=== PATIENT | female | born 1940 | race Caucasian/White ===

== ENCOUNTER 2017-11-16 10:35 | Inpatient (IN) | payer MEDICARE, BC ==
[2017-11-16] VITALS (10 sets, daily range): BP systolic 83–132; BP diastolic 37–59; PULSE 73–103; RESP 16–26; TEMP 98.9–100.4; O2SAT 89–96
[~2017-11-16] VITALS: Ht 157.5 cm; Wt 75.0 kg
[2017-11-16] MEDS ORDERED: PIPERACIL-TAZO 4.5 GM PREMIX 100 ML IV STA (10:53)
[2017-11-16] MEDS ORDERED: VANCOMYCIN INJ 1,000 MG in SODIUM CHLOR 0.9% 250 ML INJ 250 ML IV STA (10:53)
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
[2017-11-16 11:31] LABS: AUTOMATED NEUTROPHIL # 23.2 TH/MM3 (1.8-7.7); BASOPHIL # 0.1 TH/MM3 (0-0.2); BASOPHIL % 0.4 % (0.0-2.0); EOSINOPHIL % 0.1 % (0.0-4.0); HEMOGLOBIN 8.8 GM/DL (11.6-15.3); LYMPH % 2.7 % (9.0-44.0); LYMPHOCYTE # 0.7 TH/MM3 (1.0-4.8); MEAN CELL VOLUME 83.6 FL (80.0-100.0); MEAN CORPUSCULAR HEMOGLOBIN 27.4 PG (27.0-34.0); MEAN CORPUSCULAR HGB CONC 32.7 % (32.0-36.0); MEAN PLATELET VOLUME 10.5 FL (7.0-11.0); MONO % 8.3 % (0.0-8.0); MONOCYTE # 2.2 TH/MM3 (0-0.9); NEUT % 88.5 % (16.0-70.0); PLATELET COUNT 246 TH/MM3 (150-450); RED BLOOD COUNT 3.23 MIL/MM3 (4.00-5.30); RED CELL DISTRIBUTION WIDTH 19.1 % (11.6-17.2); WHITE BLOOD COUNT 26.2 TH/MM3 (4.0-11.0)
[2017-11-16 11:40] LABS: CHLORIDE 91 MEQ/L (98-107); SODIUM (NA) 129 MEQ/L (136-145)
[2017-11-16 11:44] LABS: ALBUMIN 2.9 GM/DL (3.4-5.0); BICARBONATE 27.2 MEQ/L (21.0-32.0); BLOOD UREA NITROGEN 69 MG/DL (7-18); GLUCOSE,RANDOM 79 MG/DL (74-106); MAGNESIUM 1.7 MG/DL (1.5-2.5)
[2017-11-16 11:47] LABS: ALT (GPT) 51 U/L (10-53); AST (GOT) 67 U/L (15-37); GLOMERULAR FILTRATION RATE 20 ML/MIN (>89)
--- NOTE | 2017-11-16 11:48 | RADRPT ---
EXAM DATE/TIME: 11/16/2017 11:19 [facility] COMPARISON: No previous studies available for comparison. INDICATIONS : Fever. MEDICAL HISTORY : Diabetes mellitus type II. Hypertension Afib SURGICAL HISTORY : None. ENCOUNTER: Initial ACUITY: 3 days PAIN SCORE: 0/10 LOCATION: Bilateral chest FINDINGS: No consolidation or effusion. Remote left rib fractures. Previous spinal fixation. Cardiomegaly. Tort uous aorta. No pneumothorax. CONCLUSION: 1. No acute findings. Albert Kendall MD on November 16, 2017 at 11:45 Board Certified Radiologist. This report was verified electronically.
[2017-11-16 11:49] LABS: TOTAL BILIRUBIN ADULT 0.6 MG/DL (0.2-1.0)
[2017-11-16 11:50] LABS: ALKALINE PHOSPHATASE 88 U/L (45-117)
--- NOTE | 2017-11-16 11:50 | RADRPT ---
EXAM DATE/TIME: 11/16/2017 11:19 [facility] COMPARISON: No previous studies available for comparison. INDICATIONS : Right tibia pain and swelling with drainage. MEDICAL HISTORY : Diabetes mellitus type II. Hypertension A fib SURGICAL HISTORY : None. ENCOUNTER: Initial ACUITY: 3 days PAIN SCORE: 7/10 LOCATION: Right tibia FINDINGS: No acute fracture or subluxation. Previous plate and screw fixation of the calcaneus. The focal advan marcos osteoarthritis of the medial joint. Bones are osteopenic. Vascular calcifications. CONCLUSION: 1. No acute bony abnormalities identified within the tibia. Moderate to severe osteoarthritis with me dial joint space. Fixation calcaneus with residual deformity. Albert Kendall MD on November 16, 2017 at 11:46 Board Certified Radiologist. This report was verified electronically.
[2017-11-16 11:53] LABS: LACTIC ACID SEPSIS PROTOCOL 3.6 mmol/L (0.4-2.0)
[2017-11-16] MEDS ORDERED: SODIUM CHLOR 0.9% 1000 ML INJ 1,000 ML IV ONE ×2 (12:00→12:45)
[2017-11-16 12:12] LABS: BANDS 12 % (0-6); LYMPHOCYTES 3 % (9-44); METAMYELOCYTES 1 % (0-1); MONOCYTES 4 % (0-8); NEUTROPHIL # MANUAL DIFF 24.4 TH/MM3 (1.8-7.7); POLYS (SEG NEUTROPHILS) 80 % (16-70)
[2017-11-16] MEDS ORDERED: CLINDAMYCIN INJ 900 MG in SODIUM CHLORIDE 0.9% INJ 100 ML IV STA (12:23)
[2017-11-16] MEDS ORDERED: ACETAMINOPHEN 325 MG TAB PO ONE (12:45)
[2017-11-16 12:49] LABS: INTERNATIONAL NORMALIZED RATIO 1.8 RATIO; PROTHROMBIN TIME - PATIENT 18.7 SEC (9.8-11.6)
[2017-11-16] MEDS ORDERED: SODIUM CHLOR 0.45% 1000 ML INJ 1,000 ML IV SCH (13:00)
[2017-11-16] MEDS ORDERED: PRAD75CA PO (13:08)
[2017-11-16] MEDS ORDERED: LANTUS2P (13:08)
[2017-11-16] MEDS ORDERED: AMIO0.1T PO (13:10)
[2017-11-16] MEDS ORDERED: DIGO0.12 PO (13:14)
[2017-11-16] MEDS ORDERED: CHOL10008 PO (13:14)
[2017-11-16] MEDS ORDERED: DOCU50CA5 (13:14)
[2017-11-16] MEDS ORDERED: ATOR10TA15 PO (13:14)
[2017-11-16] MEDS ORDERED: [UNRECOGNIZED DRUG - SUPPLY] (13:14)
[2017-11-16] MEDS ORDERED: LEVO25TA4 PO (13:14)
[2017-11-16] MEDS ORDERED: METF1000 PO (13:14)
[2017-11-16] MEDS ORDERED: FURO20TA PO (13:14)
[2017-11-16] MEDS ORDERED: CARV3.12 PO (13:14)
[2017-11-16] MEDS ORDERED: MORPHINE SULFATE 2 MG/ML INJ IV PUSH PRN (14:00)
--- NOTE | 2017-11-16 14:01 | HHI.HP ---
[facility] Unknown Admission Diagnosis severe sepsis, cellulitis Diagnoses: Chief Complaint: Right leg pain Travel History International Travel<30 Days: No Contact w/Intl Traveler <30 Da: No Traveled to Known Affected Are: No History of Present Illness 77-year-old white female being in for sepsis secondary to cellulitis and possible necrotizing fasciitis. Patient was in her usual state of health until about a week ago when she says she began noticing some increased swelling of her right lower extremity more than usual. This was associated with formation of some blistering and weeping. She started having pain with weightbearing yesterday and then this morning that's when she noticed a new onset redness extending from her ankle up to her knee prompting her to come to the emergency department. She does report feeling some nausea but no vomiting. She also thought she felt a fever yesterday. Does report a little cough but no shortness of breath or chest pain. She did recently go on vacation but does not think she injured herself or suffered any puncture site. Review of Systems Except as stated in HPI: all other systems reviewed are Neg Past Family Social History Past Medical History Hypertension, A. fib, diabetes Past Surgical History left tib fib repair; back surgery Allergies: Coded Allergies: No Known Allergies (Unverified , 11/16/17) Family History HTN Physical Exam Vital Signs Vital Signs Date Time Temp Pulse Resp B/P (MAP) Pulse Ox O2 Delivery O2 Flow Rate FiO2 11/16/17 11:44 95 Room Air 11/16/17 10:42 100.0 103 16 111/55 (73) 96 Physical Exam VS: afebrile GENERAL: Elderly white female, well-nourished, lying in bed, in distress secondary to pain SKIN: Warm and dry. EYES: . No scleral icterus. No injection or drainage. ENT: No nasal bleeding or discharge. Mucous membranes pink and moist. CARDIOVASCULAR: Regular rate and rhythm. no murmurs RESPIRATORY: No accessory muscle use. Clear to auscultation. Breath sounds equal bilaterally. GASTROINTESTINAL: Abdomen soft, non-tender, nondistended. Extremities: No clubbing, cyanosis. Bilateral [employer] with edema, right greater than left, only right lower extremity is significant with erythema and intermittent scarce blistering as well as some mild weeping. Has a ulcerated appearing lesion on the dorsum of the right foot as well. Has fine erythema with a fine margin that extends just distal to the knee but also has sporadic very mild scattered erythema on the thigh as well. Has more tenderness to palpation on her calf aspect of her lower extremity then on her anterior or lateral aspects. MUSCULOSKELETAL: grossly intact ROM with 5/5 strength in upper and lower extremities proximally; adequate muscle bulk and tone for age and habitus NEUROLOGICAL: Awake and alert. No obvious cranial nerve deficits. No facial droop nor slurred speech noted. PSYCHIATRIC: Appropriate mood and affect; insight and judgment normal. Laboratory Laboratory Tests Test 11/16/17 11:10 White Blood Count 26.2 Red Blood Count 3.23 Hemoglobin 8.8 Hematocrit 27.0 Mean Corpuscular Volume 83.6 Mean Corpuscular Hemoglobin 27.4 Mean Corpuscular Hemoglobin Concent 32.7 Red Cell Distribution Width 19.1 Platelet Count 246 Mean Platelet Volume 10.5 Neutrophils (%) (Auto) 88.5 Lymphocytes (%) (Auto) 2.7 Monocytes (%) (Auto) 8.3 Eosinophils (%) (Auto) 0.1 Basophils (%) (Auto) 0.4 Neutrophils # (Auto) 23.2 Lymphocytes # (Auto) 0.7 Monocytes # (Auto) 2.2 Eosinophils # (Auto) 0.0 Basophils # (Auto) 0.1 CBC Comment AUTO DIFF Differential Total Cells Counted 100 Neutrophils % (Manual) 80 Band Neutrophils % 12 Lymphocytes % 3 Monocytes % 4 Neutrophils # (Manual) 24.4 Metamyelocytes 1 Differential Comment FINAL DIFF MANUAL Platelet Estimate NORMAL Platelet Morphology Comment NORMAL Prothrombin Time 18.7 Prothromb Time International Ratio 1.8 Activated Partial Thromboplast Time 58.0 Blood Urea Nitrogen 69 Creatinine 2.40 Random Glucose 79 Total Protein 8.0 Albumin 2.9 Calcium Level 9.0 Magnesium Level 1.7 Alkaline Phosphatase 88 Aspartate Amino Transf (AST/SGOT) 67 Alanine Aminotransferase (ALT/SGPT) 51 Total Bilirubin 0.6 Sodium Level 129 Potassium Level 3.5 Chloride Level 91 Carbon Dioxide Level 27.2 Anion Gap 11 Estimat Glomerular Filtration Rate 20 Lactic Acid Level 3.6 B-Type Natriuretic Peptide 89 Date/Time Source Procedure Growth Status 11/16/17 11:15 Blood Peripheral Aerobic Blood Culture Pending Received 11/16/17 11:15 Blood Peripheral Anaerobic Blood Culture Pending Received 11/16/17 11:10 Wound Leg Gram Stain Pending Received 11/16/17 11:10 Wound Leg Wound Culture Pending Received Result Diagram: 11/16/17 1110 11/16/17 1110 Caprini VTE Risk Assessment Caprini VTE Risk Assessment: Mod/High Risk (score >= 2) Caprini Risk Assessment Model Point Value = 1 Point Value = 2 Point Value = 3 Point Value = 5 Age 41-60 Minor surgery BMI > 25 kg/m2 Swollen legs Varicose veins or History of unexplained or recurrent spontaneous Oral contraceptives or hormone replacement Sepsis (< 1 month) Serious lung disease, including pneumonia (< 1 month) Abnormal pulmonary function Acute myocardial infarction Congestive heart failure (< 1 month) History of inflammatory bowel disease Medical patient at bed rest Age 61-74 Arthroscopic surgery Major open surgery (> 45 min) Laparoscopic surgery (> 45 min) Malignancy Confined to bed (> 72 hours) Immobilizing plaster cast Central venous access Age >= 75 History of VTE Family history of VTE Factor V Leiden Prothrombin [id number] Lupus anticoagulant Anticardiolipin antibodies Elevated serum homocysteine Heparin-induced thrombocytopenia Other congenital or acquired thrombophilia Stroke (< 1 month) Elective arthroplasty Hip, pelvis, or leg fracture Acute spinal cord injury (< 1 month) Prophylaxis Regimen Total Risk Factor Score Risk Level Prophylaxis Regimen 0-1 Low Early ambulation 2 Moderate Order ONE of the following: *Sequential Compression Device (SCD) *Heparin 5000 units SQ BID 3-4 Higher Order ONE of the following medications: *Heparin 5000 units SQ TID *Enoxaparin/Lovenox 40 mg SQ daily (WT < 150 kg, CrCl > 30 mL/min) *Enoxaparin/Lovenox 30 mg SQ daily (WT < 150 kg, CrCl > 10-29 mL/min) *Enoxaparin/Lovenox 30 mg SQ BID (WT < 150 kg, CrCl > 30 mL/min) AND/OR *Sequential Compression Device (SCD) 5 or more Highest Order ONE of the following medications: *Heparin 5000 units SQ TID (Preferred with Epidurals) *Enoxaparin/Lovenox 40 mg SQ daily (WT < 150 kg, CrCl > 30 mL/min) *Enoxaparin/Lovenox 30 mg SQ daily (WT < 150 kg, CrCl > 10-29 mL/min) *Enoxaparin/Lovenox 30 mg SQ BID (WT < 150 kg, CrCl > 30 mL/min) AND *Sequential Compression Device (SCD) Assessment and Plan Assessment and Plan 77-year-old white female being admitted for sepsis secondary to cellulitis and possible necrotizing fasciitis Sepsis - significant leukocytosis; Blood cultures have been drawn, chest x-ray is negative. Obtaining stat CT of the thigh, right lower extremity and foot to evaluate for possible necrotizing fasciitis. General surgery has been notified and has been consulted, transferred to the [facility] hospital per their recommendations. Patient has been made nothing by mouth. IV antibiotics have been started. Lactic acid is elevated. - IVFs. 1.8 INR this is likely from the Pradaxa but is irreversible with vitamin K so there is no further medication reversal that we can order for this in case surgery is warranted. Holding home pradaxa Afib/CHF/HTN - Holding home Pradaxa and digoxin, will only resume home Coreg, amiodarone. - Continue home Lipitor LEWIS - Strict holding home metformin and digoxin, continue home low-dose Lasix 20 mg twice a day as we are aggressively hydrating the patient and do not want to cause fluid overload Hypothyroidism - home Synthroid Anemia - unclear baseline DM - LDSS SCD on left foot; anticipate possible surgical procedure. Addendum: Was notified by Dr. Arteaga that the patient did symptomatically and transiently become hypoglycemic into the 40s and hypotension into the 80s just coming back from her CT scan ; she was given dextrose with improvement in both her sugars and her blood pressure. She also notified me again later on that the patient was becoming low normal-tensive as she was being transferred to the [facility] hospital and agree that she will consult the tetryl wringer operator to take over care. Physician Certification 2 Midnight Certification Type: Admission for Inpatient Services Order for Inpatient Services The services are ordered in accordance with Medicare regulations or non- Medicare payer requirements, as applicable. In the case of services not specified as inpatient-only, they are appropriately provided as inpatient services in accordance with the 2-midnight benchmark. Estimated LOS (days): 3 3 days is the estimated time the patient will need to remain in the hospital, assuming treatment plan goals are met and no additional complications. Post-Hospital Plan: Home Ryan Sosa MD Nov 16, 2017 14:01
[2017-11-16] MEDS ORDERED: GLUCAGON 1 MG/ML VIAL OTHER PRN (14:15)
[2017-11-16] MEDS ORDERED: DEXTROSE 50% IN WATER 50 ML VIAL(D50) IV PUSH PRN (14:15)
[2017-11-16 14:18] LABS: BILIRUBIN, URINE NEG (NEG); BLOOD, URINE TRACE (NEG); GLUCOSE,URINE NEG (NEG); KETONE, URINE NEG (NEG); NITRITE,URINE POS (NEG); URINE LEUKOCYTE ESTERASE SMALL (NEG)
[2017-11-16 14:25] LABS: BACTERIA, URINE MANY /hpf; RBC, URINE 0-3 /hpf (0-3); SQUAMOUS EPITHELIAL CELL URINE > 8 /hpf (0-5); URINE COLOR YELLOW (YELLW/STRAW)
[2017-11-16] MEDS ORDERED: Vancomycin Consult Pharmacy 1 EA OTHER SCH (14:30)
[2017-11-16] MEDS ORDERED: DEXTROSE 50% IN WATER 50 ML SYRINGE IV PUSH ONE (14:45)
[2017-11-16] MEDS ORDERED: SODIUM CHLORID 0.9% 500 ML INJ 500 ML IV ONE ×2 (15:00→16:00)
[2017-11-16] MEDS: PIPERACIL-TAZO 3.375 GM PREMIX 50 ML IV SCH ×2 (15:00→20:56)
--- NOTE | 2017-11-16 15:15 | RADRPT ---
EXAM DATE/TIME: 11/16/2017 14:12 [facility] COMPARISON: No previous studies available for comparison. INDICATIONS : Necrotizing fascitis. RADIATION DOSE: 17.32 CTDIvol (mGy) ; Combined studies MEDICAL HISTORY : Cardiovascular disease. Hypertension. Diabetes. SURGICAL HISTORY : Coronary artery stent. Appendectomy. Right foot surgery. Left femur surgery. ENCOUNTER: Initial ACUITY: 3 days PAIN SCALE: 8/10 LOCATION: Right femur TECHNIQUE: Volumetric scanning of the femur was performed. Using automated exposure control and adjustment of t he mA and/or kV according to patient size, radiation dose was kept as low as reasonably achievable to obtain optimal diagnostic quality images. DICOM format image data is available electronically for review and comparison. FINDINGS: There are extensive inflammatory or edematous changes in the soft tissues of the lower lateral right thigh and also extending posteriorly and to a lesser extent medially. These changes are predominantly outside the fascial layer. There are no discrete or drainable fluid collections to suggest abscess. No loculated air collections are present. There is extensive atherosclerotic vascular disease. CONCLUSION: 1. Extensive edema and inflammatory changes with skin thickening in the thigh especially laterally an d posteriorly but also extending medially. No definite loculated abscess. Musculature grossly intact. No abnormal loculated air. No bony destructive changes. Moderate to severe osteoarthritis at [facility] [place] [facility]. Albert Kendall MD on November 16, 2017 at 15:05 Board Certified Radiologist. This report was verified electronically.
[2017-11-16] MEDS ORDERED: DEXTROSE 50% IN WATER 50 ML VIAL(D50) IV PUSH ONE (16:00)
--- NOTE | 2017-11-16 16:04 | RADRPT ---
EXAM DATE/TIME: 11/16/2017 14:12 [facility] COMPARISON: No previous studies available for comparison. INDICATIONS : Necrotizing fascitis. RADIATION DOSE: 17.32 CTDIvol (mGy) ; Combined studies MEDICAL HISTORY : Cardiovascular disease. Hypertension. Diabetes. SURGICAL HISTORY : Appendectomy. Coronary artery stent. Right foot surgery. Left femur surgery. ENCOUNTER: Initial ACUITY: 3 days PAIN SCALE: 8/10 LOCATION: Right lower leg TECHNIQUE: Volumetric scanning of the tibia and fibula was performed. Using automated exposure control and adju stment of the mA and/or kV according to patient size, radiation dose was kept as low as reasonably ac hievable to obtain optimal diagnostic quality images. DICOM format image data is available [facility] for review and comparison. FINDINGS: There is extensive subcutaneous edema in the lower thigh and leg predominately outside the fascial la woodrow. No loculated fluid to suggest abscess. No abnormal air collections. Extensive atherosclerotic va scular disease. No acute bony abnormality. Previous fixation at the calcaneus and talus. CONCLUSION: 1. Extensive subcutaneous edema or inflammatory change predominantly outside the fascial layer. No ab normal air collections to suggest a necrotizing process. No drainable abscess. Albert Kendall MD on November 16, 2017 at 15:58 Board Certified Radiologist. This report was verified electronically.
--- NOTE | 2017-11-16 16:06 | RADRPT ---
EXAM DATE/TIME: 11/16/2017 14:12 [facility] COMPARISON: No previous studies available for comparison. INDICATIONS : Necrotizing fascitis. RADIATION DOSE: 17.32 CTDIvol (mGy) ; Combined studies MEDICAL HISTORY : Cardiovascular disease. Hypertension. Diabetes. SURGICAL HISTORY : Coronary artery stent. Appendectomy. Right foot surgery. Left femur surgery. ENCOUNTER: Initial ACUITY: 3 days PAIN SCALE: 8/10 LOCATION: Right foot TECHNIQUE: Volumetric scanning of the foot was performed. Using automated exposure control and adjustment of th e mA and/or kV according to patient size, radiation dose was kept as low as reasonably achievable to obtain optimal diagnostic quality images. DICOM format image data is available electronically for re view and comparison. FINDINGS: His previous fixation of the calcaneus and talus extending into the cuboid. Residual deformity with p es planus. Osteopenia. Extensive subcutaneous edema is present. No loculated fluid to suggest abscess . No bony destructive changes. No abnormal air collections. CONCLUSION: 1. Subcutaneous soft tissue swelling and edema. No abnormal air collections. No bony destructive zarco ges. Previous surgery as above. Albert Kendall MD on November 16, 2017 at 16:02 Board Certified Radiologist. This report was verified electronically.
--- NOTE | 2017-11-16 16:11 | RADRPT ---
EXAM DATE/TIME: 11/16/2017 15:26 [facility] COMPARISON: CHEST SINGLE AP, November 16, 2017, 11:19. INDICATIONS : Sudden onset of shortness of breath. Oxygen saturations decrease. MEDICAL HISTORY : Diabetes mellitus type II. Hypertension. Afib. SURGICAL HISTORY : None. ENCOUNTER: Subsequent ACUITY: 1 day PAIN SCORE: 0/10 LOCATION: Bilateral chest FINDINGS: Diffuse interstitial prominence progressed since prior exam. Cardiomediastinal contours are stable. T horacic spine fixation hardware is stable. Old bilateral rib fractures. Bony thorax is intact. CONCLUSION: 1. Worsening diffuse interstitial prominence consistent with positive fluid balance versus interstiti al pneumonia in the appropriate clinical setting. Cristiano Gaviria MD on November 16, 2017 at 16:07 Board Certified Radiologist. This report was verified electronically.
--- NOTE | 2017-11-16 16:16 | PD.CONS ---
cc: Albert Bains MD [facility] Service CONSULTATION NOTE FOR SURGICAL ATTENDING, DR. ALBERT BAINS General Surgery Consult Requested By Dr. Gee Reason for Consult RIGHT leg cellulitis vs abscess and possible necrotizing fasciitis Primary Care Physician Unknown History of Present Illness This is a 77-year-old female on vacation from [facility] who presents to the Emergency Room with right leg pain. She has a past medical history of diabetes mellitus and takes insulin, anemia. atrial fibrillation on Pradaxa and hypertension. She reports that she noticed some redness to her right leg about 2 weeks ago. Over the past 2 weeks, she has noted some increase in swelling to this extremity. She reports she did not have pain in her leg until today. She is unable to bear weight on this extremity. She denies any trauma to the area including bug bites or cuts. She denies any falls. She has never had anything like this before. She reports that her sugars have been well controlled over the last few months. This morning she awoke, and had some coffee and her insulin. She took her medications like normal this morning which does include Pradaxa. When she noticed that she could not bear weight on the leg and prompted her to come to the Emergency Department. Her white blood cell count is elevated at 26.2. Her hemoglobin is low at 8.8 and she reports she is chronically anemic but unsure of her baseline. Her PT on admission is 18.7; INR 1.8; PTT 58.0. She is hyponatremic at 129. Her BUN/creatinine are elevated at 69 and 2.40 respectively. She is unsure of her baseline kidney function. She does have an elevated lactic acid 3.6. A CT of her right femur and tibia/fibula was ordered. When she came back to her room in the Emergency Department from [place], she was found to have altered mental status, hypotension and hypoxia; her glucose was 40 on bedside fingerstick. She was given 1 amp of glucose and a 1 L normal saline bolus with improvement in her neurological status, oxygen saturations and blood pressure as well as her glucose. A General Surgery consultation has been requested. Review of Systems Constitutional: DENIES: Fatigue, Weight loss, Change in appetite Endocrine: DENIES: Polydipsia, Polyuria, Polyphagia Eyes: DENIES: Diplopia Ears, nose, mouth, throat: DENIES: Hearing loss Respiratory: DENIES: Cough Cardiovascular: DENIES: Chest pain, Palpitations Gastrointestinal: DENIES: Abdominal pain, Nausea, Vomiting Genitourinary: DENIES: Urinary frequency Musculoskeletal: DENIES: Joint pain Integumentary: COMPLAINS OF: Abnormal pigmentation (RIGHT LEG ---began two weeks ago) Hematologic/lymphatic: DENIES: Bruising Immunologic/allergic: DENIES: Eczema Neurologic: DENIES: Headache, Seizures Psychiatric: DENIES: Mood changes, Depression, Hallucinations Past Family Social History Past Medical History Hypertension Diabetes mellitus--- insulin-dependent next line atrial fibrillation on Pradaxa Anemia Past Surgical History Appendectomy as a young adult Reported Medications Pradaxa Amiodarone Digoxin Atorvastain Carvedilol Furosemide Colace Metformin Lantus Levothyroxine Vitamin D Allergies: Coded Allergies: No Known Allergies (Unverified , 11/16/17) Active Ordered Medications Current Medications Medications (Trade) Dose Ordered Sig/Jay Route Start Time Stop Time Status Last Admin Sodium Chloride 1,000 ml @ 75 mls/hr [id number] IV 11/16/17 13:00 (Morphine Inj) 2 mg Q3H PRN IV PUSH 11/16/17 14:00 (D50w (Vial) Inj) 50 ml UNSCH PRN IV PUSH 11/16/17 14:15 (Glucagon Inj) 1 mg UNSCH PRN OTHER 11/16/17 14:15 (NovoLIN R SUPPLEMENTAL SCALE) 1 ACHS SLIDING SCALE SQ 11/16/17 17:00 Pharmacy Profile Note 0 ml @ 0 mls/hr UNSCH OTHER 11/16/17 14:30 Piperacillin Sod/ Tazobactam Sod 50 ml @ 100 mls/hr Q6H IV 11/16/17 15:00 Sodium Chloride 500 ml @ 500 mls/hr BOLUS ONCE IV 11/16/17 15:00 11/16/17 15:59 11/16/17 15:34 Family History Noncontributory Social History Denies tobacco use Denies EtOH use Denies illicit drug use From [place] Her in [place] on vacation. Physical Exam Vital Signs Vital Signs Date Time Temp Pulse Resp B/P (MAP) Pulse Ox O2 Delivery O2 Flow Rate FiO2 11/16/17 15:30 97 16 108/56 (73) 96 Nasal Cannula 2.00 11/16/17 15:19 97 16 90/37 (54) 95 Nasal Cannula 2.00 11/16/17 14:54 93 Nasal Cannula 2.00 11/16/17 14:54 98.9 94 20 83/39 (54) 95 Nasal Cannula 2.00 11/16/17 14:50 89 Room Air 11/16/17 14:06 73 20 118/54 (75) 95 Room Air 11/16/17 11:44 95 Room Air 11/16/17 10:42 100.0 103 16 111/55 (73) 96 Physical Exam GENERAL: 77 year old female resting in bed. SKIN: Focused exam on RIGHT leg: extreme redness to RIGHT leg distal to knee. Mild weeping to area. + edema/shiny. Calf is tight. Some pus drainage to a small opening on dorsalis on RIGHT foot--minimal. Pain with palpation distal to knee. Two small closed blisters on posterior aspect of hurtado. Markings made my RN noted. HEAD: Atraumatic. Normocephalic. EYES: Pupils equal and round. No scleral icterus. No injection or drainage. ENT: No nasal bleeding or discharge. Mucous membranes pink and moist. NECK: Trachea midline. CARDIOVASCULAR: Regular rate and rhythm. RESPIRATORY: No accessory muscle use. Clear to auscultation. Breath sounds equal bilaterally. GASTROINTESTINAL: Abdomen soft, non-tender, nondistended. Obese. MUSCULOSKELETAL: Please see above for RIGHT leg assessment. NEUROLOGICAL: Awake and alert. No obvious cranial nerve deficits. Motor grossly within normal limits. Five out of 5 muscle strength in the arms and legs. Normal speech. PSYCHIATRIC: Appropriate mood and affect; insight and judgment normal. Laboratory Laboratory Tests Test 11/16/17 11:10 11/16/17 13:45 White Blood Count 26.2 Red Blood Count 3.23 Hemoglobin 8.8 Hematocrit 27.0 Mean Corpuscular Volume 83.6 Mean Corpuscular Hemoglobin 27.4 Mean Corpuscular Hemoglobin Concent 32.7 Red Cell Distribution Width 19.1 Platelet Count 246 Mean Platelet Volume 10.5 Neutrophils (%) (Auto) 88.5 Lymphocytes (%) (Auto) 2.7 Monocytes (%) (Auto) 8.3 Eosinophils (%) (Auto) 0.1 Basophils (%) (Auto) 0.4 Neutrophils # (Auto) 23.2 Lymphocytes # (Auto) 0.7 Monocytes # (Auto) 2.2 Eosinophils # (Auto) 0.0 Basophils # (Auto) 0.1 CBC Comment AUTO DIFF Differential Total Cells Counted 100 Neutrophils % (Manual) 80 Band Neutrophils % 12 Lymphocytes % 3 Monocytes % 4 Neutrophils # (Manual) 24.4 Metamyelocytes 1 Differential Comment FINAL DIFF MANUAL Platelet Estimate NORMAL Platelet Morphology Comment NORMAL Prothrombin Time 18.7 Prothromb Time International Ratio 1.8 Activated Partial Thromboplast Time 58.0 Blood Urea Nitrogen 69 Creatinine 2.40 Random Glucose 79 Total Protein 8.0 Albumin 2.9 Calcium Level 9.0 Magnesium Level 1.7 Alkaline Phosphatase 88 Aspartate Amino Transf (AST/SGOT) 67 Alanine Aminotransferase (ALT/SGPT) 51 Total Bilirubin 0.6 Sodium Level 129 Potassium Level 3.5 Chloride Level 91 Carbon Dioxide Level 27.2 Anion Gap 11 Estimat Glomerular Filtration Rate 20 Lactic Acid Level 3.6 3.7 B-Type Natriuretic Peptide 89 Urine Collection Type CLEAN CATCH Urine Color YELLOW Urine Turbidity SLIGHT Urine pH 5.0 Urine Specific [place] 1.014 Urine Protein TRACE Urine Glucose (UA) NEG Urine Ketones NEG Urine Occult Blood TRACE Urine Nitrite POS Urine Bilirubin NEG Urine Leukocyte Esterase SMALL Urine RBC 0-3 Urine WBC 9-14 Urine Squamous Epithelial Cells > 8 Urine Bacteria MANY Microscopic Urinalysis Comment CULTURE INDICATED Urine Collection Time 13:45 Date/Time Source Procedure Growth Status 11/16/17 11:15 Blood Peripheral Aerobic Blood Culture Pending Received 11/16/17 11:15 Blood Peripheral Anaerobic Blood Culture Pending Received 11/16/17 13:45 Urine Clean Catch Urine Culture Pending Received 11/16/17 11:10 Wound Leg Gram Stain Pending Received 11/16/17 11:10 Wound Leg Wound Culture Pending Received Result Diagram: 11/16/17 1110 11/16/17 1110 Imaging Last 48 hours Impressions Lower Extremity CT 11/16/17 1344 Signed Impressions: Service Date/Time: Thursday, November 16, 2017 14:12 - CONCLUSION: 1. Extensive edema and inflammatory changes with skin thickening in the thigh especially laterally and posteriorly but also extending medially. No definite loculated abscess. Musculature grossly intact. No abnormal loculated air. No bony destructive changes. Moderate to severe osteoarthritis at the knee. Albert Kendall MD Chest X-Ray 11/16/17 1053 Signed Impressions: Service Date/Time: Thursday, November 16, 2017 11:19 - CONCLUSION: 1. No acute findings. Albert Kendall MD Tibia/Fibula X-Ray 11/16/17 0000 Signed Impressions: Service Date/Time: Thursday, November 16, 2017 11:19 - CONCLUSION: 1. No acute bony abnormalities identified within the tibia. Moderate to severe osteoarthritis with medial joint space. Fixation calcaneus with residual deformity. Albert Kendall MD Assessment and Plan Assessment and Plan 77 year old female with multiple medical problems including atrial fibrillation on Pradaxa (last took today) with RIGHT leg cellulites vs abscess -Plan for transfer to [facility] for possible OR intervention -NPO -Continue IVF -Continue Vancomycin/Zosyn -Follow cultures including blood cultures and urine cultures -Continue to follow labs -Will follow up results of CT scans -Thank you for this consult; We will continue to follow Discussed Condition With Dr. Nara Chacko Attending Statement CONSULTATION NOTE FOR SURGICAL ATTENDING, DR. ALBERT BAINS Patient seen at the bedside in the intensive care unit Reviewed the CT scan of the lower extremity at bedside Nursing at bedside Erythema that had been previously marked earlier today appears to be resolved. She still has some edema on the lower extremity no evidence of air she does have some small blisters. She has mild discomfort in the right lower extremity Overall appears that a few doses of antibiotics have had dramatic effect on the cellulitis that is present. I agree with above assessment and plan. The exam, history, and the medical decision-making described in the above note were completed with the assistance of the mid-level provider. I reviewed and agree with the findings presented. I attest that I had a [id number] encounter with the patient on the same day, and personally performed and documented my assessment and findings in the medical record. The following services were provided during this hospital visit: Chart data review, vital sign assessments/reviewing monitor data Review of consultations notes if present. Medication orders/review and/or management Ordering and/or reviewing lab tests Ordering and/or interpreting/reviewing x-rays and/or diagnostic studies Care of the patient and discussion of the patient with the care team Documentation time To help prompt me to consider important information that might be impacting today's encounter and assessment, information from prior notes written by myself or my colleagues may have been "brought forward/copy and pasted" into today's note. Pia Richards Nov 16, 2017 16:16 Albert Bains MD Nov 16, 2017 19:29
[2017-11-16] MEDS ORDERED: DEXT 5%-NACL 0.45% 1000 ML INJ 1,000 ML IV SCH (16:30)
[2017-11-16] MEDS: INSULIN NovoLIN REGULAR SUPPLEMENTAL SCALE SQ SCH ×2 (17:00→20:56)
--- NOTE | 2017-11-16 19:54 | PD.CONS ---
[facility] Service Critical Care Medicine Consult Requested By Primary Care Physician Unknown History of Present Illness 77-year-old white female with a history of atrial fibrillation, diabetes, and hypertension has been admitted for sepsis secondary to cellulitis and possible necrotizing fasciitis. About a week ago she began noticing some increased swelling of her right lower extremity more than usual. This was associated with formation of some blistering and weeping. She started having pain with weightbearing yesterday and then this morning that's she noticed a new onset redness extending from her ankle up to her knee prompting her to come to the emergency department. She does report feeling some nausea but no vomiting. She also admits some subjective fevers yesterday. Review of Systems Constitutional: COMPLAINS OF: Fatigue, Fever, Chills, DENIES: Diaphoretic episodes, Weight gain, Weight loss, Dizziness, Change in appetite, Night Sweats Endocrine: DENIES: Abnorml menstrual pattern, Heat/cold intolerance, Polydipsia , Polyuria, Polyphagia Eyes: DENIES: Blurred vision, Diplopia, Eye inflammation, Eye pain, Vision loss , Photosensitivity, Double Vision Ears, nose, mouth, throat: DENIES: Tinnitus, Hearing loss, Vertigo, Nasal discharge, Oral lesions, Throat pain, Hoarseness, Ear Pain, Running Nose, Epistaxis, Sinus Pain, Toothache, Odynophagia Respiratory: DENIES: Apneas, Cough, Snoring, Wheezing, Hemoptysis, Sputum production, Shortness of breath Cardiovascular: DENIES: Chest pain, Palpitations, Syncope, Dyspnea on Exertion , PND, Lower Extremity Edema, Orthopnea, Claudication Gastrointestinal: DENIES: Abdominal pain, Black stools, Bloody stools, Constipation, Diarrhea, Nausea, Vomiting, Difficulty Swallowing, Anorexia Musculoskeletal: COMPLAINS OF: Joint pain, Muscle aches, Stiffness, Joint Swelling, DENIES: Back pain, Neck pain Integumentary: DENIES: Abnormal pigmentation, Pruritus, Rash, Nail changes, Breast masses, Breast skin changes, Nipple discharge Hematologic/lymphatic: DENIES: Bruising, Lymphadenopathy Immunologic/allergic: DENIES: Eczema, Urticaria Neurologic: COMPLAINS OF: Abnormal gait, DENIES: Headache, Localized weakness, Paresthesias, Seizures, Speech Problems, Tremor, Poor Balance Psychiatric: DENIES: Anxiety, Confusion, Mood changes, Depression, Hallucinations, Agitation, Suicidal Ideation, Homicidal Ideation, Delusions Past Family Social History Allergies: Coded Allergies: No Known Allergies (Unverified , 11/16/17) Past Medical History Hypertension Diabetes mellitus Atrial fibrillation Hypothyroidism Past Surgical History Left tib-fib fracture repair Back surgery Reported Medications Reported Meds & Active Scripts Active Reported [Freestyle Strips] Metformin (Metformin HCl) 1,000 Mg Tab Unknown Dose PO BIDPC Vitamin D3 (Cholecalciferol) 1,000 Unit Cap Unknown Dose PO DAILY Levothyroxine (Levothyroxine Sodium) 25 Mcg Tab Unknown Dose PO DAILY Digoxin 0.125 Mg Tab Unknown Dose PO DAILY Stool Softener (Docusate Sodium) 50 Mg Capsule Unknown Dose Atorvastatin (Atorvastatin Calcium) 10 Mg Tab Unknown Dose PO HS Carvedilol 3.125 Mg Tab Unknown Dose PO BID Furosemide 20 Mg Tab Unknown Dose PO BID Amiodarone (Amiodarone HCl) 100 Mg Tab Unknown Dose PO BID Pradaxa (Dabigatran) 75 Mg Cap Unknown Dose PO BID Lantus Inj (Insulin Glargine) 100 Unit/Ml Inj 32 Units DAILY Active Ordered Medications Current Medications Medications (Trade) Dose Ordered Sig/Jay Route PRN Reason Start Time Stop Time Status Last Admin Dose Admin Morphine Sulfate (Morphine Inj) 2 mg Q3H PRN IV PUSH pain 11/16/17 14:00 Dextrose (D50w (Vial) Inj) 50 ml UNSCH PRN IV PUSH HYPOGLYCEMIA-SEE COMMENTS 11/16/17 14:15 Glucagon (Glucagon Inj) 1 mg UNSCH PRN OTHER HYPOGLYCEMIA-SEE COMMENTS 11/16/17 14:15 Insulin Human Regular (NovoLIN R SUPPLEMENTAL SCALE) 1 ACHS SLIDING SCALE SQ 11/16/17 17:00 Pharmacy Profile Note 0 ml @ 0 mls/hr UNSCH OTHER 11/16/17 14:30 Piperacillin Sod/ Tazobactam Sod 50 ml @ 100 mls/hr Q6H IV 11/16/17 15:00 11/16/17 20:56 Dextrose/Sodium Chloride 1,000 ml @ 100 mls/hr Q10H IV 11/16/17 16:30 11/16/17 19:23 Amiodarone HCl (Cordarone) 100 mg BID PO 11/16/17 21:00 11/16/17 20:55 Atorvastatin Calcium (Lipitor) 10 mg HS PO 11/16/17 21:00 11/16/17 20:55 Carvedilol (Coreg) 3.125 mg BID PO 11/16/17 21:00 11/16/17 20:55 Cholecalciferol (Vitamin D3) 1,000 units DAILY PO 11/17/17 09:00 Furosemide (Lasix) 20 mg DAILY@0900,1800 PO 11/16/17 18:00 11/16/17 20:55 Levothyroxine Sodium (Synthroid) 25 mcg DAILY@0600 PO 11/17/17 06:00 Family History Significant for hypertension Social History No alcohol, tobacco, or illicit drug abuse Physical Exam Vital Signs Vital Signs Date Time Temp Pulse Resp B/P (MAP) Pulse Ox O2 Delivery O2 Flow Rate FiO2 11/16/17 16:16 11/16/17 16:15 86 16 102/44 (63) 95 Nasal Cannula 2.00 11/16/17 15:30 97 16 108/56 (73) 96 Nasal Cannula 2.00 11/16/17 15:19 97 16 90/37 (54) 95 Nasal Cannula 2.00 11/16/17 14:54 93 Nasal Cannula 2.00 11/16/17 14:54 98.9 94 20 83/39 (54) 95 Nasal Cannula 2.00 11/16/17 14:50 89 Room Air 11/16/17 14:06 73 20 118/54 (75) 95 Room Air 11/16/17 11:44 95 Room Air 11/16/17 10:42 100.0 103 16 111/55 (73) 96 Physical Exam GENERAL: Well-nourished, well-developed patient. SKIN: Warm and dry. HEAD: Normocephalic. EYES: No scleral icterus. No injection or drainage. NECK: Supple, trachea midline. No JVD or lymphadenopathy. CARDIOVASCULAR: Regular rate and rhythm without murmurs, gallops, or rubs. RESPIRATORY: Breath sounds equal bilaterally. No accessory muscle use. GASTROINTESTINAL: Abdomen soft, non-tender, nondistended. MUSCULOSKELETAL: No cyanosis,RIGHT leg: redness to right leg distal to knee. Mild weeping to area. + edema/shiny. Calf is tight. Some pus drainage to a small opening on dorsalis on right foot. Pain with palpation distal to knee. Two small closed blisters on posterior aspect of hurtado. BACK: Nontender without obvious deformity. NEURO EXAM: GCS: 15 Mental Status: The patient is alert and oriented to person, place, and time with normal speech. Laboratory Laboratory Tests Test 11/16/17 11:10 11/16/17 13:45 White Blood Count 26.2 Red Blood Count 3.23 Hemoglobin 8.8 Hematocrit 27.0 Mean Corpuscular Volume 83.6 Mean Corpuscular Hemoglobin 27.4 Mean Corpuscular Hemoglobin Concent 32.7 Red Cell Distribution Width 19.1 Platelet Count 246 Mean Platelet Volume 10.5 Neutrophils (%) (Auto) 88.5 Lymphocytes (%) (Auto) 2.7 Monocytes (%) (Auto) 8.3 Eosinophils (%) (Auto) 0.1 Basophils (%) (Auto) 0.4 Neutrophils # (Auto) 23.2 Lymphocytes # (Auto) 0.7 Monocytes # (Auto) 2.2 Eosinophils # (Auto) 0.0 Basophils # (Auto) 0.1 CBC Comment AUTO DIFF Differential Total Cells Counted 100 Neutrophils % (Manual) 80 Band Neutrophils % 12 Lymphocytes % 3 Monocytes % 4 Neutrophils # (Manual) 24.4 Metamyelocytes 1 Differential Comment FINAL DIFF MANUAL Platelet Estimate NORMAL Platelet Morphology Comment NORMAL Prothrombin Time 18.7 Prothromb Time International Ratio 1.8 Activated Partial Thromboplast Time 58.0 Blood Urea Nitrogen 69 Creatinine 2.40 Random Glucose 79 Total Protein 8.0 Albumin 2.9 Calcium Level 9.0 Magnesium Level 1.7 Alkaline Phosphatase 88 Aspartate Amino Transf (AST/SGOT) 67 Alanine Aminotransferase (ALT/SGPT) 51 Total Bilirubin 0.6 Sodium Level 129 Potassium Level 3.5 Chloride Level 91 Carbon Dioxide Level 27.2 Anion Gap 11 Estimat Glomerular Filtration Rate 20 Lactic Acid Level 3.6 3.7 Iron Level 15 B-Type Natriuretic Peptide 89 Urine Collection Type CLEAN CATCH Urine Color YELLOW Urine Turbidity SLIGHT Urine pH 5.0 Urine Specific [place] 1.014 Urine Protein TRACE Urine Glucose (UA) NEG Urine Ketones NEG Urine Occult Blood TRACE Urine Nitrite POS Urine Bilirubin NEG Urine Leukocyte Esterase SMALL Urine RBC 0-3 Urine WBC 9-14 Urine Squamous Epithelial Cells > 8 Urine Bacteria MANY Microscopic Urinalysis Comment CULTURE INDICATED Urine Collection Time 13:45 Date/Time Source Procedure Growth Status 11/16/17 11:15 Blood Peripheral Aerobic Blood Culture Pending Received 11/16/17 11:15 Blood Peripheral Anaerobic Blood Culture Pending Received 11/16/17 13:45 Urine Clean Catch Urine Culture Pending Received 11/16/17 11:10 Wound Leg Gram Stain Pending Received 11/16/17 11:10 Wound Leg Wound Culture Pending Received Result Diagram: 11/16/17 1110 11/16/17 1110 Imaging Last 24 hours Impressions Lower Extremity CT 11/16/17 1344 Signed Impressions: Service Date/Time: Thursday, November 16, 2017 14:12 - CONCLUSION: 1. Extensive edema and inflammatory changes with skin thickening in the thigh especially laterally and posteriorly but also extending medially. No definite loculated abscess. Musculature grossly intact. No abnormal loculated air. No bony destructive changes. Moderate to severe osteoarthritis at the knee. Albert Kendall MD Chest X-Ray 11/16/17 1053 Signed Impressions: Service Date/Time: Thursday, November 16, 2017 11:19 - CONCLUSION: 1. No acute findings. Albert Kendall MD Septic Shock Reassessment Septic shock perfusion: reassessment completed Assessment and Plan Assessment and Plan Cellulitis of right lower extremity - Vancomycin, Zosyn, clindamycin - Follow blood culture - Neurosurgery consulted for possible necrotizing fasciitis - CT scan doesn't show an abscess or free air - Pain control Diabetes mellitus - Hold metformin while in the ICU - Insulin sliding scale - Resume Lantus tomorrow Hypertension - Coreg - Hold Lasix due to acute kidney injury Acute renal failure - Hold diuretics - IV fluids resuscitation - Monitor creatinine and urine output Hypothyroidism - Levothyroxine Atrial fibrillation - Amiodarone - Coreg - Digoxin - Resume paradox-no surgical intervention planned DVT GI prophylaxis - Teds SCDs on unaffected leg - Subcutaneous heparin - 1999 ADA diet Critical Care: The total critical care time was 35 minutes. Time to perform other separately billable procedures was not included in the critical care time. Ildefonso Lockhart MD Nov 16, 2017 19:54
[2017-11-16] MEDS: CARVEDILOL 3.125 MG TAB PO SCH (20:55)
[2017-11-16] MEDS: FUROSEMIDE 20 MG TAB PO SCH (20:55)
[2017-11-16] MEDS: AMIODARONE 200 MG TAB PO SCH (20:55)
[2017-11-16] MEDS: ATORVASTATIN 10 MG TAB PO SCH (20:55)
[2017-11-17] VITALS (17 sets, daily range): BP systolic 107–153; BP diastolic 49–120; PULSE 78–100; RESP 25–41; TEMP 98.4–101.3; O2SAT 93–97
[2017-11-17] MEDS: PIPERACIL-TAZO 3.375 GM PREMIX 50 ML IV SCH ×4 (02:16→20:48)
[2017-11-17] MEDS: SODIUM CHLOR 0.9% 1000 ML INJ 1,000 ML IV SCH ×3 (02:16→20:47)
[2017-11-17] MEDS: LEVOTHYROXINE SODIUM 25 MCG TAB PO SCH (06:53)
[2017-11-17] MEDS: HEPARIN SODIUM - SQ 10,000 UNITS/ML VIAL SQ SCH ×3 (06:53→20:48)
[2017-11-17] MEDS: INSULIN NovoLIN REGULAR SUPPLEMENTAL SCALE SQ SCH ×4 (08:00→20:48)
[2017-11-17] MEDS: CARVEDILOL 3.125 MG TAB PO SCH ×2 (08:24→20:48)
[2017-11-17] MEDS: AMIODARONE 200 MG TAB PO SCH ×2 (08:24→20:48)
[2017-11-17] MEDS: CHOLECALCIFEROL (VIT D3) 1000 UNIT TAB PO SCH (08:24)
[2017-11-17] MEDS: FUROSEMIDE 20 MG TAB PO SCH ×2 (08:26→17:25)
--- NOTE | 2017-11-17 08:28 | HHI.PR ---
cc: Christina Eddy MD Subjective Subjective Notes DAILY PROGRESS NOTE FOR SURGICAL ATTENDING, DR. CHRISTINA EDDY Patient had a good night sleeping She thinks her leg is better Objective Vitals/I&O Vital Signs Date Time Temp Pulse Resp B/P (MAP) Pulse Ox O2 Delivery O2 Flow Rate FiO2 11/17/17 04:00 100.8 99 27 143/63 (89) 96 11/16/17 16:15 Nasal Cannula 2.00 Labs Laboratory Tests Test 11/16/17 11:10 11/16/17 13:45 White Blood Count 26.2 Red Blood Count 3.23 Hemoglobin 8.8 Hematocrit 27.0 Mean Corpuscular Volume 83.6 Mean Corpuscular Hemoglobin 27.4 Mean Corpuscular Hemoglobin Concent 32.7 Red Cell Distribution Width 19.1 Platelet Count 246 Mean Platelet Volume 10.5 Neutrophils (%) (Auto) 88.5 Lymphocytes (%) (Auto) 2.7 Monocytes (%) (Auto) 8.3 Eosinophils (%) (Auto) 0.1 Basophils (%) (Auto) 0.4 Neutrophils # (Auto) 23.2 Lymphocytes # (Auto) 0.7 Monocytes # (Auto) 2.2 Eosinophils # (Auto) 0.0 Basophils # (Auto) 0.1 CBC Comment AUTO DIFF Differential Total Cells Counted 100 Neutrophils % (Manual) 80 Band Neutrophils % 12 Lymphocytes % 3 Monocytes % 4 Neutrophils # (Manual) 24.4 Metamyelocytes 1 Differential Comment FINAL DIFF MANUAL Platelet Estimate NORMAL Platelet Morphology Comment NORMAL Prothrombin Time 18.7 Prothromb Time International Ratio 1.8 Activated Partial Thromboplast Time 58.0 Blood Urea Nitrogen 69 Creatinine 2.40 Random Glucose 79 Total Protein 8.0 Albumin 2.9 Calcium Level 9.0 Magnesium Level 1.7 Alkaline Phosphatase 88 Aspartate Amino Transf (AST/SGOT) 67 Alanine Aminotransferase (ALT/SGPT) 51 Total Bilirubin 0.6 Sodium Level 129 Potassium Level 3.5 Chloride Level 91 Carbon Dioxide Level 27.2 Anion Gap 11 Estimat Glomerular Filtration Rate 20 Lactic Acid Level 3.6 3.7 Iron Level 15 B-Type Natriuretic Peptide 89 Urine Collection Type CLEAN CATCH Urine Color YELLOW Urine Turbidity SLIGHT Urine pH 5.0 Urine Specific [place] 1.014 Urine Protein TRACE Urine Glucose (UA) NEG Urine Ketones NEG Urine Occult Blood TRACE Urine Nitrite POS Urine Bilirubin NEG Urine Leukocyte Esterase SMALL Urine RBC 0-3 Urine WBC 9-14 Urine Squamous Epithelial Cells > 8 Urine Bacteria MANY Microscopic Urinalysis Comment CULTURE INDICATED Urine Collection Time 13:45 Date/Time Source Procedure Growth Status 11/16/17 11:15 Blood Peripheral Aerobic Blood Culture Pending Received 11/16/17 11:15 Blood Peripheral Anaerobic Blood Culture Pending Received 11/16/17 13:45 Urine Clean Catch Urine Culture Pending Received 11/16/17 11:10 Wound Leg Gram Stain Pending Received 11/16/17 11:10 Wound Leg Wound Culture Pending Received Radiology Last 48 hours Impressions Lower Extremity CT 11/16/17 0924 Signed Impressions: Service Date/Time: Thursday, November 16, 2017 14:12 - CONCLUSION: 1. Extensive edema and inflammatory changes with skin thickening in the thigh especially laterally and posteriorly but also extending medially. No definite loculated abscess. Musculature grossly intact. No abnormal loculated air. No bony destructive changes. Moderate to severe osteoarthritis at the knee. Christina Kendall MD Chest X-Ray 11/16/17 1053 Signed Impressions: Service Date/Time: Thursday, November 16, 2017 11:19 - CONCLUSION: 1. No acute findings. Christina Kendall MD Tibia/Fibula X-Ray 11/16/17 0000 Signed Impressions: Service Date/Time: Thursday, November 16, 2017 11:19 - CONCLUSION: 1. No acute bony abnormalities identified within the tibia. Moderate to severe osteoarthritis with medial joint space. Fixation calcaneus with residual deformity. Christina Kendall MD Extremities: Perfused Narrative Exam Right lower extremity erythema almost completely resolved in the upper thigh Still has blisters lower extremity less swollen than yesterday A/P Problem List: (1) Cellulitis of right lower extremity ICD Codes: L03.115 - Cellulitis of right lower limb Status: Acute (2) Severe sepsis ICD Codes: A41.9 - Sepsis, unspecified organism; R65.20 - Severe sepsis without septic shock Status: Acute (3) Cellulitis ICD Codes: L03.90 - Cellulitis, unspecified Status: Acute (4) Anemia ICD Codes: D64.9 - Anemia, unspecified Status: Acute (5) Hypoglycemia ICD Codes: E16.2 - Hypoglycemia, unspecified Status: Acute (6) Renal insufficiency ICD Codes: N28.9 - Disorder of kidney and ureter, unspecified; R65.20 - Severe sepsis without septic shock Status: Acute (7) UTI (urinary tract infection) ICD Codes: N39.0 - Urinary tract infection, site not specified Status: Acute Assessment and Plan 69-year-old female who has diabetes and other medical issues presented with cellulitis of the right lower extremity it is improved over the last 24 hours with antibiotics. No surgery at this time recommended continued aggressive antibiotic treatment Attending Statement NOTE FOR SURGICAL ATTENDING, DR. CHRISTINA EDDY I attest that I had a [id number] encounter with the patient on the same day, and personally performed and documented my assessment and findings in the medical record. The following services were provided during this hospital visit: Chart data review, vital sign assessments/reviewing monitor data Review of consultations notes if present. Medication orders/review and/or management Ordering and/or reviewing lab tests Ordering and/or interpreting/reviewing x-rays and/or diagnostic studies Care of the patient and discussion of the patient with the care team Documentation time To help prompt me to consider important information that might be impacting today's encounter and assessment, information from prior notes written by myself or my colleagues may have been "brought forward/copy and pasted" into today's note. Problem Qualifiers (1) Cellulitis: Qualified Codes: L03.115 - Cellulitis of right lower limb (2) Anemia: Qualified Codes: D64.9 - Anemia, unspecified (3) UTI (urinary tract infection): Qualified Codes: N39.0 - Urinary tract infection, site not specified Christina Eddy MD Nov 17, 2017 08:28
[2017-11-17 09:57] LABS: AUTOMATED NEUTROPHIL # 23.6 TH/MM3 (1.8-7.7); BASOPHIL # 0.1 TH/MM3 (0-0.2); BASOPHIL % 0.2 % (0.0-2.0); EOSINOPHIL % 0.1 % (0.0-4.0); HEMATOCRIT 24.2 % (35.0-46.0); HEMOGLOBIN 7.6 GM/DL (11.6-15.3); LYMPH % 1.6 % (9.0-44.0); LYMPHOCYTE # 0.4 TH/MM3 (1.0-4.8); MEAN CELL VOLUME 83.9 FL (80.0-100.0); MEAN CORPUSCULAR HEMOGLOBIN 26.4 PG (27.0-34.0); MEAN CORPUSCULAR HGB CONC 31.4 % (32.0-36.0); MEAN PLATELET VOLUME 10.1 FL (7.0-11.0); NEUT % 87.1 % (16.0-70.0); PLATELET COUNT 211 TH/MM3 (150-450); RED BLOOD COUNT 2.89 MIL/MM3 (4.00-5.30); RED CELL DISTRIBUTION WIDTH 19.2 % (11.6-17.2)
[2017-11-17 10:27] LABS: ALBUMIN 2.2 GM/DL (3.4-5.0); ALKALINE PHOSPHATASE 78 U/L (45-117); ALT (GPT) 48 U/L (10-53); AST (GOT) 77 U/L (15-37); BICARBONATE 24.2 MEQ/L (21.0-32.0); BLOOD UREA NITROGEN 45 MG/DL (7-18); CALCIUM 7.7 MG/DL (8.5-10.1); CHLORIDE 101 MEQ/L (98-107); CREATININE 1.78 MG/DL (0.50-1.00); GLOMERULAR FILTRATION RATE 28 ML/MIN (>89); GLUCOSE,RANDOM 131 MG/DL (74-106); SODIUM (NA) 136 MEQ/L (136-145); TOTAL BILIRUBIN ADULT 0.5 MG/DL (0.2-1.0); TOTAL PROTEIN 6.6 GM/DL (6.4-8.2)
[2017-11-17 10:34] LABS: BANDS 22 % (0-6); LYMPHOCYTES 5 % (9-44); MONOCYTES 15 % (0-8); NEUTROPHIL # MANUAL DIFF 21.6 TH/MM3 (1.8-7.7); POLYS (SEG NEUTROPHILS) 58 % (16-70)
[2017-11-17 10:35] LABS: TOXIC GRANULATION 1+ (NORMAL)
[2017-11-17] MEDS: POTASSIUM CHLORIDE 20 MEQ PWD PACKET PO ONE (11:15)
[2017-11-17] MEDS ORDERED: VANCOMYCIN 1 GM/200 ML PREMIX IV ONE (12:00)
[2017-11-17] MEDS ORDERED: MAGNESIUM SULFATE INJ 2 GM in SODIUM CHLORIDE 0.9% INJ 96 ML IV PRN (12:45)
[2017-11-17] MEDS ORDERED: MAGNESIUM OXIDE 400 MG TAB PO PRN (12:45)
[2017-11-17] MEDS ORDERED: POTASSIUM PHOSPHATE INJ 30 MMOL in SODIUM CHLOR 0.9% 250 ML INJ 250 ML IV PRN (12:45)
[2017-11-17] MEDS ORDERED: SODIUM PHOSPHATE INJ 30 MMOL in SODIUM CHLOR 0.9% 250 ML INJ 240 ML IV PRN (12:45)
[2017-11-17] MEDS ORDERED: POTASSIUM CHLOR 20 MEQ PREMIX 100 ML IV PRN ×2 (12:45)
[2017-11-17] MEDS ORDERED: POTASSIUM CHLORIDE 25 MEQ EFFERVESCENT TAB PO PRN (12:45)
[2017-11-17] MEDS ORDERED: POTASSIUM CHLOR 40 MEQ PREMIX 100 ML IV PRN ×2 (12:45)
[2017-11-17] MEDS ORDERED: POTASSIUM PHOSPHATE MONOBASIC 500 MG TAB PO/TUBE PRN (12:45)
[2017-11-17] MEDS ORDERED: MAGNESIUM SULFATE INJ 4 GM in SODIUM CHLORIDE 0.9% INJ 92 ML IV PRN (12:45)
[2017-11-17] MEDS ORDERED: POTASSIUM PHOSPHATE MONOBASIC 500 MG TAB PO PRN (12:45)
--- NOTE | 2017-11-17 12:47 | HHI.CCPN ---
Subjective Remarks/Hospital Course 77-year-old white female with a history of atrial fibrillation, diabetes, and hypertension has been admitted for sepsis secondary to cellulitis and possible necrotizing fasciitis. About a week ago she began noticing some increased swelling of her right lower extremity more than usual. This was associated with formation of some blistering and weeping. She started having pain with weightbearing yesterday and then this morning that's she noticed a new onset redness extending from her ankle up to her knee prompting her to come to the emergency department. She does report feeling some nausea but no vomiting. She also admits some subjective fevers yesterday. 11/18/17: No acute events overnight clinically improving, WBC count remains at 27,000. Creatinine has improved to 1.7. Urine output adequate. Cellulitis improving Objective Vital Signs Date Time Temp Pulse Resp B/P (MAP) Pulse Ox O2 Delivery O2 Flow Rate FiO2 11/17/17 10:30 97 28 115/57 (76) 97 11/17/17 08:00 99.9 11/16/17 16:15 Nasal Cannula 2.00 Intake and Output 11/17/17 11/17/17 11/18/17 08:00 16:00 00:00 Intake Total 1463 ml 950 ml Output Total 500 ml Balance 963 ml 950 ml Result Diagram: 11/17/17 0907 11/17/17 0907 Imaging Last 24 hours Impressions Lower Extremity CT 11/16/17 1344 Signed Impressions: Service Date/Time: Thursday, November 16, 2017 14:12 - CONCLUSION: 1. Extensive edema and inflammatory changes with skin thickening in the thigh especially laterally and posteriorly but also extending medially. No definite loculated abscess. Musculature grossly intact. No abnormal loculated air. No bony destructive changes. Moderate to severe osteoarthritis at the knee. Albert Kendall MD Chest X-Ray 11/16/17 1053 Signed Impressions: Service Date/Time: Thursday, November 16, 2017 11:19 - CONCLUSION: 1. No acute findings. Albert Kendall MD Objective Remarks GENERAL: Well-nourished, well-developed patient. HEAD: Normocephalic. EYES: No scleral icterus. No injection or drainage. NECK: Supple, trachea midline. No JVD or lymphadenopathy. CARDIOVASCULAR: Regular rate and rhythm without murmurs, gallops, or rubs. RESPIRATORY: Breath sounds equal bilaterally. No accessory muscle use. GASTROINTESTINAL: Abdomen soft, non-tender, nondistended. MUSCULOSKELETAL: R leg: redness to right leg distal to knee edematous/shiny. Calf is tight. Opening on dorsum on right foot. Two small closed blisters on posterior aspect of hurtado. BACK: Nontender without obvious deformity. NEURO EXAM: The patient is alert and oriented to person, place, and time with normal speech. A/P Assessment and Plan Cellulitis of right lower extremity/Severe sepsis - Vancomycin, Zosyn, clindamycin - Follow blood culture. Intermittent blood cultures with Streptococcus - General surgery consulted for possible necrotizing fasciitis - CT scan doesn't show an abscess or free air - Pain control - Extremity ultrasound to rule out underlying DVT Diabetes mellitus - Hold metformin while in the ICU - Insulin sliding scale - Resume Lantus tomorrow Hypertension - Coreg - Hold Lasix due to acute kidney injury Acute renal failure - Hold diuretics - IV fluids resuscitation - Monitor creatinine and urine output Hypothyroidism - Levothyroxine Atrial fibrillation - Amiodarone - Coreg - Digoxin - Resume Pradaxa in 24 hours, if renal function improves-no surgical intervention planned DVT GI prophylaxis - Teds SCDs on unaffected leg - 1999 ADA diet Critical Care: Level 3 Transfer to Med surg [facility] to assume care in am 11/18/17 Kris Barnes MD Nov 17, 2017 12:47
[2017-11-17] MEDS ORDERED: POTASSIUM CHLORIDE 20 MEQ CONTROLLED RELEASE TAB PO ONE ×2 (14:30→18:30)
[2017-11-17] MEDS: CLINDAMYCIN 600 MG/NS PREMIX 50 ML IV SCH ×2 (15:15→20:48)
[2017-11-17 19:54] LABS: MAGNESIUM 1.7 MG/DL (1.5-2.5); PHOSPHORUS 3.1 MG/DL (2.5-4.9)
[2017-11-17] MEDS: ATORVASTATIN 10 MG TAB PO SCH (20:48)
--- NOTE | 2017-11-17 23:01 | RADRPT ---
EXAM DATE/TIME: 11/17/2017 21:57 [place] COMPARISON: No previous studies available for comparison. INDICATIONS : Right leg swelling. MEDICAL HISTORY : Cardiovascular disease. Hypertension. Diabetes. Necrotizing fasciatis. SURGICAL HISTORY : Coronary artery stent. Appendectomy. Right foot surgery. Left femur surgery. ENCOUNTER: Initial ACUITY: 1 day PAIN SCORE: 6/10 LOCATION: Right leg. TECHNIQUE: Venous ultrasound of the leg was performed from the inguinal ligament to the proximal calf. Real-jenny e, color Doppler and spectral tracing, compression and augmentation techniques were used. FINDINGS: There is normal compressibility of the deep venous system from the inguinal region to the proximal ca lf. No echogenic clot is seen in the lumen of the common femoral, femoral, popliteal, and posterior tibial veins. There is a normal response of the venous system to proximal and distal augmentation an d respiration. CONCLUSION: Normal examination. Albert Kendall MD on November 17, 2017 at 22:58 Board Certified Radiologist. This report was verified electronically.
[2017-11-18] VITALS (20 sets, daily range): BP systolic 101–149; BP diastolic 56–65; PULSE 74–96; RESP 15–40; TEMP 97.4–99.9; O2SAT 85–100
[2017-11-18] MEDS: SODIUM CHLOR 0.9% 1000 ML INJ 1,000 ML IV SCH ×3 (00:30→16:28)
[2017-11-18] MEDS: CLINDAMYCIN 600 MG/NS PREMIX 50 ML IV SCH ×4 (02:04→20:56)
[2017-11-18] MEDS: PIPERACIL-TAZO 3.375 GM PREMIX 50 ML IV SCH ×4 (02:44→20:56)
[2017-11-18] MEDS: LEVOTHYROXINE SODIUM 25 MCG TAB PO SCH (05:15)
[2017-11-18] MEDS: HEPARIN SODIUM - SQ 10,000 UNITS/ML VIAL SQ SCH ×3 (05:15→20:55)
[2017-11-18 07:25] LABS: AUTOMATED NEUTROPHIL # 25.9 TH/MM3 (1.8-7.7); BASOPHIL # 0.1 TH/MM3 (0-0.2); BASOPHIL % 0.2 % (0.0-2.0); EOSINOPHIL % 0.1 % (0.0-4.0); HEMATOCRIT 24.9 % (35.0-46.0); LYMPHOCYTE # 0.6 TH/MM3 (1.0-4.8); MEAN CELL VOLUME 84.1 FL (80.0-100.0); MEAN CORPUSCULAR HEMOGLOBIN 26.9 PG (27.0-34.0); MEAN PLATELET VOLUME 9.9 FL (7.0-11.0); MONO % 12.2 % (0.0-8.0); MONOCYTE # 3.7 TH/MM3 (0-0.9); NEUT % 85.5 % (16.0-70.0); PLATELET COUNT 246 TH/MM3 (150-450); RED BLOOD COUNT 2.96 MIL/MM3 (4.00-5.30); RED CELL DISTRIBUTION WIDTH 19.9 % (11.6-17.2); WHITE BLOOD COUNT 30.2 TH/MM3 (4.0-11.0)
[2017-11-18 07:55] LABS: ALBUMIN 2.2 GM/DL (3.4-5.0); AST (GOT) 103 U/L (15-37); BICARBONATE 25.8 MEQ/L (21.0-32.0); BLOOD UREA NITROGEN 40 MG/DL (7-18); CALCIUM 8.1 MG/DL (8.5-10.1); CHLORIDE 105 MEQ/L (98-107); CREATININE 1.73 MG/DL (0.50-1.00); GLOMERULAR FILTRATION RATE 28 ML/MIN (>89); GLUCOSE,RANDOM 160 MG/DL (74-106); MAGNESIUM 1.8 MG/DL (1.5-2.5); SODIUM (NA) 138 MEQ/L (136-145)
[2017-11-18 07:56] LABS: ALT (GPT) 64 U/L (10-53)
[2017-11-18 07:58] LABS: ALKALINE PHOSPHATASE 88 U/L (45-117); RANDOM VANCOMYCIN 12.1 COMMENT; TOTAL BILIRUBIN ADULT 0.5 MG/DL (0.2-1.0); TOTAL PROTEIN 6.8 GM/DL (6.4-8.2)
[2017-11-18] MEDS: INSULIN NovoLIN REGULAR SUPPLEMENTAL SCALE SQ SCH ×4 (08:00→20:56)
[2017-11-18] MEDS: AMIODARONE 200 MG TAB PO SCH ×3 (08:22→20:56)
[2017-11-18] MEDS: CARVEDILOL 3.125 MG TAB PO SCH ×3 (08:22→20:55)
[2017-11-18] MEDS: CHOLECALCIFEROL (VIT D3) 1000 UNIT TAB PO SCH (08:22)
[2017-11-18 09:51] LABS: BANDS 5 % (0-6); LYMPHOCYTES 1 % (9-44); MONOCYTES 5 % (0-8); MYELOCYTES 1 % (0-0); NEUTROPHIL # MANUAL DIFF 28.4 TH/MM3 (1.8-7.7); POLYS (SEG NEUTROPHILS) 88 % (16-70)
[2017-11-18 09:55] LABS: TOXIC GRANULATION 1+ (NORMAL)
--- NOTE | 2017-11-18 10:04 | PD.PN.STU ---
Subjective Remarks Patient is a 77 y/.o female with history of HTN, DM, and atrial fib who is on hospital day 2 and was admitted for severe sepsis and cellulitis of the right lower extremity. Patient had altered mental status, hypotension, and hypoxia in ED and was transferred to ICU. Today patient was transferred to [facility] service. Today patient has no complaints. Denied any pain or trouble breathing. Patient is a poor historian. Objective Vitals Vital Signs Date Time Temp Pulse Resp B/P (MAP) Pulse Ox O2 Delivery O2 Flow Rate FiO2 11/18/17 08:00 98.3 85 18 124/63 (83) 94 11/18/17 04:00 98.9 87 22 127/58 (81) 92 11/18/17 03:44 88 11/18/17 02:03 92 11/18/17 00:40 99.9 93 22 134/62 (86) 96 11/18/17 00:00 99.5 91 32 149/65 (93) 95 11/18/17 00:00 91 11/17/17 22:03 96 Nasal Cannula 2.50 11/17/17 22:00 86 11/17/17 20:00 95 11/17/17 20:00 99.6 95 41 123/58 (79) 94 11/17/17 17:00 85 36 131/63 (85) 93 11/17/17 16:00 100.3 78 37 118/59 (78) 94 11/17/17 15:00 90 38 136/61 (86) 94 11/17/17 14:01 95 30 146/59 (88) 96 11/17/17 13:01 100 38 142/60 (87) 94 11/17/17 12:01 98.4 85 25 153/65 (94) 95 11/17/17 11:00 97 32 107/49 (68) 96 11/17/17 10:30 97 28 115/57 (76) 97 11/17/17 10:01 98 33 144/120 (128) I/O 11/17/17 11/17/17 11/17/17 11/18/17 11/18/17 11/18/17 07:00 15:00 23:00 07:00 15:00 23:00 Intake Total 1463 ml 950 ml 2000 ml 1340 ml Output Total 500 ml 900 ml 300 ml Balance 963 ml 950 ml 1100 ml 1040 ml Intake Oral 480 ml 600 ml 240 ml IV Total 983 ml 950 ml 1400 ml 1100 ml Output Urine Total 500 ml 900 ml 300 ml # Voids 2 2 # Bowel Movements 0 Result Diagram: 11/18/17 0643 11/18/17 0643 Other Results Allergies Coded Allergies Type Severity Reaction Last Updated Verified No Known Allergies 11/16/17 No Recent Impressions Lower Extremity Ultrasound 11/17/17 0000 Signed Impressions: Service Date/Time: Friday, November 17, 2017 21:57 - CONCLUSION: Normal examination. Albert Kendall MD Lower Extremity CT 11/16/17 1344 Signed Impressions: Service Date/Time: Thursday, November 16, 2017 14:12 - CONCLUSION: 1. Extensive edema and inflammatory changes with skin thickening in the thigh especially laterally and posteriorly but also extending medially. No definite loculated abscess. Musculature grossly intact. No abnormal loculated air. No bony destructive changes. Moderate to severe osteoarthritis at the knee. Albert Kendall MD Chest X-Ray 11/16/17 1053 Signed Impressions: Service Date/Time: Thursday, November 16, 2017 11:19 - CONCLUSION: 1. No acute findings. Albert Kendall MD Tibia/Fibula X-Ray 11/16/17 0000 Signed Impressions: Service Date/Time: Thursday, November 16, 2017 11:19 - CONCLUSION: 1. No acute bony abnormalities identified within the tibia. Moderate to severe osteoarthritis with medial joint space. Fixation calcaneus with residual deformity. Albert Kendall MD Lower Extremity CT 11/16/17 0000 Signed Impressions: Service Date/Time: Thursday, November 16, 2017 14:12 - CONCLUSION: 1. Subcutaneous soft tissue swelling and edema. No abnormal air collections. No bony destructive changes. Previous surgery as above. Albert Kendall MD Lower Extremity CT 11/16/17 0000 Signed Impressions: Service Date/Time: Thursday, November 16, 2017 14:12 - CONCLUSION: 1. Extensive subcutaneous edema or inflammatory change predominantly outside the fascial layer. No abnormal air collections to suggest a necrotizing process. No drainable abscess. Albert Kendall MD Chest X-Ray 11/16/17 0000 Signed Impressions: Service Date/Time: Thursday, November 16, 2017 15:26 - CONCLUSION: 1. Worsening diffuse interstitial prominence consistent with positive fluid balance versus interstitial pneumonia in the appropriate clinical setting. Cristiano Gaviria MD 11/16/17 11/16/17 11/17/17 11/17/17 11/18/17 11/18/17 06:00 18:00 06:00 18:00 06:00 18:00 Intake Total 2956 ml 1513 ml 2650 ml 1640 ml Output Total 500 ml 900 ml 300 ml Balance 2956 ml 1013 ml 1750 ml 1340 ml Intake Oral 480 ml 600 ml 240 ml IV Total 2956 ml 1033 ml 2050 ml 1400 ml Output Urine Total 500 ml 900 ml 300 ml # Voids 2 2 # Bowel Movements 0 Laboratory Tests Test 11/16/17 11:10 11/16/17 13:45 11/17/17 09:07 11/17/17 11:44 White Blood Count 26.2 TH/MM3 27.0 TH/MM3 Red Blood Count 3.23 MIL/MM3 2.89 MIL/MM3 Hemoglobin 8.8 GM/DL 7.6 GM/DL Hematocrit 27.0 % 24.2 % Mean Corpuscular Volume 83.6 FL 83.9 FL Mean Corpuscular Hemoglobin 27.4 PG 26.4 PG Mean Corpuscular Hemoglobin Concent 32.7 % 31.4 % Red Cell Distribution Width 19.1 % 19.2 % Platelet Count 246 TH/MM3 211 TH/MM3 Mean Platelet Volume 10.5 FL 10.1 FL Neutrophils (%) (Auto) 88.5 % 87.1 % Lymphocytes (%) (Auto) 2.7 % 1.6 % Monocytes (%) (Auto) 8.3 % 11.0 % Eosinophils (%) (Auto) 0.1 % 0.1 % Basophils (%) (Auto) 0.4 % 0.2 % Neutrophils # (Auto) 23.2 TH/MM3 23.6 TH/MM3 Lymphocytes # (Auto) 0.7 TH/MM3 0.4 TH/MM3 Monocytes # (Auto) 2.2 TH/MM3 3.0 TH/MM3 Eosinophils # (Auto) 0.0 TH/MM3 0.0 TH/MM3 Basophils # (Auto) 0.1 TH/MM3 0.1 TH/MM3 CBC Comment AUTO DIFF AUTO DIFF Differential Total Cells Counted 100 100 Neutrophils % (Manual) 80 % 58 % Band Neutrophils % 12 % 22 % Lymphocytes % 3 % 5 % Monocytes % 4 % 15 % Neutrophils # (Manual) 24.4 TH/MM3 21.6 TH/MM3 Metamyelocytes 1 % Differential Comment FINAL DIFF MANUAL FINAL DIFF MANUAL Platelet Estimate NORMAL NORMAL Platelet Morphology Comment NORMAL NORMAL Prothrombin Time 18.7 SEC Prothromb Time International Ratio 1.8 RATIO Activated Partial Thromboplast Time 58.0 SEC Blood Urea Nitrogen 69 MG/DL 45 MG/DL Creatinine 2.40 MG/DL 1.78 MG/DL Random Glucose 79 MG/DL 131 MG/DL Total Protein 8.0 GM/DL 6.6 GM/DL Albumin 2.9 GM/DL 2.2 GM/DL Calcium Level 9.0 MG/DL 7.7 MG/DL Magnesium Level 1.7 MG/DL Alkaline Phosphatase 88 U/L 78 U/L Aspartate Amino Transf (AST/SGOT) 67 U/L 77 U/L Alanine Aminotransferase (ALT/SGPT) 51 U/L 48 U/L Total Bilirubin 0.6 MG/DL 0.5 MG/DL Sodium Level 129 MEQ/L 136 MEQ/L Potassium Level 3.5 MEQ/L 2.9 MEQ/L Chloride Level 91 MEQ/L 101 MEQ/L Carbon Dioxide Level 27.2 MEQ/L 24.2 MEQ/L Anion Gap 11 MEQ/L 11 MEQ/L Estimat Glomerular Filtration Rate 20 ML/MIN 28 ML/MIN Lactic Acid Level 3.6 mmol/L 3.7 mmol/L 1.3 mmol/L Iron Level 15 MCG/DL B-Type Natriuretic Peptide 89 PG/ML Urine Collection Type CLEAN CATCH Urine Color YELLOW Urine Turbidity SLIGHT Urine pH 5.0 Urine Specific [place] 1.014 Urine Protein TRACE mg/dL Urine Glucose (UA) NEG mg/dL Urine Ketones NEG mg/dL Urine Occult Blood TRACE Urine Nitrite POS Urine Bilirubin NEG Urine Leukocyte Esterase SMALL Urine RBC 0-3 /hpf Urine WBC 9-14 /hpf Urine Squamous Epithelial Cells > 8 /hpf Urine Bacteria MANY /hpf Microscopic Urinalysis Comment CULTURE INDICATED Urine Collection Time 13:45 Toxic Granulation 1+ Red Cell Morphology Comment Test 11/17/17 19:08 11/18/17 06:43 Potassium Level 3.5 MEQ/L 3.6 MEQ/L Phosphorus Level 3.1 MG/DL Magnesium Level 1.7 MG/DL 1.8 MG/DL White Blood Count 30.2 TH/MM3 Red Blood Count 2.96 MIL/MM3 Hemoglobin 8.0 GM/DL Hematocrit 24.9 % Mean Corpuscular Volume 84.1 FL Mean Corpuscular Hemoglobin 26.9 PG Mean Corpuscular Hemoglobin Concent 32.0 % Red Cell Distribution Width 19.9 % Platelet Count 246 TH/MM3 Mean Platelet Volume 9.9 FL Neutrophils (%) (Auto) 85.5 % Lymphocytes (%) (Auto) 2.0 % Monocytes (%) (Auto) 12.2 % Eosinophils (%) (Auto) 0.1 % Basophils (%) (Auto) 0.2 % Neutrophils # (Auto) 25.9 TH/MM3 Lymphocytes # (Auto) 0.6 TH/MM3 Monocytes # (Auto) 3.7 TH/MM3 Eosinophils # (Auto) 0.0 TH/MM3 Basophils # (Auto) 0.1 TH/MM3 CBC Comment AUTO DIFF Blood Urea Nitrogen 40 MG/DL Creatinine 1.73 MG/DL Random Glucose 160 MG/DL Total Protein 6.8 GM/DL Albumin 2.2 GM/DL Calcium Level 8.1 MG/DL Alkaline Phosphatase 88 U/L Aspartate Amino Transf (AST/SGOT) 103 U/L Alanine Aminotransferase (ALT/SGPT) 64 U/L Total Bilirubin 0.5 MG/DL Sodium Level 138 MEQ/L Chloride Level 105 MEQ/L Carbon Dioxide Level 25.8 MEQ/L Anion Gap 7 MEQ/L Estimat Glomerular Filtration Rate 28 ML/MIN Random Vancomycin Level 12.1 COMMENT Orders Procedure Category Date Status Time Complete Blood Count LAB 11/16/17 Complete With Diff 10:53 Comprehensive LAB 11/16/17 Complete Metabolic Panel 10:53 Prothrombin Time / LAB 11/16/17 Complete Inr (Pt) 10:53 Act Partial Throm LAB 11/16/17 Complete Time (Ptt) 10:53 Lactic Acid Sepsis LAB 11/16/17 Complete Protocol 10:53 Magnesium (Mg) LAB 11/16/17 Complete 10:53 Urinalysis - C+S If LAB 11/16/17 Complete Indicated 10:53 Blood Culture JOAN 11/16/17 In Process 10:53 Wound Culture And JOAN 11/16/17 In Process Gram Stain 10:53 Chest, Single Ap RADDIAG 11/16/17 Resulted 10:53 Blood Glucose TX 11/16/17 Transmitted 10:53 Ecg Monitoring TX 11/16/17 Transmitted 10:53 Iv Access TX 11/16/17 Transmitted Insert/Monitor 10:53 Oximetry TX 11/16/17 Transmitted 10:53 Piperacil-Tazo 4.5 Gm MED 11/16/17 Complete Premix (Zosyn 4.5 10:53 Vancomycin Inj MED 11/16/17 Complete (Vancomycin Inj) 10:53 B-Type Natriuretic LAB 11/16/17 Complete Peptide 10:53 Tibia/Fibula (Ap/Lat) RADDIAG 11/16/17 Resulted Sodium Chlor 0.9% MED 11/16/17 Complete 1000 Ml Inj (Ns 1000 M 12:00 Clindamycin Inj MED 11/16/17 Complete (Cleocin Inj) 12:23 Consult General CONS 11/16/17 Transmitted Surgery Admit Order (Ed Use ADMITTING 11/16/17 Transmitted Only) 12:37 Acetaminophen MED 11/16/17 Complete (Tylenol) 12:45 Sodium Chlor 0.9% MED 11/16/17 Complete 1000 Ml Inj (Ns 1000 M 12:45 (Hub Use Only)Inp Phy CONS 11/16/17 Transmitted Cons/Ref Admit To Inpatient ADMITTING 11/16/17 Transmitted Vital Signs (Adult) MIK 11/16/17 In Process 12:45 Activity Oob With MIK 11/16/17 In Process Assistance 12:45 Fruit Checker / MIK 11/16/17 In Process Telemetry 12:45 Sodium Chlor 0.45% MED 11/16/17 Complete 1000 Ml Inj (12 Ns 1 13:00 Inpatient ADMITTING 11/16/17 Transmitted Certification Type And Screen BBK 11/16/17 Complete 13:43 Ct Tib/Fib W/O Iv RADCT 11/16/[address] Femur W/O Iv RADCT 11/16/17 Resulted Contrast 13:44 Ct Foot W/O Contrast RADCT 11/16/17 Resulted Morphine Inj MED 11/16/17 In Process (Morphine Inj) 14:00 Bedside Glucose MIK 11/16/17 In Process 14:01 Blood Glucose Goal MIK 11/16/17 In Process (Criteria) 14:01 Hypoglycemia 70 Mg/Dl MIK 11/16/17 In Process Or < 14:01 Notify Taylor HOUSER 11/16/17 In Process 14:01 Dextrose 50% In Jayce MED 11/16/17 In Process (Vial) Inj (D50w (Vi 14:15 Glucagon Inj MED 11/16/17 In Process (Glucagon Inj) 14:15 Insulin Human Reg MED 11/16/17 In Process Supp Scale (Novolin R 17:00 Vancomycin Consult MED 11/16/17 In Process Pharmacy (Vancomycin 14:30 Piperacil-Tazo 3.375 MED 11/16/17 In Process Gm Premix (Zosyn 3. 15:00 Urine Culture JOAN 11/16/17 In Process 13:45 Dextrose 50% In Jayce MED 11/16/17 Complete (Syr) Inj (D50w (Syr 14:45 Blood Glucose TX 11/16/17 Transmitted 14:46 Sodium Chlorid 0.9% MED 11/16/17 Complete 500 Ml Inj (Ns 500 M 15:00 Chest, Single Ap RADDIAG 11/16/17 Resulted Consult Marcin Nfs CONS 11/16/17 Transmitted Sodium Chlorid 0.9% MED 11/16/17 Complete 500 Ml Inj (Ns 500 M 16:00 Dextrose 50% In Jayce MED 11/16/17 Complete (Vial) Inj (D50w (Vi 16:00 Dext 5%-Nacl 0.45% MED 11/16/17 Complete 1000 Ml Inj (D5w-1/2 16:30 Serum Total Iron (Fe) LAB 11/16/17 Complete 16:17 Scd / Yony / Foot Pump MIK 11/16/17 In Process 16:18 Amiodarone (Cordarone) MED 11/16/17 In Process 21:00 Atorvastatin (Lipitor) MED 11/16/17 In Process 21:00 Carvedilol (Coreg) MED 11/16/17 In Process 21:00 Cholecalciferol MED 11/17/17 In Process (Vitamin D3) 09:00 Furosemide (Lasix) MED 11/16/17 In Process 18:00 Levothyroxine MED 11/17/17 In Process (Synthroid) 06:00 Consult Refresh Technician CONS 11/16/17 Transmitted Physician Name Changes ADMITTING 11/16/17 Transmitted Equip, Isolation Cart SPD 11/16/17 Logged 17:34 (Hub Use Only)Inp Phy CONS 11/16/17 Transmitted Cons/Ref Diet 1999 Ada Cons DIET 11/16/17 Transmitted Carb Dinner Sodium Chlor 0.9% MED 11/17/17 In Process 1000 Ml Inj (Ns 1000 M 00:30 Heparin Inj (Heparin MED 11/17/17 In Process Inj) 06:00 Complete Blood Count LAB 11/17/17 Complete With Diff 08:01 Comprehensive LAB 11/17/17 Complete Metabolic Panel 08:01 Vancomycin Inj MED 11/17/17 Complete (Vancomycin Inj) 12:00 Random Vancomycin LAB 11/18/17 Complete 06:00 Creatinine LAB 11/20/17 Verified 06:00 Creatinine LAB 11/22/17 Verified 06:00 Creatinine LAB 11/24/17 Verified 06:00 Creatinine LAB 11/26/17 Verified 06:00 Lactic Acid LAB 11/17/17 Complete 10:54 Potassium Chloride MED 11/17/17 Complete Powder (Kcl Powder) 11:15 ^ Medication Admin MIK 11/17/17 In Process Instruction 12:[address]: Other MIK 11/17/17 In Process 12:43 Phosphorus (Po4) LAB 11/17/17 Complete 12:43 Potassium, Serum (K) LAB 11/17/17 Complete 12:43 Magnesium (Mg) LAB 11/17/17 Complete 12:43 Potassium Chlor 40 MED 11/17/17 In Process Meq Premix (Kcl 40 Me 12:45 Potassium Chlor 20 MED 11/17/17 In Process Meq Premix (Kcl 20 Me 12:45 Potassium Chloride MED 11/17/17 In Process Eff (K-Lyte Cl Eff) 12:45 Potassium Chlor 40 MED 11/17/17 In Process Meq Premix (Kcl 40 Me 12:45 Potassium Chlor 20 MED 11/17/17 In Process Meq Premix (Kcl 20 Me 12:45 Magnesium Sulfate Inj MED 11/17/17 In Process (Magnesium Sulfate 12:45 Magnesium Oxide MED 11/17/17 In Process (Mag-Ox) 12:45 Magnesium Sulfate Inj MED 11/17/17 In Process (Magnesium Sulfate 12:45 Potassium Phosphate MED 11/17/17 In Process (K-Phos) 12:45 Sodium Phosphate Inj MED 11/17/17 In Process (Sodium Phosphate I 12:45 Potassium Phosphate MED 11/17/17 In Process (K-Phos) 12:45 Potassium Phosphate MED 11/17/17 In Process Inj (Potassium Phosp 12:45 Complete Blood Count LAB 11/18/17 In Process With Diff 06:00 Comprehensive LAB 11/18/17 Complete Metabolic Panel 06:00 Magnesium (Mg) LAB 11/18/17 Complete 06:00 Consult Hospitalist CONS 11/17/17 Transmitted Patient Transfer ADMITTING 11/17/17 Transmitted Us Leg Venous Doppler RADUS 11/17/17 Resulted Clindamycin 600 Mg/Ns MED 11/17/17 In Process Premix (Cleocin 60 14:00 Potassium Chloride MED 11/17/17 Complete (Kcl) 18:30 Potassium Chloride MED 11/17/17 Complete (Kcl) 14:30 Physician Name Changes ADMITTING 11/18/17 Transmitted Vital Signs Date Time Temp Pulse Resp B/P (MAP) Pulse Ox O2 Delivery O2 Flow Rate FiO2 11/18/17 08:00 98.3 85 18 124/63 (83) 94 11/18/17 04:00 98.9 87 22 127/58 (81) 92 11/18/17 03:44 88 11/18/17 02:03 92 11/18/17 00:40 99.9 93 22 134/62 (86) 96 11/18/17 00:00 99.5 91 32 149/65 (93) 95 11/18/17 00:00 91 11/17/17 22:03 96 Nasal Cannula 2.50 11/17/17 22:00 86 11/17/17 20:00 95 11/17/17 20:00 99.6 95 41 123/58 (79) 94 11/17/17 17:00 85 36 131/63 (85) 93 11/17/17 16:00 100.3 78 37 118/59 (78) 94 11/17/17 15:00 90 38 136/61 (86) 94 11/17/17 14:01 95 30 146/59 (88) 96 11/17/17 13:01 100 38 142/60 (87) 94 11/17/17 12:01 98.4 85 25 153/65 (94) 95 11/17/17 11:00 97 32 107/49 (68) 96 11/17/17 10:30 97 28 115/57 (76) 97 11/17/17 10:01 98 33 144/120 (128) 11/17/17 09:01 97 37 138/63 (88) 11/17/17 08:00 99.9 91 26 129/57 (81) 97 11/17/17 04:00 100.8 99 27 143/63 (89) 96 11/17/17 04:00 99 11/17/17 02:00 97 11/17/17 00:00 99 11/17/17 00:00 101.3 99 27 138/60 (86) 96 11/16/17 22:00 98 11/16/17 20:00 97 11/16/17 20:00 100.4 97 26 132/59 (83) 95 11/16/17 16:16 11/16/17 16:15 86 16 102/44 (63) 95 Nasal Cannula 2.00 11/16/17 15:30 97 16 108/56 (73) 96 Nasal Cannula 2.00 11/16/17 15:19 97 16 90/37 (54) 95 Nasal Cannula 2.00 11/16/17 14:54 93 Nasal Cannula 2.00 11/16/17 14:54 93 Nasal Cannula 4.00 11/16/17 14:54 98.9 94 20 83/39 (54) 95 Nasal Cannula 2.00 11/16/17 14:50 89 Room Air 11/16/17 14:06 73 20 118/54 (75) 95 Room Air 11/16/17 11:44 95 Room Air 11/16/17 10:42 100.0 103 16 111/55 (73) 96 Objective Remarks GENERAL: WN/WD obese female breathing heavily out of mouth. Was poor historian but answered questions. In mild distress. SKIN: Warm and dry. HEAD: Normocephalic. EYES: No scleral icterus. No injection or drainage. NECK: Supple, trachea midline. No JVD or lymphadenopathy. CARDIOVASCULAR: Regular rate and rhythm without murmurs, gallops, or rubs. RESPIRATORY: Tachypneic, CTAB GASTROINTESTINAL: Abdomen soft, non-tender, nondistended. MUSCULOSKELETAL: No cyanosis, or edema. BACK: Nontender without obvious deformity. No CVA tenderness. A/P Assessment and Plan Patient is a 77 y/o female w/ h/o HTN, DM, and A Fib who was admitted for severe sepsis and cellulitis. She was started on Vancomycin, Clindamycin, and Zozyn IV. Surgery was consulted and deemed patient is not a candidate for surgery 1) Cellulitis of RLE/Sepsis - Patient was started on clindamycin, zozyn, and vancomycin. WBC inc 27 to 30. Lactic Acid has dropped from 3.7 to 1.3. Potassium inc 2.9 to 3.6. . Cultures revealed strep in blood and wound. Surgery deemed patient not a candidate for surgery. Will continue current antibiotic treatment of clinda, zozyn, and vanc. Will Consult ID for further management. 2) UTI - Patient had UA consistent with UTI and urine cultures revealed gram negative john. Current Abx regiment for sepsis should cover. 3) DM - Sugars have consistently been in desired range of 140-180. However patient was lethargic on interview this AM. With previous hypoglycemic event, will hold insulin and check glucose levels before administering. 4) HTN - Continue coreg 3.125 5) LEWIS - BUN/Cr is stable at 40/1.8. Do not know baseline kidney function 6) Hypothyroid - continue levothyroxine 25 7) Atrial FIb - coreg, statin, and Heparin. previous note from critical care notes digoxin but current medication list does not have it. WIll check med reconciliation. 8) DVT proph - heparin Alonso Silverman M3 Nov 18, 2017 10:04 Manuel Allen MD Nov 19, 2017 19:47
[2017-11-18] MEDS ORDERED: RESP: ALBUTEROL 2.5 MG/IPRATROPIUM 0.5 MG NEB (PRN) NEB (12:00)
[2017-11-18] MEDS ORDERED: RESP: ALBUTEROL 2.5 MG/IPRATROPIUM 0.5 MG NEB (SCH) NEB ONE (12:00)
[2017-11-18] MEDS ORDERED: FUROSEMIDE 100 MG/10 ML VIAL IV PUSH ONE (12:00)
--- NOTE | 2017-11-18 12:34 | RADRPT ---
EXAM DATE/TIME: 11/18/2017 12:01 [facility] COMPARISON: CHEST SINGLE AP, November 16, 2017, 15:26. INDICATIONS : Shortness of breath. MEDICAL HISTORY : Diabetes mellitus type II. Hypertension. Afib. SURGICAL HISTORY : None. ENCOUNTER: Subsequent ACUITY: 2 days PAIN SCORE: 0/10 LOCATION: Bilateral chest FINDINGS: Slight to moderate cardiomegaly has not changed. There are atherosclerotic calcifications involving t he visualized aorta chronic in nature. There is hazy opacity involving the right upper lung not prese nt previously may represent vague mild pulmonary venous congestion or possibly technical. CONCLUSION: Questionable haziness right upper lung possibly mild distal pulmonary venous congestion and follow up is suggested. Paul Peña MD on November 18, 2017 at 12:31 Board Certified Radiologist. This report was verified electronically.
--- NOTE | 2017-11-18 12:39 | HHI.PR ---
Subjective Remarks as per RN patient desating into the mid 80's on 4 liters nasal canula. Patient lethargic denies cp, sob however is tachypneic Elevated temp with a tmax of 100.3 on 11/17 Transfered from the critical care unit last night. Objective Vitals Vital Signs Date Time Temp Pulse Resp B/P (MAP) Pulse Ox O2 Delivery O2 Flow Rate FiO2 11/18/17 08:00 98.3 85 18 124/63 (83) 94 11/18/17 04:00 98.9 87 22 127/58 (81) 92 11/18/17 03:44 88 11/18/17 02:03 92 11/18/17 00:40 99.9 93 22 134/62 (86) 96 11/18/17 00:00 99.5 91 32 149/65 (93) 95 11/18/17 00:00 91 11/17/17 22:03 96 Nasal Cannula 2.50 11/17/17 22:00 86 11/17/17 20:00 95 11/17/17 20:00 99.6 95 41 123/58 (79) 94 11/17/17 17:00 85 36 131/63 (85) 93 11/17/17 16:00 100.3 78 37 118/59 (78) 94 11/17/17 15:00 90 38 136/61 (86) 94 11/17/17 14:01 95 30 146/59 (88) 96 11/17/17 13:01 100 38 142/60 (87) 94 11/17/17 12:01 98.4 85 25 153/65 (94) 95 I/O 11/17/17 11/17/17 11/17/17 11/18/17 11/18/17 11/18/17 07:00 15:00 23:00 07:00 15:00 23:00 Intake Total 1463 ml 950 ml 2000 ml 1340 ml Output Total 500 ml 900 ml 300 ml Balance 963 ml 950 ml 1100 ml 1040 ml Intake Oral 480 ml 600 ml 240 ml IV Total 983 ml 950 ml 1400 ml 1100 ml Output Urine Total 500 ml 900 ml 300 ml # Voids 2 2 # Bowel Movements 0 Result Diagram: 11/18/17 0643 11/18/17 0643 Imaging Last Impressions Lower Extremity Ultrasound 11/17/17 0000 Signed Impressions: Service Date/Time: Friday, November 17, 2017 21:57 - CONCLUSION: Normal examination. Albert Kendall MD Lower Extremity CT 11/16/17 1344 Signed Impressions: Service Date/Time: Thursday, November 16, 2017 14:12 - CONCLUSION: 1. Extensive edema and inflammatory changes with skin thickening in the thigh especially laterally and posteriorly but also extending medially. No definite loculated abscess. Musculature grossly intact. No abnormal loculated air. No bony destructive changes. Moderate to severe osteoarthritis at the knee. Albert Kendall MD Chest X-Ray 11/16/17 1053 Signed Impressions: Service Date/Time: Thursday, November 16, 2017 11:19 - CONCLUSION: 1. No acute findings. Albert Kendall MD Tibia/Fibula X-Ray 11/16/17 0000 Signed Impressions: Service Date/Time: Thursday, November 16, 2017 11:19 - CONCLUSION: 1. No acute bony abnormalities identified within the tibia. Moderate to severe osteoarthritis with medial joint space. Fixation calcaneus with residual deformity. Albert Kendall MD Objective Remarks GENERAL: Well-nourished, well-developed patient with moderate respiratory distress and tachypnea. HEAD: Normocephalic. EYES: No scleral icterus. No injection or drainage. NECK: Supple, trachea midline. No JVD or lymphadenopathy. CARDIOVASCULAR: Regular rate and rhythm without murmurs, gallops, or rubs. RESPIRATORY: Decreased breath sounds at the bases with audible crackles. GASTROINTESTINAL: Abdomen soft, non-tender, nondistended. MUSCULOSKELETAL: R leg: redness to right leg distal to knee edematous/shiny. Opening on dorsum on right foot. Two small closed blisters on posterior aspect of hurtado. BACK: Nontender without obvious deformity. NEURO EXAM: lethargic, arousable. Medications and IVs Current Medications Medications (Trade) Dose Ordered Sig/Jay Route Start Time Stop Time Status Last Admin (Morphine Inj) 2 mg Q3H PRN IV PUSH 11/16/17 14:00 (D50w (Vial) Inj) 50 ml UNSCH PRN IV PUSH 11/16/17 14:15 (Glucagon Inj) 1 mg UNSCH PRN OTHER 11/16/17 14:15 (NovoLIN R SUPPLEMENTAL SCALE) 1 ACHS SLIDING SCALE SQ 11/16/17 17:00 11/17/17 20:48 Pharmacy Profile Note 0 ml @ 0 mls/hr UNSCH OTHER 11/16/17 14:30 Piperacillin Sod/ Tazobactam Sod 50 ml @ 100 mls/hr Q6H IV 11/16/17 15:00 11/18/17 10:27 (Cordarone) 100 mg BID PO 11/16/17 21:00 11/17/17 20:48 (Lipitor) 10 mg HS PO 11/16/17 21:00 11/17/17 20:48 (Coreg) 3.125 mg BID PO 11/16/17 21:00 11/17/17 20:48 (Vitamin D3) 1,000 units DAILY PO 11/17/17 09:00 11/18/17 08:22 (Lasix) 20 mg DAILY@0900,1800 PO 11/16/17 18:00 Future Hold 11/17/17 08:26 (Synthroid) 25 mcg DAILY@0600 PO 11/17/17 06:00 11/18/17 05:15 Sodium Chloride 1,000 ml @ 125 mls/hr Q8H IV 11/17/17 00:30 11/18/17 05:20 (Heparin Inj) 5,000 units Q8HR SQ 11/17/17 06:00 11/18/17 05:15 Clindamycin/ Sodium Chloride 50 ml @ 100 mls/hr Q6H IV 11/17/17 14:00 11/18/17 08:19 A/P Problem List: (1) Acute hypoxemic respiratory failure ICD Code: J96.01 - Acute respiratory failure with hypoxia Status: Acute (2) Severe sepsis ICD Code: A41.9 - Sepsis, unspecified organism; R65.20 - Severe sepsis without septic shock Status: Acute (3) Cellulitis of right lower extremity ICD Code: L03.115 - Cellulitis of right lower limb Status: Acute (4) UTI (urinary tract infection) ICD Code: N39.0 - Urinary tract infection, site not specified Status: Acute (5) LEWIS (acute kidney injury) ICD Code: N17.9 - Acute kidney failure, unspecified Status: Acute Assessment and Plan Severe sepsis Cellulitis of right lower extremity - Vancomycin, Zosyn, clindamycin - Follow blood culture. Intermittent blood cultures with Streptococcus - General surgery consulted for possible necrotizing fasciitis - CT scan doesn't show an abscess or free air - Pain control - Extremity ultrasound to rule out underlying DVT - 11/18 No surgery recommended by general surgeon. Recommends agressive IV antibiotic therapy. continue IV antibiotics. Consult infectious disease since WBC trending up. Diabetes mellitus - Hold metformin while in the ICU - 11/18 continue SSI. Hold long acting insulin since patient is lethargic. will resume once patient is more awake. Hypertension - Coreg - Hold Lasix due to acute kidney injury Acute renal failure - Hold diuretics - IV fluids resuscitation - Monitor creatinine and urine output 11/18 DC IV fluids. Patient in respiratory distress likely due to fluid overload. Will Give 60 IV lasix now. Hypothyroidism - Levothyroxine - 11/18 check TSH. Atrial fibrillation - Amiodarone - Coreg - Digoxin - Resume Pradaxa in 24 hours, if renal function improves-no surgical intervention planned - 11/18 Continue to hold Pradaxa. Check EKG. Monitor on telemetry. Acute hypoxemic respiratory failure Patient sating into the 80's on 4 liters. Suspect fluid overload, check stat cxr, will give stat IV lasix, DC IV fluids, supplemental O2 to keep o2 sat > 92%. Place on duonebs. check ABG UTI Urine culture growing gram negative rods. ID and sensitivities pending. Consult ID Continue IV antibiotics as above. DVT GI prophylaxis - Teds SCDs on unaffected leg - 1999 ADA diet Discharge Planning Continue to monitor in the medical floor for now, if no improvement after lasix then will transfer back to ICU. Problem Qualifiers (1) UTI (urinary tract infection): Qualified Codes: N39.0 - Urinary tract infection, site not specified Manuel Allen MD Nov 18, 2017 12:39
[2017-11-18] MEDS ORDERED: FUROSEMIDE 40 MG/4 ML VIAL ONE (13:02)
[2017-11-18] MEDS ORDERED: FUROSEMIDE 40 MG/4 ML VIAL IV PUSH ONE (13:15)
[2017-11-18 14:15] LABS: TROPONIN I 0.12 NG/ML (0.02-0.05)
[2017-11-18] MEDS ORDERED: methylPREDNISolone SOD SUCC 125 MG/2 ML VIAL IV PUSH ONE (14:15)
[2017-11-18] MEDS: RESP: ALBUTEROL 2.5 MG/IPRATROPIUM 0.5 MG NEB (SCH) NEB ×2 (15:58→19:53)
[2017-11-18] MEDS: VANCOMYCIN INJ 1,500 MG in SODIUM CHLORID 0.9% 500 ML INJ 500 ML IV SCH (16:28)
[2017-11-18 17:26] LABS: TROPONIN I 0.09 NG/ML (0.02-0.05)
[2017-11-18] MEDS: ATORVASTATIN 10 MG TAB PO SCH (20:55)
[2017-11-18 22:26] LABS: HEMOGLOBIN A1C 7.1 % (4.3-6.0)
[2017-11-19] VITALS (15 sets, daily range): BP systolic 110–126; BP diastolic 52–70; PULSE 74–100; RESP 24–39; TEMP 97.8–98.8; O2SAT 92–100
[2017-11-19] MEDS: CLINDAMYCIN 600 MG/NS PREMIX 50 ML IV SCH ×2 (06:35→08:53)
[2017-11-19] MEDS: PIPERACIL-TAZO 3.375 GM PREMIX 50 ML IV SCH ×2 (06:35→08:53)
[2017-11-19] MEDS: HEPARIN SODIUM - SQ 10,000 UNITS/ML VIAL SQ SCH ×3 (06:35→22:51)
[2017-11-19] MEDS: LEVOTHYROXINE SODIUM 25 MCG TAB PO SCH (06:35)
[2017-11-19] MEDS: RESP: ALBUTEROL 2.5 MG/IPRATROPIUM 0.5 MG NEB (SCH) NEB ×3 (08:00→20:07)
[2017-11-19] MEDS: INSULIN NovoLIN REGULAR SUPPLEMENTAL SCALE SQ SCH ×4 (08:00→20:49)
[2017-11-19] MEDS: SODIUM CHLOR 0.9% 1000 ML INJ 1,000 ML IV SCH ×3 (08:30→22:57)
[2017-11-19] MEDS ORDERED: HALOPERIDOL LACTATE 5 MG/ML AMP IM ONE (08:45)
[2017-11-19] MEDS: CHOLECALCIFEROL (VIT D3) 1000 UNIT TAB PO SCH (08:54)
[2017-11-19] MEDS: CARVEDILOL 3.125 MG TAB PO SCH ×2 (08:54→20:45)
[2017-11-19] MEDS: AMIODARONE 200 MG TAB PO SCH ×2 (08:54→20:45)
--- NOTE | 2017-11-19 09:37 | RADRPT ---
EXAM DATE/TIME: 11/19/2017 08:49 [facility] COMPARISON: CHEST SINGLE AP, November 18, 2017, 12:01. INDICATIONS : Respiratory failure. MEDICAL HISTORY : Diabetes mellitus type II. Hypertension. Afib SURGICAL HISTORY : None. ENCOUNTER: Subsequent ACUITY: 3 days PAIN SCORE: Non-responsive. LOCATION: Bilateral upper chest FINDINGS: Mild compensated cardiomegaly with interval improvement. Less bibasilar parenchymal changes. Oven Heater Helper ior spinal fixation is noted. CONCLUSION: Compensated cardiomegaly with better aeration. Geovany Bolivar MD FACR on November 19, 2017 at 9:31 Board Certified Radiologist. This report was verified electronically.
[2017-11-19] MEDS ORDERED: HALOPERIDOL LACTATE 5 MG/ML AMP IV PUSH ONE (10:30)
--- NOTE | 2017-11-19 11:08 | PD.ID.CON ---
History of Present Illness Service ID Consult Requested By Reason for Consult Evaluation and Mment of Sepsis, RLE cellulitis, Possible ESBL UTI and Strep bacteremia. Primary Care Physician Unknown Diagnoses: History of Present Illness is a 77 y/o CF with PMHx of RLE hardware in calcaneum who was admitted initially at [place] and transferred to [facility] for evaluation for need for possible necrotizing fascitis and need for surgery. Patient had a sepsis workup done on admission. She was evaluated by General Surgery and no plan for surgical intervention, they recommend medical management. On Imaging there is no evidence of necrotizing fascitis (no air or fluid collections). Patient was reportedly in her usual state of health until about a week ago when she says she began noticing some increased swelling of her right lower extremity more than usual. This was associated with formation of some blistering and weeping. She started having pain with weightbearing yesterday and then this morning that's when she noticed a new onset redness extending from her ankle up to her knee prompting her to come to the emergency department. Patient was on regular floor yesterday but due to resp distress and encephalopathy was transferred to ICU and evaluated by technical laboratory asst. Patient was on BiPAP last night and reportedly non compliant. At the time of my evaluation patient is in the ICU, on 4L NC sats 91%, UO good, recd lasix, not on pressors. No richter in place. No CL in place. Alert, oriented x 2, Non focal exam. She endorses nausea but no vomiting. On questioning reports low grade fever. Denies cough chest pain or other Cardio pulm symptoms. She did recently go on vacation but does not think she injured herself or suffered any puncture site. ID was consulted for evaluation and Mment of Sepsis, RLE cellulitis, Possible ESBL UTI and Strep bacteremia. Review of Systems ROS Limitations: Poor Historian Past Family Social History Allergies: Coded Allergies: No Known Allergies (Unverified , 11/16/17) Past Medical History Hypertension, A. fib, diabetes Hypothyroidism Past Surgical History left tib fib repair; back surgery with hardware in place. Reported Medications Reported Meds & Active Scripts Active Reported Metformin (Metformin HCl) 1,000 Mg Tab Unknown Dose PO BIDPC Vitamin D3 (Cholecalciferol) 1,000 Unit Cap Unknown Dose PO DAILY Levothyroxine (Levothyroxine Sodium) 25 Mcg Tab Unknown Dose PO DAILY Digoxin 0.125 Mg Tab Unknown Dose PO DAILY Stool Softener (Docusate Sodium) 50 Mg Capsule Unknown Dose Atorvastatin (Atorvastatin Calcium) 10 Mg Tab Unknown Dose PO HS Carvedilol 3.125 Mg Tab Unknown Dose PO BID Furosemide 20 Mg Tab Unknown Dose PO BID Amiodarone (Amiodarone HCl) 100 Mg Tab Unknown Dose PO BID Pradaxa (Dabigatran) 75 Mg Cap Unknown Dose PO BID Lantus Inj (Insulin Glargine) 100 Unit/Ml Inj 32 Units DAILY Active Ordered Medications Current Medications Medications (Trade) Dose Ordered Sig/Jay Route Start Time Stop Time Status Last Admin (Morphine Inj) 2 mg Q3H PRN IV PUSH 11/16/17 14:00 (D50w (Vial) Inj) 50 ml UNSCH PRN IV PUSH 11/16/17 14:15 (Glucagon Inj) 1 mg UNSCH PRN OTHER 11/16/17 14:15 (NovoLIN R SUPPLEMENTAL SCALE) 1 ACHS SLIDING SCALE SQ 11/16/17 17:00 11/18/17 20:56 Pharmacy Profile Note 0 ml @ 0 mls/hr UNSCH OTHER 11/16/17 14:30 Piperacillin Sod/ Tazobactam Sod 50 ml @ 100 mls/hr Q6H IV 11/16/17 15:00 11/19/17 08:53 (Cordarone) 100 mg BID PO 11/16/17 21:00 11/18/17 20:56 (Lipitor) 10 mg HS PO 11/16/17 21:00 11/18/17 20:55 (Coreg) 3.125 mg BID PO 11/16/17 21:00 11/18/17 20:55 (Vitamin D3) 1,000 units DAILY PO 11/17/17 09:00 11/18/17 08:22 (Lasix) 20 mg DAILY@0900,1800 PO 11/16/17 18:00 Future Hold 11/17/17 08:26 (Synthroid) 25 mcg DAILY@0600 PO 11/17/17 06:00 11/19/17 06:35 Sodium Chloride 1,000 ml @ 125 mls/hr Q8H IV 11/17/17 00:30 11/18/17 05:20 (Heparin Inj) 5,000 units Q8HR SQ 11/17/17 06:00 11/19/17 06:35 (Duoneb Neb) 1 ampule Q6HR WHILE AWAKE NEB NEB 11/18/17 14:00 11/18/17 19:53 (Duoneb Neb) 1 ampule Q2HR NEB PRN NEB 11/18/17 12:00 Vancomycin HCl 1500 mg/Sodium Chloride 515 ml @ 250 mls/hr Q24H IV 11/18/17 16:00 11/18/17 16:28 Miscellaneous Information SPECIFIC LAB TO BE DRAWN:VANCOMYCIN TROUGH DATE TO... ONCE ONCE .XX 11/20/17 15:45 11/20/17 15:46 (Lasix Inj) 20 mg BID@09,18 IV PUSH 11/19/17 18:00 (Haldol Inj) 2 mg Q4H PRN IM 11/19/17 14:00 Family History reviewed with spouse. NC to current ID problems. Social History No smoking, no alcohol, No illicit drugs. Physical Exam Vital Signs Vital Signs Date Time Temp Pulse Resp B/P (MAP) Pulse Ox O2 Delivery O2 Flow Rate FiO2 11/19/17 09:45 93 Nasal Cannula 4.00 11/19/17 08:00 96 Nasal Cannula 4.00 11/19/17 06:00 100 11/19/17 04:00 98.4 100 37 116/70 (85) 93 11/19/17 04:00 93 Bi-Pap 50 11/19/17 04:00 100 11/19/17 02:00 100 11/19/17 00:10 97 40 11/19/17 00:00 97 Bi-Pap 50 11/19/17 00:00 96 11/19/17 00:00 98.8 96 28 119/56 (77) 100 11/18/17 22:00 92 11/18/17 20:00 98.6 74 15 101/59 (73) 93 11/18/17 20:00 97 Bi-Pap 50 11/18/17 20:00 74 11/18/17 19:55 99 40 11/18/17 18:00 96 11/18/17 16:00 97.9 94 38 120/56 (77) 100 11/18/17 16:00 98 Bi-Pap 50 11/18/17 16:00 88 11/18/17 15:58 100 40 11/18/17 14:49 97.9 90 40 127/58 (81) 100 11/18/17 14:36 100 BiPAP 60 11/18/17 14:34 100 60 11/18/17 14:30 91 11/18/17 13:43 97.4 89 23 114/56 (75) 85 11/18/17 13:41 97.4 91 114/56 (75) 86 11/18/17 12:43 92 Nasal Cannula 5.00 11/18/17 12:00 98.0 85 22 123/57 (79) 87 Physical Exam GENERAL: Obese, poorly kempt patient, in no apparent distress. SKIN: No generalized rashes, Ecchymosis. HEAD: Atraumatic. Normocephalic. No temporal or scalp tenderness. EYES: Pupils equal round and reactive. Extraocular motions intact. No scleral icterus. No injection or drainage. ENT: Nose without bleeding, purulent drainage or septal hematoma. NECK: Trachea midline. Supple, nontender, no meningeal signs. CARDIOVASCULAR: HS audible. RESPIRATORY: Clear to auscultation. Breath sounds equal bilaterally. GASTROINTESTINAL: Abdomen soft, non-tender, nondistended. MUSCULOSKELETAL: Right LE with erythema, tenderness, induration on right leg, and ankle. Pitting edema noted. Rt heel with some induration and tenderness. Right thigh with no erythema but patients spouse showed me a picture and it appears this has improved in the last 2 days. NEUROLOGICAL: Awake and alert.Non focal exam Psych cooperative IV line sites with no e.o infection. Laboratory Laboratory Tests Test 11/18/17 13:12 11/18/17 13:27 11/18/17 16:19 11/19/17 09:28 Total Creatine Kinase 26 35 Troponin I 0.12 0.09 Blood Gas Puncture Site LT RADIAL RT RADIAL Blood Gas Patient Temperature 98.6 98.6 Blood Gas HCO3 23 20 Blood Gas Base Excess -3.5 -4.2 Blood Gas Oxygen Saturation 87 89 Arterial Blood pH 7.25 7.36 Arterial Blood Partial Pressure CO2 54 37 Arterial Blood Partial Pressure O2 65 70 Arterial Blood Oxygen Content 14.6 10.5 Arterial Blood Carboxyhemoglobin 0.9 1.0 Arterial Blood Methemoglobin 1.2 1.5 Blood Gas Hemoglobin 11.9 8.3 Oxygen Delivery Device NASAL CANNULA NASAL CANNULA Blood Gas Liter Flow 5 4 Hemoglobin A1c 7.1 Thyroid Stimulating Hormone 3rd Gen 3.890 Date/Time Source Procedure Growth Status 11/16/17 11:15 Blood Peripheral Aerobic Blood Culture - Preliminary Strep Not A,B D Resulted 11/16/17 11:15 Blood Peripheral Anaerobic Blood Culture - Preliminary NO GROWTH IN 3 DAYS Resulted 11/16/17 13:45 Urine Clean Catch Urine Culture - Final Escherichia Coli Esbl Positive Complete 11/16/17 11:10 Wound Leg Gram Stain - Final Resulted 11/16/17 11:10 Wound Culture - Preliminary Strep Not A,B D Gram Negative Denys Resulted Result Diagram: 11/18/17 0643 11/18/17 0643 Imaging Last Impressions Chest X-Ray 11/19/17 0000 Signed Impressions: Service Date/Time: Sunday, November 19, 2017 08:49 - CONCLUSION: Compensated cardiomegaly with better aeration. Geovany Bolivar MD FACR Lower Extremity Ultrasound 11/17/17 0000 Signed Impressions: Service Date/Time: Friday, November 17, 2017 21:57 - CONCLUSION: Normal examination. Albert Kendall MD Lower Extremity CT 11/16/17 1344 Signed Impressions: Service Date/Time: Thursday, November 16, 2017 14:12 - CONCLUSION: 1. Extensive edema and inflammatory changes with skin thickening in the thigh especially laterally and posteriorly but also extending medially. No definite loculated abscess. Musculature grossly intact. No abnormal loculated air. No bony destructive changes. Moderate to severe osteoarthritis at the knee. Albert Kendall MD Tibia/Fibula X-Ray 11/16/17 0000 Signed Impressions: Service Date/Time: Thursday, November 16, 2017 11:19 - CONCLUSION: 1. No acute bony abnormalities identified within the tibia. Moderate to severe osteoarthritis with medial joint space. Fixation calcaneus with residual deformity. Albert Kendall MD Assessment and Plan Assessment and Plan Sepsis present on admission RLE cellulitis with blisters c/w Strep erysipelas. Wound cx with Strep and GNR (prelim ID Klebsiella) ESBL E.coli UTI possible vs contamination Strep bacteremia likely secondary to Cellulitis. Acute resp failure on 4L NC. Acute renal failure: sepsis, prerenal. Leukemoid reaction CXR with pulm edema vs aspiration Recs: DC Zosyn IV Start Meropenem IV (ASP: ESBL UTI, pending repeat UA and cultures from wound finalized) Continue Vanco IV (target 10-15) DC Clindamycin (no clinical or radiological evidence of nec fascitis, received for toxin neutralization) Repeat UA, straight Cath. Straight cath: 1200 cc of urine. Asked RN to check post void urine and inform Hepas to consider placement of richter cath for retention of urine. MIKEL bandage. Elevate leg as much as possible. Follow cultures follow clinically. Dr. [place] district operations manager this weekend and covering for me. Karina Macias MD Nov 19, 2017 11:08
[2017-11-19] MEDS ORDERED: ASP: Path resistant to other antimicrobials, culture proven PRN (11:15)
[2017-11-19] MEDS ORDERED: MISCELLANEOUS PHARMACY INFORMATION XX PRN (11:15)
[2017-11-19] MEDS ORDERED: MEROPENEM INJ 1,000 MG in SODIUM CHLORIDE 0.9% INJ 100 ML IV SCH (12:00)
[2017-11-19 13:02] LABS: BILIRUBIN, URINE NEG (NEG); BLOOD, URINE NEG (NEG); GLUCOSE,URINE NEG (NEG); KETONE, URINE NEG (NEG); MUCUS URINE FEW /lpf (OCC); NITRITE,URINE NEG (NEG); URINE COLOR YELLOW (YELLW/STRAW); URINE LEUKOCYTE ESTERASE NEG (NEG)
[2017-11-19] MEDS: VANCOMYCIN INJ 1,500 MG in SODIUM CHLORID 0.9% 500 ML INJ 500 ML IV SCH (16:11)
[2017-11-19] MEDS: HALOPERIDOL LACTATE 5 MG/ML AMP IM PRN ×2 (16:47→23:48)
[2017-11-19] MEDS: FUROSEMIDE 20 MG/2 ML VIAL IV PUSH SCH (16:47)
--- NOTE | 2017-11-19 19:46 | HHI.PR ---
Subjective Remarks Deferred entry - patient seen at 11:30 am As per RN, patient very agitated this am, RN also reports hallucinations afebrile off bipap currently on nasal canula Objective Vitals Vital Signs Date Time Temp Pulse Resp B/P (MAP) Pulse Ox O2 Delivery O2 Flow Rate FiO2 11/19/17 18:00 74 11/19/17 16:00 93 Nasal Cannula 4.00 11/19/17 16:00 97.8 100 39 113/53 (73) 92 11/19/17 16:00 100 11/19/17 14:00 97 11/19/17 12:00 98.0 97 31 114/52 (72) 96 11/19/17 12:00 93 Nasal Cannula 4.00 11/19/17 12:00 97 11/19/17 10:00 98 11/19/17 09:45 93 Nasal Cannula 4.00 11/19/17 08:00 97.9 91 34 126/60 (82) 94 11/19/17 08:00 97 11/19/17 08:00 96 Nasal Cannula 4.00 11/19/17 06:00 100 11/19/17 04:00 98.4 100 37 116/70 (85) 93 11/19/17 04:00 93 Bi-Pap 50 11/19/17 04:00 100 11/19/17 02:00 100 11/19/17 00:10 97 40 11/19/17 00:00 97 Bi-Pap 50 11/19/17 00:00 96 11/19/17 00:00 98.8 96 28 119/56 (77) 100 11/18/17 22:00 92 11/18/17 20:00 98.6 74 15 101/59 (73) 93 11/18/17 20:00 97 Bi-Pap 50 11/18/17 20:00 74 11/18/17 19:55 99 40 I/O 11/18/17 11/18/17 11/18/17 11/19/17 11/19/17 11/19/17 07:00 15:00 23:00 07:00 15:00 23:00 Intake Total 1340 ml 750 ml 100 ml 50 ml 400 ml Output Total 300 ml 300 ml 400 ml 400 ml 2100 ml Balance 1040 ml -300 ml 350 ml -300 ml 50 ml -1700 ml Intake Oral 240 ml 0 ml 100 ml 400 ml IV Total 1100 ml 750 ml 50 ml Output Urine Total 300 ml 300 ml 400 ml 400 ml 2100 ml Bladder Scan Volume Amount 446 ml # Voids 2 2 1 # Bowel Movements 0 0 0 0 Result Diagram: 11/18/17 0643 11/18/17 0643 Imaging Last Impressions Chest X-Ray 11/19/17 0000 Signed Impressions: Service Date/Time: Sunday, November 19, 2017 08:49 - CONCLUSION: Compensated cardiomegaly with better aeration. Geovany Bolivar MD FACR Lower Extremity Ultrasound 11/17/17 0000 Signed Impressions: Service Date/Time: Friday, November 17, 2017 21:57 - CONCLUSION: Normal examination. Albert Kendall MD Lower Extremity CT 11/16/17 1344 Signed Impressions: Service Date/Time: Thursday, November 16, 2017 14:12 - CONCLUSION: 1. Extensive edema and inflammatory changes with skin thickening in the thigh especially laterally and posteriorly but also extending medially. No definite loculated abscess. Musculature grossly intact. No abnormal loculated air. No bony destructive changes. Moderate to severe osteoarthritis at the knee. Albert Kendall MD Tibia/Fibula X-Ray 11/16/17 0000 Signed Impressions: Service Date/Time: Thursday, November 16, 2017 11:19 - CONCLUSION: 1. No acute bony abnormalities identified within the tibia. Moderate to severe osteoarthritis with medial joint space. Fixation calcaneus with residual deformity. Albert Kendall MD Objective Remarks GENERAL: Well-nourished, well-developed patient with mild respiratory distress HEAD: Normocephalic. EYES: No scleral icterus. No injection or drainage. NECK: Supple, trachea midline. No JVD or lymphadenopathy. CARDIOVASCULAR: Regular rate and rhythm without murmurs, gallops, or rubs. RESPIRATORY: Decreased breath sounds at the bases GASTROINTESTINAL: Abdomen soft, non-tender, nondistended. MUSCULOSKELETAL: R leg: redness to right leg distal to knee edematous/shiny. Opening on dorsum on right foot. Two small closed blisters on posterior aspect of hurtado. BACK: Nontender without obvious deformity. NEURO EXAM: Patient is awake and alert, however repeat very confused and not oriented to place or time. Medications and IVs Current Medications Medications (Trade) Dose Ordered Sig/Jay Route Start Time Stop Time Status Last Admin (Morphine Inj) 2 mg Q3H PRN IV PUSH 11/16/17 14:00 (D50w (Vial) Inj) 50 ml UNSCH PRN IV PUSH 11/16/17 14:15 (Glucagon Inj) 1 mg UNSCH PRN OTHER 11/16/17 14:15 (NovoLIN R SUPPLEMENTAL SCALE) 1 ACHS SLIDING SCALE SQ 11/16/17 17:00 11/19/17 16:21 Pharmacy Profile Note 0 ml @ 0 mls/hr UNSCH OTHER 11/16/17 14:30 (Cordarone) 100 mg BID PO 11/16/17 21:00 11/18/17 20:56 (Lipitor) 10 mg HS PO 11/16/17 21:00 11/18/17 20:55 (Coreg) 3.125 mg BID PO 11/16/17 21:00 11/18/17 20:55 (Vitamin D3) 1,000 units DAILY PO 11/17/17 09:00 11/18/17 08:22 (Lasix) 20 mg DAILY@0900,1800 PO 11/16/17 18:00 Future Hold 11/17/17 08:26 (Synthroid) 25 mcg DAILY@0600 PO 11/17/17 06:00 11/19/17 06:35 Sodium Chloride 1,000 ml @ 125 mls/hr Q8H IV 11/17/17 00:30 11/18/17 05:20 (Heparin Inj) 5,000 units Q8HR SQ 11/17/17 06:00 11/19/17 13:22 (Duoneb Neb) 1 ampule Q6HR WHILE AWAKE NEB NEB 11/18/17 14:00 11/18/17 19:53 (Duoneb Neb) 1 ampule Q2HR NEB PRN NEB 11/18/17 12:00 Vancomycin HCl 1500 mg/Sodium Chloride 515 ml @ 250 mls/hr Q24H IV 11/18/17 16:00 11/19/17 16:11 Miscellaneous Information SPECIFIC LAB TO BE DRAWN:VANCOMYCIN TROUGH DATE TO... ONCE ONCE .XX 11/20/17 15:45 11/20/17 15:46 (Lasix Inj) 20 mg BID@09,18 IV PUSH 11/19/17 18:00 11/19/17 16:47 (Haldol Inj) 2 mg Q4H PRN IM 11/19/17 14:00 11/19/17 16:47 (ASP Crit: Path resist to other, cult proven) 1 UNSCH X1 PRN .XX 11/19/17 11:15 11/20/17 11:14 ([facility] [place] [facility] [place] 1 UNSCH X1 PRN XX 11/19/17 11:15 11/20/17 11:14 Meropenem 1000 mg/ Sodium Chloride 100 ml @ 200 mls/hr Q12H IV 11/20/17 01:00 A/P Problem List: (1) Acute hypoxemic respiratory failure ICD Code: J96.01 - Acute respiratory failure with hypoxia Status: Acute (2) Severe sepsis ICD Code: A41.9 - Sepsis, unspecified organism; R65.20 - Severe sepsis without septic shock Status: Acute (3) Cellulitis of right lower extremity ICD Code: L03.115 - Cellulitis of right lower limb Status: Acute (4) UTI (urinary tract infection) ICD Code: N39.0 - Urinary tract infection, site not specified Status: Acute (5) LEWIS (acute kidney injury) ICD Code: N17.9 - Acute kidney failure, unspecified Status: Acute Assessment and Plan Severe sepsis Cellulitis of right lower extremity - Vancomycin, Zosyn, clindamycin - Follow blood culture. Intermittent blood cultures with Streptococcus - General surgery consulted for possible necrotizing fasciitis - CT scan doesn't show an abscess or free air - Pain control - Extremity ultrasound to rule out underlying DVT - No surgery recommended by general surgeon. Recommends agressive IV antibiotic therapy. continue IV antibiotics. Consult infectious disease since WBC trending up. Diabetes mellitus - Hold metformin while in the ICU - 11/18 continue SSI. Hold long acting insulin since patient is lethargic. will resume once patient is more awake. Hypertension - Coreg - Hold Lasix due to acute kidney injury Acute renal failure - Hold diuretics - IV fluids resuscitation - Monitor creatinine and urine output 11/18 DC IV fluids. Patient in respiratory distress likely due to fluid overload. Will Give 60 IV lasix now. 11/19 labs ordered and pending. Hypothyroidism - Levothyroxine - 11/18 check TSH. Atrial fibrillation - Amiodarone - Coreg - Digoxin - Resume Pradaxa in 24 hours, if renal function improves-no surgical intervention planned - 11/18 Continue to hold Pradaxa. Check EKG. Monitor on telemetry. Acute hypoxemic respiratory failure Patient had an episode of hypoxemia into the 80s on 11/18. ABG consistent with respiratory acidosis with hypercapnic, hypoxemic respiratory failure. The patient was transferred to intensive care unit and start on BiPAP. Chest x-ray showed questionable haziness right upper lung possibly mild distal pulmonary venous congestion. The patient was given 1 dose of 60 mg IV Lasix. 11/19 patient is off BiPAP and currently on 4 L nasal cannula. Repeat chest x- ray reviewed by me shows compensated cardiomegaly with better irrigation. I will start the patient on Lasix 20 mg IV twice a day. UTI Urine culture growing gram negative rods. ID and sensitivities pending. Consult ID Continue IV antibiotics as above. 11/19 appreciate ID consultation, the patient started on IV meropenem for Escherichia coli ESBL positive UTI and previous antibiotics discontinued. Case discussed with Dr. Macias who doubts patient has necrotizing fasciitis. She also recommended Felice wrap. Acute encephalopathy. The patient is very agitated and hallucinating. I will start the patient Haldol as needed for agitation. Likely secondary to metabolic encephalopathy secondary to UTI and cellulitis. Will monitor neurological status. DVT GI prophylaxis - Teds SCDs on unaffected leg - 1999 ADA diet Discharge Planning Continue to monitor in the intensive care unit. The patient still on elevated levels of oxygen. Will need ID clearance prior to discharge. Problem Qualifiers (1) UTI (urinary tract infection): Qualified Codes: N39.0 - Urinary tract infection, site not specified Manuel Allen MD Nov 19, 2017 19:46
[2017-11-19] MEDS: ATORVASTATIN 10 MG TAB PO SCH (20:45)
[2017-11-19] MEDS: MEROPENEM INJ 1,000 MG in SODIUM CHLORIDE 0.9% INJ 100 ML IV SCH (23:02)
[2017-11-20] VITALS (20 sets, daily range): BP systolic 115–155; BP diastolic 56–63; PULSE 79–105; RESP 26–34; TEMP 97.6–98.1; O2SAT 88–97
[2017-11-20 04:51] LABS: AUTOMATED NEUTROPHIL # 30.1 TH/MM3 (1.8-7.7); BASOPHIL # 0.1 TH/MM3 (0-0.2); BASOPHIL % 0.3 % (0.0-2.0); EOSINOPHIL % 0.1 % (0.0-4.0); HEMATOCRIT 25.9 % (35.0-46.0); HEMOGLOBIN 8.2 GM/DL (11.6-15.3); LYMPH % 1.9 % (9.0-44.0); LYMPHOCYTE # 0.7 TH/MM3 (1.0-4.8); MEAN CELL VOLUME 84.3 FL (80.0-100.0); MEAN CORPUSCULAR HEMOGLOBIN 26.5 PG (27.0-34.0); MEAN CORPUSCULAR HGB CONC 31.5 % (32.0-36.0); MEAN PLATELET VOLUME 9.5 FL (7.0-11.0); MONO % 9.6 % (0.0-8.0); MONOCYTE # 3.3 TH/MM3 (0-0.9); NEUT % 88.1 % (16.0-70.0); PLATELET COUNT 356 TH/MM3 (150-450); RED BLOOD COUNT 3.08 MIL/MM3 (4.00-5.30); RED CELL DISTRIBUTION WIDTH 19.9 % (11.6-17.2); WHITE BLOOD COUNT 34.1 TH/MM3 (4.0-11.0)
[2017-11-20 05:18] LABS: ALBUMIN 1.9 GM/DL (3.4-5.0); ALKALINE PHOSPHATASE 91 U/L (45-117); ALT (GPT) 58 U/L (10-53); AST (GOT) 62 U/L (15-37); BICARBONATE 23.9 MEQ/L (21.0-32.0); BLOOD UREA NITROGEN 51 MG/DL (7-18); CALCIUM 8.1 MG/DL (8.5-10.1); CHLORIDE 111 MEQ/L (98-107); CREATININE 1.93 MG/DL (0.50-1.00); GLOMERULAR FILTRATION RATE 25 ML/MIN (>89); GLUCOSE,RANDOM 204 MG/DL (74-106); MAGNESIUM 1.8 MG/DL (1.5-2.5); PHOSPHORUS 3.7 MG/DL (2.5-4.9); SODIUM (NA) 144 MEQ/L (136-145); TOTAL BILIRUBIN ADULT 0.6 MG/DL (0.2-1.0); TOTAL PROTEIN 6.6 GM/DL (6.4-8.2)
[2017-11-20 05:53] LABS: BANDS 5 % (0-6); METAMYELOCYTES 2 % (0-1); MONOCYTES 6 % (0-8); NEUTROPHIL # MANUAL DIFF 32.1 TH/MM3 (1.8-7.7); POLYS (SEG NEUTROPHILS) 87 % (16-70)
[2017-11-20 05:56] LABS: ACANTHOCYTES 1+ (NORMAL); TOXIC GRANULATION 1+ (NORMAL)
[2017-11-20] MEDS: LEVOTHYROXINE SODIUM 25 MCG TAB PO SCH (06:01)
[2017-11-20] MEDS: HEPARIN SODIUM - SQ 10,000 UNITS/ML VIAL SQ SCH ×3 (06:01→22:13)
[2017-11-20] MEDS: SODIUM CHLOR 0.9% 1000 ML INJ 1,000 ML IV SCH (06:07)
[2017-11-20] MEDS: HALOPERIDOL LACTATE 5 MG/ML AMP IM PRN (06:14)
[2017-11-20] MEDS: RESP: ALBUTEROL 2.5 MG/IPRATROPIUM 0.5 MG NEB (SCH) NEB ×3 (07:42→20:12)
[2017-11-20] MEDS: FUROSEMIDE 20 MG/2 ML VIAL IV PUSH SCH (09:21)
[2017-11-20] MEDS: CARVEDILOL 3.125 MG TAB PO SCH ×2 (09:21→21:15)
[2017-11-20] MEDS: AMIODARONE 200 MG TAB PO SCH ×2 (09:21→21:15)
[2017-11-20] MEDS: INSULIN NovoLIN REGULAR SUPPLEMENTAL SCALE SQ SCH ×4 (09:21→21:16)
[2017-11-20] MEDS: CHOLECALCIFEROL (VIT D3) 1000 UNIT TAB PO SCH (09:21)
[2017-11-20] MEDS ORDERED: POTASSIUM CHLORIDE 10 MEQ CONTROLLED RELEASE TAB PO ONE (10:00)
--- NOTE | 2017-11-20 10:50 | RADRPT ---
EXAM DATE/TIME: 11/20/2017 09:52 [place] COMPARISON: CHEST SINGLE AP, November 19, 2017, 8:49. INDICATIONS : Shortness of breath. MEDICAL HISTORY : Cardiovascular disease. Hypertension Diabetes. SURGICAL HISTORY : Coronary artery stent. Appendectomy. ENCOUNTER: Subsequent ACUITY: 4 - 6 days PAIN SCORE: 0/10 LOCATION: Bilateral chest FINDINGS: AP semiupright exam of the chest demonstrates posterior fusion hardware. The heart size appears at th e upper limits of normal. There is hazy diffuse opacity identified within the bilateral lobes which m ay represent airspace disease versus layering pleural effusions. This appearance is nonsignificantly changed from prior exam. CONCLUSION: Stable exam. Debby Pruitt MD on November 20, 2017 at 10:47 Board Certified Radiologist. This report was verified electronically.
--- NOTE | 2017-11-20 11:06 | HHI.PR ---
Subjective Remarks As per RN patient is hallucinating and confused. Patient still on 4 liters nasal canula. wbc elevated as per RN report patient agitated last night throwing objects at nurses. Objective Vitals Vital Signs Date Time Temp Pulse Resp B/P (MAP) Pulse Ox O2 Delivery O2 Flow Rate FiO2 11/20/17 10:00 99 11/20/17 09:00 100 11/20/17 08:00 97.6 100 31 155/63 (93) 96 11/20/17 08:00 97 Nasal Cannula 5.00 11/20/17 08:00 100 11/20/17 07:42 97 Nasal Cannula 5.00 11/20/17 07:00 94 11/20/17 06:00 97 11/20/17 04:00 98.1 98 33 133/59 (83) 96 11/20/17 04:00 95 Nasal Cannula 5.00 11/20/17 04:00 98 11/20/17 02:00 99 11/20/17 00:00 95 31 115/56 (75) 88 11/20/17 00:00 93 Nasal Cannula 5.00 11/20/17 00:00 95 11/19/17 22:00 84 11/19/17 20:07 97 Nasal Cannula 5.00 11/19/17 20:00 100 24 110/53 (72) 96 11/19/17 20:00 100 11/19/17 20:00 92 Nasal Cannula 5.00 11/19/17 18:00 74 11/19/17 16:00 93 Nasal Cannula 4.00 11/19/17 16:00 97.8 100 39 113/53 (73) 92 11/19/17 16:00 100 11/19/17 14:00 97 11/19/17 12:00 98.0 97 31 114/52 (72) 96 11/19/17 12:00 93 Nasal Cannula 4.00 11/19/17 12:00 97 I/O 11/19/17 11/19/17 11/19/17 11/20/17 11/20/17 11/20/17 07:00 15:00 23:00 07:00 15:00 23:00 Intake Total 100 ml 50 ml 1850 ml 1200 ml Output Total 400 ml 2100 ml 1200 ml Balance -300 ml 50 ml -250 ml 0 ml Intake Oral 100 ml 400 ml 100 ml IV Total 50 ml 1450 ml 1100 ml Output Urine Total 400 ml 2100 ml 1200 ml Bladder Scan Volume Amount 446 ml # Voids 2 1 # Bowel Movements 0 0 0 Result Diagram: 11/20/1742011/20/17420 Imaging Last Impressions Renal Ultrasound 11/20/17 0000 Signed Impressions: Service Date/Time: Monday, November 20, 2017 16:17 - CONCLUSION: 1. Echogenic kidneys typical of chronic parenchymal disease. No obstructive uropathy or other acute abnormality demonstrated. 2. Sludge and at least one stone in the gallbladder. Cameron Alberts MD Head CT 11/20/17 0000 Signed Impressions: Service Date/Time: Monday, November 20, 2017 21:48 - CONCLUSION: No acute intracranial abnormality demonstrated. Cameron Alberts MD Chest X-Ray 11/20/17 0000 Signed Impressions: Service Date/Time: Monday, November 20, 2017 09:52 - CONCLUSION: Stable exam. Debby Pruitt MD Lower Extremity Ultrasound 11/17/17 0000 Signed Impressions: Service Date/Time: Friday, November 17, 2017 21:57 - CONCLUSION: Normal examination. Albert Kendall MD Lower Extremity CT 11/16/17 1344 Signed Impressions: Service Date/Time: Thursday, November 16, 2017 14:12 - CONCLUSION: 1. Extensive edema and inflammatory changes with skin thickening in the thigh especially laterally and posteriorly but also extending medially. No definite loculated abscess. Musculature grossly intact. No abnormal loculated air. No bony destructive changes. Moderate to severe osteoarthritis at the knee. Albert Kendall MD Tibia/Fibula X-Ray 11/16/17 0000 Signed Impressions: Service Date/Time: Thursday, November 16, 2017 11:19 - CONCLUSION: 1. No acute bony abnormalities identified within the tibia. Moderate to severe osteoarthritis with medial joint space. Fixation calcaneus with residual deformity. Albert Kendall MD Objective Remarks GENERAL: Well-nourished, well-developed patient with mild respiratory distress HEAD: Normocephalic. EYES: No scleral icterus. No injection or drainage. NECK: Supple, trachea midline. No JVD or lymphadenopathy. CARDIOVASCULAR: Regular rate and rhythm without murmurs, gallops, or rubs. RESPIRATORY: Decreased breath sounds at the bases GASTROINTESTINAL: Abdomen soft, non-tender, nondistended. MUSCULOSKELETAL: R leg: redness to right leg distal to knee edematous/shiny. Opening on dorsum on right foot. Two small closed blisters on posterior aspect of hurtado. BACK: Nontender without obvious deformity. NEURO EXAM: Patient is awake and alert, however repeat very confused and not oriented to place or time. Procedures none Medications and IVs Current Medications Medications (Trade) Dose Ordered Sig/Jay Route Start Time Stop Time Status Last Admin (Morphine Inj) 2 mg Q3H PRN IV PUSH 11/16/17 14:00 (D50w (Vial) Inj) 50 ml UNSCH PRN IV PUSH 11/16/17 14:15 (Glucagon Inj) 1 mg UNSCH PRN OTHER 11/16/17 14:15 (NovoLIN R SUPPLEMENTAL SCALE) 1 ACHS SLIDING SCALE SQ 11/16/17 17:00 11/20/17 21:16 Pharmacy Profile Note 0 ml @ 0 mls/hr UNSCH OTHER 11/16/17 14:30 (Cordarone) 100 mg BID PO 11/16/17 21:00 11/20/17 21:15 (Lipitor) 10 mg HS PO 11/16/17 21:00 11/20/17 21:15 (Coreg) 3.125 mg BID PO 11/16/17 21:00 11/20/17 21:15 (Vitamin D3) 1,000 units DAILY PO 11/17/17 09:00 11/20/17 09:21 (Lasix) 20 mg DAILY@0900,1800 PO 11/16/17 18:00 Future Hold 11/17/17 08:26 (Synthroid) 25 mcg DAILY@0600 PO 11/17/17 06:00 11/21/17 05:41 (Heparin Inj) 5,000 units Q8HR SQ 11/17/17 06:00 11/21/17 05:41 (Duoneb Neb) 1 ampule Q6HR WHILE AWAKE NEB NEB 11/18/17 14:00 11/21/17 07:41 (Duoneb Neb) 1 ampule Q2HR NEB PRN NEB 11/18/17 12:00 (Haldol Inj) 2 mg Q4H PRN IM 11/19/17 14:00 11/20/17 06:14 Meropenem 1000 mg/ Sodium Chloride 100 ml @ 200 mls/hr Q12H IV 11/20/17 01:00 11/21/17 00:31 (SEROquel) 25 mg DAILY PO 11/21/17 09:00 (SEROquel) 25 mg HS PO 11/20/17 21:00 11/20/17 21:15 (Lasix Inj) 40 mg BID@09,18 IV PUSH 11/20/17 18:00 11/20/17 18:11 Vancomycin HCl 1200 mg/Sodium Chloride 262 ml @ 250 mls/hr Q36H IV 11/22/17 04:00 A/P Problem List: (1) Acute hypoxemic respiratory failure ICD Code: J96.01 - Acute respiratory failure with hypoxia Status: Acute (2) Severe sepsis ICD Code: A41.9 - Sepsis, unspecified organism; R65.20 - Severe sepsis without septic shock Status: Acute (3) Cellulitis of right lower extremity ICD Code: L03.115 - Cellulitis of right lower limb Status: Acute (4) UTI (urinary tract infection) ICD Code: N39.0 - Urinary tract infection, site not specified Status: Acute (5) LEWIS (acute kidney injury) ICD Code: N17.9 - Acute kidney failure, unspecified Status: Acute Assessment and Plan Severe sepsis Cellulitis of right lower extremity - Vancomycin, Zosyn, clindamycin - Follow blood culture. Intermittent blood cultures with Streptococcus - General surgery consulted for possible necrotizing fasciitis - CT scan doesn't show an abscess or free air - Pain control - Extremity ultrasound to rule out underlying DVT - No surgery recommended by general surgeon. Recommends aggressive IV antibiotic therapy. continue IV antibiotics. Consult infectious disease since WBC trending up. - Antibiotics per ID. Currently on IV Meropenem, IV Vancomycin. WBC trendig up now 34K however patient received steroids. Diabetes mellitus - Hold metformin while in the ICU - Continue SSI. Hold long acting insulin since patient is lethargic. will resume once patient is more awake. Hypertension - Coreg - Hold Lasix due to acute kidney injury Acute renal failure - Hold diuretics - IV fluids resuscitation - Monitor creatinine and urine output 11/18 DC IV fluids. Patient in respiratory distress likely due to fluid overload. Will Give 60 IV lasix now. 11/19 labs ordered and pending. Hypothyroidism - Levothyroxine - 11/20 TSH is elevated at 3.890, will check free t3, free t4. Atrial fibrillation - Amiodarone - Coreg - Digoxin - Resume Pradaxa in 24 hours, if renal function improves-no surgical intervention planned - 11/20 Continue to hold pradaxa due to poor renal function. - Acute hypoxemic respiratory failure Patient had an episode of hypoxemia into the 80s on 11/18. ABG consistent with respiratory acidosis with hypercapnic, hypoxemic respiratory failure. The patient was transferred to intensive care unit and start on BiPAP. Chest x-ray showed questionable haziness right upper lung possibly mild distal pulmonary venous congestion. The patient was given 1 dose of 60 mg IV Lasix. 11/19 patient is off BiPAP and currently on 4 L nasal cannula. Repeat chest x- ray reviewed by me shows compensated cardiomegaly with better irrigation. I will start the patient on Lasix 20 mg IV twice a day. 11/20 Dc IV fluids since patient is on Lasix. UTI Urine culture growing gram negative rods. ID and sensitivities pending. Consult ID Continue IV antibiotics as above. 11/19 appreciate ID consultation, the patient started on IV meropenem for Escherichia coli ESBL positive UTI and previous antibiotics discontinued. Case discussed with Dr. Macias who doubts patient has necrotizing fasciitis. She also recommended Felice wrap. Acute encephalopathy. The patient is very agitated and hallucinating. I will start the patient Haldol as needed for agitation. Likely secondary to metabolic encephalopathy secondary to UTI and cellulitis. Will monitor neurological status. 11/20 Will start on Seroquel, Patient still encephalopathic. Restraint as needed for agitation. Check CT head. DVT GI prophylaxis - Teds SCDs on unaffected leg - 1999 ADA diet Discharge Planning Continue to monitor in the intensive care unit. The patient still on elevated levels of oxygen. Will need ID clearance prior to discharge. Problem Qualifiers (1) UTI (urinary tract infection): Qualified Codes: N39.0 - Urinary tract infection, site not specified Manuel Allen MD Nov 20, 2017 11:06
[2017-11-20] MEDS ORDERED: FUROSEMIDE 20 MG/2 ML VIAL IV PUSH ONE (11:15)
[2017-11-20] MEDS: MEROPENEM INJ 1,000 MG in SODIUM CHLORIDE 0.9% INJ 100 ML IV SCH (12:13)
--- NOTE | 2017-11-20 15:07 | PD.CONS ---
[facility] Service Nephrology Consult Requested By Dr. Finch Reason for Consult ARF Primary Care Physician Unknown History of Present Illness The patient is a 77 yo [place] female who presented to this facility on 11/16 with complaints of R leg pain. She is on vacation from [place]. Reports that she has a hx of underlying CKD, but is not cure of her baseline. She also mentions hx of CHF and takes Lasix at home twice daily, but not sure of dose. She is being treated for RLE cellulitis initially on Vancomycin, Zosyn, and Clindamycin, but Zosyn was changed to Meropenem on 11/19 for UTI coverage. Yulisa was called for respiratory distress on 11/18 and was given IV Lasix and placed on BiPAP. Has been on Lasix 20mg IV q12h since then and was increased to 40mg IV q12h as if this morning. She has also been on maintenance fluid of NS at 125mL/hr from 11/17 thru 11/20. Vancomycin levels were within therapeutic range on 11/18. UOP has been good. Seen in ICU setting. Son & present in the room. Has been answering questions appropriately. (Elizabet Hays) Review of Systems Constitutional: COMPLAINS OF: Fatigue Respiratory: COMPLAINS OF: Shortness of breath (Elizabet Hays) Past Family Social History Allergies: Coded Allergies: No Known Allergies (Unverified , 11/16/17) Past Medical History CKD as per patient with baseline functions unknown CHF reported by patient HTN DM A fib Past Surgical History Tib/fib repair Appendectomy Reported Medications Metformin (Metformin HCl) 1,000 Mg Tab Unknown Dose PO BIDPC Vitamin D3 (Cholecalciferol) 1,000 Unit Cap Unknown Dose PO DAILY Levothyroxine (Levothyroxine Sodium) 25 Mcg Tab Unknown Dose PO DAILY Digoxin 0.125 Mg Tab Unknown Dose PO DAILY Stool Softener (Docusate Sodium) 50 Mg Capsule Unknown Dose Atorvastatin (Atorvastatin Calcium) 10 Mg Tab Unknown Dose PO HS Carvedilol 3.125 Mg Tab Unknown Dose PO BID Furosemide 20 Mg Tab Unknown Dose PO BID Amiodarone (Amiodarone HCl) 100 Mg Tab Unknown Dose PO BID Pradaxa (Dabigatran) 75 Mg Cap Unknown Dose PO BID Lantus Inj (Insulin Glargine) 100 Unit/Ml Inj 32 Units DAILY Active Ordered Medications Current Medications Medications (Trade) Dose Ordered Sig/Jay Route Start Time Stop Time Status Last Admin (Morphine Inj) 2 mg Q3H PRN IV PUSH 11/16/17 14:00 (D50w (Vial) Inj) 50 ml UNSCH PRN IV PUSH 11/16/17 14:15 (Glucagon Inj) 1 mg UNSCH PRN OTHER 11/16/17 14:15 (NovoLIN R SUPPLEMENTAL SCALE) 1 ACHS SLIDING SCALE SQ 11/16/17 17:00 11/20/17 12:00 Pharmacy Profile Note 0 ml @ 0 mls/hr UNSCH OTHER 11/16/17 14:30 (Cordarone) 100 mg BID PO 11/16/17 21:00 11/20/17 09:21 (Lipitor) 10 mg HS PO 11/16/17 21:00 11/19/17 20:45 (Coreg) 3.125 mg BID PO 11/16/17 21:00 11/20/17 09:21 (Vitamin D3) 1,000 units DAILY PO 11/17/17 09:00 11/20/17 09:21 (Lasix) 20 mg DAILY@0900,1800 PO 11/16/17 18:00 Future Hold 11/17/17 08:26 (Synthroid) 25 mcg DAILY@0600 PO 11/17/17 06:00 11/20/17 06:01 (Heparin Inj) 5,000 units Q8HR SQ 11/17/17 06:00 11/20/17 14:54 (Duoneb Neb) 1 ampule Q6HR WHILE AWAKE NEB NEB 11/18/17 14:00 11/20/17 11:26 (Duoneb Neb) 1 ampule Q2HR NEB PRN NEB 11/18/17 12:00 Vancomycin HCl 1500 mg/Sodium Chloride 515 ml @ 250 mls/hr Q24H IV 11/18/17 16:00 11/19/17 16:11 Miscellaneous Information SPECIFIC LAB TO BE DRAWN:VANCOMYCIN TROUGH DATE TO... ONCE ONCE .XX 11/20/17 15:45 11/20/17 15:46 (Haldol Inj) 2 mg Q4H PRN IM 11/19/17 14:00 11/20/17 06:14 Meropenem 1000 mg/ Sodium Chloride 100 ml @ 200 mls/hr Q12H IV 11/20/17 01:00 11/20/17 12:13 (SEROquel) 25 mg DAILY PO 11/21/17 09:00 (SEROquel) 25 mg HS PO 11/20/17 21:00 (Lasix Inj) 40 mg BID@09,18 IV PUSH 11/20/17 18:00 Family History [place] Social History Lives in [place] with her family. Is (Elizabet Hays) Physical Exam Vital Signs Vital Signs Date Time Temp Pulse Resp B/P (MAP) Pulse Ox O2 Delivery O2 Flow Rate FiO2 11/20/17 14:00 95 11/20/17 13:00 93 11/20/17 12:00 79 11/20/17 12:00 97.9 79 26 128/60 (82) 94 11/20/17 12:00 98 Nasal Cannula 5.00 11/20/17 11:00 80 11/20/17 10:00 99 11/20/17 09:00 100 11/20/17 08:00 97.6 100 31 155/63 (93) 96 11/20/17 08:00 97 Nasal Cannula 5.00 11/20/17 08:00 100 11/20/17 07:42 97 Nasal Cannula 5.00 11/20/17 07:00 94 11/20/17 06:00 97 11/20/17 04:00 98.1 98 33 133/59 (83) 96 11/20/17 04:00 95 Nasal Cannula 5.00 11/20/17 04:00 98 11/20/17 02:00 99 11/20/17 00:00 95 31 115/56 (75) 88 11/20/17 00:00 93 Nasal Cannula 5.00 11/20/17 00:00 95 11/19/17 22:00 84 11/19/17 20:07 97 Nasal Cannula 5.00 11/19/17 20:00 100 24 110/53 (72) 96 11/19/17 20:00 100 11/19/17 20:00 92 Nasal Cannula 5.00 11/19/17 18:00 74 11/19/17 16:00 93 Nasal Cannula 4.00 11/19/17 16:00 97.8 100 39 113/53 (73) 92 11/19/17 16:00 100 Physical Exam GENERAL: Pt seen in ICU. Laying in bed. Comfortable, but does say her feet are hurting. On NC in NAD. SKIN: Warm and dry. HEAD: Atraumatic. Normocephalic. EYES: Pupils equal and round. No scleral icterus. No injection or drainage. ENT: No nasal bleeding or discharge. Mucous membranes pink and moist. NECK: Trachea midline. No JVD. CARDIOVASCULAR: RRR no murmur RESPIRATORY: No accessory muscle use. Diminished throughout GASTROINTESTINAL: Abdomen soft, non-tender, nondistended. Hepatic and splenic margins not palpable. MUSCULOSKELETAL: Extremities without clubbing, cyanosis. RLE is wrapped. No edema noted peripherally, but she does have 1+ in thighs and hips. Also trace edema present in BUE. NEUROLOGICAL: Awake and alert. Normal speech. PSYCHIATRIC: Appropriate mood and affect; insight and judgment normal. Laboratory Laboratory Tests Test 11/20/17 04:21 White Blood Count 34.1 Red Blood Count 3.08 Hemoglobin 8.2 Hematocrit 25.9 Mean Corpuscular Volume 84.3 Mean Corpuscular Hemoglobin 26.5 Mean Corpuscular Hemoglobin Concent 31.5 Red Cell Distribution Width 19.9 Platelet Count 356 Mean Platelet Volume 9.5 Neutrophils (%) (Auto) 88.1 Lymphocytes (%) (Auto) 1.9 Monocytes (%) (Auto) 9.6 Eosinophils (%) (Auto) 0.1 Basophils (%) (Auto) 0.3 Neutrophils # (Auto) 30.1 Lymphocytes # (Auto) 0.7 Monocytes # (Auto) 3.3 Eosinophils # (Auto) 0.0 Basophils # (Auto) 0.1 CBC Comment AUTO DIFF Differential Total Cells Counted 100 Neutrophils % (Manual) 87 Band Neutrophils % 5 Monocytes % 6 Neutrophils # (Manual) 32.1 Metamyelocytes 2 Differential Comment FINAL DIFF MANUAL Toxic Granulation 1+ Platelet Estimate NORMAL Platelet Morphology Comment NORMAL Basophilic Stippling FAINT Acanthocytes 1+ Blood Urea Nitrogen 51 Creatinine 1.93 Random Glucose 204 Total Protein 6.6 Albumin 1.9 Calcium Level 8.1 Phosphorus Level 3.7 Magnesium Level 1.8 Alkaline Phosphatase 91 Aspartate Amino Transf (AST/SGOT) 62 Alanine Aminotransferase (ALT/SGPT) 58 Total Bilirubin 0.6 Sodium Level 144 Potassium Level 3.3 Chloride Level 111 Carbon Dioxide Level 23.9 Anion Gap 9 Estimat Glomerular Filtration Rate 25 Date/Time Source Procedure Growth Status 11/19/17 12:33 Blood Peripheral Aerobic Blood Culture - Preliminary NO GROWTH IN 1 DAY Resulted 11/19/17 12:33 Blood Peripheral Anaerobic Blood Culture - Preliminary NO GROWTH IN 1 DAY Resulted 11/16/17 13:45 Urine Clean Catch Urine Culture - Final Escherichia Coli Esbl Positive Complete 11/16/17 11:10 Wound Leg Gram Stain - Final Resulted 11/16/17 11:10 Wound Culture - Preliminary Strep Not A,B D Acinetobacter Baumannii/Haemol Resulted (Elizabet Hays) Result Diagram: 11/20/17 0421 11/20/17 0421 Imaging Last Impressions Chest X-Ray 11/20/17 0000 Signed Impressions: Service Date/Time: Monday, November 20, 2017 09:52 - CONCLUSION: Stable exam. Debby Pruitt MD Lower Extremity Ultrasound 11/17/17 0000 Signed Impressions: Service Date/Time: Friday, November 17, 2017 21:57 - CONCLUSION: Normal examination. Albert Kendall MD Lower Extremity CT 11/16/17 1344 Signed Impressions: Service Date/Time: Thursday, November 16, 2017 14:12 - CONCLUSION: 1. Extensive edema and inflammatory changes with skin thickening in the thigh especially laterally and posteriorly but also extending medially. No definite loculated abscess. Musculature grossly intact. No abnormal loculated air. No bony destructive changes. Moderate to severe osteoarthritis at the knee. Albert Kendall MD Tibia/Fibula X-Ray 11/16/17 0000 Signed Impressions: Service Date/Time: Thursday, November 16, 2017 11:19 - CONCLUSION: 1. No acute bony abnormalities identified within the tibia. Moderate to severe osteoarthritis with medial joint space. Fixation calcaneus with residual deformity. Albert Kendall MD (Elizabet Hays) Assessment and Plan Problem List: (1) Renal insufficiency ICD Codes: N28.9 - Disorder of kidney and ureter, unspecified; R65.20 - Severe sepsis without septic shock Status: Acute Plan: Apparent acute on chronic as per the patient and her family. Will try to contact her PCP on Wednesday (Dr. Ganesh Damon in [place], [place] at [phone]) to establish her baseline renal function Cause of acute renal decline likely multifactorial: infection, volume status, potential medication related, urinary retention. Although her renal functions deteriorated slightly overnight, still better than her admitting SCr of 2.40. Check renal and bladder US. Check Vancomycin levels as well as urinary eosinophils Check echocardiogram given her edema and reported hx of CHF Continue on Lasix for the present and hold IVF. Monitor I&Os. Medications should be adjusted for her renal insufficiency. Avoid nephrotoxins such as iodinated contrast dyes and NSAIDs. Avoid gadolinium. (2) Congestive heart failure ICD Codes: I50.9 - Heart failure, unspecified Plan: As above, order echo (3) Anemia ICD Codes: D64.9 - Anemia, unspecified Status: Acute Plan: Repeat CBC with Fe panel. Given renal decline, will check serology (4) UTI (urinary tract infection) ICD Codes: N39.0 - Urinary tract infection, site not specified Status: Acute Plan: Abx as per ID (5) Cellulitis of right lower extremity ICD Codes: L03.115 - Cellulitis of right lower limb Status: Acute Plan: Abx as per ID BCx negative x24h (Elizabet Hays) Assessment and Plan Renal ultrasound consistent with chronic kidney disease. Baseline renal indices unknown however. We will be contacting primary care physician Wednesday to obtain additional data. 2-D echocardiogram to characterize myocardial function which may aid management. Reduce IV fluids as indicated above in view of evidence of fluid overload and continue IV furosemide with monitoring of volume status and renal indices. Workup as ordered. I discussed plan of management and impression with son who is by the bedside, patient as well as a daughter who was faced timing with her mother and all questions were addressed best of my ability based on data available currently. The exam, history, and the medical decision-making described in the above note were completed with the assistance of the PAMarlyn. I reviewed and agree with the findings presented. I attest that I had a [id number] encounter with the patient on the same day, and personally performed and documented my assessment and findings in the medical record. (Morena Amezcua MD) Problem Qualifiers (1) Anemia: Qualified Codes: D64.9 - Anemia, unspecified (2) UTI (urinary tract infection): Qualified Codes: N39.0 - Urinary tract infection, site not specified Elizabet Hays Nov 20, 2017 15:07 Morena Amezcua MD Nov 20, 2017 17:25
[2017-11-20] MEDS ORDERED: PHARMACY ORDERED LAB ONE (15:45)
[2017-11-20] MEDS ORDERED: POTASSIUM CHLORIDE 20 MEQ CONTROLLED RELEASE TAB PO ONE (15:45)
[2017-11-20] MEDS: VANCOMYCIN INJ 1,500 MG in SODIUM CHLORID 0.9% 500 ML INJ 500 ML IV SCH (15:52)
[2017-11-20 16:54] LABS: % SATURATION IRON PROFILE 22.1 % (20-50); COMPLEMENT C3 87 MG/DL (90-180); COMPLEMENT C4 19 MG/DL (10-40); IRON (FE) 46 MCG/DL (50-170); PHOSPHORUS 3.2 MG/DL (2.5-4.9); TOTAL IRON BINDING CAPACITY 209 MCG/DL (250-450)
[2017-11-20 16:57] LABS: FERRITIN 486 NG/ML (8-252)
--- NOTE | 2017-11-20 16:59 | RADRPT ---
EXAM DATE/TIME: 11/20/2017 16:17 [facility] COMPARISON: No previous studies available for comparison. INDICATIONS : Increased BUN/Creatnine. MEDICAL HISTORY : Hypercholesterolemia. Hypertension. Chronic obstructive pulmonary disease. Atrial fibrillation. Dyspn ea. Arthritis. Diabetes. SURGICAL HISTORY : Appendectomy. IVC Filter placement. Cataract surgery. Cardiac stents. Thoracentesis. Left femur marc twyla. Rods in back. ENCOUNTER: Initial ACUITY: 1 day PAIN SCORE: 0/10 LOCATION: Bilateral flank MEASUREMENTS: RIGHT KIDNEY: 11.1 x 5.0 x 5.0 cm LEFT KIDNEY: 11.1 x 4.1 x 5.9 cm FINDINGS: Both kidneys have diffuse, mildly increased echogenicity. No focal renal lesion demonstrated. No hydr onephrosis. Urinary bladder is decompressed with a Duron and grossly unremarkable. Subcentimeter stone a considerable sludge seen in the gallbladder. CONCLUSION: 1. Echogenic kidneys typical of chronic parenchymal disease. No obstructive uropathy or other acute a bnormality demonstrated. 2. Sludge and at least one stone in the gallbladder. Cameron Alberts MD on November 20, 2017 at 16:55 Board Certified Radiologist. This report was verified electronically.
[2017-11-20] MEDS ORDERED: FUROSEMIDE 20 MG/2 ML VIAL IV PUSH SCH (18:00)
[2017-11-20] MEDS: ATORVASTATIN 10 MG TAB PO SCH (21:15)
[2017-11-20] MEDS: QUEtiapine FUMARATE 25 MG TAB PO SCH (21:15)
--- NOTE | 2017-11-20 22:03 | RADRPT ---
EXAM DATE/TIME: 11/20/2017 21:48 [facility] COMPARISON: No previous studies available for comparison. INDICATIONS : Altered mental status. RADIATION DOSE: 34.35 CTDIvol (mGy) MEDICAL HISTORY : Cardiovascular disease. Hypertension. Diabetes mellitus type 2. SURGICAL HISTORY : Appendectomy. ENCOUNTER: Initial ACUITY: 1 day PAIN SCALE: Non-responsive LOCATION: cranial TECHNIQUE: Multiple contiguous axial images were obtained of the head. Using automated exposure control and adj ustment of the mA and/or kV according to patient size, radiation dose was kept as low as reasonably a chievable to obtain optimal diagnostic quality images. DICOM format image data is available electro nically for review and comparison. FINDINGS: CEREBRUM: The ventricles are normal for age. No evidence of midline shift, mass lesion, hemorrhage or acute in farction. No extra-axial fluid collections are seen. POSTERIOR FOSSA: The cerebellum and brainstem are intact. The 4th ventricle is midline. The cerebellopontine angle i s unremarkable. EXTRACRANIAL: The visualized portion of the orbits is intact. SKULL: The calvaria is intact. No evidence of skull fracture. CONCLUSION: No acute intracranial abnormality demonstrated. Cameron Alberts MD on November 20, 2017 at 22:00 Board Certified Radiologist. This report was verified electronically.
[2017-11-21] VITALS (20 sets, daily range): BP systolic 112–140; BP diastolic 58–71; PULSE 65–96; RESP 15–29; TEMP 97.9–98.5; O2SAT 90–96
[2017-11-21] MEDS: MEROPENEM INJ 1,000 MG in SODIUM CHLORIDE 0.9% INJ 100 ML IV SCH ×2 (00:31→17:36)
[2017-11-21] MEDS: HEPARIN SODIUM - SQ 10,000 UNITS/ML VIAL SQ SCH ×3 (05:41→21:34)
[2017-11-21] MEDS: LEVOTHYROXINE SODIUM 25 MCG TAB PO SCH (05:41)
[2017-11-21 05:55] LABS: BASOPHIL # 0.1 TH/MM3 (0-0.2); BASOPHIL % 0.4 % (0.0-2.0); EOSINOPHIL # 0.1 TH/MM3 (0-0.4); EOSINOPHIL % 0.4 % (0.0-4.0); HEMATOCRIT 26.5 % (35.0-46.0); HEMOGLOBIN 8.5 GM/DL (11.6-15.3); LYMPH % 5.2 % (9.0-44.0); LYMPHOCYTE # 1.1 TH/MM3 (1.0-4.8); MEAN CELL VOLUME 82.7 FL (80.0-100.0); MEAN CORPUSCULAR HEMOGLOBIN 26.5 PG (27.0-34.0); MEAN PLATELET VOLUME 9.5 FL (7.0-11.0); MONO % 10.3 % (0.0-8.0); MONOCYTE # 2.1 TH/MM3 (0-0.9); NEUT % 83.7 % (16.0-70.0); PLATELET COUNT 372 TH/MM3 (150-450); RED CELL DISTRIBUTION WIDTH 19.9 % (11.6-17.2); WHITE BLOOD COUNT 20.3 TH/MM3 (4.0-11.0)
[2017-11-21 06:21] LABS: AST (GOT) 45 U/L (15-37); BICARBONATE 29.2 MEQ/L (21.0-32.0); BLOOD UREA NITROGEN 39 MG/DL (7-18); CALCIUM 8.6 MG/DL (8.5-10.1); CHLORIDE 111 MEQ/L (98-107); GLOMERULAR FILTRATION RATE 36 ML/MIN (>89); GLUCOSE,RANDOM 153 MG/DL (74-106); MAGNESIUM 1.7 MG/DL (1.5-2.5); SODIUM (NA) 148 MEQ/L (136-145)
[2017-11-21 06:28] LABS: ALKALINE PHOSPHATASE 96 U/L (45-117); ALT (GPT) 51 U/L (10-53); PHOSPHORUS 2.9 MG/DL (2.5-4.9); RANDOM VANCOMYCIN 31.5 COMMENT; TOTAL BILIRUBIN ADULT 0.7 MG/DL (0.2-1.0); TOTAL PROTEIN 6.9 GM/DL (6.4-8.2)
[2017-11-21 07:20] LABS: BANDS 2 % (0-6); LYMPHOCYTES 3 % (9-44); METAMYELOCYTES 1 % (0-1); MONOCYTES 8 % (0-8); NEUTROPHIL # MANUAL DIFF 18.1 TH/MM3 (1.8-7.7); POLYS (SEG NEUTROPHILS) 86 % (16-70)
[2017-11-21 07:21] LABS: TOXIC GRANULATION 1+ (NORMAL)
[2017-11-21] MEDS: RESP: ALBUTEROL 2.5 MG/IPRATROPIUM 0.5 MG NEB (SCH) NEB ×3 (07:41→20:41)
[2017-11-21 09:10] LABS: KAPPA LAMBDA RATIO 2.38 (1.57-3.93)
[2017-11-21] MEDS: CARVEDILOL 3.125 MG TAB PO SCH ×2 (09:25→21:17)
[2017-11-21] MEDS: CHOLECALCIFEROL (VIT D3) 1000 UNIT TAB PO SCH (09:25)
[2017-11-21] MEDS: QUEtiapine FUMARATE 25 MG TAB PO SCH ×2 (09:25→21:20)
[2017-11-21] MEDS: INSULIN NovoLIN REGULAR SUPPLEMENTAL SCALE SQ SCH ×4 (09:26→21:20)
[2017-11-21] MEDS: AMIODARONE 200 MG TAB PO SCH ×2 (09:26→21:20)
[2017-11-21] MEDS: POTASSIUM CHLOR 20 MEQ PREMIX 100 ML IV SCH ×2 (10:42→14:46)
--- NOTE | 2017-11-21 16:50 | HHI.PR ---
Subjective Remarks Discussed overnight events with RN Patient no longer agitated off restraints. Patient is now awake and alert. Objective Vitals Vital Signs Date Time Temp Pulse Resp B/P (MAP) Pulse Ox O2 Delivery O2 Flow Rate FiO2 11/21/17 14:00 71 11/21/17 13:00 88 11/21/17 12:00 97.9 94 23 140/63 (88) 91 11/21/17 12:00 92 Nasal Cannula 4.00 11/21/17 12:00 94 11/21/17 11:00 82 11/21/17 10:00 85 11/21/17 09:00 84 11/21/17 08:00 95 Nasal Cannula 4.00 11/21/17 08:00 97.9 90 23 130/60 (83) 92 11/21/17 08:00 90 11/21/17 07:41 93 Nasal Cannula 2.00 11/21/17 07:00 88 11/21/17 06:00 80 11/21/17 04:00 98.1 70 15 127/58 (81) 95 11/21/17 04:00 95 Nasal Cannula 4.00 11/21/17 04:00 70 11/21/17 02:00 65 11/21/17 00:00 96 11/21/17 00:00 98.5 96 23 112/71 (85) 93 11/21/17 00:00 93 Nasal Cannula 4.00 11/20/17 22:00 100 11/20/17 20:13 96 Nasal Cannula 3.00 11/20/17 20:00 105 11/20/17 20:00 93 Nasal Cannula 4.00 11/20/17 20:00 97.6 105 31 144/63 (90) 93 11/20/17 18:00 104 11/20/17 17:00 98 I/O 11/20/17 11/20/17 11/20/17 11/21/17 11/21/17 11/21/17 07:00 15:00 23:00 07:00 15:00 23:00 Intake Total 1200 ml 350 ml 1400 ml 100 ml Output Total 1200 ml 1500 ml 1850 ml Balance 0 ml 350 ml -100 ml -1750 ml Intake Oral 100 ml 1400 ml IV Total 1100 ml 350 ml 100 ml Output Urine Total 1200 ml 1500 ml 1850 ml # Bowel Movements 0 0 Result Diagram: 11/21/17 0530 11/21/17 0530 Imaging Last 72 hours Impressions Renal Ultrasound 11/20/17 0000 Signed Impressions: Service Date/Time: Monday, November 20, 2017 16:17 - CONCLUSION: 1. Echogenic kidneys typical of chronic parenchymal disease. No obstructive uropathy or other acute abnormality demonstrated. 2. Sludge and at least one stone in the gallbladder. Cameron Alberts MD Head CT 11/20/17 0000 Signed Impressions: Service Date/Time: Monday, November 20, 2017 21:48 - CONCLUSION: No acute intracranial abnormality demonstrated. Cameron Alberts MD Chest X-Ray 11/20/17 0000 Signed Impressions: Service Date/Time: Monday, November 20, 2017 09:52 - CONCLUSION: Stable exam. Debby Pruitt MD Chest X-Ray 11/19/17 0000 Signed Impressions: Service Date/Time: Sunday, November 19, 2017 08:49 - CONCLUSION: Compensated cardiomegaly with better aeration. Geovany Bolivar MD FACR Objective Remarks GENERAL: Well-nourished, well-developed patient with mild respiratory distress HEAD: Normocephalic. EYES: No scleral icterus. No injection or drainage. NECK: Supple, trachea midline. No JVD or lymphadenopathy. CARDIOVASCULAR: Regular rate and rhythm without murmurs, gallops, or rubs. RESPIRATORY: Decreased breath sounds at the bases GASTROINTESTINAL: Abdomen soft, non-tender, nondistended. MUSCULOSKELETAL: R leg: redness to right leg distal to knee edematous/shiny. Opening on dorsum on right foot. Two small closed blisters on posterior aspect of hurtado. BACK: Nontender without obvious deformity. NEURO EXAM: Patient is awake and alert, however repeat very confused and not oriented to place or time. Procedures none Medications and IVs Current Medications Medications (Trade) Dose Ordered Sig/Jay Route Start Time Stop Time Status Last Admin (Morphine Inj) 2 mg Q3H PRN IV PUSH 11/16/17 14:00 (D50w (Vial) Inj) 50 ml UNSCH PRN IV PUSH 11/16/17 14:15 (Glucagon Inj) 1 mg UNSCH PRN OTHER 11/16/17 14:15 (NovoLIN R SUPPLEMENTAL SCALE) 1 ACHS SLIDING SCALE SQ 11/16/17 17:00 11/21/17 21:20 Pharmacy Profile Note 0 ml @ 0 mls/hr UNSCH OTHER 11/16/17 14:30 (Cordarone) 100 mg BID PO 11/16/17 21:00 11/21/17 21:20 (Lipitor) 10 mg HS PO 11/16/17 21:00 11/21/17 21:19 (Coreg) 3.125 mg BID PO 11/16/17 21:00 11/21/17 21:17 (Synthroid) 25 mcg DAILY@0600 PO 11/17/17 06:00 11/21/17 05:41 (Heparin Inj) 5,000 units Q8HR SQ 11/17/17 06:00 11/21/17 21:34 (Duoneb Neb) 1 ampule Q6HR WHILE AWAKE NEB NEB 11/18/17 14:00 11/21/17 20:41 (Duoneb Neb) 1 ampule Q2HR NEB PRN NEB 11/18/17 12:00 (Haldol Inj) 2 mg Q4H PRN IM 11/19/17 14:00 11/20/17 06:14 Meropenem 1000 mg/ Sodium Chloride 100 ml @ 200 mls/hr Q12H IV 11/20/17 01:00 11/21/17 17:36 (SEROquel) 25 mg DAILY PO 11/21/17 09:00 11/21/17 09:25 (SEROquel) 25 mg HS PO 11/20/17 21:00 11/21/17 21:20 Vancomycin HCl 1200 mg/Sodium Chloride 262 ml @ 250 mls/hr Q36H IV 11/22/17 04:00 Future Hold (Lasix Inj) 20 mg DAILY IV PUSH 11/21/17 18:45 11/21/17 20:11 Dextrose 1,000 ml @ 30 mls/hr Q24H IV 11/21/17 18:45 11/21/17 19:43 (Vitamin D3) 2,000 units DAILY PO 11/22/17 09:00 Urinary Catheter: Yes Assessment to: Continue Duron insert reason: Measure Accurate Output Vascular Central Line Catheter: No A/P Problem List: (1) Acute hypoxemic respiratory failure ICD Code: J96.01 - Acute respiratory failure with hypoxia Status: Acute (2) Severe sepsis ICD Code: A41.9 - Sepsis, unspecified organism; R65.20 - Severe sepsis without septic shock Status: Acute (3) Cellulitis of right lower extremity ICD Code: L03.115 - Cellulitis of right lower limb Status: Acute (4) UTI (urinary tract infection) ICD Code: N39.0 - Urinary tract infection, site not specified Status: Acute (5) LEWIS (acute kidney injury) ICD Code: N17.9 - Acute kidney failure, unspecified Status: Acute Assessment and Plan Severe sepsis Cellulitis of right lower extremity - Vancomycin, Zosyn, clindamycin - Follow blood culture. Intermittent blood cultures with Streptococcus - General surgery consulted for possible necrotizing fasciitis - CT scan doesn't show an abscess or free air - Pain control - Extremity ultrasound to rule out underlying DVT - No surgery recommended by general surgeon. Recommends aggressive IV antibiotic therapy. continue IV antibiotics. Consult infectious disease since WBC trending up. - 11/21 Antibiotics per ID. Currently on IV Meropenem, IV Vancomycin. WBC trendig down , continue to monitor cbc w diff. Diabetes mellitus - Hold metformin while in the ICU - Continue SSI. Hold long acting insulin since patient is lethargic. will resume once patient is more awake. - 11/21 Will resume Levemir since patient is more awake and blood sugars are severely elevated. Hypertension - Coreg - 11/21 BP stable. Continue Coreg. Acute renal failure - Hold diuretics - IV fluids resuscitation - Monitor creatinine and urine output 11/18 DC IV fluids. Patient in respiratory distress likely due to fluid overload. Will Give 60 IV lasix now. 11/19 labs ordered and pending. Hypothyroidism - Levothyroxine - 11/20 TSH is elevated at 3.890, will check free t3, free t4. Atrial fibrillation - Amiodarone - Coreg - Digoxin - Resume Pradaxa in 24 hours, if renal function improves-no surgical intervention planned - 11/20 Continue to hold pradaxa due to poor renal function. - Acute hypoxemic respiratory failure Patient had an episode of hypoxemia into the 80s on 11/18. ABG consistent with respiratory acidosis with hypercapnic, hypoxemic respiratory failure. The patient was transferred to intensive care unit and start on BiPAP. Chest x-ray showed questionable haziness right upper lung possibly mild distal pulmonary venous congestion. The patient was given 1 dose of 60 mg IV Lasix. 11/19 patient is off BiPAP and currently on 4 L nasal cannula. Repeat chest x- ray reviewed by me shows compensated cardiomegaly with better irrigation. I will start the patient on Lasix 20 mg IV twice a day. 11/20 Dc IV fluids since patient is on Lasix. 11/21 Oygenation improving, patient down to 3 liters nasal canula. Wean o2 as tolerated. UTI Urine culture growing gram negative rods. ID and sensitivities pending. Consult ID Continue IV antibiotics as above. 11/19 appreciate ID consultation, the patient started on IV meropenem for Escherichia coli ESBL positive UTI and previous antibiotics discontinued. Case discussed with Dr. Macias who doubts patient has necrotizing fasciitis. She also recommended Felice wrap. Acute encephalopathy. The patient is very agitated and hallucinating. I will start the patient Haldol as needed for agitation. Likely secondary to metabolic encephalopathy secondary to UTI and cellulitis. Will monitor neurological status. 11/20 Will start on Seroquel, Patient still encephalopathic. Restraint as needed for agitation. Check CT head. 11/21 CT brain negative, encephalopathy resolving, continue Seroquel. Hypokalemia Replace IV and check BMP in am. DVT GI prophylaxis - Teds SCDs on unaffected leg - 1999 ADA diet Discharge Planning Continue to monitor in the intensive care unit. The patient still on elevated levels of oxygen. Will need ID clearance prior to discharge. Problem Qualifiers (1) UTI (urinary tract infection): Qualified Codes: N39.0 - Urinary tract infection, site not specified Manuel Allen MD Nov 21, 2017 16:50
[2017-11-21] MEDS ORDERED: MAGNESIUM SULFATE 1 GM PREMIX 100 ML IV ONE (18:45)
[2017-11-21] MEDS ORDERED: FUROSEMIDE 20 MG/2 ML VIAL IV PUSH SCH (18:45)
--- NOTE | 2017-11-21 18:54 | HHI.NPPN ---
Subjective History of Present Illness The patient is a 77 yo [place] female who presented to this facility on 11/16 with complaints of R leg pain. [place]. Reports that she has a hx of underlying CKD, but is not cure of her baseline. She also mentions hx of CHF and takes Lasix at home twice daily, but not sure of dose. She is being treated for RLE cellulitis initially on Vancomycin, Zosyn, and Clindamycin, but Zosyn was changed to Meropenem on 11/19 for UTI coverage. Yulisa was called for respiratory distress on 11/18 and was given IV Lasix and placed on BiPAP. Has been on Lasix 20mg IV q12h since then and was increased to 40mg IV q12h as if this morning. She has also been on maintenance fluid of NS at 125mL/hr from 11/17 thru 11/20. Vancomycin levels were within therapeutic range on 11/18. UOP has been good. Interval History The patient was said to be more alert earlier today. Furosemide held this a.m. secondary to low potassium level. Potassium has since been supplemented however. Objective Data Data 11/21/17 11/22/17 19:00 07:00 Intake Total 700 ml Output Total 1200 ml Balance -500 ml Intake Oral 700 ml Output Urine Total 1200 ml Vital Signs Date Time Temp Pulse Resp B/P (MAP) Pulse Ox O2 Delivery O2 Flow Rate FiO2 11/21/17 18:00 74 11/21/17 17:00 71 11/21/17 16:00 91 Nasal Cannula 2.00 11/21/17 16:00 75 11/21/17 16:00 98.0 75 27 134/62 (86) 90 11/21/17 15:00 79 11/21/17 14:00 71 11/21/17 13:00 88 11/21/17 12:00 97.9 94 23 140/63 (88) 91 11/21/17 12:00 92 Nasal Cannula 4.00 11/21/17 12:00 94 11/21/17 11:00 82 11/21/17 10:00 85 11/21/17 09:00 84 11/21/17 08:00 95 Nasal Cannula 4.00 11/21/17 08:00 97.9 90 23 130/60 (83) 92 11/21/17 08:00 90 11/21/17 07:41 93 Nasal Cannula 2.00 11/21/17 07:00 88 11/21/17 06:00 80 11/21/17 04:00 98.1 70 15 127/58 (81) 95 11/21/17 04:00 95 Nasal Cannula 4.00 11/21/17 04:00 70 11/21/17 02:00 65 11/21/17 00:00 96 11/21/17 00:00 98.5 96 23 112/71 (85) 93 11/21/17 00:00 93 Nasal Cannula 4.00 11/20/17 22:00 100 11/20/17 20:13 96 Nasal Cannula 3.00 11/20/17 20:00 105 11/20/17 20:00 93 Nasal Cannula 4.00 11/20/17 20:00 97.6 105 31 144/63 (90) 93 -: 11/21/17 0530 11/21/17 0530 Medication Review Current Medications Piperacillin Sod/ Tazobactam Sod 100 ml @ 200 mls/hr ONCE STAT IV Last administered on 11/16/17at 11:29; Start 11/16/17 at 10:53; Stop 11/16/17 at 11:22 ; Status DC Vancomycin HCl 1000 mg/Sodium Chloride 250 ml @ 250 mls/hr ONCE STAT IV Last administered on 11/16/17at 12:17; Start 11/16/17 at 10:53; Stop 11/16/17 at 11:55 ; Status DC Sodium Chloride 1,000 ml @ 999 mls/hr BOLUS ONCE IV Last administered on 11/16at 14:04; Start 11/16/17 at 12:00; Stop 11/16/17 at 13:00; Status DC Clindamycin Phosphate 900 mg/ Sodium Chloride 106 ml @ 200 mls/hr ONCE STAT IV Last administered on 11/16/17at 14:44; Start 11/16/17 at 12:23; Stop at 12:56; Status DC Acetaminophen (Tylenol) 650 mg ONCE ONCE PO Last administered on 11/16/17at 12: 58; Start 11/16/17 at 12:45; Stop 11/16/17 at 12:46; Status DC Sodium Chloride 1,000 ml @ 999 mls/hr BOLUS ONCE IV Last administered on 11/16at 14:04; Start 11/16/17 at 12:45; Stop 11/16/17 at 13:45; Status DC Sodium Chloride 1,000 ml @ 75 mls/hr [id number] IV ; Start 11/16/17 at 13:00; Stop 11/16/17 at 16:17; Status DC Morphine Sulfate (Morphine Inj) 2 mg Q3H PRN IV PUSH pain; Start 11/16/17 at 14 :00 Dextrose (D50w (Vial) Inj) 50 ml UNSCH PRN IV PUSH HYPOGLYCEMIA-SEE COMMENTS; Start 11/16/17 at 14:15 Glucagon (Glucagon Inj) 1 mg UNSCH PRN OTHER HYPOGLYCEMIA-SEE COMMENTS; Start 11/16/17 at 14:15 Insulin Human Regular (NovoLIN R SUPPLEMENTAL SCALE) 1 ACHS SLIDING SCALE SQ Last administered on 11/21/17at 17:37; Start 11/16/17 at 17:00 Pharmacy Profile Note 0 ml @ 0 mls/hr UNSCH OTHER ; Start 11/16/17 at 14:30 Piperacillin Sod/ Tazobactam Sod 50 ml @ 100 mls/hr Q6H IV Last administered on 11/19/17at 08:53; Start 11/16/17 at 15:00; Stop 11/19/17 at 11:21; Status DC Dextrose (D50w (Syr) Inj) 50 ml ONCE ONCE IV PUSH Last administered on at 14:45; Start 11/16/17 at 14:45; Stop 11/16/17 at 14:49; Status DC Sodium Chloride 500 ml @ 500 mls/hr BOLUS ONCE IV Last administered on at 15:34; Start 11/16/17 at 15:00; Stop 11/16/17 at 15:59; Status DC Sodium Chloride 500 ml @ 500 mls/hr BOLUS ONCE IV ; Start 11/16/17 at 16:00; Stop 11/16/17 at 16:59; Status DC Dextrose (D50w (Vial) Inj) 25 ml ONCE ONCE IV PUSH Last administered on at 16:05; Start 11/16/17 at 16:00; Stop 11/16/17 at 16:01; Status DC Dextrose/Sodium Chloride 1,000 ml @ 100 mls/hr Q10H IV Last administered on at 19:23; Start 11/16/17 at 16:30; Stop 11/17/17 at 00:18; Status DC Amiodarone HCl (Cordarone) 100 mg BID PO Last administered on 11/21/17at 09:26; Start 11/16/17 at 21:00 Atorvastatin Calcium (Lipitor) 10 mg HS PO Last administered on 11/20/17at 21:15 ; Start 11/16/17 at 21:00 Carvedilol (Coreg) 3.125 mg BID PO Last administered on 11/21/17at 09:25; Start 11/16/17 at 21:00 Cholecalciferol (Vitamin D3) 1,000 units DAILY PO Last administered on at 09:25; Start 11/17/17 at 09:00 Furosemide (Lasix) 20 mg DAILY@0900,1800 PO Last administered on 11/17/17at 08: 26; Start 11/16/17 at 18:00; Stop 11/21/17 at 18:48; Status DC Levothyroxine Sodium (Synthroid) 25 mcg DAILY@0600 PO Last administered on 11/21at 05:41; Start 11/17/17 at 06:00 Sodium Chloride 1,000 ml @ 125 mls/hr Q8H IV Last administered on 11/20/17at 06 :07; Start 11/17/17 at 00:30; Stop 11/20/17 at 11:03; Status DC Heparin Sodium (Porcine) (Heparin Inj) 5,000 units Q8HR SQ Last administered on 11/21/17at 17:36; Start 11/17/17 at 06:00 Vancomycin/Sodium Chloride 200 ml @ 200 mls/hr ONCE ONCE IV Last administered on 11/17/17at 12:09; Start 11/17/17 at 12:00; Stop 11/17/17 at 12:59 ; Status DC Potassium Chloride (KCl Powder) 40 meq ONCE ONCE PO ; Start 11/17/17 at 11:15; Stop 11/17/17 at 11:16; Status DC Potassium Chloride 100 ml @ 50 mls/hr Q2H PRN IV For Potassium 2.8 - 3.2 mEq/L ; Start 11/17/17 at 12:45; Stop 11/18/17 at 10:09; Status DC Potassium Chloride 100 ml @ 50 mls/hr Q2H PRN IV For Potassium 2.8 - 3.2 mEq/L ; Start 11/17/17 at 12:45; Stop 11/18/17 at 10:09; Status DC Potassium Bicarb/ Potassium Chloride (K-Lyte Cl Eff) 50 meq UNSCH PRN PO For Potassium 3.3 - 3.5 mEq/L; Start 11/17/17 at 12:45; Stop 11/18/17 at 10:09; Status DC Potassium Chloride 100 ml @ 25 mls/hr UNSCH PRN IV For Potassium 3.3 - 3.5 mEq /L; Start 11/17/17 at 12:45; Stop 11/18/17 at 10:09; Status DC Potassium Chloride 100 ml @ 50 mls/hr Q2H PRN IV For Potassium 3.3 - 3.5 mEq/L ; Start 11/17/17 at 12:45; Stop 11/18/17 at 10:09; Status DC Magnesium Sulfate 4 gm/Sodium Chloride 100 ml @ 50 mls/hr UNSCH PRN IV For Magnesium 0.9 - 1.1 mg/dL; Start 11/17/17 at 12:45; Stop 11/18/17 at 10:09; Status DC Magnesium Oxide (Mag-Ox) 800 mg UNSCH PRN PO For Magnesium 1.2 - 1.6 mg/dL; Start 11/17/17 at 12:45; Stop 11/18/17 at 10:09; Status DC Magnesium Sulfate 2 gm/Sodium Chloride 100 ml @ 50 mls/hr UNSCH PRN IV For Magnesium 1.2 - 1.6 mg/dL; Start 11/17/17 at 12:45; Stop 11/18/17 at 10:09; Status DC Potassium Phosphate (K-Phos) 2,000 mg Q4H PRN PO For Phosphorus < 2.5 mg/dL; Start 11/17/17 at 12:45; Stop 11/18/17 at 10:09; Status DC Sodium Phosphate 30 mmol/Sodium Chloride 250 ml @ 42 mls/hr UNSCH PRN IV For Phosphorus < 2.5 mg/dL; Start 11/17/17 at 12:45; Stop 11/18/17 at 10:09; Status DC Potassium Phosphate (K-Phos) 2,000 mg UNSCH PRN PO/TUBE SEE LABEL COMMENTS; Start 11/17/17 at 12:45; Stop 11/18/17 at 10:09; Status DC Potassium Phosphate 30 mmol/ Sodium Chloride 260 ml @ 42 mls/hr UNSCH PRN IV SEE LABEL COMMENTS; Start 11/17/17 at 12:45; Stop 11/18/17 at 10:09; Status DC Clindamycin/ Sodium Chloride 50 ml @ 100 mls/hr Q6H IV Last administered on at 08:53; Start 11/17/17 at 14:00; Stop 11/19/17 at 11:11; Status DC Potassium Chloride (KCl) 40 meq NOW ONCE PO Last administered on 11/17/17at 14: 29; Start 11/17/17 at 14:30; Stop 11/17/17 at 14:31; Status DC Potassium Chloride (KCl) 40 meq ONCE ONCE PO Last administered on 11/17/17at 17 :21; Start 11/17/17 at 18:30; Stop 11/17/17 at 18:39; Status DC Furosemide (Lasix Inj) 60 mg ONCE ONCE IV PUSH ; Start 11/18/17 at 12:00; Stop 11/18/17 at 12:33; Status DC Albuterol/ Ipratropium (Duoneb Neb) 1 ampule ONCE ONCE NEB Last administered on 11/18/17at 12:38; Start 11/18/17 at 12:00; Stop 11/18/17 at 12:01; Status DC Albuterol/ Ipratropium (Duoneb Neb) 1 ampule Q6HR WHILE AWAKE NEB NEB Last administered on 11/21/17at 11:32; Start 11/18/17 at 14:00 Albuterol/ Ipratropium (Duoneb Neb) 1 ampule Q2HR NEB PRN NEB SOB/WHEEZING; Start 11/18/17 at 12:00 Vancomycin HCl 1500 mg/Sodium Chloride 515 ml @ 250 mls/hr Q24H IV Last administered on 11/20/17at 15:52; Start 11/18/17 at 16:00; Stop 11/20/17 at 19:30 ; Status DC Miscellaneous Information SPECIFIC LAB TO BE DRAWN:VANCOMYCIN TROUGH DATE TO... ONCE ONCE .XX Last administered on 11/20/17at 15:52; Start 11/20/17 at 15:45; Stop 11/20/17 at 15:46; Status DC Furosemide (Lasix Inj) 60 mg ONCE ONCE IV PUSH Last administered on 11/18/17at 13:04; Start 11/18/17 at 13:15; Stop 11/18/17 at 13:16; Status DC Furosemide (Lasix Inj) 80 mg STK-MED ONCE .ROUTE ; Start 11/18/17 at 13:02; Stop 11/18/17 at 13:03; Status DC Methylprednisolone Sodium Succinate (SoluMEDROL INJ) 125 mg ONCE ONCE IV PUSH Last administered on 11/18/17at 16:55; Start 11/18/17 at 14:15; Stop 11/18/17 at 15:00; Status DC Haloperidol Lactate (Haldol Inj) 2 mg ONCE ONCE IM Last administered on at 08:50; Start 11/19/17 at 08:45; Stop 11/19/17 at 08:46; Status DC Furosemide (Lasix Inj) 20 mg BID@09,18 IV PUSH Last administered on 11/20/17at 09:21; Start 11/19/17 at 18:00; Stop 11/20/17 at 11:08; Status DC Haloperidol Lactate (Haldol Inj) 2 mg ONCE ONCE IV PUSH ; Start 11/19/17 at 10: 30; Stop 11/19/17 at 10:31; Status DC Haloperidol Lactate (Haldol Inj) 2 mg Q4H PRN IM MOD - SEVERE ANXIETY/ AGITATION Last administered on 11/20/17at 06:14; Start 11/19/17 at 14:00 Miscellaneous Medication (ASP Crit: Path resist to other, cult proven) 1 UNSCH X1 PRN .XX PHARMACY DOCUMENTATION; Start 11/19/17 at 11:15; Stop 11/20/17 at 11 :14; Status DC Miscellaneous Medication ([facility] Information) 1 UNSCH X1 PRN XX PHARMACY DOCUMENTATION; Start 11/19/17 at 11:15; Stop 11/20/17 at 11:14; Status DC Meropenem 1000 mg/ Sodium Chloride 100 ml @ 200 mls/hr Q8H IV Last administered on 11/19/17at 13:21; Start 11/19/17 at 12:00; Stop 11/19/17 at 15:12 ; Status DC Meropenem 1000 mg/ Sodium Chloride 100 ml @ 200 mls/hr Q12H IV Last administered on 11/21/17at 17:36; Start 11/20/17 at 01:00 Potassium Chloride (KCl) 30 meq ONCE ONCE PO Last administered on 11/20/17at 12 :14; Start 11/20/17 at 10:00; Stop 11/20/17 at 10:01; Status DC Quetiapine Fumarate (SEROquel) 25 mg DAILY PO Last administered on 11/21/17at 09 :25; Start 11/21/17 at 09:00 Quetiapine Fumarate (SEROquel) 25 mg HS PO Last administered on 11/20/17at 21:15 ; Start 11/20/17 at 21:00 Furosemide (Lasix Inj) 40 mg BID@09,18 IV PUSH Last administered on 11/20/17at 18:11; Start 11/20/17 at 18:00; Stop 11/21/17 at 09:16; Status DC Furosemide (Lasix Inj) 20 mg ONCE ONCE IV PUSH Last administered on 11/20/17at 12:14; Start 11/20/17 at 11:15; Stop 11/20/17 at 11:38; Status DC Potassium Chloride (KCl) 20 meq ONCE ONCE PO ; Start 11/20/17 at 15:45; Stop at 15:45; Status DC Vancomycin HCl 1200 mg/Sodium Chloride 262 ml @ 250 mls/hr Q36H IV ; Start at 04:00; Status Future Hold Potassium Chloride 100 ml @ 50 mls/hr Q2H IV Last administered on 11/21/17at 14 :46; Start 11/21/17 at 10:00; Stop 11/21/17 at 13:59; Status DC Furosemide (Lasix Inj) 40 mg DAILY IV PUSH ; Start 11/22/17 at 09:00; Stop 11/22 at 09:00; Status DC Furosemide (Lasix Inj) 20 mg DAILY IV PUSH ; Start 11/21/17 at 18:45; Status UNV Dextrose 1,000 ml @ 30 mls/hr Q24H IV ; Start 11/21/17 at 18:45; Status UNV Magnesium Sulfate/ Dextrose 100 ml @ 100 mls/hr ONCE ONCE IV ; Start 11/21/17 at 18:45; Stop 11/21/17 at 19:44; Status UNV Physical Exam General Appearance: Comfortable Appearance Remarks Very debilitated appearing female with wasting of the musculature of all limbs. Eyes Eye Exam: Sclera White Pulmonary Resp Exam: Breath Sounds Equal, Decreased Bases Cardiology CV Exam: Regular, Normal Sinus Rhythm Gastrointestinal/Abdomen GI Exam: Soft, Non-Tender Integumentary Skin Exam: Clear, Warm Extremeties Extremities Exam: Moderate Edema (involving hands, forearms, feet, legs and dependent thighs.) Assessment/Plan Discussed Condition With: Son Problem List: (1) Renal insufficiency ICD Codes: N28.9 - Disorder of kidney and ureter, unspecified; R65.20 - Severe sepsis without septic shock Status: Acute Plan: The patient's creatinine level has improved today. She has developed hyponatremia however was likely secondary to necessary diuresis and relatively diminished free water intake confirmed by nurse today. I will start D5W and reduce furosemide to 20 mg daily. Could consider adding Diuril if needed once potassium level normalizes. Magnesium level is at the lower limit. I've ordered 1 dose of magnesium sulfate IV. Await results of echocardiogram as discussed with son. To contact primary care physician in [place] and obtain further records regarding renal function if available. The patient's overall chronic debilitation prognosis guarded. Medications should be adjusted for her renal insufficiency. Avoid nephrotoxins such as iodinated contrast dyes and NSAIDs. Avoid gadolinium. (2) Congestive heart failure ICD Codes: I50.9 - Heart failure, unspecified Status: Chronic Plan: As above, await echo result. (3) Hypernatremia ICD Codes: E87.0 - Hyperosmolality and hypernatremia Plan: As above. (4) Hypokalemia ICD Codes: E87.6 - Hypokalemia Plan: As above. (5) Cellulitis of right lower extremity ICD Codes: L03.115 - Cellulitis of right lower limb Status: Acute Plan: Abx as per ID BCx negative x24h (6) UTI (urinary tract infection) ICD Codes: N39.0 - Urinary tract infection, site not specified Status: Acute Plan: Abx as per ID Problem Qualifiers (1) Congestive heart failure: (2) UTI (urinary tract infection): Qualified Codes: N39.0 - Urinary tract infection, site not specified Morena Amezcua MD 28, 2018 18:54
[2017-11-21] MEDS: DEXTROSE 5% IN WATE 1000ML INJ 1,000 ML IV SCH (19:43)
[2017-11-21] MEDS: ATORVASTATIN 10 MG TAB PO SCH (21:19)
[2017-11-22] VITALS (15 sets, daily range): BP systolic 108–146; BP diastolic 50–95; PULSE 58–67; RESP 19–23; TEMP 97.6–98.6; O2SAT 91–100
[2017-11-22] MEDS: INSULIN DETEMIR 100 UNITS/ML VIAL SQ SCH ×2 (00:15→21:24)
[2017-11-22] MEDS: MEROPENEM INJ 1,000 MG in SODIUM CHLORIDE 0.9% INJ 100 ML IV SCH (01:07)
[2017-11-22] MEDS: HALOPERIDOL LACTATE 5 MG/ML AMP IM PRN (02:08)
[2017-11-22] MEDS ORDERED: VANCOMYCIN INJ 1,200 MG in SODIUM CHLOR 0.9% 250 ML INJ 250 ML IV SCH (04:00)
[2017-11-22 05:07] LABS: AUTOMATED NEUTROPHIL # 18.9 TH/MM3 (1.8-7.7); BASOPHIL # 0.2 TH/MM3 (0-0.2); BASOPHIL % 0.8 % (0.0-2.0); EOSINOPHIL # 0.2 TH/MM3 (0-0.4); EOSINOPHIL % 0.7 % (0.0-4.0); HEMATOCRIT 23.9 % (35.0-46.0); HEMOGLOBIN 7.7 GM/DL (11.6-15.3); LYMPH % 6.3 % (9.0-44.0); LYMPHOCYTE # 1.4 TH/MM3 (1.0-4.8); MEAN CELL VOLUME 83.6 FL (80.0-100.0); MEAN CORPUSCULAR HGB CONC 32.4 % (32.0-36.0); MEAN PLATELET VOLUME 8.9 FL (7.0-11.0); MONO % 10.3 % (0.0-8.0); MONOCYTE # 2.4 TH/MM3 (0-0.9); NEUT % 81.9 % (16.0-70.0); PLATELET COUNT 346 TH/MM3 (150-450); RED BLOOD COUNT 2.85 MIL/MM3 (4.00-5.30); RED CELL DISTRIBUTION WIDTH 19.4 % (11.6-17.2); WHITE BLOOD COUNT 23.1 TH/MM3 (4.0-11.0)
[2017-11-22 05:16] LABS: ALBUMIN 1.9 GM/DL (3.4-5.0); AST (GOT) 34 U/L (15-37); BICARBONATE 30.2 MEQ/L (21.0-32.0); BLOOD UREA NITROGEN 30 MG/DL (7-18); CALCIUM 8.4 MG/DL (8.5-10.1); CHLORIDE 108 MEQ/L (98-107); CREATININE 1.16 MG/DL (0.50-1.00); GLOMERULAR FILTRATION RATE 45 ML/MIN (>89); GLUCOSE,RANDOM 140 MG/DL (74-106); SODIUM (NA) 145 MEQ/L (136-145)
[2017-11-22 05:17] LABS: ALT (GPT) 39 U/L (10-53)
[2017-11-22 05:20] LABS: ALKALINE PHOSPHATASE 86 U/L (45-117); RANDOM VANCOMYCIN 22.2 COMMENT; TOTAL BILIRUBIN ADULT 0.7 MG/DL (0.2-1.0); TOTAL PROTEIN 6.4 GM/DL (6.4-8.2)
[2017-11-22] MEDS ORDERED: POTASSIUM CHLORIDE 25 MEQ EFFERVESCENT TAB PO ONE ×2 (05:30)
[2017-11-22] MEDS: HEPARIN SODIUM - SQ 10,000 UNITS/ML VIAL SQ SCH ×3 (05:40→21:24)
[2017-11-22] MEDS: LEVOTHYROXINE SODIUM 25 MCG TAB PO SCH (05:40)
[2017-11-22] MEDS: RESP: ALBUTEROL 2.5 MG/IPRATROPIUM 0.5 MG NEB (SCH) NEB ×3 (08:00→20:00)
[2017-11-22 08:07] LABS: BANDS 4 % (0-6); LYMPHOCYTES 4 % (9-44); METAMYELOCYTES 1 % (0-1); MONOCYTES 16 % (0-8); MYELOCYTES 1 % (0-0); NEUTROPHIL # MANUAL DIFF 18.5 TH/MM3 (1.8-7.7); POLYS (SEG NEUTROPHILS) 74 % (16-70)
[2017-11-22 08:09] LABS: TOXIC GRANULATION 1+ (NORMAL)
--- NOTE | 2017-11-22 08:26 | HHI.IDPN ---
Subjective Subjective Remarks is a 77 y/o CF with PMHx of RLE hardware in calcaneum who was admitted initially at [place] and transferred to [facility] for evaluation for need for possible necrotizing fascitis and need for surgery. Patient had a sepsis workup done on admission. She was evaluated by General Surgery and no plan for surgical intervention, they recommend medical management. On Imaging there is no evidence of necrotizing fascitis (no air or fluid collections). Patient was reportedly in her usual state of health until about a week ago when she says she began noticing some increased swelling of her right lower extremity more than usual. This was associated with formation of some blistering and weeping. She started having pain with weightbearing yesterday and then this morning that's when she noticed a new onset redness extending from her ankle up to her knee prompting her to come to the emergency department. Patient was on regular floor yesterday but due to resp distress and encephalopathy was transferred to ICU and evaluated by shirt folding machine operator. Patient was on BiPAP last night and reportedly non compliant. At the time of my evaluation patient is in the ICU, on 4L NC sats 91%, UO good, recd lasix, not on pressors. No richter in place. No CL in place. Alert, oriented x 2, Non focal exam. She endorses nausea but no vomiting. On questioning reports low grade fever. Denies cough chest pain or other Cardio pulm symptoms. She did recently go on vacation but does not think she injured herself or suffered any puncture site. ID was consulted for evaluation and Mment of Sepsis, RLE cellulitis, Possible ESBL UTI and Strep bacteremia. Overnight events reviewed. Remains in ICU due to agitation and hallucinations. Off restraints. Per RN needed haldol last night for agitation. Urine output ok. No rash Sleepy but arousable. No fevers no rash Antibiotics Meropenem IV Vanco IV Lines Line sites with no e.o infection Past Medical History Hypertension, A. fib, diabetes Hypothyroidism Past Surgical History left tib fib repair; back surgery with hardware in place. Allergies: Coded Allergies: No Known Allergies (Unverified , 11/16/17) Objective . Vital Signs Date Time Temp Pulse Resp B/P (MAP) Pulse Ox O2 Delivery O2 Flow Rate FiO2 11/22/17 06:00 67 11/22/17 04:00 63 11/22/17 04:00 98.4 63 20 140/67 (91) 96 11/22/17 04:00 96 Nasal Cannula 5.00 11/22/17 02:00 67 11/22/17 00:00 96 Nasal Cannula 2.00 11/22/17 00:00 98.5 63 20 108/50 (69) 96 11/22/17 00:00 63 11/21/17 22:00 66 11/21/17 20:41 95 Nasal Cannula 4.00 11/21/17 20:00 98.4 71 29 129/65 (86) 96 11/21/17 20:00 96 Nasal Cannula 2.00 11/21/17 20:00 71 11/21/17 18:00 74 11/21/17 17:00 71 11/21/17 16:00 91 Nasal Cannula 2.00 11/21/17 16:00 75 11/21/17 16:00 98.0 75 27 134/62 (86) 90 11/21/17 15:00 79 11/21/17 14:00 71 11/21/17 13:00 88 11/21/17 12:00 97.9 94 23 140/63 (88) 91 11/21/17 12:00 92 Nasal Cannula 4.00 11/21/17 12:00 94 11/21/17 11:00 82 11/21/17 10:00 85 11/21/17 09:00 84 . Laboratory Tests Test 11/21/17 05:30 11/22/17 04:22 White Blood Count 20.3 TH/MM3 23.1 TH/MM3 Red Blood Count 3.20 MIL/MM3 2.85 MIL/MM3 Hemoglobin 8.5 GM/DL 7.7 GM/DL Hematocrit 26.5 % 23.9 % Mean Corpuscular Volume 82.7 FL 83.6 FL Mean Corpuscular Hemoglobin 26.5 PG 27.0 PG Mean Corpuscular Hemoglobin Concent 32.0 % 32.4 % Red Cell Distribution Width 19.9 % 19.4 % Platelet Count 372 TH/MM3 346 TH/MM3 Mean Platelet Volume 9.5 FL 8.9 FL Neutrophils (%) (Auto) 83.7 % 81.9 % Lymphocytes (%) (Auto) 5.2 % 6.3 % Monocytes (%) (Auto) 10.3 % 10.3 % Eosinophils (%) (Auto) 0.4 % 0.7 % Basophils (%) (Auto) 0.4 % 0.8 % Neutrophils # (Auto) 17.0 TH/MM3 18.9 TH/MM3 Lymphocytes # (Auto) 1.1 TH/MM3 1.4 TH/MM3 Monocytes # (Auto) 2.1 TH/MM3 2.4 TH/MM3 Eosinophils # (Auto) 0.1 TH/MM3 0.2 TH/MM3 Basophils # (Auto) 0.1 TH/MM3 0.2 TH/MM3 CBC Comment AUTO DIFF AUTO DIFF Differential Total Cells Counted 100 100 Neutrophils % (Manual) 86 % 74 % Band Neutrophils % 2 % 4 % Lymphocytes % 3 % 4 % Monocytes % 8 % 16 % Neutrophils # (Manual) 18.1 TH/MM3 18.5 TH/MM3 Metamyelocytes 1 % 1 % Differential Comment FINAL DIFF MANUAL FINAL DIFF MANUAL Toxic Granulation 1+ 1+ Platelet Estimate NORMAL NORMAL Platelet Morphology Comment NORMAL NORMAL Myelocytes 1 % Laboratory Tests Test 11/20/17 15:35 11/20/17 18:28 11/21/17 05:30 11/21/17 22:42 Phosphorus Level 3.2 MG/DL 2.9 MG/DL Iron Level 46 MCG/DL Total Iron Binding Capacity 209 MCG/DL Percent Iron Saturation 22.1 % Ferritin 486 NG/ML 25-Hydroxy Vitamin D Total 27.1 ng/ML Parathyroid Hormone (Intact) 45.3 PG/ML Blood Urea Nitrogen 39 MG/DL Creatinine 1.40 MG/DL Random Glucose 153 MG/DL Total Protein 6.9 GM/DL Albumin 2.0 GM/DL Calcium Level 8.6 MG/DL Magnesium Level 1.7 MG/DL Alkaline Phosphatase 96 U/L Aspartate Amino Transf (AST/SGOT) 45 U/L Alanine Aminotransferase (ALT/SGPT) 51 U/L Total Bilirubin 0.7 MG/DL Sodium Level 148 MEQ/L Potassium Level 3.0 MEQ/L 3.3 MEQ/L Chloride Level 111 MEQ/L Carbon Dioxide Level 29.2 MEQ/L Anion Gap 8 MEQ/L Estimat Glomerular Filtration Rate 36 ML/MIN Test 11/22/17 04:22 Blood Urea Nitrogen 30 MG/DL Creatinine 1.16 MG/DL Random Glucose 140 MG/DL Total Protein 6.4 GM/DL Albumin 1.9 GM/DL Calcium Level 8.4 MG/DL Alkaline Phosphatase 86 U/L Aspartate Amino Transf (AST/SGOT) 34 U/L Alanine Aminotransferase (ALT/SGPT) 39 U/L Total Bilirubin 0.7 MG/DL Sodium Level 145 MEQ/L Potassium Level 3.4 MEQ/L Chloride Level 108 MEQ/L Carbon Dioxide Level 30.2 MEQ/L Anion Gap 7 MEQ/L Estimat Glomerular Filtration Rate 45 ML/MIN Microbiology Date/Time Source Procedure Growth Status 11/19/17 12:33 Blood Peripheral Aerobic Blood Culture - Preliminary NO GROWTH IN 2 DAYS Resulted 11/19/17 12:33 Blood Peripheral Anaerobic Blood Culture - Preliminary NO GROWTH IN 2 DAYS Resulted 11/19/17 12:27 Blood Peripheral Aerobic Blood Culture - Preliminary NO GROWTH IN 2 DAYS Resulted 11/19/17 12:27 Blood Peripheral Anaerobic Blood Culture - Preliminary NO GROWTH IN 2 DAYS Resulted Imaging Last Impressions Renal Ultrasound 11/20/17 0000 Signed Impressions: Service Date/Time: Monday, November 20, 2017 16:17 - CONCLUSION: 1. Echogenic kidneys typical of chronic parenchymal disease. No obstructive uropathy or other acute abnormality demonstrated. 2. Sludge and at least one stone in the gallbladder. Cameron Alberts MD Head CT 11/20/17 0000 Signed Impressions: Service Date/Time: Monday, November 20, 2017 21:48 - CONCLUSION: No acute intracranial abnormality demonstrated. Cameron Alberts MD Chest X-Ray 11/20/17 0000 Signed Impressions: Service Date/Time: Monday, November 20, 2017 09:52 - CONCLUSION: Stable exam. Debby Pruitt MD Lower Extremity Ultrasound 11/17/17 0000 Signed Impressions: Service Date/Time: Friday, November 17, 2017 21:57 - CONCLUSION: Normal examination. Albert Kendall MD Lower Extremity CT 11/16/17 1344 Signed Impressions: Service Date/Time: Thursday, November 16, 2017 14:12 - CONCLUSION: 1. Extensive edema and inflammatory changes with skin thickening in the thigh especially laterally and posteriorly but also extending medially. No definite loculated abscess. Musculature grossly intact. No abnormal loculated air. No bony destructive changes. Moderate to severe osteoarthritis at the knee. Albert Kendall MD Tibia/Fibula X-Ray 11/16/17 0000 Signed Impressions: Service Date/Time: Thursday, November 16, 2017 11:19 - CONCLUSION: 1. No acute bony abnormalities identified within the tibia. Moderate to severe osteoarthritis with medial joint space. Fixation calcaneus with residual deformity. Albert Kendall MD Physical Exam GENERAL: Obese, poorly kempt patient, in no apparent distress. SKIN: No generalized rashes, Ecchymosis. HEAD: Atraumatic. Normocephalic. No temporal or scalp tenderness. EYES: Pupils equal round and reactive. Extraocular motions intact. No scleral icterus. No injection or drainage. ENT: Nose without bleeding, purulent drainage or septal hematoma. NECK: Trachea midline. Supple, nontender, no meningeal signs. CARDIOVASCULAR: HS audible. RESPIRATORY: Clear to auscultation. Breath sounds equal bilaterally. GASTROINTESTINAL: Abdomen soft, non-tender, nondistended. MUSCULOSKELETAL: right thigh and LE remarkably improved since last seen. No erythema, induration or edema. Blisters with skin break noted close to medial aspect of ankle and slightly above it. MIKEL wrap was on prior to me removing the dressing. NEUROLOGICAL: Awake and alert.Non focal exam Psych cooperative IV line sites with no e.o infection. Assessment & Plan Remarks Sepsis present on admission RLE cellulitis with blisters c/w Strep erysipelas. Wound cx with Strep Not ABD and pansensitive Ac baumannii ESBL E.coli UTI likely contamination as UA straight cath was negative and did not reflex to culture. Prior to appropriate antibiotic initiation. Strep bacteremia likely secondary to Cellulitis. Acute resp failure on 4L NC. Acute renal failure: sepsis, prerenal. Leukemoid reaction: steroids, infection. CXR with pulm edema vs aspiration Retention of urine: richter in place. Recs: DC Meropenem IV. ESBL E.coli UTI likely contamination as UA straight cath was negative and did not reflex to culture. Prior to appropriate antibiotic initiation. DC Vanco IV in view of nephrotoxicity and also cellulitis remarkably improved and no MRSA. Start Ceftriaxone IV covers Strep bacteremia, Strep and Ac baumannii cellulitis. Discontinue MIKEL bandage. Continue to Elevate leg as much as possible. Dressings for blister area. If these dont resolve consider line haul owner operator consult. Follow cultures follow clinically. d/w RN No family in room. Karina Macias MD Nov 22, 2017 08:26
[2017-11-22] MEDS ORDERED: FUROSEMIDE 20 MG/2 ML VIAL IV PUSH SCH ×2 (09:00)
[2017-11-22] MEDS: CARVEDILOL 3.125 MG TAB PO SCH ×2 (09:32→21:22)
[2017-11-22] MEDS: CHOLECALCIFEROL (VIT D3) 1000 UNIT TAB PO SCH (09:32)
[2017-11-22] MEDS: QUEtiapine FUMARATE 25 MG TAB PO SCH ×2 (09:32→21:22)
[2017-11-22] MEDS: AMIODARONE 200 MG TAB PO SCH ×2 (09:33→21:23)
[2017-11-22] MEDS: INSULIN NovoLIN REGULAR SUPPLEMENTAL SCALE SQ SCH ×4 (09:34→21:23)
[2017-11-22] MEDS ORDERED: FUROSEMIDE 40 MG/4 ML VIAL IV PUSH ONE (09:45)
[2017-11-22] MEDS ORDERED: methylPREDNISolone SOD SUCC 125 MG/2 ML VIAL IV PUSH ONE (09:45)
[2017-11-22] MEDS: cefTRIAXone INJ 2,000 MG in SODIUM CHLORIDE 0.9% INJ 100 ML IV SCH (09:55)
[2017-11-22] MEDS ORDERED: FUROSEMIDE 20 MG/2 ML VIAL IV PUSH ONE ×2 (10:15)
--- NOTE | 2017-11-22 10:43 | RADRPT ---
EXAM DATE/TIME: 11/22/2017 09:49 [place] COMPARISON: CHEST SINGLE AP, November 20, 2017, 9:52. INDICATIONS : Evaluate for pulmonary disease. MEDICAL HISTORY : Cardiovascular disease. Hypertension Diabetes mellitus type II. SURGICAL HISTORY : Appendectomy. Coronary artery stent. ENCOUNTER: Subsequent ACUITY: 1 week PAIN SCORE: Non-responsive. LOCATION: Bilateral chest FINDINGS: A single view of the chest demonstrates diffuse hazy densities. Probable small pleural effusions. Hea rt enlarged. Spinal rods are again seen. Osseous structures are intact. CONCLUSION: 1. Stable exam with diffuse hazy densities and probable small pleural effusions. Tyler Beaulieu MD on November 22, 2017 at 10:39 Board Certified Radiologist. This report was verified electronically.
[2017-11-22] MEDS: DEXTROSE 5% IN WATE 1000ML INJ 1,000 ML IV SCH (12:00)
--- NOTE | 2017-11-22 12:20 | HHI.PR ---
cc: Christina Eddy MD Subjective Subjective Notes DAILY PROGRESS NOTE FOR SURGICAL ATTENDING, DR. CHRISTINA EDDY Resting in bed On NRB mask happy about progression of leg without surgery Objective Vitals/I&O Vital Signs Date Time Temp Pulse Resp B/P (MAP) Pulse Ox O2 Delivery O2 Flow Rate FiO2 11/22/17 10:00 64 11/22/17 08:26 93 Nasal Cannula 5.00 11/22/17 08:00 97.6 23 146/95 (112) 11/19/17 04:00 50 Labs Laboratory Tests Test 11/21/17 22:42 11/22/17 04:22 11/22/17 11:34 Potassium Level 3.3 3.4 White Blood Count 23.1 Red Blood Count 2.85 Hemoglobin 7.7 Hematocrit 23.9 Mean Corpuscular Volume 83.6 Mean Corpuscular Hemoglobin 27.0 Mean Corpuscular Hemoglobin Concent 32.4 Red Cell Distribution Width 19.4 Platelet Count 346 Mean Platelet Volume 8.9 Neutrophils (%) (Auto) 81.9 Lymphocytes (%) (Auto) 6.3 Monocytes (%) (Auto) 10.3 Eosinophils (%) (Auto) 0.7 Basophils (%) (Auto) 0.8 Neutrophils # (Auto) 18.9 Lymphocytes # (Auto) 1.4 Monocytes # (Auto) 2.4 Eosinophils # (Auto) 0.2 Basophils # (Auto) 0.2 CBC Comment AUTO DIFF Differential Total Cells Counted 100 Neutrophils % (Manual) 74 Band Neutrophils % 4 Lymphocytes % 4 Monocytes % 16 Neutrophils # (Manual) 18.5 Metamyelocytes 1 Myelocytes 1 Differential Comment FINAL DIFF MANUAL Toxic Granulation 1+ Platelet Estimate NORMAL Platelet Morphology Comment NORMAL Blood Urea Nitrogen 30 Creatinine 1.16 Random Glucose 140 Total Protein 6.4 Albumin 1.9 Calcium Level 8.4 Alkaline Phosphatase 86 Aspartate Amino Transf (AST/SGOT) 34 Alanine Aminotransferase (ALT/SGPT) 39 Total Bilirubin 0.7 Sodium Level 145 Chloride Level 108 Carbon Dioxide Level 30.2 Anion Gap 7 Estimat Glomerular Filtration Rate 45 Random Vancomycin Level 22.2 Date/Time Source Procedure Growth Status 11/19/17 12:33 Blood Peripheral Aerobic Blood Culture - Preliminary NO GROWTH IN 3 DAYS Resulted 11/19/17 12:33 Blood Peripheral Anaerobic Blood Culture - Preliminary NO GROWTH IN 3 DAYS Resulted 11/16/17 13:45 Urine Clean Catch Urine Culture - Final Escherichia Coli Esbl Positive Complete 11/16/17 11:10 Wound Leg Gram Stain - Final Complete 11/16/17 11:10 Wound Culture - Final Strep Not A,B D Acinetobacter Baumannii/Haemol Complete Radiology Last 48 hours Impressions Lower Extremity CT 11/16/17 1344 Signed Impressions: Service Date/Time: Thursday, November 16, 2017 14:12 - CONCLUSION: 1. Extensive edema and inflammatory changes with skin thickening in the thigh especially laterally and posteriorly but also extending medially. No definite loculated abscess. Musculature grossly intact. No abnormal loculated air. No bony destructive changes. Moderate to severe osteoarthritis at the knee. Christina Kendall MD Chest X-Ray 11/16/17 1053 Signed Impressions: Service Date/Time: Thursday, November 16, 2017 11:19 - CONCLUSION: 1. No acute findings. Christina Kendall MD Tibia/Fibula X-Ray 11/16/17 0000 Signed Impressions: Service Date/Time: Thursday, November 16, 2017 11:19 - CONCLUSION: 1. No acute bony abnormalities identified within the tibia. Moderate to severe osteoarthritis with medial joint space. Fixation calcaneus with residual deformity. Christina Kendall MD Cardiovascular: Regular Lungs: Clear Abdomen: Non-distended, Non-tender Extremities: Other Narrative Exam RIGHT leg: great improvement in RIGHT leg; resolving blisters; + edema A/P Problem List: (1) Cellulitis of right lower extremity ICD Codes: L03.115 - Cellulitis of right lower limb Status: Acute (2) Severe sepsis ICD Codes: A41.9 - Sepsis, unspecified organism; R65.20 - Severe sepsis without septic shock Status: Acute (3) Cellulitis ICD Codes: L03.90 - Cellulitis, unspecified Status: Acute (4) Anemia ICD Codes: D64.9 - Anemia, unspecified Status: Acute (5) Hypoglycemia ICD Codes: E16.2 - Hypoglycemia, unspecified Status: Acute (6) Renal insufficiency ICD Codes: N28.9 - Disorder of kidney and ureter, unspecified; R65.20 - Severe sepsis without septic shock Status: Acute (7) UTI (urinary tract infection) ICD Codes: N39.0 - Urinary tract infection, site not specified Status: Acute Assessment and Plan 77 year old female with multiple medical issues; cellulitis of RIGHT leg -Improvement of RIGHT leg cellulitis with antibiotics -Resp issues per primary -Continue non operative management -Discussed with at the bedside -Will follow peripherally Attending Statement NOTE FOR SURGICAL ATTENDING, DR. CHRISTINA EDDY I agree with above assessment and plan. The following services were provided during this hospital visit: Chart data review, vital sign assessments/reviewing monitor data Review of consultations notes if present. Medication orders/review and/or management Ordering and/or reviewing lab tests Ordering and/or interpreting/reviewing x-rays and/or diagnostic studies Care of the patient and discussion of the patient with the care team Documentation time To help prompt me to consider important information that might be impacting today's encounter and assessment, information from prior notes written by myself or my colleagues may have been "brought forward/copy and pasted" into today's note. Problem Qualifiers (1) Cellulitis: Qualified Codes: L03.115 - Cellulitis of right lower limb (2) Anemia: Qualified Codes: D64.9 - Anemia, unspecified (3) UTI (urinary tract infection): Qualified Codes: N39.0 - Urinary tract infection, site not specified Pia Richards Nov 22, 2017 12:20 Christina Eddy MD Nov 23, 2017 07:57
--- NOTE | 2017-11-22 13:39 | HHI.NPPN ---
Subjective History of Present Illness The patient is a 77 yo [place] female who presented to this facility on 11/16 with complaints of R leg pain. She is on vacation from [place]. Reports that she has a hx of underlying CKD, but is not cure of her baseline. She also mentions hx of CHF and takes Lasix at home twice daily, but not sure of dose. She is being treated for RLE cellulitis initially on Vancomycin, Zosyn, and Clindamycin, but Zosyn was changed to Meropenem on 11/19 for UTI coverage. Yulisa was called for respiratory distress on 11/18 and was given IV Lasix and placed on BiPAP. Has been on Lasix 20mg IV q12h since then and was increased to 40mg IV q12h as if this morning. She has also been on maintenance fluid of NS at 125mL/hr from 11/17 thru 11/20. Vancomycin levels were within therapeutic range on 11/18. UOP has been good. Interval History Pt on BiPAP today. Retaining CO2 Son and present in room. The patient herself is not responsive. (Elizabet Hays) Review of Systems Respiratory Lungs: SOB (Elizabet Hays) Objective Data Data 11/22/17 11/23/17 19:00 07:00 Intake Total 100 ml Balance 100 ml IV Total 100 ml Vital Signs Date Time Temp Pulse Resp B/P (MAP) Pulse Ox O2 Delivery O2 Flow Rate FiO2 11/22/17 10:00 64 11/22/17 08:26 93 Nasal Cannula 5.00 11/22/17 08:00 65 11/22/17 08:00 97.6 65 23 146/95 (112) 91 11/22/17 08:00 100 Non-Rebreather 15.00 11/22/17 06:00 67 11/22/17 04:00 63 11/22/17 04:00 98.4 63 20 140/67 (91) 96 11/22/17 04:00 96 Nasal Cannula 5.00 11/22/17 02:00 67 11/22/17 00:00 96 Nasal Cannula 2.00 11/22/17 00:00 98.5 63 20 108/50 (69) 96 11/22/17 00:00 63 11/21/17 22:00 66 1/28/18 20:41 95 Nasal Cannula 4.00 11/21/17 20:00 98.4 71 29 129/65 (86) 96 11/21/17 20:00 96 Nasal Cannula 2.00 11/21/17 20:00 71 11/21/17 18:00 74 11/21/17 17:00 71 11/21/17 16:00 91 Nasal Cannula 2.00 11/21/17 16:00 75 11/21/17 16:00 98.0 75 27 134/62 (86) 90 11/21/17 15:00 79 11/21/17 14:00 71 (Elizabet Hays) -: 11/22/17 0422 11/22/17 1134 Imaging Last Impressions Chest X-Ray 11/22/17 0000 Signed Impressions: Service Date/Time: Wednesday, November 22, 2017 09:49 - CONCLUSION: 1. Stable exam with diffuse hazy densities and probable small pleural effusions. Tyler Beaulieu MD Renal Ultrasound 11/20/17 0000 Signed Impressions: Service Date/Time: Monday, November 20, 2017 16:17 - CONCLUSION: 1. Echogenic kidneys typical of chronic parenchymal disease. No obstructive uropathy or other acute abnormality demonstrated. 2. Sludge and at least one stone in the gallbladder. Cameron Alberts MD Head CT 11/20/17 0000 Signed Impressions: Service Date/Time: Monday, November 20, 2017 21:48 - CONCLUSION: No acute intracranial abnormality demonstrated. Cameron Alberts MD Lower Extremity Ultrasound 11/17/17 0000 Signed Impressions: Service Date/Time: Friday, November 17, 2017 21:57 - CONCLUSION: Normal examination. Albert Kendall MD Lower Extremity CT 11/16/17 1344 Signed Impressions: Service Date/Time: Thursday, November 16, 2017 14:12 - CONCLUSION: 1. Extensive edema and inflammatory changes with skin thickening in the thigh especially laterally and posteriorly but also extending medially. No definite loculated abscess. Musculature grossly intact. No abnormal loculated air. No bony destructive changes. Moderate to severe osteoarthritis at the knee. Albert Kendall MD Tibia/Fibula X-Ray 11/16/17 0000 Signed Impressions: Service Date/Time: Thursday, November 16, 2017 11:19 - CONCLUSION: 1. No acute bony abnormalities identified within the tibia. Moderate to severe osteoarthritis with medial joint space. Fixation calcaneus with residual deformity. Albert Kendall MD Medication Review Current Medications Medications (Trade) Dose Ordered Sig/Jay Route Start Time Stop Time Status Last Admin (Morphine Inj) 2 mg Q3H PRN IV PUSH 11/16/17 14:00 (D50w (Vial) Inj) 50 ml UNSCH PRN IV PUSH 11/16/17 14:15 (Glucagon Inj) 1 mg UNSCH PRN OTHER 11/16/17 14:15 (NovoLIN R SUPPLEMENTAL SCALE) 1 ACHS SLIDING SCALE SQ 11/16/17 17:00 11/22/17 11:19 (Cordarone) 100 mg BID PO 11/16/17 21:00 11/22/17 09:33 (Lipitor) 10 mg HS PO 11/16/17 21:00 11/21/17 21:19 (Coreg) 3.125 mg BID PO 11/16/17 21:00 11/22/17 09:32 (Synthroid) 25 mcg DAILY@0600 PO 11/17/17 06:00 11/22/17 05:40 (Heparin Inj) 5,000 units Q8HR SQ 11/17/17 06:00 11/22/17 05:40 (Duoneb Neb) 1 ampule Q2HR NEB PRN NEB 11/18/17 12:00 (Haldol Inj) 2 mg Q4H PRN IM 11/19/17 14:00 11/22/17 02:08 (SEROquel) 25 mg DAILY PO 11/21/17 09:00 11/22/17 09:32 (SEROquel) 25 mg HS PO 11/20/17 21:00 11/21/17 21:20 Dextrose 1,000 ml @ 30 mls/hr Q24H IV 11/21/17 18:45 11/21/17 19:43 (Vitamin D3) 2,000 units DAILY PO 11/22/17 09:00 11/22/17 09:32 (Duoneb Neb) 1 ampule Q6HR WHILE AWAKE NEB NEB 11/22/17 08:00 (Levemir Inj) 10 units HS SQ 11/22/17 00:15 11/22/17 00:15 Ceftriaxone Sodium 2000 mg/ Sodium Chloride 100 ml @ 200 mls/hr Q24H IV 11/22/17 09:00 12/01/17 08:59 11/22/17 09:55 (Lasix Inj) 40 mg BID IV PUSH 11/22/17 21:00 (Elizabet Hasy) Physical Exam General Appearance: Comfortable (Elizabet Hays) Eyes Eye Exam: Sclera White (Elizabet Hays) Pulmonary Resp Exam: Breath Sounds Equal, Decreased Bases Resp Remarks Currently on BiPAP (Elizabet Hays) Cardiology CV Exam: Regular, Normal Sinus Rhythm (Elizabet Hays) Gastrointestinal/Abdomen GI Exam: Soft, Non-Tender (Elizabet Hays) Integumentary Skin Exam: Clear, Warm (Elizabet Hays) Extremeties Extremities Exam: Moderate Edema (involving hands, forearms, feet, legs and dependent thighs.) (Elizabet Hays) Assessment/Plan Discussed Condition With: Son Problem List: (1) Renal insufficiency ICD Codes: N28.9 - Disorder of kidney and ureter, unspecified; R65.20 - Severe sepsis without septic shock Status: Acute Plan: The patient's creatinine level has improved today. Hypernatremia resolved. She has significant fluid retention today and is on BiPAP. Primary increased Lasix to 40mg IV [id number] Could consider adding Diuril if needed once potassium level normalizes. Await results of echocardiogram as discussed with son. Pending records from PCP in [place] The patient's overall chronic debilitation prognosis guarded. Medications should be adjusted for her renal insufficiency. Avoid nephrotoxins such as iodinated contrast dyes and NSAIDs. Avoid gadolinium. (2) Congestive heart failure ICD Codes: I50.9 - Heart failure, unspecified Status: Chronic Plan: As above, await echo result. (3) Hypernatremia ICD Codes: E87.0 - Hyperosmolality and hypernatremia Plan: As above. (4) Hypokalemia ICD Codes: E87.6 - Hypokalemia Plan: As above. (5) Cellulitis of right lower extremity ICD Codes: L03.115 - Cellulitis of right lower limb Status: Acute Plan: Abx as per ID BCx negative x24h (6) UTI (urinary tract infection) ICD Codes: N39.0 - Urinary tract infection, site not specified Status: Acute Plan: Abx as per ID (Elizabet Hays) Plan Patient still was significant fluid retention however improving. Hypernatremia has resolved. Continue diuretic therapy as ordered by primary care physician. Improvement in renal indices with diuresis suggesting patient has some degree of cardiorenal syndrome. Await results of 2-D echocardiogram. The exam, history, and the medical decision-making described in the above note were completed with the assistance of the PA-C. I reviewed and agree with the findings presented. I attest that I had a [id number] encounter with the patient on the same day, and personally performed and documented my assessment and findings in the medical record. (Morena Amezcua MD) Problem Qualifiers (1) Congestive heart failure: (2) UTI (urinary tract infection): Qualified Codes: N39.0 - Urinary tract infection, site not specified Elizabet Hays Nov 22, 2017 13:39 Morena Amezcua MD Nov 22, 2017 16:03
[2017-11-22 15:08] LABS: HEPATITIS B SURFACE ANTIGEN NEGATIVE (NEGATIVE); HEPATITIS C AB IgG NEGATIVE (NEGATIVE)
--- NOTE | 2017-11-22 15:34 | HHI.PR ---
Subjective Remarks Deferred entry, the sensing earlier at 9:15 AM. As per RN the patient decided into the 80s. Is at bedside states patient is breathing harder. Patient states that she does not feel well social breath. afebrile. Objective Vitals Vital Signs Date Time Temp Pulse Resp B/P (MAP) Pulse Ox O2 Delivery O2 Flow Rate FiO2 11/22/17 10:00 64 11/22/17 08:26 93 Nasal Cannula 5.00 11/22/17 08:00 65 11/22/17 08:00 97.6 65 23 146/95 (112) 91 11/22/17 08:00 100 Non-Rebreather 15.00 11/22/17 06:00 67 11/22/17 04:00 63 11/22/17 04:00 98.4 63 20 140/67 (91) 96 11/22/17 04:00 96 Nasal Cannula 5.00 11/22/17 02:00 67 11/22/17 00:00 96 Nasal Cannula 2.00 11/22/17 00:00 98.5 63 20 108/50 (69) 96 11/22/17 00:00 63 11/21/17 22:00 66 11/21/17 20:41 95 Nasal Cannula 4.00 11/21/17 20:00 98.4 71 29 129/65 (86) 96 11/21/17 20:00 96 Nasal Cannula 2.00 11/21/17 20:00 71 11/21/17 18:00 74 11/21/17 17:00 71 11/21/17 16:00 91 Nasal Cannula 2.00 11/21/17 16:00 75 11/21/17 16:00 98.0 75 27 134/62 (86) 90 I/O 11/21/17 11/21/17 11/21/17 11/22/17 11/22/17 11/22/17 07:00 15:00 23:00 07:00 15:00 23:00 Intake Total 100 ml 100 ml 1000 ml 900 ml 100 ml Output Total 1850 ml 1200 ml 1250 ml Balance -1750 ml 100 ml -200 ml -350 ml 100 ml Intake Oral 700 ml 800 ml IV Total 100 ml 100 ml 300 ml 100 ml 100 ml Output Urine Total 1850 ml 1200 ml 1250 ml # Bowel Movements 0 0 Result Diagram: 11/22/17 0422 11/22/17 1134 Imaging Last Impressions Chest X-Ray 11/22/17 0000 Signed Impressions: Service Date/Time: Wednesday, November 22, 2017 09:49 - CONCLUSION: 1. Stable exam with diffuse hazy densities and probable small pleural effusions. Tyler Beaulieu MD Renal Ultrasound 11/20/17 0000 Signed Impressions: Service Date/Time: Monday, November 20, 2017 16:17 - CONCLUSION: 1. Echogenic kidneys typical of chronic parenchymal disease. No obstructive uropathy or other acute abnormality demonstrated. 2. Sludge and at least one stone in the gallbladder. Cameron Alberts MD Head CT 11/20/17 0000 Signed Impressions: Service Date/Time: Monday, November 20, 2017 21:48 - CONCLUSION: No acute intracranial abnormality demonstrated. Cameron Alberts MD Lower Extremity Ultrasound 11/17/17 0000 Signed Impressions: Service Date/Time: Friday, November 17, 2017 21:57 - CONCLUSION: Normal examination. Albert Kendall MD Lower Extremity CT 11/16/17 1344 Signed Impressions: Service Date/Time: Thursday, November 16, 2017 14:12 - CONCLUSION: 1. Extensive edema and inflammatory changes with skin thickening in the thigh especially laterally and posteriorly but also extending medially. No definite loculated abscess. Musculature grossly intact. No abnormal loculated air. No bony destructive changes. Moderate to severe osteoarthritis at the knee. Albert Kendall MD Tibia/Fibula X-Ray 11/16/17 0000 Signed Impressions: Service Date/Time: Thursday, November 16, 2017 11:19 - CONCLUSION: 1. No acute bony abnormalities identified within the tibia. Moderate to severe osteoarthritis with medial joint space. Fixation calcaneus with residual deformity. Albert Kendall MD Objective Remarks GENERAL: Well-nourished, well-developed patient with moderate to severe respiratory distress. HEAD: Normocephalic. EYES: No scleral icterus. No injection or drainage. NECK: Supple, trachea midline. No JVD or lymphadenopathy. CARDIOVASCULAR: Regular rate and rhythm without murmurs, gallops, or rubs. RESPIRATORY: Decreased breath sounds at the bases, some diffuse scattered expiratory wheezing bilaterally lung echavarria. GASTROINTESTINAL: Abdomen soft, non-tender, nondistended. MUSCULOSKELETAL: R leg: redness to right leg distal to knee edematous/shiny. Opening on dorsum on right foot. Two small closed blisters on posterior aspect of hurtado. BACK: Nontender without obvious deformity. NEURO EXAM: Patient is lethargic and hard to arouse. However repeat very confused and not oriented to place or time. Procedures none Medications and IVs Current Medications Medications (Trade) Dose Ordered Sig/Jay Route Start Time Stop Time Status Last Admin (Morphine Inj) 2 mg Q3H PRN IV PUSH 11/16/17 14:00 (D50w (Vial) Inj) 50 ml UNSCH PRN IV PUSH 11/16/17 14:15 (Glucagon Inj) 1 mg UNSCH PRN OTHER 11/16/17 14:15 (NovoLIN R SUPPLEMENTAL SCALE) 1 ACHS SLIDING SCALE SQ 11/16/17 17:00 11/22/17 11:19 (Cordarone) 100 mg BID PO 11/16/17 21:00 11/22/17 09:33 (Lipitor) 10 mg HS PO 11/16/17 21:00 11/21/17 21:19 (Coreg) 3.125 mg BID PO 11/16/17 21:00 11/22/17 09:32 (Synthroid) 25 mcg DAILY@0600 PO 11/17/17 06:00 11/22/17 05:40 (Heparin Inj) 5,000 units Q8HR SQ 11/17/17 06:00 11/22/17 05:40 (Duoneb Neb) 1 ampule Q2HR NEB PRN NEB 11/18/17 12:00 (Haldol Inj) 2 mg Q4H PRN IM 11/19/17 14:00 11/22/17 02:08 (SEROquel) 25 mg DAILY PO 11/21/17 09:00 11/22/17 09:32 (SEROquel) 25 mg HS PO 11/20/17 21:00 11/21/17 21:20 Dextrose 1,000 ml @ 30 mls/hr Q24H IV 11/21/17 18:45 11/21/17 19:43 (Vitamin D3) 2,000 units DAILY PO 11/22/17 09:00 11/22/17 09:32 (Duoneb Neb) 1 ampule Q6HR WHILE AWAKE NEB NEB 11/22/17 08:00 (Levemir Inj) 10 units HS SQ 11/22/17 00:15 11/22/17 00:15 Ceftriaxone Sodium 2000 mg/ Sodium Chloride 100 ml @ 200 mls/hr Q24H IV 11/22/17 09:00 12/01/17 08:59 11/22/17 09:55 (Lasix Inj) 40 mg BID IV PUSH 11/22/17 21:00 A/P Problem List: (1) Acute hypoxemic respiratory failure ICD Code: J96.01 - Acute respiratory failure with hypoxia Status: Acute (2) Severe sepsis ICD Code: A41.9 - Sepsis, unspecified organism; R65.20 - Severe sepsis without septic shock Status: Acute (3) Cellulitis of right lower extremity ICD Code: L03.115 - Cellulitis of right lower limb Status: Acute (4) UTI (urinary tract infection) ICD Code: N39.0 - Urinary tract infection, site not specified Status: Acute (5) LEWIS (acute kidney injury) ICD Code: N17.9 - Acute kidney failure, unspecified Status: Acute Assessment and Plan Severe sepsis Cellulitis of right lower extremity - Vancomycin, Zosyn, clindamycin - Follow blood culture. Intermittent blood cultures with Streptococcus - General surgery consulted for possible necrotizing fasciitis - CT scan doesn't show an abscess or free air - Pain control - Extremity ultrasound to rule out underlying DVT - No surgery recommended by general surgeon. Recommends aggressive IV antibiotic therapy. continue IV antibiotics. Consult infectious disease since WBC trending up. - 11/21 Antibiotics per ID. Currently on IV Meropenem, IV Vancomycin. WBC trendig down , continue to monitor cbc w diff. - 11/22 IV meropenem and IV vancomycin continued as per infectious disease. ESBL Escherichia coli thought to be a dominant as per infectious disease recommendations. Continue antibiotics as per infectious disease. The patient has been started on IV Rocephin. Diabetes mellitus - Hold metformin while in the ICU - Continue SSI. Hold long acting insulin since patient is lethargic. will resume once patient is more awake. - 11/21 Will resume Levemir since patient is more awake and blood sugars are severely elevated. - 11/22 blood pressure seems slightly improved. Continue insulin Levemir at same dose, continue SSI with insulin NovoLog. I will keep at same dose since patient is lethargic today. Hypertension - Coreg - BP stable. Acute renal failure - Hold diuretics - IV fluids resuscitation - Monitor creatinine and urine output 11/18 DC IV fluids. Patient in respiratory distress likely due to fluid overload. Will Give 60 IV lasix now. 11/19 labs ordered and pending. 11/22 creatinine improving and down to 1.1 with diureses. Patient likely has some component of cardiorenal syndrome. Hypothyroidism - Levothyroxine - 11/20 TSH is elevated at 3.890, will check free t3, free t4. Atrial fibrillation - Amiodarone - Coreg - Digoxin - Resume Pradaxa in 24 hours, if renal function improves-no surgical intervention planned - 11/22 Resume Pradaxa after patient more awake. Acute hypoxemic respiratory failure Patient had an episode of hypoxemia into the 80s on 11/18. ABG consistent with respiratory acidosis with hypercapnic, hypoxemic respiratory failure. The patient was transferred to intensive care unit and start on BiPAP. Chest x-ray showed questionable haziness right upper lung possibly mild distal pulmonary venous congestion. The patient was given 1 dose of 60 mg IV Lasix. 11/19 patient is off BiPAP and currently on 4 L nasal cannula. Repeat chest x- ray reviewed by me shows compensated cardiomegaly with better irrigation. I will start the patient on Lasix 20 mg IV twice a day. 11/20 Dc IV fluids since patient is on Lasix. 11/21 Oygenation improving, patient down to 3 liters nasal canula. Wean o2 as tolerated. 11/22 patient today with rest of the stress and tachypnea. Patient also more lethargic. I will obtain an ABG, will give a dose of 40 mg of IV IV Lasix and she has attended dose of IV Lasix to 40 mg IV twice a day. I will also give a dose of 125 mg of IV Solu-Medrol 1 given the patient has some reactive airway disease. Chest x-ray ordered and consistent with congestive heart failure and pulmonary edema. Check ABG. UTI Urine culture growing gram negative rods. ID and sensitivities pending. Consult ID 11/22 continue IV antibiotics as above. Acute encephalopathy. The patient is very agitated and hallucinating. I will start the patient Haldol as needed for agitation. Likely secondary to metabolic encephalopathy secondary to UTI and cellulitis. Will monitor neurological status. 11/20 Will start on Seroquel, Patient still encephalopathic. Restraint as needed for agitation. Check CT head. 11/21 CT brain negative, encephalopathy resolving, continue Seroquel. 11/22 the patient is again lethargic. Hold Seroquel and check ABG. Patient with CO2 elevation and the patient might need to be started on BiPAP. Hypokalemia Replaced, continue to monitor BMP. Acute congestive heart failure. Unknown type at this moment. Echocardiogram pending. As stated above the patient has rested distress with chest x-ray suggestive of congestive heart failure and pulmonary edema. To the echo ordered and pending. Continue treatment with IV Lasix DVT GI prophylaxis - Teds SCDs on unaffected leg - 1999 ADA diet Discharge Planning Continue to monitor in the intensive care unit. The patient still on elevated levels of oxygen. Will need ID clearance prior to discharge. Problem Qualifiers (1) UTI (urinary tract infection): Qualified Codes: N39.0 - Urinary tract infection, site not specified Manuel Allen MD Nov 22, 2017 15:34
[2017-11-22] MEDS: ATORVASTATIN 10 MG TAB PO SCH (21:22)
[2017-11-22] MEDS: FUROSEMIDE 40 MG/4 ML VIAL IV PUSH SCH (21:23)
[2017-11-23] VITALS (19 sets, daily range): BP systolic 100–154; BP diastolic 53–68; PULSE 54–71; RESP 16–33; TEMP 97.1–98.4; O2SAT 92–99
[2017-11-23 04:41] LABS: AUTOMATED NEUTROPHIL # 16.2 TH/MM3 (1.8-7.7); BASOPHIL % 0.1 % (0.0-2.0); HEMATOCRIT 23.9 % (35.0-46.0); HEMOGLOBIN 7.6 GM/DL (11.6-15.3); LYMPH % 3.9 % (9.0-44.0); LYMPHOCYTE # 0.7 TH/MM3 (1.0-4.8); MEAN CELL VOLUME 83.3 FL (80.0-100.0); MEAN CORPUSCULAR HEMOGLOBIN 26.6 PG (27.0-34.0); MEAN PLATELET VOLUME 9.7 FL (7.0-11.0); MONO % 4.8 % (0.0-8.0); MONOCYTE # 0.9 TH/MM3 (0-0.9); NEUT % 91.2 % (16.0-70.0); PLATELET COUNT 336 TH/MM3 (150-450); RED BLOOD COUNT 2.87 MIL/MM3 (4.00-5.30); RED CELL DISTRIBUTION WIDTH 19.2 % (11.6-17.2); WHITE BLOOD COUNT 17.7 TH/MM3 (4.0-11.0)
[2017-11-23 05:04] LABS: ALBUMIN 1.9 GM/DL (3.4-5.0); ALT (GPT) 35 U/L (10-53); AST (GOT) 28 U/L (15-37); BICARBONATE 30.2 MEQ/L (21.0-32.0); BLOOD UREA NITROGEN 36 MG/DL (7-18); CALCIUM 8.2 MG/DL (8.5-10.1); CHLORIDE 109 MEQ/L (98-107); CREATININE 1.19 MG/DL (0.50-1.00); GLOMERULAR FILTRATION RATE 44 ML/MIN (>89); GLUCOSE,RANDOM 204 MG/DL (74-106); SODIUM (NA) 147 MEQ/L (136-145)
[2017-11-23 05:21] LABS: ALKALINE PHOSPHATASE 87 U/L (45-117); FREE T3 LESS THAN 0.50 PG/ML (2.18-3.98); FREE T4 1.09 NG/DL (0.76-1.46); PHOSPHORUS 4.4 MG/DL (2.5-4.9); TOTAL BILIRUBIN ADULT 0.4 MG/DL (0.2-1.0); TOTAL PROTEIN 6.9 GM/DL (6.4-8.2)
[2017-11-23] MEDS: HEPARIN SODIUM - SQ 10,000 UNITS/ML VIAL SQ SCH ×3 (05:31→20:45)
[2017-11-23] MEDS: LEVOTHYROXINE SODIUM 25 MCG TAB PO SCH (05:31)
[2017-11-23] MEDS: CARVEDILOL 3.125 MG TAB PO SCH ×2 (07:59→20:45)
[2017-11-23] MEDS: AMIODARONE 200 MG TAB PO SCH ×2 (08:00→20:45)
[2017-11-23] MEDS: RESP: ALBUTEROL 2.5 MG/IPRATROPIUM 0.5 MG NEB (SCH) NEB ×3 (08:00→19:38)
[2017-11-23] MEDS: QUEtiapine FUMARATE 25 MG TAB PO SCH (08:00)
[2017-11-23] MEDS: CHOLECALCIFEROL (VIT D3) 1000 UNIT TAB PO SCH (08:00)
[2017-11-23] MEDS: cefTRIAXone INJ 2,000 MG in SODIUM CHLORIDE 0.9% INJ 100 ML IV SCH (08:00)
[2017-11-23] MEDS: FUROSEMIDE 40 MG/4 ML VIAL IV PUSH SCH (08:01)
[2017-11-23] MEDS: INSULIN NovoLIN REGULAR SUPPLEMENTAL SCALE SQ SCH ×4 (08:03→20:46)
[2017-11-23] MEDS ORDERED: SODIUM CHLOR 0.9% 250 ML INJ 250 ML IV ONE (08:45)
[2017-11-23] MEDS ORDERED: diphenhydrAMINE HCL 25 MG CAP PO PRN (08:45)
[2017-11-23] MEDS ORDERED: ACETAMINOPHEN 325 MG TAB PO PRN (08:45)
[2017-11-23 08:46] LABS: BANDS 5 % (0-6); LYMPHOCYTES 1 % (9-44); MONOCYTES 4 % (0-8); NEUTROPHIL # MANUAL DIFF 16.8 TH/MM3 (1.8-7.7); POLYS (SEG NEUTROPHILS) 90 % (16-70); TOXIC GRANULATION 1+ (NORMAL)
[2017-11-23] MEDS ORDERED: FUROSEMIDE 20 MG/2 ML VIAL IV PUSH SCH (09:15)
--- NOTE | 2017-11-23 10:05 | HHI.PR ---
Subjective Remarks As per RN patient awake earlier today, able to take medications. Patient lethargic now but arousable. afebrile wbc trending down still on bipap Objective Vitals Vital Signs Date Time Temp Pulse Resp B/P (MAP) Pulse Ox O2 Delivery O2 Flow Rate FiO2 11/23/17 08:00 58 11/23/17 08:00 97.7 62 19 154/65 (94) 99 11/23/17 08:00 99 Bi-Pap 40 11/23/17 06:00 62 11/23/17 04:36 99 40 11/23/17 04:00 54 11/23/17 04:00 98 Bi-Pap 40 11/23/17 04:00 98.1 54 20 123/58 (79) 98 11/23/17 02:00 59 11/23/17 01:10 98 40 11/23/17 00:00 58 11/23/17 00:00 98.4 58 19 121/57 (78) 98 11/23/17 00:00 98 Bi-Pap 40 11/22/17 22:30 98 40 11/22/17 22:00 59 11/22/17 20:00 96 40 11/22/17 20:00 98.6 60 19 143/65 (91) 96 11/22/17 20:00 60 11/22/17 20:00 96 Bi-Pap 40 11/22/17 18:00 59 11/22/17 16:18 94 40 11/22/17 16:00 100 Bi-Pap 40 11/22/17 16:00 63 11/22/17 16:00 98.1 11/22/17 14:00 58 11/22/17 12:00 58 11/22/17 12:00 98.2 58 22 124/55 (78) 100 11/22/17 12:00 100 Bi-Pap 40 I/O 11/22/17 11/22/17 11/22/17 11/23/17 11/23/17 11/23/17 07:00 15:00 23:00 07:00 15:00 23:00 Intake Total 900 ml 100 ml 1150 ml 360 ml Output Total 1250 ml 750 ml 950 ml Balance -350 ml 100 ml 400 ml -590 ml Intake Oral 800 ml 425 ml IV Total 100 ml 100 ml 725 ml 360 ml Output Urine Total 1250 ml 750 ml 950 ml # Bowel Movements 0 1 Result Diagram: 11/23/17 0335 11/23/17 0335 Imaging Last Impressions Chest X-Ray 11/22/17 0000 Signed Impressions: Service Date/Time: Wednesday, November 22, 2017 09:49 - CONCLUSION: 1. Stable exam with diffuse hazy densities and probable small pleural effusions. Tyler Beaulieu MD Renal Ultrasound 11/20/17 0000 Signed Impressions: Service Date/Time: Monday, November 20, 2017 16:17 - CONCLUSION: 1. Echogenic kidneys typical of chronic parenchymal disease. No obstructive uropathy or other acute abnormality demonstrated. 2. Sludge and at least one stone in the gallbladder. Cameron Alberts MD Head CT 11/20/17 0000 Signed Impressions: Service Date/Time: Monday, November 20, 2017 21:48 - CONCLUSION: No acute intracranial abnormality demonstrated. Cameron Alberts MD Lower Extremity Ultrasound 11/17/17 0000 Signed Impressions: Service Date/Time: Friday, November 17, 2017 21:57 - CONCLUSION: Normal examination. Albert Kendall MD Lower Extremity CT 11/16/17 1344 Signed Impressions: Service Date/Time: Thursday, November 16, 2017 14:12 - CONCLUSION: 1. Extensive edema and inflammatory changes with skin thickening in the thigh especially laterally and posteriorly but also extending medially. No definite loculated abscess. Musculature grossly intact. No abnormal loculated air. No bony destructive changes. Moderate to severe osteoarthritis at the knee. Albert Kendall MD Tibia/Fibula X-Ray 11/16/17 0000 Signed Impressions: Service Date/Time: Thursday, November 16, 2017 11:19 - CONCLUSION: 1. No acute bony abnormalities identified within the tibia. Moderate to severe osteoarthritis with medial joint space. Fixation calcaneus with residual deformity. Albert Kendall MD Objective Remarks GENERAL: Well-nourished, well-developed patient with moderate to severe respiratory distress. HEAD: Normocephalic. EYES: No scleral icterus. No injection or drainage. NECK: Supple, trachea midline. No JVD or lymphadenopathy. CARDIOVASCULAR: Regular rate and rhythm without murmurs, gallops, or rubs. RESPIRATORY: Decreased breath sounds at the bases, some diffuse scattered expiratory wheezing bilaterally lung echavarria. GASTROINTESTINAL: Abdomen soft, non-tender, nondistended. MUSCULOSKELETAL: R leg: redness to right leg distal to knee edematous/shiny. Opening on dorsum on right foot. Two small closed blisters on posterior aspect of hurtado. BACK: Nontender without obvious deformity. NEURO EXAM: Patient is lethargic and hard to arouse. However repeat very confused and not oriented to place or time. Procedures none Medications and IVs Current Medications Medications (Trade) Dose Ordered Sig/Jay Route Start Time Stop Time Status Last Admin (Morphine Inj) 2 mg Q3H PRN IV PUSH 11/16/17 14:00 (D50w (Vial) Inj) 50 ml UNSCH PRN IV PUSH 11/16/17 14:15 (Glucagon Inj) 1 mg UNSCH PRN OTHER 11/16/17 14:15 (NovoLIN R SUPPLEMENTAL SCALE) 1 ACHS SLIDING SCALE SQ 11/16/17 17:00 11/23/17 08:03 (Cordarone) 100 mg BID PO 11/16/17 21:00 11/23/17 08:00 (Lipitor) 10 mg HS PO 11/16/17 21:00 11/22/17 21:22 (Coreg) 3.125 mg BID PO 11/16/17 21:00 11/23/17 07:59 (Synthroid) 25 mcg DAILY@0600 PO 11/17/17 06:00 11/23/17 05:31 (Heparin Inj) 5,000 units Q8HR SQ 11/17/17 06:00 11/23/17 05:31 (Duoneb Neb) 1 ampule Q2HR NEB PRN NEB 11/18/17 12:00 (Haldol Inj) 2 mg Q4H PRN IM 11/19/17 14:00 11/22/17 02:08 Dextrose 1,000 ml @ 30 mls/hr Q24H IV 11/21/17 18:45 11/21/17 19:43 (Vitamin D3) 2,000 units DAILY PO 11/22/17 09:00 11/23/17 08:00 (Duoneb Neb) 1 ampule Q6HR WHILE AWAKE NEB NEB 11/22/17 08:00 11/23/17 11:39 (Levemir Inj) 10 units HS SQ 11/22/17 00:15 11/22/17 21:24 Ceftriaxone Sodium 2000 mg/ Sodium Chloride 100 ml @ 200 mls/hr Q24H IV 11/22/17 09:00 12/01/17 08:59 11/23/17 08:00 Sodium Chloride 250 ml @ 15 mls/hr ONCE ONCE IV 11/23/17 08:45 11/24/17 01:24 (Tylenol) 650 mg Q4H PRN PO 11/23/17 08:45 (Benadryl) 25 mg Q4H PRN PO 11/23/17 08:45 (Lasix Inj) 20 mg UNSCH X1 IV PUSH 11/23/17 09:15 11/23/17 23:59 (Lasix Inj) 20 mg BID IV PUSH 11/23/17 21:00 UNV (Diuril Inj) 500 mg ONCE ONCE IV 11/23/17 11:45 11/23/17 11:46 UNV (K-Lyte Cl Eff) 25 meq DAILY PO 11/23/17 11:45 UNV A/P Problem List: (1) Acute hypoxemic respiratory failure ICD Code: J96.01 - Acute respiratory failure with hypoxia Status: Acute (2) Severe sepsis ICD Code: A41.9 - Sepsis, unspecified organism; R65.20 - Severe sepsis without septic shock Status: Acute (3) Cellulitis of right lower extremity ICD Code: L03.115 - Cellulitis of right lower limb Status: Acute (4) UTI (urinary tract infection) ICD Code: N39.0 - Urinary tract infection, site not specified Status: Acute (5) LEWIS (acute kidney injury) ICD Code: N17.9 - Acute kidney failure, unspecified Status: Acute Assessment and Plan Severe sepsis Cellulitis of right lower extremity - Vancomycin, Zosyn, clindamycin - Follow blood culture. Intermittent blood cultures with Streptococcus - General surgery consulted for possible necrotizing fasciitis - CT scan doesn't show an abscess or free air - Pain control - Extremity ultrasound to rule out underlying DVT - No surgery recommended by general surgeon. Recommends aggressive IV antibiotic therapy. continue IV antibiotics. Consult infectious disease since WBC trending up. - 11/21 Antibiotics per ID. Currently on IV Meropenem, IV Vancomycin. WBC trendig down , continue to monitor cbc w diff. - 11/22 IV meropenem and IV vancomycin continued as per infectious disease. ESBL Escherichia coli thought to be a contaminant as per infectious disease recommendations. Continue antibiotics as per infectious disease. The patient has been started on IV Rocephin. - 11/23 Continue antibiotics as per ID. Continue IV Rocephin. Diabetes mellitus - Hold metformin while in the ICU - Continue SSI. Hold long acting insulin since patient is lethargic. will resume once patient is more awake. - 11/21 Will resume Levemir since patient is more awake and blood sugars are severely elevated. - 11/22 blood sugars seems slightly improved. Continue insulin Levemir at same dose, continue SSI with insulin NovoLog. I will keep at same dose since patient is lethargic today. - 11/23 Blood sugars severely elevated in the 200's. Will increase insulin Levemir to 10 units SQ BID. Hypertension - Coreg - BP stable. Acute renal failure - Hold diuretics - IV fluids resuscitation - Monitor creatinine and urine output 11/18 DC IV fluids. Patient in respiratory distress likely due to fluid overload. Will Give 60 IV lasix now. 11/19 labs ordered and pending. 11/22 creatinine improving and down to 1.1 with diureses. Patient likely has some component of cardiorenal syndrome. Hypothyroidism - Levothyroxine - 11/20 TSH is elevated at 3.890, will check free t3, free t4. - 11/23 Free t4 normal and free t3 is low. Likely euthyroid sick syndrome. PAtient will need repeat TSH, Ft3 and ft4 upon DC in 6 weeks. Atrial fibrillation - Amiodarone - Coreg - Digoxin - Resume Pradaxa in 24 hours, if renal function improves-no surgical intervention planned - 11/23 Resume Pradaxa after patient more awake. Acute hypoxemic respiratory failure Patient had an episode of hypoxemia into the 80s on 11/18. ABG consistent with respiratory acidosis with hypercapnic, hypoxemic respiratory failure. The patient was transferred to intensive care unit and start on BiPAP. Chest x-ray showed questionable haziness right upper lung possibly mild distal pulmonary venous congestion. The patient was given 1 dose of 60 mg IV Lasix. 11/19 patient is off BiPAP and currently on 4 L nasal cannula. Repeat chest x- ray reviewed by me shows compensated cardiomegaly with better irrigation. I will start the patient on Lasix 20 mg IV twice a day. 11/20 Dc IV fluids since patient is on Lasix. 11/21 Oygenation improving, patient down to 3 liters nasal canula. Wean o2 as tolerated. 11/22 patient today with rest of the stress and tachypnea. Patient also more lethargic. I will obtain an ABG, will give a dose of 40 mg of IV IV Lasix and she has attended dose of IV Lasix to 40 mg IV twice a day. I will also give a dose of 125 mg of IV Solu-Medrol 1 given the patient has some reactive airway disease. Chest x-ray ordered and consistent with congestive heart failure and pulmonary edema. Check ABG. 11/23 the patient is still currently on BiPAP. ABG obtained on showed hypoxemic hypercapnic respiratory failure. Repeat ABG today shows a slightly improved CO2 of 50 with a pH of 7.39 and a PO2 of 138. Patient is lethargic currently, however she was more awake earlier. Suspect G secondary to toxic encephalopathy. I will hold Seroquel and repeat a cxr. Will check BL lower extremity doppler us to r/o dvt. UTI Urine culture grew Escherichia coli ESBL positive. As per infectious disease recommendations, her pain was discontinued. Escherichia coli UTI likely a contamination as you a straight catheter was negative and did not reflex to culture. Acute encephalopathy. The patient is very agitated and hallucinating. I will start the patient Haldol as needed for agitation. Likely secondary to metabolic encephalopathy secondary to UTI and cellulitis. Will monitor neurological status. 11/20 Will start on Seroquel, Patient still encephalopathic. Restraint as needed for agitation. Check CT head. 11/21 CT brain negative, encephalopathy resolving, continue Seroquel. 11/22 the patient is again lethargic. Hold Seroquel and check ABG. Patient with CO2 elevation and the patient might need to be started on BiPAP. 11/23 Likely due to toxic encephalopathy since patient was more awake earlier today, also CO2 elevated and possibly there is some degree of Co2 narcosis. Opinion BiPAP and discontinue Seroquel. Hypokalemia Replaced, continue to monitor BMP. Acute congestive heart failure. Unknown type at this moment. Echocardiogram pending. As stated above the patient has rested distress with chest x-ray suggestive of congestive heart failure and pulmonary edema. 2D echocardiogram echo ordered and pending. Continue treatment with IV Lasix DVT GI prophylaxis - Teds SCDs on unaffected leg - 1999 ADA diet Discharge Planning Continue to monitor in the intensive care unit. Patient still on bipap. Problem Qualifiers (1) UTI (urinary tract infection): Qualified Codes: N39.0 - Urinary tract infection, site not specified Manuel Allen MD Nov 23, 2017 10:05
--- NOTE | 2017-11-23 10:15 | HHI.IDPN ---
Subjective Subjective Remarks is a 77 y/o CF with PMHx of RLE hardware in calcaneum who was admitted initially at [facility] and transferred to [facility] for evaluation for need for possible necrotizing fascitis and need for surgery. Patient had a sepsis workup done on admission. She was evaluated by General Surgery and no plan for surgical intervention, they recommend medical management. On Imaging there is no evidence of necrotizing fascitis (no air or fluid collections). Patient was reportedly in her usual state of health until about a week ago when she says she began noticing some increased swelling of her right lower extremity more than usual. This was associated with formation of some blistering and weeping. She started having pain with weightbearing yesterday and then this morning that's when she noticed a new onset redness extending from her ankle up to her knee prompting her to come to the emergency department. Patient was on regular floor yesterday but due to resp distress and encephalopathy was transferred to ICU and evaluated by reel repairer. Patient was on BiPAP last night and reportedly non compliant. At the time of my evaluation patient is in the ICU, on 4L NC sats 91%, UO good, recd lasix, not on pressors. No richter in place. No CL in place. Alert, oriented x 2, Non focal exam. She endorses nausea but no vomiting. On questioning reports low grade fever. Denies cough chest pain or other Cardio pulm symptoms. She did recently go on vacation but does not think she injured herself or suffered any puncture site. ID was consulted for evaluation and Mment of Sepsis, RLE cellulitis, Possible ESBL UTI and Strep bacteremia. Overnight events reviewed. Remains in ICU due to agitation and hallucinations. Off restraints. Sleepy but recd seroquel recently. Sleepy but arousable. Urine output ok. No rash No fevers On BiPAP. ABG pending. Antibiotics Meropenem IV Vanco IV Lines Line sites with no e.o infection Past Medical History Hypertension, A. fib, diabetes Hypothyroidism Past Surgical History left tib fib repair; back surgery with hardware in place. Allergies: Coded Allergies: No Known Allergies (Unverified , 11/16/17) Objective . Vital Signs Date Time Temp Pulse Resp B/P (MAP) Pulse Ox O2 Delivery O2 Flow Rate FiO2 11/23/17 08:00 58 11/23/17 08:00 97.7 62 19 154/65 (94) 99 11/23/17 08:00 99 Bi-Pap 40 11/23/17 06:00 62 11/23/17 04:36 99 40 11/23/17 04:00 54 11/23/17 04:00 98 Bi-Pap 40 11/23/17 04:00 98.1 54 20 123/58 (79) 98 11/23/17 02:00 59 11/23/17 01:10 98 40 11/23/17 00:00 58 11/23/17 00:00 98.4 58 19 121/57 (78) 98 11/23/17 00:00 98 Bi-Pap 40 11/22/17 22:30 98 40 11/22/17 22:00 59 11/22/17 20:00 96 40 11/22/17 20:00 98.6 60 19 143/65 (91) 96 11/22/17 20:00 60 11/22/17 20:00 96 Bi-Pap 40 11/22/17 18:00 59 11/22/17 16:18 94 40 11/22/17 16:00 100 Bi-Pap 40 11/22/17 16:00 63 11/22/17 16:00 98.1 11/22/17 14:00 58 11/22/17 12:00 58 11/22/17 12:00 98.2 58 22 124/55 (78) 100 11/22/17 12:00 100 Bi-Pap 40 . Laboratory Tests Test 11/22/17 04:22 11/23/17 03:35 White Blood Count 23.1 TH/MM3 17.7 TH/MM3 Red Blood Count 2.85 MIL/MM3 2.87 MIL/MM3 Hemoglobin 7.7 GM/DL 7.6 GM/DL Hematocrit 23.9 % 23.9 % Mean Corpuscular Volume 83.6 FL 83.3 FL Mean Corpuscular Hemoglobin 27.0 PG 26.6 PG Mean Corpuscular Hemoglobin Concent 32.4 % 32.0 % Red Cell Distribution Width 19.4 % 19.2 % Platelet Count 346 TH/MM3 336 TH/MM3 Mean Platelet Volume 8.9 FL 9.7 FL Neutrophils (%) (Auto) 81.9 % 91.2 % Lymphocytes (%) (Auto) 6.3 % 3.9 % Monocytes (%) (Auto) 10.3 % 4.8 % Eosinophils (%) (Auto) 0.7 % 0.0 % Basophils (%) (Auto) 0.8 % 0.1 % Neutrophils # (Auto) 18.9 TH/MM3 16.2 TH/MM3 Lymphocytes # (Auto) 1.4 TH/MM3 0.7 TH/MM3 Monocytes # (Auto) 2.4 TH/MM3 0.9 TH/MM3 Eosinophils # (Auto) 0.2 TH/MM3 0.0 TH/MM3 Basophils # (Auto) 0.2 TH/MM3 0.0 TH/MM3 CBC Comment AUTO DIFF AUTO DIFF Differential Total Cells Counted 100 100 Neutrophils % (Manual) 74 % 90 % Band Neutrophils % 4 % 5 % Lymphocytes % 4 % 1 % Monocytes % 16 % 4 % Neutrophils # (Manual) 18.5 TH/MM3 16.8 TH/MM3 Metamyelocytes 1 % Myelocytes 1 % Differential Comment FINAL DIFF MANUAL FINAL DIFF MANUAL Toxic Granulation 1+ 1+ Platelet Estimate NORMAL NORMAL Platelet Morphology Comment NORMAL NORMAL Laboratory Tests Test 11/21/17 22:42 11/22/17 04:22 11/22/17 11:34 11/23/17 03:35 Potassium Level 3.3 MEQ/L 3.4 MEQ/L 3.8 MEQ/L 3.5 MEQ/L Blood Urea Nitrogen 30 MG/DL 36 MG/DL Creatinine 1.16 MG/DL 1.19 MG/DL Random Glucose 140 MG/DL 204 MG/DL Total Protein 6.4 GM/DL 6.9 GM/DL Albumin 1.9 GM/DL 1.9 GM/DL Calcium Level 8.4 MG/DL 8.2 MG/DL Alkaline Phosphatase 86 U/L 87 U/L Aspartate Amino Transf (AST/SGOT) 34 U/L 28 U/L Alanine Aminotransferase (ALT/SGPT) 39 U/L 35 U/L Total Bilirubin 0.7 MG/DL 0.4 MG/DL Sodium Level 145 MEQ/L 147 MEQ/L Chloride Level 108 MEQ/L 109 MEQ/L Carbon Dioxide Level 30.2 MEQ/L 30.2 MEQ/L Anion Gap 7 MEQ/L 8 MEQ/L Estimat Glomerular Filtration Rate 45 ML/MIN 44 ML/MIN Phosphorus Level 4.4 MG/DL Magnesium Level 2.0 MG/DL Free Thyroxine 1.09 NG/DL Free Triiodothyronine (T3) pg/dL LESS THAN 0.50 PG/ML Imaging Last Impressions Renal Ultrasound 11/20/17 0000 Signed Impressions: Service Date/Time: Monday, November 20, 2017 16:17 - CONCLUSION: 1. Echogenic kidneys typical of chronic parenchymal disease. No obstructive uropathy or other acute abnormality demonstrated. 2. Sludge and at least one stone in the gallbladder. Cameron Alberts MD Head CT 11/20/17 0000 Signed Impressions: Service Date/Time: Monday, November 20, 2017 21:48 - CONCLUSION: No acute intracranial abnormality demonstrated. Cameron Alberts MD Chest X-Ray 11/20/17 0000 Signed Impressions: Service Date/Time: Monday, November 20, 2017 09:52 - CONCLUSION: Stable exam. Debby Pruitt MD Lower Extremity Ultrasound 11/17/17 0000 Signed Impressions: Service Date/Time: Friday, November 17, 2017 21:57 - CONCLUSION: Normal examination. Albert Kendall MD Lower Extremity CT 11/16/17 1344 Signed Impressions: Service Date/Time: Thursday, November 16, 2017 14:12 - CONCLUSION: 1. Extensive edema and inflammatory changes with skin thickening in the thigh especially laterally and posteriorly but also extending medially. No definite loculated abscess. Musculature grossly intact. No abnormal loculated air. No bony destructive changes. Moderate to severe osteoarthritis at the knee. Albert Kendall MD Tibia/Fibula X-Ray 11/16/17 0000 Signed Impressions: Service Date/Time: Thursday, November 16, 2017 11:19 - CONCLUSION: 1. No acute bony abnormalities identified within the tibia. Moderate to severe osteoarthritis with medial joint space. Fixation calcaneus with residual deformity. Albert Kendall MD Physical Exam GENERAL: Obese, poorly kempt patient, in no apparent distress. SKIN: No generalized rashes, Ecchymosis. HEAD: Atraumatic. Normocephalic. No temporal or scalp tenderness. EYES: Pupils equal round and reactive. Extraocular motions intact. No scleral icterus. No injection or drainage. ENT: Nose without bleeding, purulent drainage or septal hematoma. NECK: Trachea midline. Supple, nontender, no meningeal signs. CARDIOVASCULAR: HS audible. RESPIRATORY: Clear to auscultation. Breath sounds equal bilaterally. GASTROINTESTINAL: Abdomen soft, non-tender, nondistended. MUSCULOSKELETAL: Blisters with skin break noted close to medial aspect of ankle and slightly above it. NEUROLOGICAL: Awake and alert.Non focal exam Psych cooperative IV line sites with no e.o infection. Assessment & Plan Remarks Sepsis present on admission RLE cellulitis with blisters c/w Strep erysipelas. Wound cx with Strep Not ABD and pansensitive Ac baumannii ESBL E.coli UTI likely contamination as UA straight cath was negative and did not reflex to culture. Prior to appropriate antibiotic initiation. Strep bacteremia likely secondary to Cellulitis. Acute resp failure on 4L NC. Acute renal failure: sepsis, prerenal. Leukemoid reaction: steroids, infection. CXR with pulm edema vs aspiration Retention of urine: richter in place. Recs: Continue Ceftriaxone IV covers Strep bacteremia, Strep and Ac baumannii cellulitis. Continue to Elevate leg as much as possible. Dressings for blister area. If these dont resolve consider veneer matcher consult. Follow cultures follow clinically. d/w RN d/w : ok to transition to oral levaquin to complete 14 day course from 1st negative blood culture when ready for discharge. Patient not a candidate for PICC line placement. d/w patients spouse in room: updated about ID issues and plan. Will follow prn if any acute changes in the interim please call me back sooner. Karina Macias MD Nov 23, 2017 10:15
--- NOTE | 2017-11-23 10:20 | PD.PN.STU ---
Subjective Remarks Patient is a 77 y/o female w/ h/o atrial fib, diabetes, and hypertension on hospital day 7 who was admitted for severe sepsis and cellulitis of the RLE. She has since been diagnosed with acute respiratory failure and has been transferred to the ICU. Patient is currently on bipap. Patient denies any pain, sob but is a poor historian due to lethargy. Per nurse patient has not had a bowel movement since transfer. Objective Vitals Vital Signs Date Time Temp Pulse Resp B/P (MAP) Pulse Ox O2 Delivery O2 Flow Rate FiO2 11/23/17 08:00 58 11/23/17 08:00 97.7 62 19 154/65 (94) 99 11/23/17 08:00 99 Bi-Pap 40 11/23/17 06:00 62 11/23/17 04:36 99 40 11/23/17 04:00 54 11/23/17 04:00 98 Bi-Pap 40 11/23/17 04:00 98.1 54 20 123/58 (79) 98 11/23/17 02:00 59 11/23/17 01:10 98 40 11/23/17 00:00 58 11/23/17 00:00 98.4 58 19 121/57 (78) 98 11/23/17 00:00 98 Bi-Pap 40 11/22/17 22:30 98 40 11/22/17 22:00 59 11/22/17 20:00 96 40 11/22/17 20:00 98.6 60 19 143/65 (91) 96 11/22/17 20:00 60 11/22/17 20:00 96 Bi-Pap 40 11/22/17 18:00 59 11/22/17 16:18 94 40 11/22/17 16:00 100 Bi-Pap 40 11/22/17 16:00 63 11/22/17 16:00 98.1 11/22/17 14:00 58 11/22/17 12:00 58 11/22/17 12:00 98.2 58 22 124/55 (78) 100 11/22/17 12:00 100 Bi-Pap 40 I/O 11/22/17 11/22/17 11/22/17 11/23/17 11/23/17 11/23/17 07:00 15:00 23:00 07:00 15:00 23:00 Intake Total 900 ml 100 ml 1150 ml 360 ml Output Total 1250 ml 750 ml 950 ml Balance -350 ml 100 ml 400 ml -590 ml Intake Oral 800 ml 425 ml IV Total 100 ml 100 ml 725 ml 360 ml Output Urine Total 1250 ml 750 ml 950 ml # Bowel Movements 0 1 Result Diagram: 11/23/17 0335 11/23/17 0335 Other Results Allergies Coded Allergies Type Severity Reaction Last Updated Verified No Known Allergies 11/16/17 No Recent Impressions Chest X-Ray 11/22/17 0000 Signed Impressions: Service Date/Time: Wednesday, November 22, 2017 09:49 - CONCLUSION: 1. Stable exam with diffuse hazy densities and probable small pleural effusions. Tyler Beaulieu MD 11/21/17 11/21/17 11/22/17 11/22/17 11/23/17 11/23/17 06:00 18:00 06:00 18:00 06:00 18:00 Intake Total 100 ml 900 ml 1100 ml 1250 ml 360 ml Output Total 1850 ml 1200 ml 1250 ml 750 ml 950 ml Balance -1750 ml -300 ml -150 ml 500 ml -590 ml Intake Oral 700 ml 800 ml 425 ml IV Total 100 ml 200 ml 300 ml 825 ml 360 ml Output Urine Total 1850 ml 1200 ml 1250 ml 750 ml 950 ml # Bowel Movements 0 0 1 Laboratory Tests Test 11/20/17 15:35 11/20/17 18:28 11/21/17 05:30 11/21/17 22:42 Phosphorus Level 3.2 MG/DL 2.9 MG/DL Iron Level 46 MCG/DL Total Iron Binding Capacity 209 MCG/DL Percent Iron Saturation 22.1 % Ferritin 486 NG/ML 25-Hydroxy Vitamin D Total 27.1 ng/ML Vancomycin Level Trough 25.0 MCG/ML Complement C3 87 MG/DL Complement C4 19 MG/DL Parathyroid Hormone (Intact) 45.3 PG/ML Immunoglobulin G Total 1590 MG/DL Immunoglobulin A 406 MG/DL Immunoglobulin M 70 MG/DL Immunoglobulin [place]/Lambda Ratio 2.38 [place] Light Chain Analysis 455 MG/DL Lambda Light Chain Analysis 191 MG/DL Hepatitis B Surface Antigen NEGATIVE Hepatitis C Antibody NEGATIVE White Blood Count 20.3 TH/MM3 Red Blood Count 3.20 MIL/MM3 Hemoglobin 8.5 GM/DL Hematocrit 26.5 % Mean Corpuscular Volume 82.7 FL Mean Corpuscular Hemoglobin 26.5 PG Mean Corpuscular Hemoglobin Concent 32.0 % Red Cell Distribution Width 19.9 % Platelet Count 372 TH/MM3 Mean Platelet Volume 9.5 FL Neutrophils (%) (Auto) 83.7 % Lymphocytes (%) (Auto) 5.2 % Monocytes (%) (Auto) 10.3 % Eosinophils (%) (Auto) 0.4 % Basophils (%) (Auto) 0.4 % Neutrophils # (Auto) 17.0 TH/MM3 Lymphocytes # (Auto) 1.1 TH/MM3 Monocytes # (Auto) 2.1 TH/MM3 Eosinophils # (Auto) 0.1 TH/MM3 Basophils # (Auto) 0.1 TH/MM3 CBC Comment AUTO DIFF Differential Total Cells Counted 100 Neutrophils % (Manual) 86 % Band Neutrophils % 2 % Lymphocytes % 3 % Monocytes % 8 % Neutrophils # (Manual) 18.1 TH/MM3 Metamyelocytes 1 % Differential Comment FINAL DIFF MANUAL Toxic Granulation 1+ Platelet Estimate NORMAL Platelet Morphology Comment NORMAL Blood Urea Nitrogen 39 MG/DL Creatinine 1.40 MG/DL Random Glucose 153 MG/DL Total Protein 6.9 GM/DL Albumin 2.0 GM/DL Calcium Level 8.6 MG/DL Magnesium Level 1.7 MG/DL Alkaline Phosphatase 96 U/L Aspartate Amino Transf (AST/SGOT) 45 U/L Alanine Aminotransferase (ALT/SGPT) 51 U/L Total Bilirubin 0.7 MG/DL Sodium Level 148 MEQ/L Potassium Level 3.0 MEQ/L 3.3 MEQ/L Chloride Level 111 MEQ/L Carbon Dioxide Level 29.2 MEQ/L Anion Gap 8 MEQ/L Estimat Glomerular Filtration Rate 36 ML/MIN Random Vancomycin Level 31.5 COMMENT Test 11/22/17 04:22 11/22/17 11:34 11/22/17 13:45 11/22/17 17:40 White Blood Count 23.1 TH/MM3 Red Blood Count 2.85 MIL/MM3 Hemoglobin 7.7 GM/DL Hematocrit 23.9 % Mean Corpuscular Volume 83.6 FL Mean Corpuscular Hemoglobin 27.0 PG Mean Corpuscular Hemoglobin Concent 32.4 % Red Cell Distribution Width 19.4 % Platelet Count 346 TH/MM3 Mean Platelet Volume 8.9 FL Neutrophils (%) (Auto) 81.9 % Lymphocytes (%) (Auto) 6.3 % Monocytes (%) (Auto) 10.3 % Eosinophils (%) (Auto) 0.7 % Basophils (%) (Auto) 0.8 % Neutrophils # (Auto) 18.9 TH/MM3 Lymphocytes # (Auto) 1.4 TH/MM3 Monocytes # (Auto) 2.4 TH/MM3 Eosinophils # (Auto) 0.2 TH/MM3 Basophils # (Auto) 0.2 TH/MM3 CBC Comment AUTO DIFF Differential Total Cells Counted 100 Neutrophils % (Manual) 74 % Band Neutrophils % 4 % Lymphocytes % 4 % Monocytes % 16 % Neutrophils # (Manual) 18.5 TH/MM3 Metamyelocytes 1 % Myelocytes 1 % Differential Comment FINAL DIFF MANUAL Toxic Granulation 1+ Platelet Estimate NORMAL Platelet Morphology Comment NORMAL Blood Urea Nitrogen 30 MG/DL Creatinine 1.16 MG/DL Random Glucose 140 MG/DL Total Protein 6.4 GM/DL Albumin 1.9 GM/DL Calcium Level 8.4 MG/DL Alkaline Phosphatase 86 U/L Aspartate Amino Transf (AST/SGOT) 34 U/L Alanine Aminotransferase (ALT/SGPT) 39 U/L Total Bilirubin 0.7 MG/DL Sodium Level 145 MEQ/L Potassium Level 3.4 MEQ/L 3.8 MEQ/L Chloride Level 108 MEQ/L Carbon Dioxide Level 30.2 MEQ/L Anion Gap 7 MEQ/L Estimat Glomerular Filtration Rate 45 ML/MIN Random Vancomycin Level 22.2 COMMENT Blood Gas Puncture Site RT RADIAL RT RADIAL Blood Gas Patient Temperature 98.6 98.6 Blood Gas HCO3 29 mmol/L 29 mmol/L Blood Gas Base Excess 3.8 mmol/L 4.1 mmol/L Blood Gas Oxygen Saturation 91 % 92 % Arterial Blood pH 7.34 7.37 Arterial Blood Partial Pressure CO2 56 mmHg 51 mmHg Arterial Blood Partial Pressure O2 74 mmHg 78 mmHg Arterial Blood Oxygen Content 10.2 Vol % 10.1 Vol % Arterial Blood Carboxyhemoglobin 1.1 % 1.0 % Arterial Blood Methemoglobin 1.6 % 1.4 % Blood Gas Hemoglobin 7.9 G/DL 7.7 G/DL Oxygen Delivery Device BIPAP BIPAP Blood Gas Ventilator Setting IPAP+14/EPAP+5 IPAP+14/EPAP+5 Blood Gas Inspired Oxygen 40 % 40 % Test 11/23/17 03:35 White Blood Count 17.7 TH/MM3 Red Blood Count 2.87 MIL/MM3 Hemoglobin 7.6 GM/DL Hematocrit 23.9 % Mean Corpuscular Volume 83.3 FL Mean Corpuscular Hemoglobin 26.6 PG Mean Corpuscular Hemoglobin Concent 32.0 % Red Cell Distribution Width 19.2 % Platelet Count 336 TH/MM3 Mean Platelet Volume 9.7 FL Neutrophils (%) (Auto) 91.2 % Lymphocytes (%) (Auto) 3.9 % Monocytes (%) (Auto) 4.8 % Eosinophils (%) (Auto) 0.0 % Basophils (%) (Auto) 0.1 % Neutrophils # (Auto) 16.2 TH/MM3 Lymphocytes # (Auto) 0.7 TH/MM3 Monocytes # (Auto) 0.9 TH/MM3 Eosinophils # (Auto) 0.0 TH/MM3 Basophils # (Auto) 0.0 TH/MM3 CBC Comment AUTO DIFF Differential Total Cells Counted 100 Neutrophils % (Manual) 90 % Band Neutrophils % 5 % Lymphocytes % 1 % Monocytes % 4 % Neutrophils # (Manual) 16.8 TH/MM3 Differential Comment FINAL DIFF MANUAL Toxic Granulation 1+ Platelet Estimate NORMAL Platelet Morphology Comment NORMAL Blood Urea Nitrogen 36 MG/DL Creatinine 1.19 MG/DL Random Glucose 204 MG/DL Total Protein 6.9 GM/DL Albumin 1.9 GM/DL Calcium Level 8.2 MG/DL Phosphorus Level 4.4 MG/DL Magnesium Level 2.0 MG/DL Alkaline Phosphatase 87 U/L Aspartate Amino Transf (AST/SGOT) 28 U/L Alanine Aminotransferase (ALT/SGPT) 35 U/L Total Bilirubin 0.4 MG/DL Sodium Level 147 MEQ/L Potassium Level 3.5 MEQ/L Chloride Level 109 MEQ/L Carbon Dioxide Level 30.2 MEQ/L Anion Gap 8 MEQ/L Estimat Glomerular Filtration Rate 44 ML/MIN Free Thyroxine 1.09 NG/DL Free Triiodothyronine (T3) pg/dL LESS THAN 0.50 PG/ML Orders Procedure Category Date Status Time Consult Nephrology CONS 11/20/[address] Brain W/O Iv RADCT 11/20/17 Resulted Contrast(Rout) Quetiapine (Seroquel) MED 11/21/17 Complete 09:00 Quetiapine (Seroquel) MED 11/20/17 Complete 21:00 Complete Blood Count LAB 11/21/17 Complete With Diff 06:00 Comprehensive LAB 11/21/17 Complete Metabolic Panel 06:00 Magnesium (Mg) LAB 11/21/17 Complete 06:00 Phosphorus (Po4) LAB 11/21/17 Complete 06:00 Furosemide Inj (Lasix MED 11/20/17 Complete Inj) 18:00 Furosemide Inj (Lasix MED 11/20/17 Complete Inj) 11:15 (Hub Use Only)Inp Phy CONS 11/20/17 Transmitted Cons/Ref Restraints Non-Violent MIK 11/20/17 Complete 11:21 Complement C3 LAB 11/20/17 Complete 15:33 Complement C4 LAB 11/20/17 Complete 15:33 Ferritin LAB 11/20/17 Complete 15:33 Hepatitis B Surface Ag LAB 11/20/17 Complete 15:33 Hepatitis C Ab,Igg LAB 11/20/17 Complete 15:33 Iron/Tibc Profile LAB 11/20/17 Complete 15:33 [place]/Lambda Free LAB 11/20/17 In Process Light Chain 15:33 Parathyroid Hormone LAB 11/20/17 Complete Intact 15:33 Phosphorus (Po4) LAB 11/20/17 Complete 15:33 Urine For Eosinophils LAB 11/20/17 In Process 15:33 Vitamin D, 25-Hydroxy LAB 11/20/17 Complete 15:33 US RADUS 11/20/17 Resulted Kidney/Renal/Bladder Potassium Chloride MED 11/20/17 Complete (Kcl) 15:45 [place] Profile LAB 11/20/17 In Process 15:33 Vancomycin Inj MED 11/22/17 Complete (Vancomycin Inj) 04:00 Random Vancomycin LAB 11/21/17 Complete 06:00 Potassium Chlor 20 MED 11/21/17 Complete Meq Premix (Kcl 20 Me 10:00 Furosemide Inj (Lasix MED 11/22/17 Complete Inj) 09:00 Protect Heel Raiser SPD 11/21/17 Logged Boot Blue 10:43 Random Vancomycin LAB 11/22/17 Complete 06:00 Complete Blood Count LAB 11/22/17 Complete With Diff 06:00 Diet 1999 Ada Cons DIET 11/21/17 Transmitted Carb Dinner Furosemide Inj (Lasix MED 11/21/17 Complete Inj) 18:45 Dextrose 5% In [place] MED 11/21/17 In Process 1000ml Inj (D5w 1000 18:45 Magnesium Sulfate 1 MED 11/21/17 Complete Gm Premix (Magnesium 18:45 Cholecalciferol MED 11/22/17 In Process (Vitamin D3) 09:00 Potassium, Serum (K) LAB 11/21/17 Complete 22:00 Comprehensive LAB 11/22/17 Complete Metabolic Panel 06:00 Potassium Chloride MED 11/22/17 Complete Eff (K-Lyte Cl Eff) 00:00 Furosemide Inj (Lasix MED 11/22/17 Complete Inj) 09:00 Furosemide Inj (Lasix MED 11/22/17 Complete Inj) 00:00 Free T3 LAB 11/23/17 Complete 06:00 Free Thyroxine (T4) LAB 11/23/17 Complete 06:00 Albuterol-Ipratropium MED 11/22/17 In Process Neb (Duoneb Neb) 08:00 Insulin Detemir Inj MED 11/22/17 In Process (Levemir Inj) 00:15 Potassium Chloride MED 11/22/17 Complete Eff (K-Lyte Cl Eff) 05:30 Potassium, Serum (K) LAB 11/22/17 Complete 10:00 Ceftriaxone Inj MED 11/22/17 In Process (Rocephin Inj) 09:00 Furosemide Inj (Lasix MED 11/22/17 Complete Inj) 09:45 Methylprednisolone So MED 11/22/17 Complete Succ Inj (Solumedr 09:45 Chest, Single Ap RADDIAG 11/22/17 Resulted Isolation MIK 11/22/17 In Process 09:42 Furosemide Inj (Lasix MED 11/22/17 Complete Inj) 10:15 Furosemide Inj (Lasix MED 11/22/17 In Process Inj) 21:00 Arterial Blood Gas LAB 11/22/17 Complete (Abg) Arterial Blood Gas LAB 11/22/17 Complete (Abg) 18:00 Complete Blood Count LAB 11/23/17 Complete With Diff 06:00 Comprehensive LAB 11/23/17 Complete Metabolic Panel 06:00 Magnesium (Mg) LAB 11/23/17 Complete 06:00 Phosphorus (Po4) LAB 11/23/17 Complete 06:00 Echo 2d Comp With ECH 11/23/17 Logged Doppler Arterial Blood Gas LAB 11/23/17 Logged (Abg) Red Blood Cells (Rbc) BBK 11/23/17 In Process 08:31 Blood Product MIK 11/23/17 In Process Administration 08:31 Sodium Chlor 0.9% 250 MED 11/23/17 In Process Ml Inj (Ns 250 Ml 08:45 Acetaminophen MED 11/23/17 In Process (Tylenol) 08:45 Diphenhydramine MED 11/23/17 In Process (Benadryl) 08:45 Furosemide Inj (Lasix MED 11/23/17 In Process Inj) 09:15 Type And Screen BBK 11/23/17 In Process 08:31 Vital Signs Date Time Temp Pulse Resp B/P (MAP) Pulse Ox O2 Delivery O2 Flow Rate FiO2 11/23/17 08:00 58 11/23/17 08:00 97.7 62 19 154/65 (94) 99 11/23/17 08:00 99 Bi-Pap 40 11/23/17 06:00 62 11/23/17 04:36 99 40 11/23/17 04:00 54 11/23/17 04:00 98 Bi-Pap 40 11/23/17 04:00 98.1 54 20 123/58 (79) 98 11/23/17 02:00 59 11/23/17 01:10 98 40 11/23/17 00:00 58 11/23/17 00:00 98.4 58 19 121/57 (78) 98 11/23/17 00:00 98 Bi-Pap 40 11/22/17 22:30 98 40 11/22/17 22:00 59 11/22/17 20:00 96 40 11/22/17 20:00 98.6 60 19 143/65 (91) 96 11/22/17 20:00 60 11/22/17 20:00 96 Bi-Pap 40 11/22/17 18:00 59 11/22/17 16:18 94 40 11/22/17 16:00 100 Bi-Pap 40 11/22/17 16:00 63 11/22/17 16:00 98.1 11/22/17 14:00 58 11/22/17 12:00 58 11/22/17 12:00 98.2 58 22 124/55 (78) 100 11/22/17 12:00 100 Bi-Pap 40 11/22/17 10:00 64 11/22/17 08:26 93 Nasal Cannula 5.00 11/22/17 08:00 65 11/22/17 08:00 97.6 65 23 146/95 (112) 91 11/22/17 08:00 100 Non-Rebreather 15.00 11/22/17 06:00 67 11/22/17 04:00 63 11/22/17 04:00 98.4 63 20 140/67 (91) 96 11/22/17 04:00 96 Nasal Cannula 5.00 11/22/17 02:00 67 11/22/17 00:00 96 Nasal Cannula 2.00 11/22/17 00:00 98.5 63 20 108/50 (69) 96 11/22/17 00:00 63 11/21/17 22:00 66 11/21/17 20:41 95 Nasal Cannula 4.00 11/21/17 20:00 98.4 71 29 129/65 (86) 96 11/21/17 20:00 96 Nasal Cannula 2.00 11/21/17 20:00 71 11/21/17 18:00 74 11/21/17 17:00 71 11/21/17 16:00 91 Nasal Cannula 2.00 11/21/17 16:00 75 11/21/17 16:00 98.0 75 27 134/62 (86) 90 11/21/17 15:00 79 11/21/17 14:00 71 11/21/17 13:00 88 11/21/17 12:00 97.9 94 23 140/63 (88) 91 11/21/17 12:00 92 Nasal Cannula 4.00 11/21/17 12:00 94 11/21/17 11:00 82 11/21/17 10:00 85 11/21/17 09:00 84 11/21/17 08:00 95 Nasal Cannula 4.00 11/21/17 08:00 97.9 90 23 130/60 (83) 92 11/21/17 08:00 90 11/21/17 07:41 93 Nasal Cannula 2.00 11/21/17 07:00 88 11/21/17 06:00 80 11/21/17 04:00 98.1 70 15 127/58 (81) 95 11/21/17 04:00 95 Nasal Cannula 4.00 11/21/17 04:00 70 11/21/17 02:00 65 11/21/17 00:00 96 11/21/17 00:00 98.5 96 23 112/71 (85) 93 11/21/17 00:00 93 Nasal Cannula 4.00 11/20/17 22:00 100 11/20/17 20:13 96 Nasal Cannula 3.00 11/20/17 20:00 105 11/20/17 20:00 93 Nasal Cannula 4.00 11/20/17 20:00 97.6 105 31 144/63 (90) 93 11/20/17 18:00 104 11/20/17 17:00 98 11/20/17 16:00 98 Nasal Cannula 4.00 11/20/17 16:00 97.7 99 34 138/63 (88) 97 11/20/17 16:00 99 11/20/17 15:00 96 11/20/17 14:00 95 11/20/17 13:00 93 11/20/17 12:00 79 11/20/17 12:00 97.9 79 26 128/60 (82) 94 11/20/17 12:00 98 Nasal Cannula 5.00 11/20/17 11:00 80 Imaging Last 72 hours Impressions Chest X-Ray 11/22/17 0000 Signed Impressions: Service Date/Time: Wednesday, November 22, 2017 09:49 - CONCLUSION: 1. Stable exam with diffuse hazy densities and probable small pleural effusions. Tyler Beaulieu MD Objective Remarks GENERAL: Well-nourished, well-developed patient with moderate to severe respiratory distress. HEAD: Normocephalic. EYES: No scleral icterus. No injection or drainage. NECK: Supple, trachea midline. No JVD or lymphadenopathy. CARDIOVASCULAR: Regular rate and rhythm without murmurs, gallops, or rubs. RESPIRATORY: Decreased breath sounds at the bases, wheezing has improved GASTROINTESTINAL: Abdomen soft, non-tender, nondistended. MUSCULOSKELETAL: R leg: redness to right leg distal to knee edematous/shiny. Opening on dorsum on right foot. Two small closed blisters on posterior aspect of hurtado. BACK: Nontender without obvious deformity. NEURO EXAM: Patient is arousable but still lethargic. patient seemed to wake up more as interview progressed. AAOx3. Motor and Strength exam grossly normal Medications and IVs Current Medications Medications (Trade) Dose Ordered Sig/Jay Route Start Time Stop Time Status Last Admin (Morphine Inj) 2 mg Q3H PRN IV PUSH 11/16/17 14:00 (D50w (Vial) Inj) 50 ml UNSCH PRN IV PUSH 11/16/17 14:15 (Glucagon Inj) 1 mg UNSCH PRN OTHER 11/16/17 14:15 (NovoLIN R SUPPLEMENTAL SCALE) 1 ACHS SLIDING SCALE SQ 11/16/17 17:00 11/23/17 08:03 (Cordarone) 100 mg BID PO 11/16/17 21:00 11/23/17 08:00 (Lipitor) 10 mg HS PO 11/16/17 21:00 11/22/17 21:22 (Coreg) 3.125 mg BID PO 11/16/17 21:00 11/23/17 07:59 (Synthroid) 25 mcg DAILY@0600 PO 11/17/17 06:00 11/23/17 05:31 (Heparin Inj) 5,000 units Q8HR SQ 11/17/17 06:00 11/23/17 05:31 (Duoneb Neb) 1 ampule Q2HR NEB PRN NEB 11/18/17 12:00 (Haldol Inj) 2 mg Q4H PRN IM 11/19/17 14:00 11/22/17 02:08 (SEROquel) 25 mg DAILY PO 11/21/17 09:00 11/23/17 08:00 (SEROquel) 25 mg HS PO 11/20/17 21:00 11/22/17 21:22 Dextrose 1,000 ml @ 30 mls/hr Q24H IV 11/21/17 18:45 11/21/17 19:43 (Vitamin D3) 2,000 units DAILY PO 11/22/17 09:00 11/23/17 08:00 (Duoneb Neb) 1 ampule Q6HR WHILE AWAKE NEB NEB 11/22/17 08:00 11/22/17 20:00 (Levemir Inj) 10 units HS SQ 11/22/17 00:15 11/22/17 21:24 Ceftriaxone Sodium 2000 mg/ Sodium Chloride 100 ml @ 200 mls/hr Q24H IV 11/22/17 09:00 12/01/17 08:59 11/23/17 08:00 (Lasix Inj) 40 mg BID IV PUSH 11/22/17 21:00 11/23/17 08:01 Sodium Chloride 250 ml @ 15 mls/hr ONCE ONCE IV 11/23/17 08:45 11/24/17 01:24 (Tylenol) 650 mg Q4H PRN PO 11/23/17 08:45 (Benadryl) 25 mg Q4H PRN PO 11/23/17 08:45 (Lasix Inj) 20 mg UNSCH X1 IV PUSH 11/23/17 09:15 11/23/17 23:59 A/P Assessment and Plan Patient is a 77 y/o female w/ h/o HTN, DM, and A Fib who was admitted for severe sepsis and cellulitis. She was started on Vancomycin, Clindamycin, and Zozyn IV. Surgery was consulted and deemed patient is not a candidate for surgery 1) Cellulitis of RLE/Sepsis - Patient was started on clindamycin, zozyn, and vancomycin. WBC inc 27 to 30. Lactic Acid has dropped from 3.7 to 1.3. Potassium inc 2.9 to 3.6. . Cultures revealed strep in blood and wound. Surgery deemed patient not a candidate for surgery. Will continue current antibiotic treatment of clinda, zozyn, and vanc. Will Consult ID for further management. 11/22 ID has since changed abx to IV meropenum and IV vancomycin as ESBL E Coli is thought to be a contaminent per ID. Leg has clinically improved greatly. Continue abx regiment along with IV Rocephin for UTI 2) UTI - Patient had UA consistent with UTI and urine cultures revealed gram negative john. 11/22 Patient has been started on IV Rocephin per ID 3) DM - Sugars are running in the 140-200 range. Continue SSI and levemir regiment. 4) HTN - Continue coreg 3.125 5) LEWIS - BUN/Cr is stable at 40/1.8. Nephrology is following 6) Hypothyroid - continue levothyroxine 11/22 TSH mildly elevated, but free T4 returned within normal limits. patient is euthyroid at this moment. 7) Atrial FIb - coreg, statin, and Heparin. previous note from critical care notes digoxin but current medication list does not have it. WIll check med reconciliation. 8) Acute Hypercapneic hypoxemic respiratory failure - Patient observed in moderate respiratory distress with bipap. Patient is currently satting at 100. Patient's lethargy is improving but still present. ABG results last night revealed a downward trending pCO2 at 51. Waiting for repeat ABGs this morning. If hypercapnia improves will attempt to wean off the bipap. Continue diruese with lasix 40 mg IV BID and monitor BMP for electrolytes. 9) Constipation - Patient has not had a bowel movement since before transfer per nurse, except for small passage of stool observed on diaper. Patient has had little food PO due to respiratory status and nonrebreather/bipap. Abdomen is soft and non tender, and patient does not report any pain. However will order KUB in order to asses for any possible obstruction. 10) Anemia - Hgb is downward trending to 7.6. Etiology of of blood loss is unknown at this time. Due to respiratory status will order type and screen and transfuse one packed RBC to maintain Hgb >8. Will give lasix 20 mg IV after trasnfusion to prevent worsening of fluid overload status 11) DVT proph - heparin Discharge Planning Continue to monitor respiratory status. Awaiting discharge from ID as well. Alonso Silverman M3 Nov 23, 2017 10:20
--- NOTE | 2017-11-23 11:34 | HHI.NPPN ---
Subjective History of Present Illness The patient is a 77 yo [place] female who presented to this facility on 11/16 with complaints of R leg pain. She is on vacation from [place]. Reports that she has a hx of underlying CKD, but is not cure of her baseline. She also mentions hx of CHF and takes Lasix at home twice daily, but not sure of dose. She is being treated for RLE cellulitis initially on Vancomycin, Zosyn, and Clindamycin, but Zosyn was changed to Meropenem on 11/19 for UTI coverage. Yulisa was called for respiratory distress on 11/18 and was given IV Lasix and placed on BiPAP. Has been on Lasix 20mg IV q12h since then and was increased to 40mg IV q12h as if this morning. She has also been on maintenance fluid of NS at 125mL/hr from 11/17 thru 11/20. Vancomycin levels were within therapeutic range on 11/18. UOP has been good. Interval History Patient appears much more alert today. Complaining of some fatigue but otherwise seems to be in relatively good spirits. Family member by bedside. Review of Systems Respiratory Lungs: SOB Objective Data Data 11/23/17 11/24/17 19:00 07:00 Intake Total 100 ml Balance 100 ml IV Total 100 ml Vital Signs Date Time Temp Pulse Resp B/P (MAP) Pulse Ox O2 Delivery O2 Flow Rate FiO2 11/23/17 10:00 62 11/23/17 08:00 58 11/23/17 08:00 97.7 62 19 154/65 (94) 99 11/23/17 08:00 99 Bi-Pap 40 11/23/17 06:00 62 11/23/17 04:36 99 40 11/23/17 04:00 54 11/23/17 04:00 98 Bi-Pap 40 11/23/17 04:00 98.1 54 20 123/58 (79) 98 11/23/17 02:00 59 11/23/17 01:10 98 40 11/23/17 00:00 58 11/23/17 00:00 98.4 58 19 121/57 (78) 98 11/23/17 00:00 98 Bi-Pap 40 11/22/17 22:30 98 40 11/22/17 22:00 59 11/22/17 20:00 96 40 11/22/17 20:00 98.6 60 19 143/65 (91) 96 11/22/17 20:00 60 11/22/17 20:00 96 Bi-Pap 40 11/22/17 18:00 59 11/22/17 16:18 94 40 11/22/17 16:00 100 Bi-Pap 40 11/22/17 16:00 63 11/22/17 16:00 98.1 11/22/17 14:00 58 11/22/17 12:00 58 11/22/17 12:00 98.2 58 22 124/55 (78) 100 11/22/17 12:00 100 Bi-Pap 40 -: 11/23/17 0335 11/23/17 0335 Physical Exam General Appearance: No Acute Distress, Comfortable, Malnourished (and debilitated.) Appearance Remarks Very debilitated appearing female with wasting of the musculature of all limbs. Eyes Eye Exam: Sclera White Pulmonary Resp Exam: Breath Sounds Equal, Decreased Bases Cardiology CV Exam: Regular, Normal Sinus Rhythm Gastrointestinal/Abdomen GI Exam: Soft, Non-Tender Integumentary Skin Exam: Clear, Warm Extremeties Extremities Exam: Moderate Edema (involving hands, forearms, feet, legs and dependent thighs.) Assessment/Plan Discussed Condition With: Patient, Son Problem List: (1) Renal insufficiency ICD Codes: N28.9 - Disorder of kidney and ureter, unspecified; R65.20 - Severe sepsis without septic shock Status: Acute Plan: Volume status has improved somewhat. In view of developing hypernatremia will reduce furosemide back to 20 mg IV twice a day and add 1 dose of Diuril today in addition to by mouth potassium chloride. I reviewed the records from [facility]. The patient was hospitalized between July 26 and July 31, 2017 with congestive heart failure. At the time of discharge from the hospital her creatinine level was 1.37 with an estimated GFR 37. I suspect that her current creatinine level is at baseline. I discussed with patient and family member at length the status of her renal function, the presence of CKD which appears to be stage III and improvement since admission. The patient's overall chronic debilitation prognosis guarded. Medications should be adjusted for her renal insufficiency. Avoid nephrotoxins such as iodinated contrast dyes and NSAIDs. Avoid gadolinium. Total time spent in direct patient 38 min (2) Congestive heart failure ICD Codes: I50.9 - Heart failure, unspecified Status: Chronic Plan: As above, await echo result. (3) Hypernatremia ICD Codes: E87.0 - Hyperosmolality and hypernatremia Plan: As above. (4) Hypokalemia ICD Codes: E87.6 - Hypokalemia Plan: As above. (5) Cellulitis of right lower extremity ICD Codes: L03.115 - Cellulitis of right lower limb Status: Acute Plan: Abx as per ID BCx negative x24h (6) UTI (urinary tract infection) ICD Codes: N39.0 - Urinary tract infection, site not specified Status: Acute Plan: Abx as per ID Problem Qualifiers (1) Congestive heart failure: (2) UTI (urinary tract infection): Qualified Codes: N39.0 - Urinary tract infection, site not specified Morena Amezcua MD Nov 23, 2017 11:34
[2017-11-23] MEDS ORDERED: CHLOROTHIAZIDE SOD 500 MG VIAL IV ONE (11:45)
[2017-11-23] MEDS: INSULIN DETEMIR 100 UNITS/ML VIAL SQ SCH ×2 (12:15→20:46)
--- NOTE | 2017-11-23 12:40 | RADRPT ---
EXAM DATE/TIME: 11/23/2017 12:02 [facility] COMPARISON: CHEST SINGLE AP, November 22, 2017, 9:49. INDICATIONS : Respiratory failure, short of breath MEDICAL HISTORY : Cardiovascular disease. Hypertension Diabetes mellitus type II. SURGICAL HISTORY : Appendectomy. Coronary artery stent. thoracic spine ENCOUNTER: Subsequent ACUITY: 1 week PAIN SCORE: 0/10 LOCATION: Bilateral chest FINDINGS: Portable AP view of the chest demonstrates a normal-sized cardiac silhouette with calcification of th e aorta. EKG lines overlie the patient. Thoracic spine or remains present. There are bibasilar pleura l-parenchymal opacities, right larger than left without significant change from the prior study. No p neumothorax is identified. CONCLUSION: Stable chest x-ray with bibasilar opacities, right larger than left. These likely represent bilateral pleural effusions with associated volume loss and/or consolidation. Background lung changes could in dicate pulmonary edema. Cameron Dodge MD on November 23, 2017 at 12:36 Board Certified Radiologist. This report was verified electronically.
[2017-11-23] MEDS: POTASSIUM CHLORIDE 25 MEQ EFFERVESCENT TAB PO SCH (13:39)
[2017-11-23] MEDS: FUROSEMIDE 20 MG/2 ML VIAL IV PUSH SCH (18:00)
[2017-11-23] MEDS: ATORVASTATIN 10 MG TAB PO SCH (20:45)
[2017-11-24] VITALS (18 sets, daily range): BP systolic 134–197; BP diastolic 59–87; PULSE 47–65; RESP 19–35; TEMP 97.4–98.7; O2SAT 92–99
[2017-11-24] MEDS: HEPARIN SODIUM - SQ 10,000 UNITS/ML VIAL SQ SCH ×3 (05:47→22:00)
[2017-11-24] MEDS: LEVOTHYROXINE SODIUM 25 MCG TAB PO SCH (05:47)
[2017-11-24 06:10] LABS: AUTOMATED NEUTROPHIL # 15.1 TH/MM3 (1.8-7.7); BASOPHIL # 0.1 TH/MM3 (0-0.2); BASOPHIL % 0.6 % (0.0-2.0); EOSINOPHIL # 0.1 TH/MM3 (0-0.4); EOSINOPHIL % 0.6 % (0.0-4.0); HEMATOCRIT 27.2 % (35.0-46.0); HEMOGLOBIN 9.1 GM/DL (11.6-15.3); LYMPH % 7.2 % (9.0-44.0); LYMPHOCYTE # 1.3 TH/MM3 (1.0-4.8); MEAN CELL VOLUME 83.8 FL (80.0-100.0); MEAN CORPUSCULAR HEMOGLOBIN 27.8 PG (27.0-34.0); MEAN CORPUSCULAR HGB CONC 33.2 % (32.0-36.0); MONO % 9.9 % (0.0-8.0); MONOCYTE # 1.8 TH/MM3 (0-0.9); NEUT % 81.7 % (16.0-70.0); PLATELET COUNT 335 TH/MM3 (150-450); RED BLOOD COUNT 3.25 MIL/MM3 (4.00-5.30); RED CELL DISTRIBUTION WIDTH 18.5 % (11.6-17.2); WHITE BLOOD COUNT 18.5 TH/MM3 (4.0-11.0)
[2017-11-24 06:32] LABS: ALBUMIN 1.9 GM/DL (3.4-5.0); ALKALINE PHOSPHATASE 86 U/L (45-117); ALT (GPT) 31 U/L (10-53); AST (GOT) 27 U/L (15-37); BICARBONATE 33.3 MEQ/L (21.0-32.0); BLOOD UREA NITROGEN 42 MG/DL (7-18); CALCIUM 8.7 MG/DL (8.5-10.1); CHLORIDE 100 MEQ/L (98-107); CREATININE 1.34 MG/DL (0.50-1.00); GLOMERULAR FILTRATION RATE 38 ML/MIN (>89); GLUCOSE,RANDOM 166 MG/DL (74-106); PHOSPHORUS 3.4 MG/DL (2.5-4.9); SODIUM (NA) 139 MEQ/L (136-145); TOTAL BILIRUBIN ADULT 0.5 MG/DL (0.2-1.0); TOTAL PROTEIN 6.6 GM/DL (6.4-8.2)
[2017-11-24 07:51] LABS: BANDS 8 % (0-6); BASOPHILS 1 % (0-2); LYMPHOCYTES 2 % (9-44); METAMYELOCYTES 1 % (0-1); MONOCYTES 13 % (0-8); NEUTROPHIL # MANUAL DIFF 15.4 TH/MM3 (1.8-7.7); POLYS (SEG NEUTROPHILS) 74 % (16-70)
[2017-11-24 07:52] LABS: TOXIC GRANULATION 1+ (NORMAL)
[2017-11-24] MEDS: RESP: ALBUTEROL 2.5 MG/IPRATROPIUM 0.5 MG NEB (SCH) NEB ×3 (07:57→20:18)
[2017-11-24] MEDS: INSULIN NovoLIN REGULAR SUPPLEMENTAL SCALE SQ SCH ×4 (08:00→21:00)
[2017-11-24] MEDS: CHOLECALCIFEROL (VIT D3) 1000 UNIT TAB PO SCH (08:22)
[2017-11-24] MEDS: CARVEDILOL 3.125 MG TAB PO SCH ×2 (08:22→21:00)
[2017-11-24] MEDS: AMIODARONE 200 MG TAB PO SCH ×2 (08:22→21:00)
[2017-11-24] MEDS: POTASSIUM CHLORIDE 25 MEQ EFFERVESCENT TAB PO SCH (08:23)
[2017-11-24] MEDS: cefTRIAXone INJ 2,000 MG in SODIUM CHLORIDE 0.9% INJ 100 ML IV SCH (08:23)
[2017-11-24] MEDS: INSULIN DETEMIR 100 UNITS/ML VIAL SQ SCH ×2 (08:24→21:00)
[2017-11-24] MEDS: FUROSEMIDE 20 MG/2 ML VIAL IV PUSH SCH ×2 (08:33→17:14)
--- NOTE | 2017-11-24 15:03 | HHI.PR ---
Objective Vitals Vital Signs Date Time Temp Pulse Resp B/P (MAP) Pulse Ox O2 Delivery O2 Flow Rate FiO2 11/24/17 10:00 65 11/24/17 08:00 55 11/24/17 08:00 94 Nasal Cannula 5.00 11/24/17 08:00 97.4 55 24 143/65 (91) 97 11/24/17 07:58 95 Nasal Cannula 4.00 11/24/17 06:10 99 Nasal Cannula 4.00 11/24/17 06:00 49 11/24/17 06:00 94 Nasal Cannula 4.00 Humidified 11/24/17 04:00 47 11/24/17 04:00 98 Bi-Pap 40 11/24/17 04:00 97.6 47 19 134/87 (103) 98 11/24/17 03:32 98 40 11/24/17 02:00 47 11/24/17 01:00 98 40 11/24/17 00:00 49 11/24/17 00:00 98.0 49 19 139/59 (85) 98 11/24/17 00:00 98 Bi-Pap 40 11/23/17 23:28 95 40 11/23/17 22:00 59 11/23/17 20:00 97.9 60 28 120/59 (79) 92 11/23/17 20:00 92 Nasal Cannula 4.00 11/23/17 20:00 60 11/23/17 19:38 96 Nasal Cannula 4.00 11/23/17 18:00 65 11/23/17 16:00 98.1 11/23/17 16:00 67 11/23/17 16:00 98.1 67 33 100/68 (79) 92 11/23/17 16:00 99 Nasal Cannula 3.00 I/O 11/23/17 11/23/17 11/23/17 11/24/17 11/24/17 11/24/17 07:00 15:00 23:00 07:00 15:00 23:00 Intake Total 360 ml 600 ml 2057 ml 240 ml Output Total 950 ml 1575 ml 2450 ml Balance -590 ml 600 ml 482 ml -2210 ml Intake Oral 1200 ml 240 ml IV Total 360 ml 150 ml 457 ml Packed Cells 400 ml 400 ml Blood Product IV Normal Saline Flush 50 ml Output Urine Total 950 ml 1575 ml 2450 ml # Bowel Movements 0 Result Diagram: 11/24/1744911/24/17449 Objective Remarks GENERAL: Well-nourished, well-developed patient with moderate to severe respiratory distress. HEAD: Normocephalic. EYES: No scleral icterus. No injection or drainage. NECK: Supple, trachea midline. No JVD or lymphadenopathy. CARDIOVASCULAR: Regular rate and rhythm without murmurs, gallops, or rubs. RESPIRATORY: Decreased breath sounds at the bases, some diffuse scattered expiratory wheezing bilaterally lung echavarria. GASTROINTESTINAL: Abdomen soft, non-tender, nondistended. MUSCULOSKELETAL: R leg: redness to right leg distal to knee edematous/shiny. Opening on dorsum on right foot. Two small closed blisters on posterior aspect of hurtado. BACK: Nontender without obvious deformity. NEURO EXAM: Patient is lethargic and hard to arouse. However repeat very confused and not oriented to place or time. Procedures none A/P Problem List: (1) Acute hypoxemic respiratory failure ICD Code: J96.01 - Acute respiratory failure with hypoxia Status: Acute (2) Severe sepsis ICD Code: A41.9 - Sepsis, unspecified organism; R65.20 - Severe sepsis without septic shock Status: Acute (3) Cellulitis of right lower extremity ICD Code: L03.115 - Cellulitis of right lower limb Status: Acute (4) UTI (urinary tract infection) ICD Code: N39.0 - Urinary tract infection, site not specified Status: Acute (5) LEWIS (acute kidney injury) ICD Code: N17.9 - Acute kidney failure, unspecified Status: Acute Assessment and Plan Severe sepsis Cellulitis of right lower extremity - Vancomycin, Zosyn, clindamycin - Follow blood culture. Intermittent blood cultures with Streptococcus - General surgery consulted for possible necrotizing fasciitis - CT scan doesn't show an abscess or free air - Pain control - Extremity ultrasound to rule out underlying DVT - No surgery recommended by general surgeon. Recommends aggressive IV antibiotic therapy. continue IV antibiotics. Consult infectious disease since WBC trending up. - 11/21 Antibiotics per ID. Currently on IV Meropenem, IV Vancomycin. WBC trendig down , continue to monitor cbc w diff. - 11/22 IV meropenem and IV vancomycin continued as per infectious disease. ESBL Escherichia coli thought to be a contaminant as per infectious disease recommendations. Continue antibiotics as per infectious disease. The patient has been started on IV Rocephin. - 11/23 Continue antibiotics as per ID. Continue IV Rocephin. Diabetes mellitus - Hold metformin while in the ICU - Continue SSI. Hold long acting insulin since patient is lethargic. will resume once patient is more awake. - 11/21 Will resume Levemir since patient is more awake and blood sugars are severely elevated. - 11/22 blood sugars seems slightly improved. Continue insulin Levemir at same dose, continue SSI with insulin NovoLog. I will keep at same dose since patient is lethargic today. - 11/23 Blood sugars severely elevated in the 200's. Will increase insulin Levemir to 10 units SQ BID. Hypertension - Coreg - BP stable. Acute renal failure - Hold diuretics - IV fluids resuscitation - Monitor creatinine and urine output 11/18 DC IV fluids. Patient in respiratory distress likely due to fluid overload. Will Give 60 IV lasix now. 11/19 labs ordered and pending. 11/22 creatinine improving and down to 1.1 with diureses. Patient likely has some component of cardiorenal syndrome. Hypothyroidism - Levothyroxine - 11/20 TSH is elevated at 3.890, will check free t3, free t4. - 11/23 Free t4 normal and free t3 is low. Likely euthyroid sick syndrome. PAtient will need repeat TSH, Ft3 and ft4 upon DC in 6 weeks. Atrial fibrillation - Amiodarone - Coreg - Digoxin - Resume Pradaxa in 24 hours, if renal function improves-no surgical intervention planned - 11/23 Resume Pradaxa after patient more awake. Acute hypoxemic respiratory failure Patient had an episode of hypoxemia into the 80s on 11/18. ABG consistent with respiratory acidosis with hypercapnic, hypoxemic respiratory failure. The patient was transferred to intensive care unit and start on BiPAP. Chest x-ray showed questionable haziness right upper lung possibly mild distal pulmonary venous congestion. The patient was given 1 dose of 60 mg IV Lasix. 11/19 patient is off BiPAP and currently on 4 L nasal cannula. Repeat chest x- ray reviewed by me shows compensated cardiomegaly with better irrigation. I will start the patient on Lasix 20 mg IV twice a day. 11/20 Dc IV fluids since patient is on Lasix. 11/21 Oygenation improving, patient down to 3 liters nasal canula. Wean o2 as tolerated. 11/22 patient today with rest of the stress and tachypnea. Patient also more lethargic. I will obtain an ABG, will give a dose of 40 mg of IV IV Lasix and she has attended dose of IV Lasix to 40 mg IV twice a day. I will also give a dose of 125 mg of IV Solu-Medrol 1 given the patient has some reactive airway disease. Chest x-ray ordered and consistent with congestive heart failure and pulmonary edema. Check ABG. 11/23 the patient is still currently on BiPAP. ABG obtained on showed hypoxemic hypercapnic respiratory failure. Repeat ABG today shows a slightly improved CO2 of 50 with a pH of 7.39 and a PO2 of 138. Patient is lethargic currently, however she was more awake earlier. Suspect G secondary to toxic encephalopathy. I will hold Seroquel and repeat a cxr. Will check BL lower extremity doppler us to r/o dvt. UTI Urine culture grew Escherichia coli ESBL positive. As per infectious disease recommendations, her pain was discontinued. Escherichia coli UTI likely a contamination as you a straight catheter was negative and did not reflex to culture. Acute encephalopathy. The patient is very agitated and hallucinating. I will start the patient Haldol as needed for agitation. Likely secondary to metabolic encephalopathy secondary to UTI and cellulitis. Will monitor neurological status. 11/20 Will start on Seroquel, Patient still encephalopathic. Restraint as needed for agitation. Check CT head. 11/21 CT brain negative, encephalopathy resolving, continue Seroquel. 11/22 the patient is again lethargic. Hold Seroquel and check ABG. Patient with CO2 elevation and the patient might need to be started on BiPAP. 11/23 Likely due to toxic encephalopathy since patient was more awake earlier today, also CO2 elevated and possibly there is some degree of Co2 narcosis. Opinion BiPAP and discontinue Seroquel. Hypokalemia Replaced, continue to monitor BMP. Acute congestive heart failure. Unknown type at this moment. Echocardiogram pending. As stated above the patient has rested distress with chest x-ray suggestive of congestive heart failure and pulmonary edema. 2D echocardiogram echo ordered and pending. Continue treatment with IV Lasix DVT GI prophylaxis - Teds SCDs on unaffected leg - 1999 ADA diet Discharge Planning Continue to monitor in the intensive care unit. Patient still on bipap. Problem Qualifiers (1) UTI (urinary tract infection): Qualified Codes: N39.0 - Urinary tract infection, site not specified Manuel Allen MD Nov 24, 2017 15:03
--- NOTE | 2017-11-24 15:20 | HHI.PR ---
Subjective Remarks Patient is off bipap awake and alert on 5 liters nasal canula Objective Vitals Vital Signs Date Time Temp Pulse Resp B/P (MAP) Pulse Ox O2 Delivery O2 Flow Rate FiO2 11/24/17 10:00 65 11/24/17 08:00 55 11/24/17 08:00 94 Nasal Cannula 5.00 11/24/17 08:00 97.4 55 24 143/65 (91) 97 11/24/17 07:58 95 Nasal Cannula 4.00 11/24/17 06:10 99 Nasal Cannula 4.00 11/24/17 06:00 49 11/24/17 06:00 94 Nasal Cannula 4.00 Humidified 11/24/17 04:00 47 11/24/17 04:00 98 Bi-Pap 40 11/24/17 04:00 97.6 47 19 134/87 (103) 98 11/24/17 03:32 98 40 11/24/17 02:00 47 11/24/17 01:00 98 40 11/24/17 00:00 49 11/24/17 00:00 98.0 49 19 139/59 (85) 98 11/24/17 00:00 98 Bi-Pap 40 11/23/17 23:28 95 40 11/23/17 22:00 59 11/23/17 20:00 97.9 60 28 120/59 (79) 92 11/23/17 20:00 92 Nasal Cannula 4.00 11/23/17 20:00 60 11/23/17 19:38 96 Nasal Cannula 4.00 11/23/17 18:00 65 11/23/17 16:00 98.1 11/23/17 16:00 67 11/23/17 16:00 98.1 67 33 100/68 (79) 92 11/23/17 16:00 99 Nasal Cannula 3.00 I/O 11/23/17 11/23/17 11/23/17 11/24/17 11/24/17 11/24/17 07:00 15:00 23:00 07:00 15:00 23:00 Intake Total 360 ml 600 ml 2057 ml 240 ml Output Total 950 ml 1575 ml 2450 ml Balance -590 ml 600 ml 482 ml -2210 ml Intake Oral 1200 ml 240 ml IV Total 360 ml 150 ml 457 ml Packed Cells 400 ml 400 ml Blood Product IV Normal Saline Flush 50 ml Output Urine Total 950 ml 1575 ml 2450 ml # Bowel Movements 0 Result Diagram: 11/24/17 [id number]/[id number] Imaging Last Impressions Chest X-Ray 11/23/17 0000 Signed Impressions: Service Date/Time: Thursday, November 23, 2017 12:02 - CONCLUSION: Stable chest x-ray with bibasilar opacities, right larger than left. These likely represent bilateral pleural effusions with associated volume loss and/or consolidation. Background lung changes could indicate pulmonary edema. Cameron Dodge MD Renal Ultrasound 11/20/17 0000 Signed Impressions: Service Date/Time: Monday, November 20, 2017 16:17 - CONCLUSION: 1. Echogenic kidneys typical of chronic parenchymal disease. No obstructive uropathy or other acute abnormality demonstrated. 2. Sludge and at least one stone in the gallbladder. Cameron Alberts MD Head CT 11/20/17 0000 Signed Impressions: Service Date/Time: Monday, November 20, 2017 21:48 - CONCLUSION: No acute intracranial abnormality demonstrated. Cameron Alberts MD Lower Extremity Ultrasound 11/17/17 0000 Signed Impressions: Service Date/Time: Friday, November 17, 2017 21:57 - CONCLUSION: Normal examination. Albert Kendall MD Lower Extremity CT 11/16/17 1344 Signed Impressions: Service Date/Time: Thursday, November 16, 2017 14:12 - CONCLUSION: 1. Extensive edema and inflammatory changes with skin thickening in the thigh especially laterally and posteriorly but also extending medially. No definite loculated abscess. Musculature grossly intact. No abnormal loculated air. No bony destructive changes. Moderate to severe osteoarthritis at the knee. Albert Kendall MD Tibia/Fibula X-Ray 11/16/17 0000 Signed Impressions: Service Date/Time: Thursday, November 16, 2017 11:19 - CONCLUSION: 1. No acute bony abnormalities identified within the tibia. Moderate to severe osteoarthritis with medial joint space. Fixation calcaneus with residual deformity. Albert Kendall MD Objective Remarks GENERAL: Well-nourished, well-developed patient with moderate to severe respiratory distress. HEAD: Normocephalic. EYES: No scleral icterus. No injection or drainage. NECK: Supple, trachea midline. No JVD or lymphadenopathy. CARDIOVASCULAR: Regular rate and rhythm without murmurs, gallops, or rubs. RESPIRATORY: Decreased breath sounds at the bases, rest CTA BL. GASTROINTESTINAL: Abdomen soft, non-tender, nondistended. MUSCULOSKELETAL: R leg: redness to right leg distal to knee edematous/shiny. Opening on dorsum on right foot. Two small closed blisters on posterior aspect of hurtado. BACK: Nontender without obvious deformity. NEURO EXAM: Awake and alert, follows commands. However repeat very confused and not oriented to place or time. Procedures none Medications and IVs Current Medications Medications (Trade) Dose Ordered Sig/Jay Route Start Time Stop Time Status Last Admin (Morphine Inj) 2 mg Q3H PRN IV PUSH 11/16/17 14:00 (D50w (Vial) Inj) 50 ml UNSCH PRN IV PUSH 11/16/17 14:15 (Glucagon Inj) 1 mg UNSCH PRN OTHER 11/16/17 14:15 (NovoLIN R SUPPLEMENTAL SCALE) 1 ACHS SLIDING SCALE SQ 11/16/17 17:00 11/24/17 13:57 (Cordarone) 100 mg BID PO 11/16/17 21:00 11/24/17 08:22 (Lipitor) 10 mg HS PO 11/16/17 21:00 11/23/17 20:45 (Coreg) 3.125 mg BID PO 11/16/17 21:00 11/24/17 08:22 (Synthroid) 25 mcg DAILY@0600 PO 11/17/17 06:00 11/24/17 05:47 (Heparin Inj) 5,000 units Q8HR SQ 11/17/17 06:00 11/24/17 13:57 (Duoneb Neb) 1 ampule Q2HR NEB PRN NEB 11/18/17 12:00 (Haldol Inj) 2 mg Q4H PRN IM 11/19/17 14:00 11/22/17 02:08 (Vitamin D3) 2,000 units DAILY PO 11/22/17 09:00 11/24/17 08:22 (Duoneb Neb) 1 ampule Q6HR WHILE AWAKE NEB NEB 11/22/17 08:00 11/24/17 11:33 Ceftriaxone Sodium 2000 mg/ Sodium Chloride 100 ml @ 200 mls/hr Q24H IV 11/22/17 09:00 12/01/17 08:59 11/24/17 08:23 (Tylenol) 650 mg Q4H PRN PO 11/23/17 08:45 11/23/17 12:05 (Benadryl) 25 mg Q4H PRN PO 11/23/17 08:45 11/23/17 12:05 (Lasix Inj) 20 mg BID@0900,1800 IV PUSH 11/23/17 18:00 11/24/17 08:33 (K-Lyte Cl Eff) 25 meq DAILY PO 11/23/17 11:45 11/24/17 08:23 (Levemir Inj) 10 units BID SQ 11/23/17 12:15 11/24/17 08:24 A/P Problem List: (1) Acute hypoxemic respiratory failure ICD Code: J96.01 - Acute respiratory failure with hypoxia Status: Acute (2) Severe sepsis ICD Code: A41.9 - Sepsis, unspecified organism; R65.20 - Severe sepsis without septic shock Status: Acute (3) Cellulitis of right lower extremity ICD Code: L03.115 - Cellulitis of right lower limb Status: Acute (4) UTI (urinary tract infection) ICD Code: N39.0 - Urinary tract infection, site not specified Status: Acute (5) LEWIS (acute kidney injury) ICD Code: N17.9 - Acute kidney failure, unspecified Status: Acute Assessment and Plan Severe sepsis Cellulitis of right lower extremity - Vancomycin, Zosyn, clindamycin - Follow blood culture. Intermittent blood cultures with Streptococcus - General surgery consulted for possible necrotizing fasciitis - CT scan doesn't show an abscess or free air - Pain control - Extremity ultrasound to rule out underlying DVT - No surgery recommended by general surgeon. Recommends aggressive IV antibiotic therapy. continue IV antibiotics. Consult infectious disease since WBC trending up. - 11/21 Antibiotics per ID. Currently on IV Meropenem, IV Vancomycin. WBC trendig down , continue to monitor cbc w diff. - 11/22 IV meropenem and IV vancomycin continued as per infectious disease. ESBL Escherichia coli thought to be a contaminant as per infectious disease recommendations. Continue antibiotics as per infectious disease. The patient has been started on IV Rocephin. - 11/23 Continue antibiotics as per ID. Continue IV Rocephin. - 11/24 repeat chest x-ray reviewed by me and obtained on 1 post-rest 30 showed stable chest x-ray with basilar opacities, right arch and left. I will add oral Flagyl to cover for possible aspiration pneumonia since patient has been lethargic and on BiPAP. Diabetes mellitus - Hold metformin while in the ICU - Continue SSI. Hold long acting insulin since patient is lethargic. will resume once patient is more awake. - 11/21 Will resume Levemir since patient is more awake and blood sugars are severely elevated. - 11/22 blood sugars seems slightly improved. Continue insulin Levemir at same dose, continue SSI with insulin NovoLog. I will keep at same dose since patient is lethargic today. - 11/23 Blood sugars severely elevated in the 200's. Will increase insulin Levemir to 10 units SQ BID. - 11/24 blood sugar still severely elevated in the 200s range. I will continue to units subcutaneous twice a day, will start the patient on prandial insulin with insulin. Continue SSI. Hypertension - Coreg - BP stable. Acute renal failure - Hold diuretics - IV fluids resuscitation - Monitor creatinine and urine output 11/18 DC IV fluids. Patient in respiratory distress likely due to fluid overload. Will Give 60 IV lasix now. 11/19 labs ordered and pending. 11/22 creatinine improving and down to 1.1 with diureses. Patient likely has some component of cardiorenal syndrome. Hypothyroidism - Levothyroxine - 11/20 TSH is elevated at 3.890, will check free t3, free t4. - 11/23 Free t4 normal and free t3 is low. Likely euthyroid sick syndrome. PAtient will need repeat TSH, Ft3 and ft4 upon DC in 6 weeks. Atrial fibrillation - Amiodarone - Coreg - Digoxin - Resume Pradaxa in 24 hours, if renal function improves-no surgical intervention planned - 11/24 Resume Pradaxa. Acute hypoxemic respiratory failure Patient had an episode of hypoxemia into the 80s on 11/18. ABG consistent with respiratory acidosis with hypercapnic, hypoxemic respiratory failure. The patient was transferred to intensive care unit and start on BiPAP. Chest x-ray showed questionable haziness right upper lung possibly mild distal pulmonary venous congestion. The patient was given 1 dose of 60 mg IV Lasix. 11/19 patient is off BiPAP and currently on 4 L nasal cannula. Repeat chest x- ray reviewed by me shows compensated cardiomegaly with better irrigation. I will start the patient on Lasix 20 mg IV twice a day. 11/20 Dc IV fluids since patient is on Lasix. 11/21 Oygenation improving, patient down to 3 liters nasal canula. Wean o2 as tolerated. 11/22 patient today with rest of the stress and tachypnea. Patient also more lethargic. I will obtain an ABG, will give a dose of 40 mg of IV IV Lasix and she has attended dose of IV Lasix to 40 mg IV twice a day. I will also give a dose of 125 mg of IV Solu-Medrol 1 given the patient has some reactive airway disease. Chest x-ray ordered and consistent with congestive heart failure and pulmonary edema. Check ABG. 11/23 the patient is still currently on BiPAP. ABG obtained on showed hypoxemic hypercapnic respiratory failure. Repeat ABG today shows a slightly improved CO2 of 50 with a pH of 7.39 and a PO2 of 138. Patient is lethargic currently, however she was more awake earlier. Suspect G secondary to toxic encephalopathy. I will hold Seroquel and repeat a cxr. 11/24 patient is off BiPAP, currently on nasal cannula at 5 L. Continue to wean off oxygen. Continue supplemental oxygen to keep an oxygen saturation more than 92%. UTI Urine culture grew Escherichia coli ESBL positive. As per infectious disease recommendations, her pain was discontinued. Escherichia coli UTI likely a contamination as you a straight catheter was negative and did not reflex to culture. Acute encephalopathy. The patient is very agitated and hallucinating. I will start the patient Haldol as needed for agitation. Likely secondary to metabolic encephalopathy secondary to UTI and cellulitis. Will monitor neurological status. 11/20 Will start on Seroquel, Patient still encephalopathic. Restraint as needed for agitation. Check CT head. 11/21 CT brain negative, encephalopathy resolving, continue Seroquel. 11/22 the patient is again lethargic. Hold Seroquel and check ABG. Patient with CO2 elevation and the patient might need to be started on BiPAP. 11/23 Likely due to toxic encephalopathy since patient was more awake earlier today, also CO2 elevated and possibly there is some degree of Co2 narcosis. Opinion BiPAP and discontinue Seroquel. 11/24 Encephalopathy has resolved. Continue to monitor neurological status. Hypokalemia Replaced, continue to monitor BMP. Acute congestive heart failure. Unknown type at this moment. Echocardiogram pending. As stated above the patient has rested distress with chest x-ray suggestive of congestive heart failure and pulmonary edema. 2D echocardiogram echo ordered and pending. Continue treatment with IV Lasix 11/24 2-D echocardiogram shows a normal EF and no definite regional wall motion abnormalities. Trace to mild mitral regurgitation, mild mitral annular calcification. There is a moderate tricuspid valve regurgitation. Likely acute diastolic heart failure. Possibility of severe pulmonary hypertension on echo. I will consult cardiology for further recommendations. DVT GI prophylaxis - Teds SCDs on unaffected leg - 1999 ADA diet Discharge Planning Continue to monitor in the intensive care unit. Patient still on elevated levels of oxygen. Problem Qualifiers (1) UTI (urinary tract infection): Qualified Codes: N39.0 - Urinary tract infection, site not specified Manuel Allen MD Nov 24, 2017 15:20
--- NOTE | 2017-11-24 16:35 | ECHRPT ---
Indication: Cardiomyopathy, unspecified CONCLUSIONS Normal left ventricular size and wall thickness. The left ventricular systolic function is normal wi th an estimated ejection fraction in the range of 50-55%. No definite regional wall motion abnormalities . [id number] mitral valve regurgitation. Mild mitral annular calcification. There is moderate tricuspid valve regurgitation. The estimated pulmonary arterial pressure is 92 mmHg suggesting the possibility of severe pulmonary hypertension. Trileaflet aortic valve. Mild leaflet calcification and sclerosis. BP: 123 / 58 HR: 54 Rhythm: Sinus MEASUREMENTS (Male / Female) Normal Values Technical Quality:Fair 2D ECHO LV Diastolic Diameter PLAX 4.5 cm 4.2 - 5.9 / 3.9 - 5.3 cm LV Systolic Diameter PLAX 3.4 cm IVS Diastolic Thickness 1.0 cm 0.6 - 1.0 / 0.6 - 0.9 cm LVPW Diastolic Thickness 1.0 cm 0.6 - 1.0 / 0.6 - 0.9 cm LV Relative Wall Thickness 0.5 LVOT Diameter 2.1 cm LA Systolic Diameter LX 5.2 cm 3.0 - 4.0 / 2.7 - 3.8 cm M-MODE Aortic Root Diameter MM 2.9 cm AV Cusp Separation MM 1.9 cm DOPPLER AV Peak Velocity 244.0 cm/s AV Peak Gradient 23.8 mmHg AV Mean Gradient 12.0 mmHg AV Velocity Time Integral 55.7 cm LVOT Peak Velocity 122.0 cm/s LVOT Peak Gradient 6.0 mmHg AV Area Cont Eq pk 1.7 cm MR Peak Velocity 449.5 cm/s MR Peak Gradient 80.8 mmHg Mitral E Point Velocity 114.0 cm/s Mitral A Point Velocity 44.4 cm/s Mitral E to A Ratio 2.6 LV E' Lateral Velocity 5.8 cm/s Mitral E to LV E' Lateral Ratio 19.8 LV E' Septal Velocity 5.2 cm/s Mitral E to LV E' Septal Ratio 22.1 TR Peak Velocity 454.0 cm/s TR Peak Gradient 82.4 mmHg Right Atrial Pressure 10.0 mmHg Pulmonary Artery Systolic Pressu 92.4 mmHg Right Ventricular Systolic Press 92.4 mmHg PV Peak Velocity 159.0 cm/s PV Peak Gradient 10.1 mmHg FINDINGS LEFT VENTRICLE Normal left ventricular size and wall thickness. The left ventricular systolic function is normal wi th an estimated ejection fraction in the range of 50-55%. No definite regional wall motion abnormalities . RIGHT VENTRICLE Normal right ventricular size and systolic function. LEFT ATRIUM The left atrial size is normal. RIGHT ATRIUM The right atrial size is normal. ATRIAL SEPTUM Normal atrial septal thickness without atrial level shunting by limited color doppler interrogation. AORTA The aortic root and proximal ascending aorta are normal in size on limited imaging. MITRAL VALVE Ibexr-fy-aigy mitral valve regurgitation. Mild mitral annular calcification. AORTIC VALVE Trileaflet aortic valve. Mild leaflet calcification and sclerosis. TRICUSPID VALVE There is moderate tricuspid valve regurgitation. The estimated pulmonary arterial pressure is 92 mmHg suggesting the possibility of severe pulmonary hypertension. PULMONARY VALVE No pulmonary valve regurgitation or stenosis. VESSELS The inferior vena cava is normal in size. PERICARDIUM No pericardial effusion. A small left sided pleural effusion is noted. Gary More MD (Electronically Signed) Final Date:24 November 2017 16:33
--- NOTE | 2017-11-24 18:36 | HHI.NPPN ---
Subjective History of Present Illness The patient is a 77 yo [place] female who presented to this facility on 11/16 with complaints of R leg pain. She is on vacation from [place]. Reports that she has a hx of underlying CKD, but is not cure of her baseline. She also mentions hx of CHF and takes Lasix at home twice daily, but not sure of dose. She is being treated for RLE cellulitis initially on Vancomycin, Zosyn, and Clindamycin, but Zosyn was changed to Meropenem on 11/19 for UTI coverage. Yulisa was called for respiratory distress on 11/18 and was given IV Lasix and placed on BiPAP. Has been on Lasix 20mg IV q12h since then and was increased to 40mg IV q12h as if this morning. She has also been on maintenance fluid of NS at 125mL/hr from 11/17 thru 11/20. Vancomycin levels were within therapeutic range on 11/18. UOP has been good. Interval History Patient was awake and alert when I visited. No verbal complaints except that she was somewhat concerned regarding not having the Duron catheter in and having to call the nurse to urinate. Review of Systems Respiratory Lungs: SOB Objective Data Data 11/24/17 11/25/17 19:00 07:00 Intake Total 160 ml Output Total 1600 ml Balance -1440 ml IV Total 160 ml Output Urine Total 1600 ml # Bowel Movements 2 Vital Signs Date Time Temp Pulse Resp B/P (MAP) Pulse Ox O2 Delivery O2 Flow Rate FiO2 11/24/17 18:00 62 11/24/17 16:00 94 Nasal Cannula 5.00 11/24/17 16:00 53 11/24/17 16:00 98.7 53 21 150/68 (95) 94 11/24/17 14:00 59 11/24/17 12:00 56 11/24/17 12:00 94 Nasal Cannula 5.00 11/24/17 12:00 98.6 56 25 155/68 (97) 92 11/24/17 10:00 65 11/24/17 08:00 55 11/24/17 08:00 94 Nasal Cannula 5.00 11/24/17 08:00 97.4 55 24 143/65 (91) 97 11/24/17 07:58 95 Nasal Cannula 4.00 11/24/17 06:10 99 Nasal Cannula 4.00 11/24/17 06:00 49 11/24/17 06:00 94 Nasal Cannula 4.00 Humidified 11/24/17 04:00 47 11/24/17 04:00 98 Bi-Pap 40 11/24/17 04:00 97.6 47 19 134/87 (103) 98 11/24/17 03:32 98 40 11/24/17 02:00 47 11/24/17 01:00 98 40 11/24/17 00:00 49 11/24/17 00:00 98.0 49 19 139/59 (85) 98 11/24/17 00:00 98 Bi-Pap 40 11/23/17 23:28 95 40 11/23/17 22:00 59 11/23/17 20:00 97.9 60 28 120/59 (79) 92 11/23/17 20:00 92 Nasal Cannula 4.00 11/23/17 20:00 60 11/23/17 19:38 96 Nasal Cannula 4.00 -: 11/24/17 0450 11/24/17 0450 Physical Exam General Appearance: No Acute Distress, Comfortable, Malnourished (and debilitated.) Appearance Remarks Very debilitated appearing female with wasting of the musculature of all limbs. Eyes Eye Exam: Sclera White Pulmonary Resp Exam: Breath Sounds Equal, Decreased Bases Cardiology CV Exam: Regular, Normal Sinus Rhythm Gastrointestinal/Abdomen GI Exam: Soft, Non-Tender Integumentary Skin Exam: Clear, Warm Extremeties Extremities Exam: Moderate Edema (improved involving the upper thighs hips and presacral area. 2+.) Assessment/Plan Discussed Condition With: Patient, Son Problem List: (1) Renal insufficiency ICD Codes: N28.9 - Disorder of kidney and ureter, unspecified; R65.20 - Severe sepsis without septic shock Status: Acute Plan: Patient's volume status is much improved but there is still some fluid retention. We'll add by mouth Zaroxolyn. Continue IV furosemide for another day or 2 then convert to by mouth furosemide. I reviewed the records from [facility]. The patient was hospitalized between July 26 and July 31, 2017 with congestive heart failure. At the time of discharge from the hospital her creatinine level was 1.37 with an estimated GFR 37. I suspect that her current creatinine level is at baseline. I discussed with patient and family member at length the status of her renal function, the presence of CKD which appears to be stage III and improvement since admission. The patient's overall chronic debilitation prognosis guarded. Medications should be adjusted for her renal insufficiency. Avoid nephrotoxins such as iodinated contrast dyes and NSAIDs. Avoid gadolinium. (2) Congestive heart failure ICD Codes: I50.9 - Heart failure, unspecified Status: Chronic Plan: As above, await echo result. (3) Hypernatremia ICD Codes: E87.0 - Hyperosmolality and hypernatremia Status: Resolved Plan: As above. (4) Hypokalemia ICD Codes: E87.6 - Hypokalemia Status: Resolved Plan: As above. (5) Cellulitis of right lower extremity ICD Codes: L03.115 - Cellulitis of right lower limb Status: Acute Plan: Abx as per ID BCx negative x24h (6) UTI (urinary tract infection) ICD Codes: N39.0 - Urinary tract infection, site not specified Status: Acute Plan: Abx as per ID Problem Qualifiers (1) Congestive heart failure: (2) UTI (urinary tract infection): Qualified Codes: N39.0 - Urinary tract infection, site not specified Morena Amezcua MD Nov 24, 2017 18:36
[2017-11-24] MEDS: ATORVASTATIN 10 MG TAB PO SCH (21:00)
[2017-11-24] MEDS: DABIGATRAN ETEXILATE 75 MG CAP PO SCH (21:00)
[2017-11-24 23:52] LABS: KAPPA/LAMBDA FREE 1.18 (0.26-1.65)
[2017-11-25] VITALS (23 sets, daily range): BP systolic 116–177; BP diastolic 57–83; PULSE 50–61; RESP 23–35; TEMP 97.6–98.7; O2SAT 92–100
[2017-11-25] MEDS: HEPARIN SODIUM - SQ 10,000 UNITS/ML VIAL SQ SCH ×3 (06:17→21:37)
[2017-11-25] MEDS: LEVOTHYROXINE SODIUM 25 MCG TAB PO SCH (06:17)
[2017-11-25] MEDS: RESP: ALBUTEROL 2.5 MG/IPRATROPIUM 0.5 MG NEB (SCH) NEB ×3 (07:55→19:44)
[2017-11-25] MEDS: INSULIN ASPART 1,000 UNITS/10 ML VIAL SQ SCH ×4 (08:00→17:00)
[2017-11-25] MEDS: INSULIN NovoLIN REGULAR SUPPLEMENTAL SCALE SQ SCH ×4 (08:00→21:00)
[2017-11-25 08:10] LABS: AUTOMATED NEUTROPHIL # 15.8 TH/MM3 (1.8-7.7); BASOPHIL # 0.1 TH/MM3 (0-0.2); BASOPHIL % 0.4 % (0.0-2.0); EOSINOPHIL # 0.1 TH/MM3 (0-0.4); EOSINOPHIL % 0.7 % (0.0-4.0); HEMATOCRIT 29.1 % (35.0-46.0); HEMOGLOBIN 9.5 GM/DL (11.6-15.3); LYMPH % 5.5 % (9.0-44.0); LYMPHOCYTE # 1.1 TH/MM3 (1.0-4.8); MEAN CELL VOLUME 84.4 FL (80.0-100.0); MEAN CORPUSCULAR HEMOGLOBIN 27.6 PG (27.0-34.0); MEAN CORPUSCULAR HGB CONC 32.8 % (32.0-36.0); MONO % 10.9 % (0.0-8.0); MONOCYTE # 2.1 TH/MM3 (0-0.9); NEUT % 82.5 % (16.0-70.0); PLATELET COUNT 358 TH/MM3 (150-450); RED BLOOD COUNT 3.45 MIL/MM3 (4.00-5.30); RED CELL DISTRIBUTION WIDTH 18.6 % (11.6-17.2); WHITE BLOOD COUNT 19.2 TH/MM3 (4.0-11.0)
[2017-11-25 08:42] LABS: BICARBONATE 37.5 MEQ/L (21.0-32.0); CALCIUM 8.9 MG/DL (8.5-10.1); CREATININE 1.09 MG/DL (0.50-1.00)
[2017-11-25] MEDS: INSULIN DETEMIR 100 UNITS/ML VIAL SQ SCH ×3 (09:00→21:00)
[2017-11-25] MEDS: DOCUSATE SODIUM 50 MG/SENNA 8.6 MG TAB PO SCH (09:00)
--- NOTE | 2017-11-25 09:03 | HHI.IDPN ---
Subjective Subjective Remarks is a 77 y/o CF with PMHx of RLE hardware in calcaneum who was admitted initially at [facility] and transferred to [facility] for evaluation for need for possible necrotizing fascitis and need for surgery. Patient had a sepsis workup done on admission. She was evaluated by General Surgery and no plan for surgical intervention, they recommend medical management. On Imaging there is no evidence of necrotizing fascitis (no air or fluid collections). Patient was reportedly in her usual state of health until about a week ago when she says she began noticing some increased swelling of her right lower extremity more than usual. This was associated with formation of some blistering and weeping. She started having pain with weightbearing yesterday and then this morning that's when she noticed a new onset redness extending from her ankle up to her knee prompting her to come to the emergency department. Patient was on regular floor yesterday but due to resp distress and encephalopathy was transferred to ICU and evaluated by cold meat chef. Patient was on BiPAP last night and reportedly non compliant. At the time of my evaluation patient is in the ICU, on 4L NC sats 91%, UO good, recd lasix, not on pressors. No richter in place. No CL in place. Alert, oriented x 2, Non focal exam. She endorses nausea but no vomiting. On questioning reports low grade fever. Denies cough chest pain or other Cardio pulm symptoms. She did recently go on vacation but does not think she injured herself or suffered any puncture site. ID was consulted for evaluation and Mment of Sepsis, RLE cellulitis, Possible ESBL UTI and Strep bacteremia. Overnight events reviewed. Remains in ICU due to agitation and hallucinations. Off restraints. Sleepy but arousable. No rash No fevers Remains on 4L NC Oxygen. d/w RN to measure post void urine given her prior h/o 1200 plus cc of urine retention this admission. RN reports loose stool but possible stool mixed with urine. If richter placed or obvious diarrhea will send stool for Cdiff. RN also reports groin rash with white discharge ? fungal. Bladder scan 900 cc urine. RN will notify Hepas if she does not urinate and bladder scan again remains positive to assess need for richter. Antibiotics Ceftriaxone IV Lines Line sites with no e.o infection Past Medical History Hypertension, A. fib, diabetes Hypothyroidism Past Surgical History left tib fib repair; back surgery with hardware in place. Allergies: Coded Allergies: No Known Allergies (Unverified , 11/16/17) Objective . Vital Signs Date Time Temp Pulse Resp B/P (MAP) Pulse Ox O2 Delivery O2 Flow Rate FiO2 11/25/17 07:58 97 Nasal Cannula 4.00 11/25/17 06:00 50 11/25/17 04:01 98.6 53 25 168/71 (103) 96 11/25/17 04:00 94 Nasal Cannula 6.00 11/25/17 04:00 54 11/25/17 02:00 53 11/25/17 00:01 98.7 54 31 177/71 (106) 93 11/25/17 00:00 53 11/25/17 00:00 94 Nasal Cannula 6.00 11/24/17 22:00 62 11/24/17 20:18 94 Nasal Cannula 2.00 11/24/17 20:02 97.9 59 35 197/78 (117) 92 11/24/17 20:00 94 Nasal Cannula 5.00 11/24/17 20:00 60 11/24/17 18:00 62 11/24/17 16:00 94 Nasal Cannula 5.00 11/24/17 16:00 53 11/24/17 16:00 98.7 53 21 150/68 (95) 94 11/24/17 14:00 59 11/24/17 12:00 56 11/24/17 12:00 94 Nasal Cannula 5.00 11/24/17 12:00 98.6 56 25 155/68 (97) 92 11/24/17 10:00 65 . Laboratory Tests Test 11/24/17 04:50 11/25/17 07:59 White Blood Count 18.5 TH/MM3 19.2 TH/MM3 Red Blood Count 3.25 MIL/MM3 3.45 MIL/MM3 Hemoglobin 9.1 GM/DL 9.5 GM/DL Hematocrit 27.2 % 29.1 % Mean Corpuscular Volume 83.8 FL 84.4 FL Mean Corpuscular Hemoglobin 27.8 PG 27.6 PG Mean Corpuscular Hemoglobin Concent 33.2 % 32.8 % Red Cell Distribution Width 18.5 % 18.6 % Platelet Count 335 TH/MM3 358 TH/MM3 Mean Platelet Volume 10.0 FL 10.0 FL Neutrophils (%) (Auto) 81.7 % 82.5 % Lymphocytes (%) (Auto) 7.2 % 5.5 % Monocytes (%) (Auto) 9.9 % 10.9 % Eosinophils (%) (Auto) 0.6 % 0.7 % Basophils (%) (Auto) 0.6 % 0.4 % Neutrophils # (Auto) 15.1 TH/MM3 15.8 TH/MM3 Lymphocytes # (Auto) 1.3 TH/MM3 1.1 TH/MM3 Monocytes # (Auto) 1.8 TH/MM3 2.1 TH/MM3 Eosinophils # (Auto) 0.1 TH/MM3 0.1 TH/MM3 Basophils # (Auto) 0.1 TH/MM3 0.1 TH/MM3 CBC Comment AUTO DIFF AUTO DIFF Differential Total Cells Counted 100 Neutrophils % (Manual) 74 % Band Neutrophils % 8 % Lymphocytes % 2 % Monocytes % 13 % Eosinophils % 1 % Basophils % 1 % Neutrophils # (Manual) 15.4 TH/MM3 Metamyelocytes 1 % Differential Comment FINAL DIFF MANUAL Toxic Granulation 1+ Platelet Estimate NORMAL Platelet Morphology Comment NORMAL Laboratory Tests Test 11/23/17 14:19 11/24/17 04:50 11/25/17 07:59 Ammonia 33 MCMOL/L Blood Urea Nitrogen 42 MG/DL 33 MG/DL Creatinine 1.34 MG/DL 1.09 MG/DL Random Glucose 166 MG/DL 90 MG/DL Total Protein 6.6 GM/DL Albumin 1.9 GM/DL Calcium Level 8.7 MG/DL 8.9 MG/DL Phosphorus Level 3.4 MG/DL Magnesium Level 2.0 MG/DL Alkaline Phosphatase 86 U/L Aspartate Amino Transf (AST/SGOT) 27 U/L Alanine Aminotransferase (ALT/SGPT) 31 U/L Total Bilirubin 0.5 MG/DL Sodium Level 139 MEQ/L 142 MEQ/L Potassium Level 3.8 MEQ/L 3.3 MEQ/L Chloride Level 100 MEQ/L 100 MEQ/L Carbon Dioxide Level 33.3 MEQ/L 37.5 MEQ/L Anion Gap 6 MEQ/L 5 MEQ/L Estimat Glomerular Filtration Rate 38 ML/MIN 49 ML/MIN Imaging Last Impressions Renal Ultrasound 11/20/17 0000 Signed Impressions: Service Date/Time: Monday, November 20, 2017 16:17 - CONCLUSION: 1. Echogenic kidneys typical of chronic parenchymal disease. No obstructive uropathy or other acute abnormality demonstrated. 2. Sludge and at least one stone in the gallbladder. Cameron Alberts MD Head CT 11/20/17 0000 Signed Impressions: Service Date/Time: Monday, November 20, 2017 21:48 - CONCLUSION: No acute intracranial abnormality demonstrated. Cameron Alberts MD Chest X-Ray 11/20/17 0000 Signed Impressions: Service Date/Time: Monday, November 20, 2017 09:52 - CONCLUSION: Stable exam. Debby Pruitt MD Lower Extremity Ultrasound 11/17/17 0000 Signed Impressions: Service Date/Time: Friday, November 17, 2017 21:57 - CONCLUSION: Normal examination. Albert Kendall MD Lower Extremity CT 11/16/17 1344 Signed Impressions: Service Date/Time: Thursday, November 16, 2017 14:12 - CONCLUSION: 1. Extensive edema and inflammatory changes with skin thickening in the thigh especially laterally and posteriorly but also extending medially. No definite loculated abscess. Musculature grossly intact. No abnormal loculated air. No bony destructive changes. Moderate to severe osteoarthritis at the knee. Albert Kendall MD Tibia/Fibula X-Ray 11/16/17 0000 Signed Impressions: Service Date/Time: Thursday, November 16, 2017 11:19 - CONCLUSION: 1. No acute bony abnormalities identified within the tibia. Moderate to severe osteoarthritis with medial joint space. Fixation calcaneus with residual deformity. Albert Kendall MD Physical Exam GENERAL: Obese, poorly kempt patient, in no apparent distress. SKIN: No generalized rashes, Ecchymosis. HEAD: Atraumatic. Normocephalic. No temporal or scalp tenderness. EYES: Pupils equal round and reactive. Extraocular motions intact. No scleral icterus. No injection or drainage. ENT: Nose without bleeding, purulent drainage or septal hematoma. NECK: Trachea midline. Supple, nontender, no meningeal signs. CARDIOVASCULAR: HS audible. RESPIRATORY: Clear to auscultation. Breath sounds equal bilaterally. GASTROINTESTINAL: Abdomen soft, non-tender, nondistended. MUSCULOSKELETAL: Blisters with skin break noted close to medial aspect of ankle and slightly above it. NEUROLOGICAL: Awake and alert.Non focal exam Psych cooperative IV line sites with no e.o infection. Assessment & Plan Remarks Sepsis present on admission RLE cellulitis with blisters c/w Strep erysipelas. Wound cx with Strep Not ABD and pansensitive Ac baumannii ESBL E.coli UTI likely contamination as UA straight cath was negative and did not reflex to culture. Prior to appropriate antibiotic initiation. Strep bacteremia likely secondary to Cellulitis. Acute resp failure on 4L NC. Acute renal failure: sepsis, prerenal. Leukemoid reaction: steroids, infection. CXR with pulm edema vs aspiration Retention of urine: richter in place. Recs: Continue Ceftriaxone IV covers Strep bacteremia, Strep and Ac baumannii cellulitis. Continue to Elevate leg as much as possible. Dressings for blister area. If these dont resolve consider pickling grader consult. Nystatin cream for local application to groin. Start Flagyl oral. Start Diflucan oral. CXR today to assess pulm status. Follow cultures follow clinically. d/w RN covering for me this weekend. Karina Macias MD Nov 25, 2017 09:03
--- NOTE | 2017-11-25 09:30 | RADRPT ---
EXAM DATE/TIME: 11/25/2017 09:01 [facility] COMPARISON: CHEST SINGLE AP, November 23, 2017, 12:02. INDICATIONS : Short of breath, evaluate pneumonia MEDICAL HISTORY : Cardiovascular disease. Hypertension Diabetes mellitus type II. SURGICAL HISTORY : Appendectomy. Coronary artery stent. thoracic spine ENCOUNTER: Subsequent ACUITY: 1 week PAIN SCORE: 0/10 LOCATION: Bilateral chest FINDINGS: A single portable frontal view the chest shows bibasilar pulmonary consolidations which are shown jsoiah e improvement relative to the prior study. Tiny effusions are stable. Heart enlarged. Orthopedic hard del cid overlies the spine. CONCLUSION: Improving bibasilar infiltrates and tiny effusions. Charble Urbina Jr., MD on November 25, 2017 at 9:24 Board Certified Radiologist. This report was verified electronically.
[2017-11-25] MEDS: DABIGATRAN ETEXILATE 75 MG CAP PO SCH ×2 (09:34→21:38)
[2017-11-25] MEDS: cefTRIAXone INJ 2,000 MG in SODIUM CHLORIDE 0.9% INJ 100 ML IV SCH (09:34)
[2017-11-25] MEDS: CHOLECALCIFEROL (VIT D3) 1000 UNIT TAB PO SCH (09:35)
[2017-11-25] MEDS: METOLAZONE 5 MG TAB PO SCH (09:35)
[2017-11-25] MEDS: POTASSIUM CHLORIDE 25 MEQ EFFERVESCENT TAB PO SCH (09:35)
[2017-11-25] MEDS: CARVEDILOL 3.125 MG TAB PO SCH ×2 (09:35→21:00)
[2017-11-25] MEDS: AMIODARONE 200 MG TAB PO SCH ×2 (09:36→21:00)
[2017-11-25 10:41] LABS: BANDS 6 % (0-6); LYMPHOCYTES 10 % (9-44); MONOCYTES 8 % (0-8); MYELOCYTES 1 % (0-0); NEUTROPHIL # MANUAL DIFF 15.7 TH/MM3 (1.8-7.7); POLYS (SEG NEUTROPHILS) 75 % (16-70)
[2017-11-25 10:42] LABS: OVALOCYTES 1+ (NORMAL); TEARDROP RBCS 1+ (NORMAL); TOXIC GRANULATION 1+ (NORMAL)
[2017-11-25] MEDS: FUROSEMIDE 20 MG/2 ML VIAL IV PUSH SCH (11:20)
[2017-11-25] MEDS: FLUCONAZOLE 100 MG TAB PO SCH (11:21)
[2017-11-25] MEDS: metroNIDAZOLE 500 MG TAB PO SCH ×3 (11:21→21:37)
--- NOTE | 2017-11-25 12:41 | HHI.PR ---
Subjective Remarks Presently patient has been weaned from BiPAP down to nonrebreather mask. She will still be monitored in the ICU. Urinary obstruction present today. Duron catheter placed. Objective Vital Signs Date Time Temp Pulse Resp B/P (MAP) Pulse Ox O2 Delivery O2 Flow Rate FiO2 11/25/17 07:58 97 Nasal Cannula 4.00 11/25/17 06:00 50 11/25/17 04:01 98.6 53 25 168/71 (103) 96 11/25/17 04:00 94 Nasal Cannula 6.00 11/25/17 04:00 54 11/25/17 02:00 53 11/25/17 00:01 98.7 54 31 177/71 (106) 93 11/25/17 00:00 53 11/25/17 00:00 94 Nasal Cannula 6.00 11/24/17 22:00 62 11/24/17 20:18 94 Nasal Cannula 2.00 11/24/17 20:02 97.9 59 35 197/78 (117) 92 11/24/17 20:00 94 Nasal Cannula 5.00 11/24/17 20:00 60 11/24/17 18:00 62 11/24/17 16:00 94 Nasal Cannula 5.00 11/24/17 16:00 53 11/24/17 16:00 98.7 53 21 150/68 (95) 94 11/24/17 14:00 59 I/O 11/24/17 11/24/17 11/24/17 11/25/17 11/25/17 11/25/17 07:00 15:00 23:00 07:00 15:00 23:00 Intake Total 240 ml 60 ml 100 ml 100 ml Output Total 2450 ml 1600 ml Balance -2210 ml -1540 ml 100 ml 100 ml Intake Oral 240 ml 100 ml IV Total 60 ml 100 ml Output Urine Total 2450 ml 1600 ml # Voids 2 # Bowel Movements 2 2 Result Diagram: 11/25/17 0759 11/25/17 0759 Objective Remarks GENERAL: NAD, A&Ox3 HEAD: Normocephalic. NECK: Supple, trachea midline. No lymphadenopathy. EYES: No scleral icterus. No injection or drainage. CARDIOVASCULAR: Regular rate and rhythm without murmurs, gallops, or rubs. RESPIRATORY: Breath sounds equal bilaterally. No accessory muscle use. GASTROINTESTINAL: Abdomen soft, non-tender, nondistended. MUSCULOSKELETAL: No cyanosis, or edema. SKIN: Warm and dry. Resolution of erythema at previous site of cellulitis. NEURO: No focal neurological deficitis. A/P Problem List: (1) Severe sepsis ICD Code: A41.9 - Sepsis, unspecified organism; R65.20 - Severe sepsis without septic shock Status: Acute (2) UTI (urinary tract infection) ICD Code: N39.0 - Urinary tract infection, site not specified Status: Acute (3) Congestive heart failure ICD Code: I50.9 - Heart failure, unspecified Status: Chronic (4) Hypokalemia ICD Code: E87.6 - Hypokalemia Status: Resolved (5) Hypernatremia ICD Code: E87.0 - Hyperosmolality and hypernatremia Status: Resolved (6) Cellulitis ICD Code: L03.90 - Cellulitis, unspecified Status: Acute Assessment and Plan 77-year-old female admitted secondary to severe sepsis related to cellulitis and UTI and pneumonia Severe sepsis Urinary tract infection Pneumonia Cellulitis Resolved Continue meropenem Continue vancomycin Continue Rocephin Continue Flagyl ID following Topical candidiasis (at groin) Nystatin and Diflucan Acute respiratory failure related to pneumonia BiPAP as needed Weaned to nonrebreather as tolerated Follow on pulse ox Oxygen as needed Continue breathing treatments as needed Diabetes mellitus type 2 Follow blood sugars Insulin sliding scale Diabetic diet Hypertension Continue Coreg Follow blood pressures Acute renal failure Chronic kidney disease Monitor renal function Component of cardiorenal syndrome suspected Patient has shown improvement through time Hypothyroidism Continue Levothyroxine Follow TSH, T3, and T4 as an outpatient Atrial fibrillation Continue amiodarone Continue Coreg Continue digoxin Pradaxa resumed on 11/24/17 Follow on telemetry Acute encephalopathy. Was related to septic state and respiratory failure Resolved Hypokalemia Follow potassium levels Replace as needed Possible acute diastolic congestive heart failure versus pulmonary edema Cardiology following DVT prophylaxis Continue Pradaxa Discharge Planning Patient is not stable for discharge at this time Problem Qualifiers (1) UTI (urinary tract infection): Qualified Codes: N39.0 - Urinary tract infection, site not specified (2) Congestive heart failure: (3) Cellulitis: Qualified Codes: L03.115 - Cellulitis of right lower limb Shady Perales MD Nov 25, 2017 12:41
[2017-11-25] MEDS: POTASSIUM CHLOR 20 MEQ PREMIX 100 ML IV SCH ×2 (15:00→18:04)
--- NOTE | 2017-11-25 18:00 | HHI.NPPN ---
Subjective History of Present Illness The patient is a 77 yo [place] female who presented to this facility on 11/16 with complaints of R leg pain. She is on vacation from [place]. Reports that she has a hx of underlying CKD, but is not cure of her baseline. She also mentions hx of CHF and takes Lasix at home twice daily, but not sure of dose. She is being treated for RLE cellulitis initially on Vancomycin, Zosyn, and Clindamycin, but Zosyn was changed to Meropenem on 11/19 for UTI coverage. Yulisa was called for respiratory distress on 11/18 and was given IV Lasix and placed on BiPAP. Has been on Lasix 20mg IV q12h since then and was increased to 40mg IV q12h as if this morning. She has also been on maintenance fluid of NS at 125mL/hr from 11/17 thru 11/20. Vancomycin levels were within therapeutic range on 11/18. UOP has been good. Interval History Patient appears to be resting comfortably with BiPAP mask in place. Review of Systems Respiratory Lungs: SOB Objective Data Data 11/25/17 11/26/17 18:59 06:59 Bladder Scan Volume Amount 915 ml Vital Signs Date Time Temp Pulse Resp B/P (MAP) Pulse Ox O2 Delivery O2 Flow Rate FiO2 11/25/17 15:53 96 40 11/25/17 12:00 Partial Non-Rebreather 11/25/17 12:00 54 11/25/17 12:00 54 29 161/70 (100) 100 11/25/17 11:00 60 30 142/83 (102) 100 11/25/17 11:00 60 11/25/17 10:00 61 11/25/17 10:00 61 28 169/59 (95) 96 11/25/17 09:00 60 31 139/83 (101) 92 11/25/17 09:00 60 11/25/17 08:00 Partial Non-Rebreather 11/25/17 08:00 97.6 54 35 172/76 (108) 95 11/25/17 08:00 54 11/25/17 07:58 97 Nasal Cannula 4.00 11/25/17 07:00 55 34 172/75 (107) 92 11/25/17 07:00 55 11/25/17 06:00 50 11/25/17 04:01 98.6 53 25 168/71 (103) 96 11/25/17 04:00 94 Nasal Cannula 6.00 11/25/17 04:00 54 11/25/17 02:00 53 11/25/17 00:01 98.7 54 31 177/71 (106) 93 11/25/17 00:00 53 11/25/17 00:00 94 Nasal Cannula 6.00 11/24/17 22:00 62 11/24/17 20:18 94 Nasal Cannula 2.00 11/24/17 20:02 97.9 59 35 197/78 (117) 92 11/24/17 20:00 94 Nasal Cannula 5.00 11/24/17 20:00 60 11/24/17 18:00 62 -: 11/25/17 0759 11/25/17 0759 Physical Exam General Appearance: No Acute Distress, Comfortable, Malnourished (and debilitated.) Appearance Remarks Very debilitated appearing female with wasting of the musculature of all limbs. Eyes Eye Exam: Sclera White Pulmonary Resp Exam: Breath Sounds Equal, Decreased Bases Cardiology CV Exam: Regular, Normal Sinus Rhythm Gastrointestinal/Abdomen GI Exam: Soft, Non-Tender Integumentary Skin Exam: Clear, Warm Extremeties Extremities Exam: Moderate Edema (improved involving the upper thighs hips and presacral area. 2+.) Assessment/Plan Discussed Condition With: Patient, Son Problem List: (1) Renal insufficiency ICD Codes: N28.9 - Disorder of kidney and ureter, unspecified; R65.20 - Severe sepsis without septic shock Status: Acute Plan: Patient's renal indices much improved and back to baseline based on data are reviewed from [place]. I will convert the patient to by mouth furosemide and continue Zaroxolyn as well as potassium chloride. At this point in time I will sign off. Please call if any questions. I reviewed the records from [facility]. The patient was hospitalized between July 26 and July 31, 2017 with congestive heart failure. At the time of discharge from the hospital her creatinine level was 1.37 with an estimated GFR 37. I suspect that her current creatinine level is at baseline. I discussed with patient and family member at length the status of her renal function, the presence of CKD which appears to be stage III and improvement since admission. The patient's overall chronic debilitation prognosis guarded. Medications should be adjusted for her renal insufficiency. Avoid nephrotoxins such as iodinated contrast dyes and NSAIDs. Avoid gadolinium. (2) Congestive heart failure ICD Codes: I50.9 - Heart failure, unspecified Status: Chronic Plan: As above, await echo result. (3) Cellulitis of right lower extremity ICD Codes: L03.115 - Cellulitis of right lower limb Status: Acute Plan: Abx as per ID BCx negative x24h (4) Pulmonary hypertension ICD Codes: I27.20 - Pulmonary hypertension, unspecified Plan: Suggested by echocardiogram. If present unsure of etiology. I will defer to primary care physician for pulmonary consultation would be of any benefit this admission. Otherwise I discussed the situation with the patient's son suggested follow-up with cardiology and or pulmonary in [place]. Problem Qualifiers (1) Congestive heart failure: Morena Amezcua MD Nov 25, 2017 18:00
[2017-11-25] MEDS: NYSTATIN 100,000 UNIT/GM CREAM 15 GM TOPICAL SCH ×2 (18:04→18:05)
[2017-11-25] MEDS: FUROSEMIDE 20 MG TAB PO SCH (18:06)
[2017-11-25] MEDS ORDERED: POTASSIUM CHLOR 20 MEQ PREMIX 100 ML IV SCH (21:00)
[2017-11-25] MEDS: ATORVASTATIN 10 MG TAB PO SCH (21:38)
[2017-11-26] VITALS (21 sets, daily range): BP systolic 125–158; BP diastolic 58–80; PULSE 54–65; RESP 17–29; TEMP 98–99.1; O2SAT 88–98
[2017-11-26] MEDS: NYSTATIN 100,000 UNIT/GM CREAM 15 GM TOPICAL SCH ×4 (00:17→18:22)
[2017-11-26] MEDS: metroNIDAZOLE 500 MG TAB PO SCH ×3 (05:55→21:31)
[2017-11-26] MEDS: LEVOTHYROXINE SODIUM 25 MCG TAB PO SCH (05:55)
[2017-11-26] MEDS: HEPARIN SODIUM - SQ 10,000 UNITS/ML VIAL SQ SCH ×3 (05:56→21:32)
[2017-11-26 06:00] LABS: AUTOMATED NEUTROPHIL # 12.2 TH/MM3 (1.8-7.7); BASOPHIL % 0.1 % (0.0-2.0); EOSINOPHIL # 0.1 TH/MM3 (0-0.4); EOSINOPHIL % 0.5 % (0.0-4.0); HEMATOCRIT 26.5 % (35.0-46.0); HEMOGLOBIN 8.8 GM/DL (11.6-15.3); LYMPH % 7.8 % (9.0-44.0); LYMPHOCYTE # 1.2 TH/MM3 (1.0-4.8); MEAN CELL VOLUME 84.1 FL (80.0-100.0); MEAN CORPUSCULAR HEMOGLOBIN 27.9 PG (27.0-34.0); MEAN CORPUSCULAR HGB CONC 33.2 % (32.0-36.0); MEAN PLATELET VOLUME 9.7 FL (7.0-11.0); MONO % 11.2 % (0.0-8.0); MONOCYTE # 1.7 TH/MM3 (0-0.9); NEUT % 80.4 % (16.0-70.0); PLATELET COUNT 334 TH/MM3 (150-450); RED BLOOD COUNT 3.15 MIL/MM3 (4.00-5.30); RED CELL DISTRIBUTION WIDTH 18.9 % (11.6-17.2); WHITE BLOOD COUNT 15.2 TH/MM3 (4.0-11.0)
[2017-11-26 06:26] LABS: ALBUMIN 1.9 GM/DL (3.4-5.0); ALT (GPT) 22 U/L (10-53); AST (GOT) 23 U/L (15-37); BICARBONATE 39.3 MEQ/L (21.0-32.0); BLOOD UREA NITROGEN 35 MG/DL (7-18); CALCIUM 8.7 MG/DL (8.5-10.1); CHLORIDE 98 MEQ/L (98-107); CREATININE 1.09 MG/DL (0.50-1.00); GLOMERULAR FILTRATION RATE 49 ML/MIN (>89); GLUCOSE,RANDOM 78 MG/DL (74-106); SODIUM (NA) 142 MEQ/L (136-145)
[2017-11-26 06:29] LABS: ALKALINE PHOSPHATASE 82 U/L (45-117); TOTAL BILIRUBIN ADULT 0.5 MG/DL (0.2-1.0); TOTAL PROTEIN 6.9 GM/DL (6.4-8.2)
--- NOTE | 2017-11-26 07:35 | MB ---
cc: QUE MOOER DO DATE OF CONSULTATION 11/25/2017 REASON FOR CONSULTATION Pulmonary hypertension. HISTORY OF PRESENT ILLNESS Ms. Chacko is a pleasant 77-year-old female who presented to [facility] [place] [facility] on November 16, 2017 due to increased swelling of her lower extremities more than usual. She states that up until a week before presenting, she was in her normal health. The patient is somewhat lethargic and difficult to get information from and so a lot of the information is taken from the chart. Apparently she has had a blistering and weeping of her legs and she started having pain with weightbearing the day before. She noticed some redness extending from her ankles up to her knees prompting her to come to the emergency room. She denied chest pain or shortness of breath at that time. She has had some fevers before presenting. She underwent an echocardiogram which showed a normal ejection fraction with moderate tricuspid regurgitation and severe pulmonary hypertension with a pulmonary artery pressure of 92. Because of this, I was asked to see her. PAST MEDICAL HISTORY 1. Hypertension 2. Atrial fibrillation 3. Diabetes off from the relaxing PAST SURGICAL HISTORY 1. Left tib-fib repair 2. Back surgery ALLERGIES NO KNOWN DRUG ALLERGIES. MEDICATIONS 1. Pradaxa 75 mg b.i.d. 2. Amiodarone 100 mg b.i.d. 3. Digoxin 0.25 mg daily 4. Lipitor 2 mg every night 5. Coreg 3.125 mg b.i.d. 6. Lasix 20 mg b.i.d. 7. Metformin 1000 mg b.i.d. 8. Lantus 32 units daily 9. Synthroid 25 mcg daily FAMILY HISTORY Denies premature coronary artery disease or sudden cardiac within the family. SOCIAL HISTORY Denies tobacco, alcohol or drug abuse. REVIEW OF SYSTEMS 14-systems were reviewed including osteopathic pertinent positives and negatives as above otherwise negative. PHYSICAL EXAMINATION VITAL SIGNS: Temperature 97.6, heart rate 54, blood pressure 116/66, respirations 25, pulse ox 100% on a partial non-rebreather. GENERAL: The patient appears mildly lethargic, but in no acute distress. HEAD, EYES, EARS, NOSE, AND THROAT: Extraocular muscles intact. Mucous membranes moist. NECK: Supple. No JVD at 45 degrees. No carotid bruits heard bilaterally. Carotid upstroke is brisk in nature. HEART: Regular rate and rhythm. Positive first and second heart sounds with no murmurs, gallops or rubs. LUNGS: Decreased breath sounds bilaterally with no overt wheezes, rales or rhonchi. ABDOMEN: Soft, nontender, nondistended. No organomegaly noted. EXTREMITIES: Show 1+ pitting edema bilaterally. The bilateral lower extremities have mild erythema. NEUROLOGIC: No focal deficits. SKIN: Warm, dry and intact. OSTEOPATHIC: Mild kyphoscoliosis, no lordosis or paraspinal tender points. LABORATORY FINDINGS Hemoglobin 9.5, hematocrit 29.1, platelets 358. Potassium 3.3, BUN 33, creatinine 1.09 and troponin 0.12 decreasing to 0.09. BNP previously 89. IMPRESSION 1. Acute respiratory failure 2. Severe pulmonary hypertension by echocardiogram with a systolic pulmonary pressure of 92. 3. Moderate tricuspid regurgitation 4. Severe sepsis 5. UTI 6. Pneumonia 7. Cellulitis 8. Diabetes mellitus 9. Atrial fibrillation RECOMMENDATIONS 1. Ms. Chacko appears to have severe pulmonary hypertension by echocardiogram and is unsure at this time if this is due to cardiac versus pulmonary issues. 2. Overall, she is short of breath, but does not appear to be in significant congestive heart failure. 3. She does probably have a component of right-sided heart failure leading to her anemia. 4. The patient is lethargic and difficult to get information from. We will attempt to further get information if her as she has previously been diagnosed with this or had a recent echo. 5. I would suggest a pulmonary consultation for further workup. 6. As far as her atrial fibrillation goes, her heart rates are controlled and we will continue her on Pradaxa for anticoagulation. Que Moore DO VGP/DJL /11:40 PM /7:12 AM
[2017-11-26] MEDS: INSULIN ASPART 1,000 UNITS/10 ML VIAL SQ SCH ×3 (08:00→18:21)
[2017-11-26] MEDS: INSULIN NovoLIN REGULAR SUPPLEMENTAL SCALE SQ SCH ×4 (08:00→21:31)
[2017-11-26 08:31] LABS: OVALOCYTES 1+ (NORMAL)
[2017-11-26] MEDS: INSULIN DETEMIR 100 UNITS/ML VIAL SQ SCH ×2 (09:00→21:32)
[2017-11-26] MEDS: CARVEDILOL 3.125 MG TAB PO SCH ×2 (09:00→21:00)
[2017-11-26] MEDS: DOCUSATE SODIUM 50 MG/SENNA 8.6 MG TAB PO SCH (09:00)
[2017-11-26] MEDS: CHOLECALCIFEROL (VIT D3) 1000 UNIT TAB PO SCH (09:00)
[2017-11-26] MEDS: DABIGATRAN ETEXILATE 75 MG CAP PO SCH ×2 (09:00→21:31)
[2017-11-26] MEDS: POTASSIUM CHLORIDE 25 MEQ EFFERVESCENT TAB PO SCH (09:00)
[2017-11-26] MEDS: FLUCONAZOLE 100 MG TAB PO SCH (09:00)
[2017-11-26] MEDS: AMIODARONE 200 MG TAB PO SCH ×2 (09:00→21:00)
[2017-11-26] MEDS: FUROSEMIDE 20 MG TAB PO SCH ×2 (09:00→18:00)
[2017-11-26] MEDS: cefTRIAXone INJ 2,000 MG in SODIUM CHLORIDE 0.9% INJ 100 ML IV SCH (09:00)
[2017-11-26] MEDS: METOLAZONE 5 MG TAB PO SCH (09:00)
--- NOTE | 2017-11-26 11:02 | HHI.PR ---
cc: Christina Eddy MD Subjective Subjective Notes DAILY PROGRESS NOTE FOR SURGICAL ATTENDING, DR. CHRISTINA EDDY Resting in bed on Venti mask Eating breakfast Objective Vitals/I&O Vital Signs Date Time Temp Pulse Resp B/P (MAP) Pulse Ox O2 Delivery O2 Flow Rate FiO2 11/26/17 08:27 98 Venturi Mask 6.00 40 11/26/17 06:00 64 11/26/17 04:00 98.1 17 133/60 (84) Labs Laboratory Tests Test 11/26/17 05:17 White Blood Count 15.2 Red Blood Count 3.15 Hemoglobin 8.8 Hematocrit 26.5 Mean Corpuscular Volume 84.1 Mean Corpuscular Hemoglobin 27.9 Mean Corpuscular Hemoglobin Concent 33.2 Red Cell Distribution Width 18.9 Platelet Count 334 Mean Platelet Volume 9.7 Neutrophils (%) (Auto) 80.4 Lymphocytes (%) (Auto) 7.8 Monocytes (%) (Auto) 11.2 Eosinophils (%) (Auto) 0.5 Basophils (%) (Auto) 0.1 Neutrophils # (Auto) 12.2 Lymphocytes # (Auto) 1.2 Monocytes # (Auto) 1.7 Eosinophils # (Auto) 0.1 Basophils # (Auto) 0.0 CBC Comment AUTO DIFF Differential Comment AUTO DIFF CONFIRMED Platelet Estimate NORMAL Platelet Morphology Comment ENLARGED Basophilic Stippling MOD Ovalocytes 1+ Blood Urea Nitrogen 35 Creatinine 1.09 Random Glucose 78 Total Protein 6.9 Albumin 1.9 Calcium Level 8.7 Alkaline Phosphatase 82 Aspartate Amino Transf (AST/SGOT) 23 Alanine Aminotransferase (ALT/SGPT) 22 Total Bilirubin 0.5 Sodium Level 142 Potassium Level 3.7 Chloride Level 98 Carbon Dioxide Level 39.3 Anion Gap 5 Estimat Glomerular Filtration Rate 49 Date/Time Source Procedure Growth Status 11/19/17 12:33 Blood Peripheral Aerobic Blood Culture - Final NO GROWTH IN 5 DAYS Complete 11/19/17 12:33 Blood Peripheral Anaerobic Blood Culture - Final NO GROWTH IN 5 DAYS Complete 11/16/17 13:45 Urine Clean Catch Urine Culture - Final Escherichia Coli Esbl Positive Complete 11/16/17 11:10 Wound Leg Gram Stain - Final Complete 11/16/17 11:10 Wound Culture - Final Strep Not A,B D Acinetobacter Baumannii/Haemol Complete Radiology Last 48 hours Impressions Lower Extremity CT 11/16/17 1344 Signed Impressions: Service Date/Time: Thursday, November 16, 2017 14:12 - CONCLUSION: 1. Extensive edema and inflammatory changes with skin thickening in the thigh especially laterally and posteriorly but also extending medially. No definite loculated abscess. Musculature grossly intact. No abnormal loculated air. No bony destructive changes. Moderate to severe osteoarthritis at the knee. Christina Kendall MD Chest X-Ray 11/16/17 1053 Signed Impressions: Service Date/Time: Thursday, November 16, 2017 11:19 - CONCLUSION: 1. No acute findings. Christina Kendall MD Tibia/Fibula X-Ray 11/16/17 0000 Signed Impressions: Service Date/Time: Thursday, November 16, 2017 11:19 - CONCLUSION: 1. No acute bony abnormalities identified within the tibia. Moderate to severe osteoarthritis with medial joint space. Fixation calcaneus with residual deformity. Christina Kendall MD Cardiovascular: Regular Lungs: Clear Abdomen: Non-distended, Non-tender Extremities: Other (see below ) Narrative Exam RIGHT leg: complete resolution of redness to leg; ; resolving blisters; minimal edema A/P Problem List: (1) Cellulitis of right lower extremity ICD Codes: L03.115 - Cellulitis of right lower limb Status: Acute (2) Severe sepsis ICD Codes: A41.9 - Sepsis, unspecified organism; R65.20 - Severe sepsis without septic shock Status: Acute (3) Cellulitis ICD Codes: L03.90 - Cellulitis, unspecified Status: Acute (4) Anemia ICD Codes: D64.9 - Anemia, unspecified Status: Acute (5) Hypoglycemia ICD Codes: E16.2 - Hypoglycemia, unspecified Status: Acute (6) Renal insufficiency ICD Codes: N28.9 - Disorder of kidney and ureter, unspecified; R65.20 - Severe sepsis without septic shock Status: Acute (7) UTI (urinary tract infection) ICD Codes: N39.0 - Urinary tract infection, site not specified Status: Acute Assessment and Plan 77 year old female with multiple medical issues; cellulitis of RIGHT leg -Improvement of RIGHT leg cellulitis with antibiotics -Resp issues per primary -Continue non operative management -Discussed with at the bedside -GS will sign off; please call with questions Attending Statement NOTE FOR SURGICAL ATTENDING, DR. CHRISTINA EDDY I agree with above assessment and plan. Problem Qualifiers (1) Cellulitis: Qualified Codes: L03.115 - Cellulitis of right lower limb (2) Anemia: Qualified Codes: D64.9 - Anemia, unspecified (3) UTI (urinary tract infection): Qualified Codes: N39.0 - Urinary tract infection, site not specified Pia Richards Nov 26, 2017 11:01 Christina Eddy MD Nov 26, 2017 16:08
--- NOTE | 2017-11-26 12:53 | PD.CARD.PN ---
Subjective Subjective Remarks More alert today No SOB at this time, but on Ventrui mask Objective Medications Current Medications Medications (Trade) Dose Ordered Sig/Jay Route Start Time Stop Time Status Last Admin (Morphine Inj) 2 mg Q3H PRN IV PUSH 11/16/17 14:00 (D50w (Vial) Inj) 50 ml UNSCH PRN IV PUSH 11/16/17 14:15 (Glucagon Inj) 1 mg UNSCH PRN OTHER 11/16/17 14:15 (NovoLIN R SUPPLEMENTAL SCALE) 1 ACHS SLIDING SCALE SQ 11/16/17 17:00 11/25/17 21:00 (Cordarone) 100 mg BID PO 11/16/17 21:00 11/25/17 09:36 (Lipitor) 10 mg HS PO 11/16/17 21:00 11/25/17 21:38 (Coreg) 3.125 mg BID PO 11/16/17 21:00 11/25/17 09:35 (Synthroid) 25 mcg DAILY@0600 PO 11/17/17 06:00 11/26/17 05:55 (Heparin Inj) 5,000 units Q8HR SQ 11/17/17 06:00 11/26/17 05:56 (Duoneb Neb) 1 ampule Q2HR NEB PRN NEB 11/18/17 12:00 11/26/17 08:25 (Haldol Inj) 2 mg Q4H PRN IM 11/19/17 14:00 11/22/17 02:08 (Vitamin D3) 2,000 units DAILY PO 11/22/17 09:00 11/25/17 09:35 Ceftriaxone Sodium 2000 mg/ Sodium Chloride 100 ml @ 200 mls/hr Q24H IV 11/22/17 09:00 12/01/17 08:59 11/25/17 09:34 (Tylenol) 650 mg Q4H PRN PO 11/23/17 08:45 11/23/17 12:05 (Benadryl) 25 mg Q4H PRN PO 11/23/17 08:45 11/23/17 12:05 (K-Lyte Cl Eff) 25 meq DAILY PO 11/23/17 11:45 11/25/17 09:35 (Levemir Inj) 10 units BID SQ 11/23/17 12:15 11/25/17 21:00 (Ana-Colace) 2 tab DAILY PO 11/25/17 09:00 (Zaroxolyn) 5 mg DAILY PO 11/25/17 09:00 11/25/17 09:35 (Pradaxa) 75 mg BID PO 11/24/17 21:00 11/25/17 21:38 (NovoLOG INJ) 5 units TIDAC SQ 11/25/17 08:00 11/25/17 11:20 (Mycostatin Cream) 1 applic Q6HR TOPICAL 11/25/17 12:00 11/26/17 05:56 (Flagyl) 500 mg Q8HR PO 11/25/17 09:15 11/26/17 05:55 (Diflucan) 100 mg DAILY PO 11/25/17 09:15 11/25/17 11:21 (Lasix) 20 mg BID@0900,1800 PO 11/25/17 18:06 11/25/17 18:06 Vital Signs / I&O Vital Signs Date Time Temp Pulse Resp B/P (MAP) Pulse Ox O2 Delivery O2 Flow Rate FiO2 11/26/17 11:00 59 22 141/61 (87) 96 11/26/17 11:00 59 11/26/17 10:00 65 11/26/17 10:00 65 23 125/58 (80) 93 11/26/17 09:00 59 11/26/17 09:00 59 22 135/72 (93) 91 11/26/17 08:27 98 Venturi Mask 6.00 40 11/26/17 08:00 98.6 60 17 158/74 (102) 93 11/26/17 08:00 60 11/26/17 08:00 Venturi Mask 40 11/26/17 07:00 61 11/26/17 07:00 61 23 157/79 (105) 91 11/26/17 06:00 64 11/26/17 04:00 98.1 62 17 133/60 (84) 96 11/26/17 04:00 96 Venturi Mask 40 11/26/17 04:00 62 11/26/17 03:45 96 Venturi Mask 35 11/26/17 02:00 54 11/26/17 00:06 96 35 11/26/17 00:00 Bi-Pap 40 11/26/17 00:00 98.0 56 19 132/67 (88) 97 11/26/17 00:00 56 11/25/17 22:00 55 11/25/17 21:30 Bi-Pap 40 11/25/17 21:23 94 40 11/25/17 20:00 57 11/25/17 20:00 92 Venturi Mask 40 11/25/17 20:00 98.3 57 23 131/63 (85) 92 11/25/17 19:44 93 Venturi Mask 35 11/25/17 18:00 52 23 100 11/25/17 18:00 52 11/25/17 17:00 51 11/25/17 17:00 Bi-Pap 11/25/17 17:00 51 24 126/57 (80) 97 11/25/17 16:00 50 11/25/17 16:00 98.0 50 24 128/60 (82) 95 11/25/17 15:53 96 40 11/25/17 15:00 55 11/25/17 15:00 55 28 137/62 (87) 100 11/25/17 14:01 54 11/25/17 14:01 97.6 54 25 116/66 (83) 100 I/O 11/25/17 11/25/17 11/25/17 11/26/17 11/26/17 11/26/17 07:00 15:00 23:00 07:00 15:00 23:00 Intake Total 100 ml 440 ml 400 ml Output Total 2350 ml 1900 ml Balance 100 ml -1910 ml -1500 ml Intake Oral 100 ml 240 ml 300 ml IV Total 200 ml 100 ml Output Urine Total 2350 ml 1900 ml Bladder Scan Volume Amount 915 ml # Voids 2 # Bowel Movements 2 1 0 Physical Exam GENERAL: NAD, AAOx3 SKIN: Warm and dry. HEAD: Atraumatic. Normocephalic. EYES: Pupils equal and round. No scleral icterus. No injection or drainage. ENT: No nasal bleeding or discharge. Mucous membranes pink and moist. NECK: Trachea midline. No JVD. CARDIOVASCULAR: Regular rate and rhythm. RESPIRATORY: No accessory muscle use. Decreased breath sounds bilaterally GASTROINTESTINAL: Abdomen soft, non-tender, nondistended. Hepatic and splenic margins not palpable. MUSCULOSKELETAL: Extremities without clubbing, cyanosis, or edema. No obvious deformities. NEUROLOGICAL: Awake and alert. No obvious cranial nerve deficits. Motor grossly within normal limits. Five out of 5 muscle strength in the arms and legs. Normal speech. PSYCHIATRIC: Appropriate mood and affect; insight and judgment normal. Laboratory Laboratory Tests Test 11/26/17 05:17 White Blood Count 15.2 TH/MM3 Red Blood Count 3.15 MIL/MM3 Hemoglobin 8.8 GM/DL Hematocrit 26.5 % Mean Corpuscular Volume 84.1 FL Mean Corpuscular Hemoglobin 27.9 PG Mean Corpuscular Hemoglobin Concent 33.2 % Red Cell Distribution Width 18.9 % Platelet Count 334 TH/MM3 Mean Platelet Volume 9.7 FL Neutrophils (%) (Auto) 80.4 % Lymphocytes (%) (Auto) 7.8 % Monocytes (%) (Auto) 11.2 % Eosinophils (%) (Auto) 0.5 % Basophils (%) (Auto) 0.1 % Neutrophils # (Auto) 12.2 TH/MM3 Lymphocytes # (Auto) 1.2 TH/MM3 Monocytes # (Auto) 1.7 TH/MM3 Eosinophils # (Auto) 0.1 TH/MM3 Basophils # (Auto) 0.0 TH/MM3 CBC Comment AUTO DIFF Differential Comment AUTO DIFF CONFIRMED Platelet Estimate NORMAL Platelet Morphology Comment ENLARGED Basophilic Stippling MOD Ovalocytes 1+ Blood Urea Nitrogen 35 MG/DL Creatinine 1.09 MG/DL Random Glucose 78 MG/DL Total Protein 6.9 GM/DL Albumin 1.9 GM/DL Calcium Level 8.7 MG/DL Alkaline Phosphatase 82 U/L Aspartate Amino Transf (AST/SGOT) 23 U/L Alanine Aminotransferase (ALT/SGPT) 22 U/L Total Bilirubin 0.5 MG/DL Sodium Level 142 MEQ/L Potassium Level 3.7 MEQ/L Chloride Level 98 MEQ/L Carbon Dioxide Level 39.3 MEQ/L Anion Gap 5 MEQ/L Estimat Glomerular Filtration Rate 49 ML/MIN Assessment and Plan Problem List: (1) Afib ICD Codes: I48.91 - Unspecified atrial fibrillation (2) Congestive heart failure ICD Codes: I50.9 - Heart failure, unspecified Status: Chronic (3) Severe sepsis ICD Codes: A41.9 - Sepsis, unspecified organism; R65.20 - Severe sepsis without septic shock Status: Acute (4) UTI (urinary tract infection) ICD Codes: N39.0 - Urinary tract infection, site not specified Status: Acute (5) Pulmonary hypertension ICD Codes: I27.20 - Pulmonary hypertension, unspecified (6) Renal insufficiency ICD Codes: N28.9 - Disorder of kidney and ureter, unspecified; R65.20 - Severe sepsis without septic shock Status: Acute (7) Cellulitis of right lower extremity ICD Codes: L03.115 - Cellulitis of right lower limb Status: Acute Assessment and Plan 1) Severe sepsis per primary team 2) Severe PHTN on echocardiogram Discussed with family, does not believe she was diagnosed with before Would have Pulmonary evaluate the patient, most likely intrinsic lung disease as left heart with normal function and no valvulopathies (although diastology not commented on) Con't diuresis Most likely discharge and have her follow up with cardiology in [place] for further work up 3) Afib Heart rates controlled On Pradaxa 75mg BID Discussed that she should most likely be on 150mg BID, but she says her doctor placed her on 75mg due to her bleeding risk, so for now will leave on 75mg BID 4) No further cardiovascular workup at this time Problem Qualifiers (1) Congestive heart failure: (2) UTI (urinary tract infection): Qualified Codes: N39.0 - Urinary tract infection, site not specified Que Barksdale DO Nov 26, 2017 12:53
--- NOTE | 2017-11-26 16:30 | HHI.PR ---
Subjective Remarks Respiratory status is remaining stable on Venturi mask. Gradual decline in white blood cell count. Hemoglobin has a downward trend. Objective Vital Signs Date Time Temp Pulse Resp B/P (MAP) Pulse Ox O2 Delivery O2 Flow Rate FiO2 11/26/17 16:00 61 27 153/65 (94) 93 11/26/17 16:00 Venturi Mask 40 11/26/17 16:00 61 11/26/17 15:00 62 11/26/17 15:00 62 29 129/80 (96) 95 11/26/17 14:00 64 11/26/17 14:00 64 28 129/60 (83) 88 11/26/17 13:00 60 25 137/63 (87) 95 11/26/17 13:00 60 11/26/17 12:00 58 11/26/17 12:00 Venturi Mask 40 11/26/17 12:00 99.0 58 26 156/66 (96) 94 11/26/17 11:00 59 22 141/61 (87) 96 11/26/17 11:00 59 11/26/17 10:00 65 11/26/17 10:00 65 23 125/58 (80) 93 11/26/17 09:00 59 11/26/17 09:00 59 22 135/72 (93) 91 11/26/17 08:27 98 Venturi Mask 6.00 40 11/26/17 08:00 98.6 60 17 158/74 (102) 93 11/26/17 08:00 60 11/26/17 08:00 Venturi Mask 40 11/26/17 07:00 61 11/26/17 07:00 61 23 157/79 (105) 91 11/26/17 06:00 64 11/26/17 04:00 98.1 62 17 133/60 (84) 96 11/26/17 04:00 96 Venturi Mask 40 11/26/17 04:00 62 11/26/17 03:45 96 Venturi Mask 35 11/26/17 02:00 54 11/26/17 00:06 96 35 11/26/17 00:00 Bi-Pap 40 11/26/17 00:00 98.0 56 19 132/67 (88) 97 11/26/17 00:00 56 11/25/17 22:00 55 11/25/17 21:30 Bi-Pap 40 11/25/17 21:23 94 40 11/25/17 20:00 57 11/25/17 20:00 92 Venturi Mask 40 11/25/17 20:00 98.3 57 23 131/63 (85) 92 11/25/17 19:44 93 Venturi Mask 35 11/25/17 18:00 52 23 100 11/25/17 18:00 52 11/25/17 17:00 51 11/25/17 17:00 Bi-Pap 11/25/17 17:00 51 24 126/57 (80) 97 I/O 11/25/17 11/25/17 11/25/17 11/26/17 11/26/17 11/26/17 07:00 15:00 23:00 07:00 15:00 23:00 Intake Total 100 ml 440 ml 400 ml Output Total 2350 ml 1900 ml Balance 100 ml -1910 ml -1500 ml Intake Oral 100 ml 240 ml 300 ml IV Total 200 ml 100 ml Output Urine Total 2350 ml 1900 ml Bladder Scan Volume Amount 915 ml # Voids 2 # Bowel Movements 2 1 0 Result Diagram: 11/26/17 0517 11/26/17 0517 Objective Remarks GENERAL: NAD, A&Ox3 HEAD: Normocephalic. NECK: Supple, trachea midline. No lymphadenopathy. EYES: No scleral icterus. No injection or drainage. CARDIOVASCULAR: Regular rate and rhythm without murmurs, gallops, or rubs. RESPIRATORY: Breath sounds equal bilaterally. No accessory muscle use. GASTROINTESTINAL: Abdomen soft, non-tender, nondistended. MUSCULOSKELETAL: No cyanosis, or edema. SKIN: Warm and dry. Resolution of erythema at previous site of cellulitis. NEURO: No focal neurological deficitis. A/P Problem List: (1) Severe sepsis ICD Code: A41.9 - Sepsis, unspecified organism; R65.20 - Severe sepsis without septic shock Status: Acute (2) UTI (urinary tract infection) ICD Code: N39.0 - Urinary tract infection, site not specified Status: Acute (3) Congestive heart failure ICD Code: I50.9 - Heart failure, unspecified Status: Chronic (4) Hypokalemia ICD Code: E87.6 - Hypokalemia Status: Resolved (5) Hypernatremia ICD Code: E87.0 - Hyperosmolality and hypernatremia Status: Resolved (6) Cellulitis ICD Code: L03.90 - Cellulitis, unspecified Status: Acute Assessment and Plan 77-year-old female admitted secondary to severe sepsis related to cellulitis and UTI and pneumonia. Labs reviewed. Hemoglobin downward trend. Labs ordered for further monitoring. Keep eye on CBC. Continue Venturi mask and nasal cannula as tolerated. Severe sepsis Urinary tract infection Pneumonia Cellulitis Resolved Continue meropenem Continue vancomycin Continue Rocephin Continue Flagyl ID following Topical candidiasis (at groin) Nystatin and Diflucan Acute respiratory failure related to pneumonia BiPAP as needed Weaned to nonrebreather as tolerated Follow on pulse ox Oxygen as needed Continue breathing treatments as needed Diabetes mellitus type 2 Follow blood sugars Insulin sliding scale Diabetic diet Hypertension Continue Coreg Follow blood pressures Acute renal failure Chronic kidney disease Monitor renal function Component of cardiorenal syndrome suspected Patient has shown improvement through time Hypothyroidism Continue Levothyroxine Follow TSH, T3, and T4 as an outpatient Atrial fibrillation Continue amiodarone Continue Coreg Continue digoxin Pradaxa resumed on 11/24/17 Follow on telemetry Acute encephalopathy. Was related to septic state and respiratory failure Resolved Hypokalemia Follow potassium levels Replace as needed Possible acute diastolic congestive heart failure versus pulmonary edema Cardiology following DVT prophylaxis Continue Pradaxa Discharge Planning Patient is not stable for discharge at this time Problem Qualifiers (1) UTI (urinary tract infection): Qualified Codes: N39.0 - Urinary tract infection, site not specified (2) Congestive heart failure: (3) Cellulitis: Qualified Codes: L03.115 - Cellulitis of right lower limb Shady Perales MD Nov 26, 2017 16:30
[2017-11-26] MEDS: ATORVASTATIN 10 MG TAB PO SCH (21:31)
[2017-11-27] VITALS (17 sets, daily range): BP systolic 136–193; BP diastolic 60–69; PULSE 55–70; RESP 17–30; TEMP 97.6–99.2; O2SAT 85–100
[2017-11-27 06:04] LABS: ALBUMIN 2.1 GM/DL (3.4-5.0); AST (GOT) 24 U/L (15-37); BICARBONATE 42.9 MEQ/L (21.0-32.0); BLOOD UREA NITROGEN 39 MG/DL (7-18); CALCIUM 9.1 MG/DL (8.5-10.1); CHLORIDE 93 MEQ/L (98-107); CREATININE 1.41 MG/DL (0.50-1.00); GLOMERULAR FILTRATION RATE 36 ML/MIN (>89); GLUCOSE,RANDOM 121 MG/DL (74-106); SODIUM (NA) 139 MEQ/L (136-145)
[2017-11-27 06:06] LABS: ALT (GPT) 21 U/L (10-53)
[2017-11-27 06:08] LABS: ALKALINE PHOSPHATASE 82 U/L (45-117); TOTAL BILIRUBIN ADULT 0.5 MG/DL (0.2-1.0); TOTAL PROTEIN 7.1 GM/DL (6.4-8.2)
[2017-11-27 06:09] LABS: AUTOMATED NEUTROPHIL # 12.1 TH/MM3 (1.8-7.7); BASOPHIL # 0.1 TH/MM3 (0-0.2); BASOPHIL % 0.4 % (0.0-2.0); EOSINOPHIL % 0.3 % (0.0-4.0); HEMATOCRIT 27.3 % (35.0-46.0); HEMOGLOBIN 8.8 GM/DL (11.6-15.3); LYMPH % 8.4 % (9.0-44.0); LYMPHOCYTE # 1.3 TH/MM3 (1.0-4.8); MEAN CELL VOLUME 84.6 FL (80.0-100.0); MEAN CORPUSCULAR HEMOGLOBIN 27.4 PG (27.0-34.0); MEAN CORPUSCULAR HGB CONC 32.4 % (32.0-36.0); MONO % 12.5 % (0.0-8.0); MONOCYTE # 1.9 TH/MM3 (0-0.9); NEUT % 78.4 % (16.0-70.0); PLATELET COUNT 323 TH/MM3 (150-450); RED BLOOD COUNT 3.23 MIL/MM3 (4.00-5.30); RED CELL DISTRIBUTION WIDTH 19.3 % (11.6-17.2); WHITE BLOOD COUNT 15.5 TH/MM3 (4.0-11.0)
[2017-11-27] MEDS: HEPARIN SODIUM - SQ 10,000 UNITS/ML VIAL SQ SCH (06:41)
[2017-11-27] MEDS: NYSTATIN 100,000 UNIT/GM CREAM 15 GM TOPICAL SCH ×4 (06:41→18:00)
[2017-11-27] MEDS: metroNIDAZOLE 500 MG TAB PO SCH ×3 (06:41→19:39)
[2017-11-27] MEDS: LEVOTHYROXINE SODIUM 25 MCG TAB PO SCH (06:41)
[2017-11-27] MEDS: INSULIN NovoLIN REGULAR SUPPLEMENTAL SCALE SQ SCH ×4 (08:00→19:41)
[2017-11-27] MEDS: INSULIN ASPART 1,000 UNITS/10 ML VIAL SQ SCH ×3 (08:00→18:37)
--- NOTE | 2017-11-27 08:33 | HHI.PR ---
Subjective Remarks in no acute distress. but somewhat ill looking. afebrile. denies pain. d/w the RN at the bedside. Objective Vitals Vital Signs Date Time Temp Pulse Resp B/P (MAP) Pulse Ox O2 Delivery O2 Flow Rate FiO2 11/27/17 06:00 61 11/27/17 04:00 99.2 60 22 149/65 (93) 98 11/27/17 04:00 Bi-Pap 40 11/27/17 04:00 60 11/27/17 02:00 56 11/27/17 00:23 100 40 11/27/17 00:23 100 BiPAP 40 11/27/17 00:00 Bi-Pap 40 11/27/17 00:00 55 11/27/17 00:00 99.0 55 20 140/61 (87) 100 11/26/17 22:00 57 11/26/17 21:59 97 40 11/26/17 20:00 57 11/26/17 20:00 Venturi Mask 40 11/26/17 20:00 99.1 57 23 139/60 (86) 94 11/26/17 18:00 61 11/26/17 16:00 61 27 153/65 (94) 93 11/26/17 16:00 Venturi Mask 40 11/26/17 16:00 61 11/26/17 15:00 62 11/26/17 15:00 62 29 129/80 (96) 95 11/26/17 14:00 64 11/26/17 14:00 64 28 129/60 (83) 88 11/26/17 13:00 60 25 137/63 (87) 95 11/26/17 13:00 60 11/26/17 12:00 58 18 12:00 Venturi Mask 40 11/26/17 12:00 99.0 58 26 156/66 (96) 94 11/26/17 11:00 59 22 141/61 (87) 96 11/26/17 11:00 59 11/26/17 10:00 65 18 10:00 65 23 125/58 (80) 93 11/26/17 09:00 59 11/26/17 09:00 59 22 135/72 (93) 91 I/O 11/26/18 18 11/27/17 11/27/17 11/27/17 07:00 15:00 23:00 07:00 15:00 23:00 Intake Total 400 ml 1000 ml 240 ml Output Total 1900 ml 1350 ml 900 ml Balance -1500 ml -350 ml -660 ml Intake Oral 300 ml 1000 ml 240 ml IV Total 100 ml Output Urine Total 1900 ml 1350 ml 900 ml # Bowel Movements 0 0 1 Result Diagram: 11/27/17 0340 11/27/17 0340 Imaging Last Impressions Chest X-Ray 11/25/17 0000 Signed Impressions: Service Date/Time: November 09:01 - CONCLUSION: Improving bibasilar infiltrates and tiny effusions. Charbel Urbina Jr., MD Renal Ultrasound 11/20/17 0000 Signed Impressions: Service Date/Time: Monday, November 20, 2017 16:17 - CONCLUSION: 1. Echogenic kidneys typical of chronic parenchymal disease. No obstructive uropathy or other acute abnormality demonstrated. 2. Sludge and at least one stone in the gallbladder. Cameron Alberts MD Head CT 11/20/17 0000 Signed Impressions: Service Date/Time: Monday, November 20, 2017 21:48 - CONCLUSION: No acute intracranial abnormality demonstrated. Cameron Alberts MD Lower Extremity Ultrasound 11/17/17 0000 Signed Impressions: Service Date/Time: Friday, November 17, 2017 21:57 - CONCLUSION: Normal examination. Albert Kendall MD Lower Extremity CT 11/16/17 1344 Signed Impressions: Service Date/Time: Thursday, November 16, 2017 14:12 - CONCLUSION: 1. Extensive edema and inflammatory changes with skin thickening in the thigh especially laterally and posteriorly but also extending medially. No definite loculated abscess. Musculature grossly intact. No abnormal loculated air. No bony destructive changes. Moderate to severe osteoarthritis at the knee. Albert Kendall MD Tibia/Fibula X-Ray 11/16/17 0000 Signed Impressions: Service Date/Time: Thursday, November 16, 2017 11:19 - CONCLUSION: 1. No acute bony abnormalities identified within the tibia. Moderate to severe osteoarthritis with medial joint space. Fixation calcaneus with residual deformity. Albert Kendall MD Objective Remarks GENERAL: This is a well-nourished, well-developed patient, in no apparent distress. CARDIOVASCULAR: Regular rate and regular rhythm without murmurs, gallops, or rubs. RESPIRATORY: Clear to auscultation. Breath sounds equal bilaterally. No wheezes , rales, or rhonchi. GASTROINTESTINAL: Abdomen soft, non-tender, nondistended. Normal, active bowel sounds MUSCULOSKELETAL: Extremities without clubbing, cyanosis, or edema. NEURO: Alert & Oriented x4 to person, place, time, situation. Moves all ext x4 Procedures none Medications and IVs Inpatient Medications Acetaminophen (Tylenol) 650 mg Q4H PRN PO SEE LABEL COMMENTS Last administered on 11/23/17 12:05; Start 11/23/17 at 08:45 Albuterol/ Ipratropium (Duoneb Neb) 1 ampule Q6HR WHILE AWAKE NEB NEB Last administered on 11/25/17 19:44; Start 11/22/17 at 08:00; Stop 11/26/17 at 07:59; Status DC Amiodarone HCl (Cordarone) 100 mg BID PO Last administered on 11/26/17 09:00; Start 11/16/17 at 21:00 Atorvastatin Calcium (Lipitor) 10 mg HS PO Last administered on 11/26/17 21:31 ; Start 11/16/17 at 21:00 Carvedilol (Coreg) 3.125 mg BID PO Last administered on 11/26/17 09:00; Start 11/16/17 at 21:00 Ceftriaxone Sodium 2000 mg/ Sodium Chloride 100 ml @ 200 mls/hr Q24H IV Last administered on 11/26/17 09:00; Start 11/22/17 at 09:00; Stop 12/01/17 at 08:59 Chlorothiazide Sodium (Diuril Inj) 500 mg ONCE ONCE IV Last administered on at 15:43; Start 11/23/17 at 11:45; Stop 11/23/17 at 12:18; Status DC Cholecalciferol (Vitamin D3) 2,000 units DAILY PO Last administered on 09:00; Start 11/22/17 at 09:00 Clindamycin Phosphate 900 mg/ Sodium Chloride 106 ml @ 200 mls/hr ONCE STAT IV Last administered on 11/16/17 14:44; Start 11/16/17 at 12:23; Stop at 12:56; Status DC Clindamycin/ Sodium Chloride 50 ml @ 100 mls/hr Q6H IV Last administered on at 08:53; Start 11/17/17 at 14:00; Stop 11/19/17 at 11:11; Status DC Dabigatran (Pradaxa) 75 mg BID PO Last administered on 11/26/17at 21:31; Start at 21:00 Dextrose 1,000 ml @ 30 mls/hr Q24H IV Last administered on 11/22/17at 12:00; Start 11/21/17 at 18:45; Stop 11/24/17 at 14:59; Status DC Dextrose (D50w (Syr) Inj) 50 ml ONCE ONCE IV PUSH Last administered on at 14:45; Start 11/16/17 at 14:45; Stop 11/16/17 at 14:49; Status DC Dextrose (D50w (Vial) Inj) 25 ml ONCE ONCE IV PUSH Last administered on at 16:05; Start 11/16/17 at 16:00; Stop 11/16/17 at 16:01; Status DC Dextrose/Sodium Chloride 1,000 ml @ 100 mls/hr Q10H IV Last administered on at 19:23; Start 11/16/17 at 16:30; Stop 11/17/17 at 00:18; Status DC Diphenhydramine HCl (Benadryl) 25 mg Q4H PRN PO SEE LABEL COMMENTS Last administered on 11/23/17at 12:05; Start 11/23/17 at 08:45 Fluconazole (Diflucan) 100 mg DAILY PO Last administered on 11/26/17at 09:00; Start 11/25/17 at 09:15 Furosemide (Lasix Inj) 20 mg BID@0900,1800 IV PUSH Last administered on at 11:20; Start 11/23/17 at 18:00; Stop 11/25/17 at 18:02; Status DC Furosemide (Lasix) 20 mg BID@0900,1800 PO Last administered on 11/26/17at 18:00; Start 11/25/17 at 18:06 Glucagon (Glucagon Inj) 1 mg UNSCH PRN OTHER HYPOGLYCEMIA-SEE COMMENTS; Start 11/16/17 at 14:15 Haloperidol Lactate (Haldol Inj) 2 mg Q4H PRN IM MOD - SEVERE ANXIETY/ AGITATION Last administered on 11/22/17at 02:08; Start 11/19/17 at 14:00 Heparin Sodium (Porcine) (Heparin Inj) 5,000 units Q8HR SQ Last administered on 11/27/17at 06:41; Start 11/17/17 at 06:00 Insulin Aspart (NovoLOG INJ) 5 units TIDAC SQ Last administered on 11/26/17at 17: 00; Start 11/25/17 at 08:00 Insulin Detemir (Levemir Inj) 10 units BID SQ Last administered on 11/26/17at 21: 32; Start 11/23/17 at 12:15 Insulin Human Regular (NovoLIN R SUPPLEMENTAL SCALE) 1 ACHS SLIDING SCALE SQ Last administered on 11/26/17at 21:31; Start 11/16/17 at 17:00 Levothyroxine Sodium (Synthroid) 25 mcg DAILY@0600 PO Last administered on at 06:41; Start 11/17/17 at 06:00 Magnesium Oxide (Mag-Ox) 800 mg UNSCH PRN PO For Magnesium 1.2 - 1.6 mg/dL; Start 11/17/17 at 12:45; Stop 11/18/17 at 10:09; Status DC Magnesium Sulfate 2 gm/Sodium Chloride 100 ml @ 50 mls/hr UNSCH PRN IV For Magnesium 1.2 - 1.6 mg/dL; Start 11/17/17 at 12:45; Stop 11/18/17 at 10:09; Status DC Magnesium Sulfate 4 gm/Sodium Chloride 100 ml @ 50 mls/hr UNSCH PRN IV For Magnesium 0.9 - 1.1 mg/dL; Start 11/17/17 at 12:45; Stop 11/18/17 at 10:09; Status DC Magnesium Sulfate/ Dextrose 100 ml @ 100 mls/hr ONCE ONCE IV Last administered on 11/21/17at 19:43; Start 11/21/17 at 18:45; Stop 11/21/17 at 19:44 ; Status DC Meropenem 1000 mg/ Sodium Chloride 100 ml @ 200 mls/hr Q12H IV Last administered on 11/22/17at 01:07; Start 11/20/17 at 01:00; Stop 11/22/17 at 08:25 ; Status DC Methylprednisolone Sodium Succinate (SoluMEDROL INJ) 125 mg ONCE ONCE IV PUSH Last administered on 11/22/17at 11:17; Start 11/22/17 at 09:45; Stop 11/22/17 at 10:17; Status DC Metolazone (Zaroxolyn) 5 mg DAILY PO Last administered on 11/26/17at 09:00; Start 11/25/17 at 09:00 Metronidazole (Flagyl) 500 mg Q8HR PO Last administered on 11/27/17at 06:41; Start 11/25/17 at 09:15 Miscellaneous Information SPECIFIC LAB TO BE DRAWN:VANCOMYCIN TROUGH DATE TO... ONCE ONCE .XX Last administered on 11/20/17at 15:52; Start 11/20/17 at 15:45; Stop 11/20/17 at 15:46; Status DC Miscellaneous Medication (ASP Crit: Path resist to other, cult proven) 1 UNSCH X1 PRN .XX PHARMACY DOCUMENTATION; Start 11/19/17 at 11:15; Stop 11/20/17 at 11 :14; Status DC Miscellaneous Medication ([facility]) 1 UNSCH X1 PRN XX PHARMACY DOCUMENTATION; Start 11/19/17 at 11:15; Stop 11/20/17 at 11:14; Status DC Morphine Sulfate (Morphine Inj) 2 mg Q3H PRN IV PUSH pain; Start 11/16/17 at 14 :00 Nystatin (Mycostatin Cream) 1 applic Q6HR TOPICAL Last administered on at 06:41; Start 11/25/17 at 12:00 Pharmacy Profile Note 0 ml @ 0 mls/hr UNSCH OTHER ; Start 11/16/17 at 14:30; Stop 11/22/17 at 08:25; Status DC Piperacillin Sod/ Tazobactam Sod 50 ml @ 100 mls/hr Q6H IV Last administered on 11/19/17at 08:53; Start 11/16/17 at 15:00; Stop 11/19/17 at 11:21; Status DC Potassium Phosphate (K-Phos) 2,000 mg UNSCH PRN PO/TUBE SEE LABEL COMMENTS; Start 11/17/17 at 12:45; Stop 11/18/17 at 10:09; Status DC Potassium Phosphate 30 mmol/ Sodium Chloride 260 ml @ 42 mls/hr UNSCH PRN IV SEE LABEL COMMENTS; Start 11/17/17 at 12:45; Stop 11/18/17 at 10:09; Status DC Potassium Bicarb/ Potassium Chloride (K-Lyte Cl Eff) 25 meq DAILY PO Last administered on 11/26/17at 09:00; Start 11/23/17 at 11:45 Potassium Chloride 100 ml @ 50 mls/hr Q2H IV Last administered on 11/25/17at 21: 39; Start 11/25/17 at 21:00; Stop 11/25/17 at 22:59; Status DC Potassium Chloride (KCl Powder) 40 meq ONCE ONCE PO ; Start 11/17/17 at 11:15; Stop 11/17/17 at 11:16; Status DC Potassium Chloride (KCl) 20 meq ONCE ONCE PO ; Start 11/20/17 at 15:45; Stop at 15:45; Status DC Quetiapine Fumarate (SEROquel) 25 mg HS PO Last administered on 11/22/17at 21:22 ; Start 11/20/17 at 21:00; Stop 11/23/17 at 10:00; Status DC Senna/Docusate Sodium (Ana-Colace) 2 tab DAILY PO ; Start 11/25/17 at 09:00 Sodium Chloride 250 ml @ 15 mls/hr ONCE ONCE IV Last administered on at 12:31; Start 11/23/17 at 08:45; Stop 11/24/17 at 01:24; Status DC Sodium Phosphate 30 mmol/Sodium Chloride 250 ml @ 42 mls/hr UNSCH PRN IV For Phosphorus < 2.5 mg/dL; Start 11/17/17 at 12:45; Stop 11/18/17 at 10:09; Status DC Vancomycin HCl 1000 mg/Sodium Chloride 250 ml @ 250 mls/hr ONCE STAT IV Last administered on 11/16/17at 12:17; Start 11/16/17 at 10:53; Stop 11/16/17 at 11:55 ; Status DC Vancomycin HCl 1200 mg/Sodium Chloride 262 ml @ 250 mls/hr Q36H IV ; Start at 04:00; Stop 11/22/17 at 08:25; Status DC Vancomycin HCl 1500 mg/Sodium Chloride 515 ml @ 250 mls/hr Q24H IV Last administered on 11/20/17at 15:52; Start 11/18/17 at 16:00; Stop 11/20/17 at 19:30 ; Status DC Vancomycin/Sodium Chloride 200 ml @ 200 mls/hr ONCE ONCE IV Last administered on 11/17/17at 12:09; Start 11/17/17 at 12:00; Stop 11/17/17 at 12:59 ; Status DC A/P Problem List: (1) Acute hypoxemic respiratory failure ICD Code: J96.01 - Acute respiratory failure with hypoxia Status: Acute (2) Severe sepsis ICD Code: A41.9 - Sepsis, unspecified organism; R65.20 - Severe sepsis without septic shock Status: Acute (3) Cellulitis of right lower extremity ICD Code: L03.115 - Cellulitis of right lower limb Status: Acute (4) UTI (urinary tract infection) ICD Code: N39.0 - Urinary tract infection, site not specified Status: Acute (5) LEWIS (acute kidney injury) ICD Code: N17.9 - Acute kidney failure, unspecified Status: Acute Assessment and Plan Severe sepsis Urinary tract infection Pneumonia Cellulitis Resolved continue Diflucan Continue Rocephin Continue Flagyl ID following Topical candidiasis (at groin) Nystatin and Diflucan Acute respiratory failure pulmonary hypertension BiPAP as needed Weaned to nonrebreather as tolerated Follow on pulse ox Oxygen as needed Continue breathing treatments as needed pulmonary consulted. Diabetes mellitus type 2 Follow blood sugars Insulin sliding scale Diabetic diet Hypertension Continue Coreg Follow blood pressures Acute renal failure Chronic kidney disease Monitor renal function Component of cardiorenal syndrome suspected Patient has shown improvement through time Hypothyroidism Continue Levothyroxine Follow TSH, T3, and T4 as an outpatient Atrial fibrillation Continue amiodarone Continue Coreg Continue digoxin Pradaxa resumed on 11/24/17 Follow on telemetry Acute encephalopathy. Was related to septic state and respiratory failure Resolved Hypokalemia Follow potassium levels Replace as needed Possible acute diastolic congestive heart failure versus pulmonary edema cardiology following wound on the lower back consulted wound care DVT prophylaxis dc heparin- Continue Pradaxa consult PT. Problem Qualifiers (1) UTI (urinary tract infection): Qualified Codes: N39.0 - Urinary tract infection, site not specified Ron Reyes MD Nov 27, 2017 08:33
[2017-11-27] MEDS: DOCUSATE SODIUM 50 MG/SENNA 8.6 MG TAB PO SCH (08:51)
[2017-11-27] MEDS: CARVEDILOL 3.125 MG TAB PO SCH ×2 (08:51→19:40)
[2017-11-27] MEDS: AMIODARONE 200 MG TAB PO SCH ×2 (08:51→19:39)
[2017-11-27] MEDS: INSULIN DETEMIR 100 UNITS/ML VIAL SQ SCH ×2 (08:52→19:40)
[2017-11-27] MEDS: FUROSEMIDE 20 MG TAB PO SCH ×2 (09:00→18:36)
[2017-11-27] MEDS: METOLAZONE 5 MG TAB PO SCH (09:31)
[2017-11-27] MEDS: FLUCONAZOLE 100 MG TAB PO SCH (09:31)
[2017-11-27] MEDS: POTASSIUM CHLORIDE 25 MEQ EFFERVESCENT TAB PO SCH (09:31)
[2017-11-27] MEDS: DABIGATRAN ETEXILATE 75 MG CAP PO SCH ×2 (09:31→19:39)
[2017-11-27] MEDS: CHOLECALCIFEROL (VIT D3) 1000 UNIT TAB PO SCH (09:32)
[2017-11-27] MEDS: cefTRIAXone INJ 2,000 MG in SODIUM CHLORIDE 0.9% INJ 100 ML IV SCH (09:32)
[2017-11-27] MEDS ORDERED: RESP: ALBUTEROL CONC 2.5 MG/0.5 ML NEB NEB PRN (17:30)
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
[2017-11-27] MEDS: ATORVASTATIN 10 MG TAB PO SCH (19:39)
[2017-11-28] VITALS (18 sets, daily range): BP systolic 120–166; BP diastolic 56–91; PULSE 61–68; RESP 18–26; TEMP 98.1–99.3; O2SAT 94–98
[2017-11-28] MEDS: LEVOTHYROXINE SODIUM 25 MCG TAB PO SCH (05:38)
[2017-11-28] MEDS: metroNIDAZOLE 500 MG TAB PO SCH ×3 (05:38→19:59)
[2017-11-28] MEDS: NYSTATIN 100,000 UNIT/GM CREAM 15 GM TOPICAL SCH ×4 (05:44→18:12)
[2017-11-28] MEDS: INSULIN ASPART 1,000 UNITS/10 ML VIAL SQ SCH ×3 (08:00→18:12)
[2017-11-28] MEDS: INSULIN NovoLIN REGULAR SUPPLEMENTAL SCALE SQ SCH ×4 (08:52→19:59)
[2017-11-28] MEDS: DABIGATRAN ETEXILATE 75 MG CAP PO SCH ×2 (08:53→19:59)
[2017-11-28] MEDS: cefTRIAXone INJ 2,000 MG in SODIUM CHLORIDE 0.9% INJ 100 ML IV SCH (08:53)
[2017-11-28] MEDS: INSULIN DETEMIR 100 UNITS/ML VIAL SQ SCH ×2 (08:53→20:00)
[2017-11-28] MEDS: FLUCONAZOLE 100 MG TAB PO SCH (08:53)
[2017-11-28] MEDS: CHOLECALCIFEROL (VIT D3) 1000 UNIT TAB PO SCH (08:53)
[2017-11-28] MEDS: METOLAZONE 5 MG TAB PO SCH (08:53)
[2017-11-28] MEDS: CARVEDILOL 3.125 MG TAB PO SCH ×2 (08:54→20:00)
[2017-11-28] MEDS: DOCUSATE SODIUM 50 MG/SENNA 8.6 MG TAB PO SCH (08:54)
[2017-11-28] MEDS: POTASSIUM CHLORIDE 25 MEQ EFFERVESCENT TAB PO SCH (08:54)
[2017-11-28] MEDS: FUROSEMIDE 20 MG TAB PO SCH ×2 (08:54→18:12)
[2017-11-28] MEDS: AMIODARONE 200 MG TAB PO SCH ×2 (08:54→20:00)
[2017-11-28 12:00] LABS: BICARBONATE 39.4 MEQ/L (21.0-32.0); CALCIUM 8.6 MG/DL (8.5-10.1); CREATININE 1.33 MG/DL (0.50-1.00)
--- NOTE | 2017-11-28 13:05 | HHI.PR ---
Subjective Remarks I had a lengthy discussion with the patient and her son they have multiple questions all were answered to satisfaction Currently she is doing well ringing in that she is on 1 L nasal cannula O2, stated she feels better Her creatinine slightly increased today Objective Vitals Vital Signs Date Time Temp Pulse Resp B/P (MAP) Pulse Ox O2 Delivery O2 Flow Rate FiO2 11/28/17 10:00 68 11/28/17 08:00 96 Nasal Cannula 1.00 11/28/17 08:00 98.1 62 18 139/60 (86) 96 11/28/17 08:00 62 11/28/17 07:57 97 Nasal Cannula 2.00 11/28/17 06:00 62 11/28/17 04:00 98.1 62 22 148/67 (94) 96 11/28/17 04:00 96 Nasal Cannula 2.00 11/28/17 04:00 61 11/28/17 02:00 62 11/28/17 00:00 66 11/28/17 00:00 98.4 66 21 143/63 (89) 98 11/28/17 00:00 97 Nasal Cannula 2.00 11/27/17 22:00 64 11/27/17 20:00 98.7 67 29 152/66 (94) 94 11/27/17 20:00 94 Nasal Cannula 2.00 11/27/17 20:00 65 11/27/17 19:42 95 Nasal Cannula 2.00 11/27/17 18:00 69 11/27/17 16:00 98 Nasal Cannula 2.00 11/27/17 16:00 98.4 66 24 153/69 (97) 98 11/27/17 16:00 66 11/27/17 15:00 70 28 136/63 (87) 96 11/27/17 14:00 69 11/27/17 14:00 69 26 193/69 (110) 85 I/O 11/27/17 11/27/17 11/27/17 11/28/17 11/28/17 11/28/17 07:00 15:00 23:00 07:00 15:00 23:00 Intake Total 240 ml 100 ml 480 ml 350 ml 100 ml Output Total 900 ml 1600 ml 1300 ml Balance -660 ml 100 ml -1120 ml -950 ml 100 ml Intake Oral 240 ml 480 ml 350 ml IV Total 100 ml 100 ml Output Urine Total 900 ml 1600 ml 1300 ml # Bowel Movements 1 2 2 Result Diagram: 11/27/17 0340 11/28/17 1053 Objective Remarks GENERAL: This is a well-nourished, well-developed patient, in no apparent distress. CARDIOVASCULAR: Regular rate and rhythm without murmurs, gallops, or rubs. RESPIRATORY: Clear to auscultation. Breath sounds equal bilaterally. No wheezes , rales, or rhonchi. GASTROINTESTINAL: Abdomen soft, non-tender, nondistended. Normal active bowel sounds MUSCULOSKELETAL: Extremities without clubbing, cyanosis, or edema. NEURO: Alert & Oriented x4 to person, place, time, situation. Moves all ext x4 Procedures none A/P Problem List: (1) Acute hypoxemic respiratory failure ICD Code: J96.01 - Acute respiratory failure with hypoxia Status: Acute (2) Severe sepsis ICD Code: A41.9 - Sepsis, unspecified organism; R65.20 - Severe sepsis without septic shock Status: Acute (3) Cellulitis of right lower extremity ICD Code: L03.115 - Cellulitis of right lower limb Status: Acute (4) UTI (urinary tract infection) ICD Code: N39.0 - Urinary tract infection, site not specified Status: Acute (5) LEWIS (acute kidney injury) ICD Code: N17.9 - Acute kidney failure, unspecified Status: Acute Assessment and Plan 11/28: Creatinine worsened from 1.09-1.41, continue antibiotic per ID, repeat BMP in a.m. monitor for any fever A/P: Severe sepsis Urinary tract infection Pneumonia Cellulitis Resolved continue Diflucan Continue Rocephin Continue Flagyl ID following Topical candidiasis (at groin) Nystatin and Diflucan Acute respiratory failure pulmonary hypertension BiPAP as needed Weaned to nonrebreather as tolerated Follow on pulse ox Oxygen as needed Continue breathing treatments as needed pulmonary consulted.appreciate input Diabetes mellitus type 2 Follow blood sugars Insulin sliding scale Diabetic diet Hypertension Continue Coreg Follow blood pressures Acute renal failure Chronic kidney disease Monitor renal function Component of cardiorenal syndrome suspected Patient has shown improvement through time Hypothyroidism Continue Levothyroxine Follow TSH, T3, and T4 as an outpatient Atrial fibrillation Continue amiodarone Continue Coreg Continue digoxin Pradaxa resumed on 11/24/17 Follow on telemetry Acute encephalopathy. Was related to septic state and respiratory failure Resolved Hypokalemia Follow potassium levels Replace as needed Possible acute diastolic congestive heart failure versus pulmonary edema cardiology following wound on the lower back consulted wound care DVT prophylaxis dc heparin- Continue Pradaxa Problem Qualifiers (1) UTI (urinary tract infection): Qualified Codes: N39.0 - Urinary tract infection, site not specified Diego Castellanos MD Nov 28, 2017 13:05
--- NOTE | 2017-11-28 17:47 | HHI.PR ---
Subjective Remarks Has no fever. Leg ulcer healing and No Fasciitis noted. On O2 2 L. Patient has a medical artist in [place] who gave her O2, for home . Objective Vital Signs Date Time Temp Pulse Resp B/P (MAP) Pulse Ox O2 Delivery O2 Flow Rate FiO2 11/28/17 16:00 66 24 166/72 (103) 96 11/28/17 16:00 96 Nasal Cannula 1.00 11/28/17 16:00 66 11/28/17 15:00 66 25 144/66 (92) 94 11/28/17 14:00 68 11/28/17 14:00 68 25 141/60 (87) 95 11/28/17 13:00 68 26 135/67 (89) 97 11/28/17 12:00 98.3 68 24 132/91 (105) 96 11/28/17 12:00 96 Nasal Cannula 1.00 11/28/17 12:00 68 11/28/17 11:00 63 21 124/61 (82) 98 11/28/17 10:00 68 11/28/17 10:00 68 25 120/56 (77) 97 11/28/17 09:00 68 22 141/63 (89) 95 11/28/17 08:00 96 Nasal Cannula 1.00 11/28/17 08:00 98.1 62 18 139/60 (86) 96 11/28/17 08:00 62 11/28/17 07:57 97 Nasal Cannula 2.00 11/28/17 06:00 62 11/28/17 04:00 98.1 62 22 148/67 (94) 96 11/28/17 04:00 96 Nasal Cannula 2.00 11/28/17 04:00 61 11/28/17 02:00 62 11/28/17 00:00 66 11/28/17 00:00 98.4 66 21 143/63 (89) 98 11/28/17 00:00 97 Nasal Cannula 2.00 11/27/17 22:00 64 11/27/17 20:00 98.7 67 29 152/66 (94) 94 11/27/17 20:00 94 Nasal Cannula 2.00 11/27/17 20:00 65 11/27/17 19:42 95 Nasal Cannula 2.00 11/27/17 18:00 69 I/O 11/27/17 11/27/17 11/27/17 11/28/17 11/28/17 11/28/17 07:00 15:00 23:00 07:00 15:00 23:00 Intake Total 240 ml 100 ml 480 ml 350 ml 100 ml Output Total 900 ml 1600 ml 1300 ml Balance -660 ml 100 ml -1120 ml -950 ml 100 ml Intake Oral 240 ml 480 ml 350 ml IV Total 100 ml 100 ml Output Urine Total 900 ml 1600 ml 1300 ml # Bowel Movements 1 2 2 Result Diagram: 11/27/17 0340 11/28/17 1053 Objective Remarks GENERAL: This is an averagely built elderly lady who is alert, pain and in no acute distress. HEAD, EYES, EARS, NOSE, THROAT: Head normocephalic. The pupils are reactive. Tongue is moist. Throat is mildly injected. NECK: The neck is supple. No bruits. No thyroid enlargement. No lymphadenopathy. There is a scar anteriorly from the previous tracheostomy. CHEST: Mild wheeze over the neck. Equal movements with decreased excursions and breath sounds diminished at the periphery. Occasional wheezes bilaterally. No Crackles. HEART: The heart sounds are irregular. S1 and S2. No murmur. ABDOMEN: Abdomen is soft and protuberant without masses. No organomegaly or tenderness. EXTREMITIES: Decreased pulses. NEUROLOGIC: Reflexes are 1+ with no gross motor deficits. Cranial nerves are grossly intact. SKIN: There is ulceration of the right leg at the medial aspect of the leg towards the ankle as well as the dorsum of the foot with mild swelling. Assessment and Plan Assessment and Plan IMPRESSION: 1. Cellulitis of the right foot and leg with sepsis. 2. History of diabetes mellitus. 3. Hypertension. 4. Pulmonary hypertension. 5. Acute kidney injury. 6. Atrial fibrillation, chronic. 7. Urinary tract infection. 8. Rule out interstitial lung disease. Plan : 1. Cont Duo Nebs qid PRN 2. O2 at 2 L. 3. Continue antibiotics . 4. Up with help. 5. CT chest W/O Contrast 6. V/Q lung scan. 7. Right Heart cath when stable. Toby Ann MD Nov 28, 2017 17:47
[2017-11-28] MEDS: ATORVASTATIN 10 MG TAB PO SCH (19:59)
[2017-11-29] VITALS (13 sets, daily range): BP systolic 116–146; BP diastolic 56–65; PULSE 63–70; RESP 20–24; TEMP 98.2–99.6; O2SAT 89–98
[2017-11-29 05:23] LABS: BICARBONATE 37.3 MEQ/L (21.0-32.0); CALCIUM 8.7 MG/DL (8.5-10.1); CREATININE 1.5 MG/DL (0.50-1.00)
[2017-11-29] MEDS: metroNIDAZOLE 500 MG TAB PO SCH ×3 (06:00→21:07)
[2017-11-29] MEDS: NYSTATIN 100,000 UNIT/GM CREAM 15 GM TOPICAL SCH ×4 (06:00→17:22)
[2017-11-29] MEDS: LEVOTHYROXINE SODIUM 25 MCG TAB PO SCH (06:00)
[2017-11-29] MEDS: INSULIN ASPART 1,000 UNITS/10 ML VIAL SQ SCH ×3 (08:00→17:22)
[2017-11-29] MEDS: INSULIN NovoLIN REGULAR SUPPLEMENTAL SCALE SQ SCH ×4 (08:00→21:08)
[2017-11-29] MEDS: INSULIN DETEMIR 100 UNITS/ML VIAL SQ SCH ×2 (09:00→21:08)
[2017-11-29] MEDS: DOCUSATE SODIUM 50 MG/SENNA 8.6 MG TAB PO SCH (09:00)
[2017-11-29] MEDS: CHOLECALCIFEROL (VIT D3) 1000 UNIT TAB PO SCH (09:03)
[2017-11-29] MEDS: FLUCONAZOLE 100 MG TAB PO SCH (09:03)
[2017-11-29] MEDS: CARVEDILOL 3.125 MG TAB PO SCH ×2 (09:03→21:07)
[2017-11-29] MEDS: METOLAZONE 5 MG TAB PO SCH (09:04)
[2017-11-29] MEDS: AMIODARONE 200 MG TAB PO SCH ×2 (09:04→21:07)
[2017-11-29] MEDS: DABIGATRAN ETEXILATE 75 MG CAP PO SCH (09:04)
[2017-11-29] MEDS: POTASSIUM CHLORIDE 25 MEQ EFFERVESCENT TAB PO SCH (09:04)
[2017-11-29] MEDS: cefTRIAXone INJ 2,000 MG in SODIUM CHLORIDE 0.9% INJ 100 ML IV SCH (09:05)
[2017-11-29] MEDS: FUROSEMIDE 20 MG TAB PO SCH ×2 (09:13→17:21)
--- NOTE | 2017-11-29 11:35 | RADRPT ---
EXAM DATE/TIME: 11/29/2017 10:28 [facility] COMPARISON: CHEST SINGLE AP, November 29, 2017, 11:11. INDICATIONS : Short of breath for 2 days. DOSE: 8.1 mCi Tc99m MAA IV 1.4 mCi Tc99m DTPA aerosol MEDICAL HISTORY : Diabetes mellitus type 2. Hypertension. SURGICAL HISTORY : Coronary artery stent. Fusion, lumbar. Left leg surgery. ENCOUNTER: Initial ACUITY: 2 days PAIN SCALE: 1/10 LOCATION: Bilateral chest TECHNIQUE: Following five minutes of tidal breathing of DTPA aerosol, planar images of the lungs were performed in eight projections. The patient was then injected with MAA, and eight-view perfusion scan was perf ormed. FINDINGS: There is a matched ventilation/perfusion abnormality in the posterior medial left lung base. No defin ite corresponding radiographic abnormalities seen on chest x-ray. Perfusion is elsewhere fairly homog eneous and intact. Ventilation is mildly heterogeneous with some central deposition of radiotracer. CONCLUSION: Low probability scan for pulmonary embolism Cameron Spencer MD on November 29, 2017 at 11:27 Board Certified Radiologist. This report was verified electronically.
--- NOTE | 2017-11-29 12:13 | HHI.PR ---
Subjective Remarks Sleepy today. Leg ulcer healing and No Fasciitis noted. On O2 2 L. 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 On Antibiotics..V/Q scan noted. Objective Vital Signs Date Time Temp Pulse Resp B/P (MAP) Pulse Ox O2 Delivery O2 Flow Rate FiO2 11/29/17 08:36 98 Nasal Cannula 2.00 11/29/17 06:00 65 11/29/17 04:00 98.2 70 22 136/64 (88) 96 11/29/17 04:00 68 Nasal Cannula 1.00 11/29/17 04:00 67 11/29/17 02:00 65 11/29/17 00:00 97 Nasal Cannula 1.00 11/29/17 00:00 63 11/29/17 00:00 98.4 65 22 130/60 (83) 98 11/28/17 22:00 67 11/28/17 20:00 64 11/28/17 20:00 99.3 65 22 133/60 (84) 98 11/28/17 20:00 96 Nasal Cannula 1.00 11/28/17 19:45 97 Nasal Cannula 3.00 11/28/17 18:00 63 11/28/17 16:00 66 24 166/72 (103) 96 11/28/17 16:00 96 Nasal Cannula 1.00 11/28/17 16:00 66 11/28/17 15:00 66 25 144/66 (92) 94 11/28/17 14:00 68 11/28/17 14:00 68 25 141/60 (87) 95 11/28/17 13:00 68 26 135/67 (89) 97 I/O 11/28/17 11/28/17 11/28/17 11/29/17 11/29/17 11/29/17 07:00 15:00 23:00 07:00 15:00 23:00 Intake Total 350 ml 100 ml 480 ml 400 ml Output Total 1300 ml 1650 ml 1450 ml Balance -950 ml 100 ml -1170 ml -1050 ml Intake Oral 350 ml 480 ml 400 ml IV Total 100 ml Output Urine Total 1300 ml 1650 ml 1450 ml # Bowel Movements 2 2 3 Result Diagram: 11/27/17 0340 11/29/17 0410 Objective Remarks GENERAL: This is an averagely built elderly lady who is alert. HEAD, EYES, EARS, NOSE, THROAT: Head normocephalic. The pupils are reactive. Tongue is moist. Throat is clear. NECK: The neck is supple. No bruits. No thyroid enlargement. No lymphadenopathy. There is a scar anteriorly from the previous tracheostomy. CHEST: Equal movements with decreased excursions and breath sounds diminished at the periphery. Occasional wheezes bilaterally. No Crackles. HEART: The heart sounds are irregular. S1 and S2. No murmur. ABDOMEN: Abdomen is soft and protuberant without masses. No organomegaly or tenderness. EXTREMITIES: Decreased pulses. NEUROLOGIC: Reflexes are 1+ with no gross motor deficits. Cranial nerves are grossly intact. SKIN: There is ulceration of the right leg healing at the medial aspect of the leg. Assessment and Plan Assessment and Plan IMPRESSION: 1. Cellulitis of the right foot and leg with sepsis. 2. History of diabetes mellitus. 3. Hypertension. 4. Pulmonary hypertension. 5. Acute kidney injury. 6. Atrial fibrillation, chronic. 7. Urinary tract infection. 8. Rule out interstitial lung disease. Plan : 1. Cont Duo Nebs qid PRN 2. O2 at 2 L. 3. Continue antibiotics . 4. Up with help. 5. BMP CBC PFT 6. Chest XRay today 7. Right Heart cath when stable. Toby Ann MD Nov 29, 2017 12:13
--- NOTE | 2017-11-29 13:20 | PD.POD.CON ---
Patient Intake Chief Complaint Bilateral diabetic pressure ulcerations and onychomycosis Consult Requested by Dr. Castellanos Reason for Consult Evaluate ulcerations of right and left lower extremities. Debridement of nails 1 through 5 bilaterally Primary Care Physician Unknown History of Present Illness Patient is a 77-year-old diabetic patient who I saw her in the intensive care unit. She has a pressure ulceration on the right heel on the right lateral ankle and leg. She also has extremely elongated thickened and dystrophic toenails. Coded Allergies: No Known Allergies (Unverified , 11/16/17) Preferred Language to Discuss: [place] Barriers to Learning: None Teaching Method: Discussion Vital Signs Date Time Temp Pulse Resp B/P (MAP) Pulse Ox O2 Delivery O2 Flow Rate FiO2 11/29/17 08:36 98 Nasal Cannula 2.00 11/29/17 06:00 65 11/29/17 04:00 98.2 70 22 136/64 (88) 96 11/29/17 04:00 68 Nasal Cannula 1.00 11/29/17 04:00 67 11/29/17 02:00 65 11/29/17 00:00 97 Nasal Cannula 1.00 11/29/17 00:00 63 11/29/17 00:00 98.4 65 22 130/60 (83) 98 11/28/17 22:00 67 11/28/17 20:00 64 11/28/17 20:00 99.3 65 22 133/60 (84) 98 11/28/17 20:00 96 Nasal Cannula 1.00 11/28/17 19:45 97 Nasal Cannula 3.00 11/28/17 18:00 63 11/28/17 16:00 66 24 166/72 (103) 96 11/28/17 16:00 96 Nasal Cannula 1.00 11/28/17 16:00 66 11/28/17 15:00 66 25 144/66 (92) 94 11/28/17 14:00 68 11/28/17 14:00 68 25 141/60 (87) 95 Pain scale used: 0-10 numeric scale Pain score: 2 Medications Current Medications Piperacillin Sod/ Tazobactam Sod 100 ml @ 200 mls/hr ONCE STAT IV Last administered on 11/16/17at 11:29; Start 11/16/17 at 10:53; Stop 11/16/17 at 11:22 ; Status DC Vancomycin HCl 1000 mg/Sodium Chloride 250 ml @ 250 mls/hr ONCE STAT IV Last administered on 11/16/17at 12:17; Start 11/16/17 at 10:53; Stop 11/16/17 at 11:55 ; Status DC Sodium Chloride 1,000 ml @ 999 mls/hr BOLUS ONCE IV Last administered on 11/16at 14:04; Start 11/16/17 at 12:00; Stop 11/16/17 at 13:00; Status DC Clindamycin Phosphate 900 mg/ Sodium Chloride 106 ml @ 200 mls/hr ONCE STAT IV Last administered on 11/16/17at 14:44; Start 11/16/17 at 12:23; Stop at 12:56; Status DC Acetaminophen (Tylenol) 650 mg ONCE ONCE PO Last administered on 11/16/17at 12: 58; Start 11/16/17 at 12:45; Stop 11/16/17 at 12:46; Status DC Sodium Chloride 1,000 ml @ 999 mls/hr BOLUS ONCE IV Last administered on 11/16at 14:04; Start 11/16/17 at 12:45; Stop 11/16/17 at 13:45; Status DC Sodium Chloride 1,000 ml @ 75 mls/hr [id number] IV ; Start 11/16/17 at 13:00; Stop 11/16/17 at 16:17; Status DC Morphine Sulfate (Morphine Inj) 2 mg Q3H PRN IV PUSH pain; Start 11/16/17 at 14 :00 Dextrose (D50w (Vial) Inj) 50 ml UNSCH PRN IV PUSH HYPOGLYCEMIA-SEE COMMENTS; Start 11/16/17 at 14:15 Glucagon (Glucagon Inj) 1 mg UNSCH PRN OTHER HYPOGLYCEMIA-SEE COMMENTS; Start 11/16/17 at 14:15 Insulin Human Regular (NovoLIN R SUPPLEMENTAL SCALE) 1 ACHS SLIDING SCALE SQ Last administered on 11/28/17at 19:59; Start 11/16/17 at 17:00 Pharmacy Profile Note 0 ml @ 0 mls/hr UNSCH OTHER ; Start 11/16/17 at 14:30; Stop 11/22/17 at 08:25; Status DC Piperacillin Sod/ Tazobactam Sod 50 ml @ 100 mls/hr Q6H IV Last administered on 11/19/17at 08:53; Start 11/16/17 at 15:00; Stop 11/19/17 at 11:21; Status DC Dextrose (D50w (Syr) Inj) 50 ml ONCE ONCE IV PUSH Last administered on at 14:45; Start 11/16/17 at 14:45; Stop 11/16/17 at 14:49; Status DC Sodium Chloride 500 ml @ 500 mls/hr BOLUS ONCE IV Last administered on at 15:34; Start 11/16/17 at 15:00; Stop 11/16/17 at 15:59; Status DC Sodium Chloride 500 ml @ 500 mls/hr BOLUS ONCE IV ; Start 11/16/17 at 16:00; Stop 11/16/17 at 16:59; Status DC Dextrose (D50w (Vial) Inj) 25 ml ONCE ONCE IV PUSH Last administered on at 16:05; Start 11/16/17 at 16:00; Stop 11/16/17 at 16:01; Status DC Dextrose/Sodium Chloride 1,000 ml @ 100 mls/hr Q10H IV Last administered on at 19:23; Start 11/16/17 at 16:30; Stop 11/17/17 at 00:18; Status DC Amiodarone HCl (Cordarone) 100 mg BID PO Last administered on 11/29/17at 09:04; Start 11/16/17 at 21:00 Atorvastatin Calcium (Lipitor) 10 mg HS PO Last administered on 11/28/17at 19:59 ; Start 11/16/17 at 21:00 Carvedilol (Coreg) 3.125 mg BID PO Last administered on 11/29/17at 09:03; Start 11/16/17 at 21:00 Cholecalciferol (Vitamin D3) 1,000 units DAILY PO Last administered on at 09:25; Start 11/17/17 at 09:00; Stop 11/21/17 at 19:06; Status DC Furosemide (Lasix) 20 mg DAILY@0900,1800 PO Last administered on 11/17/17at 08: 26; Start 11/16/17 at 18:00; Stop 11/21/17 at 18:48; Status DC Levothyroxine Sodium (Synthroid) 25 mcg DAILY@0600 PO Last administered on at 06:00; Start 11/17/17 at 06:00 Sodium Chloride 1,000 ml @ 125 mls/hr Q8H IV Last administered on 11/20/17at 06 :07; Start 11/17/17 at 00:30; Stop 11/20/17 at 11:03; Status DC Heparin Sodium (Porcine) (Heparin Inj) 5,000 units Q8HR SQ Last administered on 11/27/17at 06:41; Start 11/17/17 at 06:00; Stop 11/27/17 at 11:47; Status DC Vancomycin/Sodium Chloride 200 ml @ 200 mls/hr ONCE ONCE IV Last administered on 11/17/17at 12:09; Start 11/17/17 at 12:00; Stop 11/17/17 at 12:59 ; Status DC Potassium Chloride (KCl Powder) 40 meq ONCE ONCE PO ; Start 11/17/17 at 11:15; Stop 11/17/17 at 11:16; Status DC Potassium Chloride 100 ml @ 50 mls/hr Q2H PRN IV For Potassium 2.8 - 3.2 mEq/L ; Start 11/17/17 at 12:45; Stop 11/18/17 at 10:09; Status DC Potassium Chloride 100 ml @ 50 mls/hr Q2H PRN IV For Potassium 2.8 - 3.2 mEq/L ; Start 11/17/17 at 12:45; Stop 11/18/17 at 10:09; Status DC Potassium Bicarb/ Potassium Chloride (K-Lyte Cl Eff) 50 meq UNSCH PRN PO For Potassium 3.3 - 3.5 mEq/L; Start 11/17/17 at 12:45; Stop 11/18/17 at 10:09; Status DC Potassium Chloride 100 ml @ 25 mls/hr UNSCH PRN IV For Potassium 3.3 - 3.5 mEq /L; Start 11/17/17 at 12:45; Stop 11/18/17 at 10:09; Status DC Potassium Chloride 100 ml @ 50 mls/hr Q2H PRN IV For Potassium 3.3 - 3.5 mEq/L ; Start 11/17/17 at 12:45; Stop 11/18/17 at 10:09; Status DC Magnesium Sulfate 4 gm/Sodium Chloride 100 ml @ 50 mls/hr UNSCH PRN IV For Magnesium 0.9 - 1.1 mg/dL; Start 11/17/17 at 12:45; Stop 11/18/17 at 10:09; Status DC Magnesium Oxide (Mag-Ox) 800 mg UNSCH PRN PO For Magnesium 1.2 - 1.6 mg/dL; Start 11/17/17 at 12:45; Stop 11/18/17 at 10:09; Status DC Magnesium Sulfate 2 gm/Sodium Chloride 100 ml @ 50 mls/hr UNSCH PRN IV For Magnesium 1.2 - 1.6 mg/dL; Start 11/17/17 at 12:45; Stop 11/18/17 at 10:09; Status DC Potassium Phosphate (K-Phos) 2,000 mg Q4H PRN PO For Phosphorus < 2.5 mg/dL; Start 11/17/17 at 12:45; Stop 11/18/17 at 10:09; Status DC Sodium Phosphate 30 mmol/Sodium Chloride 250 ml @ 42 mls/hr UNSCH PRN IV For Phosphorus < 2.5 mg/dL; Start 11/17/17 at 12:45; Stop 11/18/17 at 10:09; Status DC Potassium Phosphate (K-Phos) 2,000 mg UNSCH PRN PO/TUBE SEE LABEL COMMENTS; Start 11/17/17 at 12:45; Stop 11/18/17 at 10:09; Status DC Potassium Phosphate 30 mmol/ Sodium Chloride 260 ml @ 42 mls/hr UNSCH PRN IV SEE LABEL COMMENTS; Start 11/17/17 at 12:45; Stop 11/18/17 at 10:09; Status DC Clindamycin/ Sodium Chloride 50 ml @ 100 mls/hr Q6H IV Last administered on at 08:53; Start 11/17/17 at 14:00; Stop 11/19/17 at 11:11; Status DC Potassium Chloride (KCl) 40 meq NOW ONCE PO Last administered on 11/17/17at 14: 29; Start 11/17/17 at 14:30; Stop 11/17/17 at 14:31; Status DC Potassium Chloride (KCl) 40 meq ONCE ONCE PO Last administered on 11/17/17at 17 :21; Start 11/17/17 at 18:30; Stop 11/17/17 at 18:39; Status DC Furosemide (Lasix Inj) 60 mg ONCE ONCE IV PUSH ; Start 11/18/17 at 12:00; Stop 11/18/17 at 12:33; Status DC Albuterol/ Ipratropium (Duoneb Neb) 1 ampule ONCE ONCE NEB Last administered on 11/18/17at 12:38; Start 11/18/17 at 12:00; Stop 11/18/17 at 12:01; Status DC Albuterol/ Ipratropium (Duoneb Neb) 1 ampule Q6HR WHILE AWAKE NEB NEB Last administered on 11/21/17at 20:41; Start 11/18/17 at 14:00; Stop 11/22/17 at 00:07 ; Status DC Albuterol/ Ipratropium (Duoneb Neb) 1 ampule Q2HR NEB PRN NEB SOB/WHEEZING Last administered on 11/26/17at 08:25; Start 11/18/17 at 12:00 Vancomycin HCl 1500 mg/Sodium Chloride 515 ml @ 250 mls/hr Q24H IV Last administered on 11/20/17at 15:52; Start 11/18/17 at 16:00; Stop 11/20/17 at 19:30 ; Status DC Miscellaneous Information SPECIFIC LAB TO BE DRAWN:VANCOMYCIN TROUGH DATE TO... ONCE ONCE .XX Last administered on 11/20/17at 15:52; Start 11/20/17 at 15:45; Stop 11/20/17 at 15:46; Status DC Furosemide (Lasix Inj) 60 mg ONCE ONCE IV PUSH Last administered on 11/18/17at 13:04; Start 11/18/17 at 13:15; Stop 11/18/17 at 13:16; Status DC Furosemide (Lasix Inj) 80 mg STK-MED ONCE .ROUTE ; Start 11/18/17 at 13:02; Stop 11/18/17 at 13:03; Status DC Methylprednisolone Sodium Succinate (SoluMEDROL INJ) 125 mg ONCE ONCE IV PUSH Last administered on 11/18/17at 16:55; Start 11/18/17 at 14:15; Stop 11/18/17 at 15:00; Status DC Haloperidol Lactate (Haldol Inj) 2 mg ONCE ONCE IM Last administered on at 08:50; Start 11/19/17 at 08:45; Stop 11/19/17 at 08:46; Status DC Furosemide (Lasix Inj) 20 mg BID@09,18 IV PUSH Last administered on 11/20/17at 09:21; Start 11/19/17 at 18:00; Stop 11/20/17 at 11:08; Status DC Haloperidol Lactate (Haldol Inj) 2 mg ONCE ONCE IV PUSH ; Start 11/19/17 at 10: 30; Stop 11/19/17 at 10:31; Status DC Haloperidol Lactate (Haldol Inj) 2 mg Q4H PRN IM MOD - SEVERE ANXIETY/ AGITATION Last administered on 11/22/17at 02:08; Start 11/19/17 at 14:00 Miscellaneous Medication (ASP Crit: Path resist to other, cult proven) 1 UNSCH X1 PRN .XX PHARMACY DOCUMENTATION; Start 11/19/17 at 11:15; Stop 11/20/17 at 11 :14; Status DC Miscellaneous Medication ([facility]) 1 UNSCH X1 PRN XX PHARMACY DOCUMENTATION; Start 11/19/17 at 11:15; Stop 11/20/17 at 11:14; Status DC Meropenem 1000 mg/ Sodium Chloride 100 ml @ 200 mls/hr Q8H IV Last administered on 11/19/17at 13:21; Start 11/19/17 at 12:00; Stop 11/19/17 at 15:12 ; Status DC Meropenem 1000 mg/ Sodium Chloride 100 ml @ 200 mls/hr Q12H IV Last administered on 11/22/17at 01:07; Start 11/20/17 at 01:00; Stop 11/22/17 at 08:25 ; Status DC Potassium Chloride (KCl) 30 meq ONCE ONCE PO Last administered on 11/20/17at 12 :14; Start 11/20/17 at 10:00; Stop 11/20/17 at 10:01; Status DC Quetiapine Fumarate (SEROquel) 25 mg DAILY PO Last administered on 11/23/17at 08 :00; Start 11/21/17 at 09:00; Stop 11/23/17 at 10:00; Status DC Quetiapine Fumarate (SEROquel) 25 mg HS PO Last administered on 11/22/17at 21:22 ; Start 11/20/17 at 21:00; Stop 11/23/17 at 10:00; Status DC Furosemide (Lasix Inj) 40 mg BID@09,18 IV PUSH Last administered on 11/20/17at 18:11; Start 11/20/17 at 18:00; Stop 11/21/17 at 09:16; Status DC Furosemide (Lasix Inj) 20 mg ONCE ONCE IV PUSH Last administered on 11/20/17at 12:14; Start 11/20/17 at 11:15; Stop 11/20/17 at 11:38; Status DC Potassium Chloride (KCl) 20 meq ONCE ONCE PO ; Start 11/20/17 at 15:45; Stop at 15:45; Status DC Vancomycin HCl 1200 mg/Sodium Chloride 262 ml @ 250 mls/hr Q36H IV ; Start at 04:00; Stop 11/22/17 at 08:25; Status DC Potassium Chloride 100 ml @ 50 mls/hr Q2H IV Last administered on 11/21/17at 14 :46; Start 11/21/17 at 10:00; Stop 11/21/17 at 13:59; Status DC Furosemide (Lasix Inj) 40 mg DAILY IV PUSH ; Start 11/22/17 at 09:00; Stop 11/22 at 09:00; Status DC Furosemide (Lasix Inj) 20 mg DAILY IV PUSH Last administered on 11/21/17at 20:11 ; Start 11/21/17 at 18:45; Stop 11/22/17 at 00:01; Status DC Dextrose 1,000 ml @ 30 mls/hr Q24H IV Last administered on 11/22/17at 12:00; Start 11/21/17 at 18:45; Stop 11/24/17 at 14:59; Status DC Magnesium Sulfate/ Dextrose 100 ml @ 100 mls/hr ONCE ONCE IV Last administered on 11/21/17at 19:43; Start 11/21/17 at 18:45; Stop 11/21/17 at 19:44 ; Status DC Cholecalciferol (Vitamin D3) 2,000 units DAILY PO Last administered on at 09:03; Start 11/22/17 at 09:00 Potassium Bicarb/ Potassium Chloride (K-Lyte Cl Eff) 25 meq ONCE ONCE PO Last administered on 11/22/17at 00:17; Start 11/22/17 at 00:00; Stop 11/22/17 at 00:01; Status DC Furosemide (Lasix Inj) 20 mg BID IV PUSH Last administered on 11/22/17at 09:32; Start 11/22/17 at 09:00; Stop 11/22/17 at 12:20; Status DC Furosemide (Lasix Inj) 20 mg ONCE ONCE IV PUSH Last administered on 11/22/17at 00:17; Start 11/22/17 at 00:00; Stop 11/22/17 at 00:08; Status DC Albuterol/ Ipratropium (Duoneb Neb) 1 ampule Q6HR WHILE AWAKE NEB NEB Last administered on 11/25/17at 19:44; Start 11/22/17 at 08:00; Stop 11/26/17 at 07:59; Status DC Insulin Detemir (Levemir Inj) 10 units HS SQ Last administered on 11/22/17at 21: 24; Start 11/22/17 at 00:15; Stop 11/23/17 at 12:09; Status DC Potassium Bicarb/ Potassium Chloride (K-Lyte Cl Eff) 25 meq ONCE ONCE PO Last administered on 11/22/17at 05:40; Start 11/22/17 at 05:30; Stop 11/22/17 at 05:31; Status DC Ceftriaxone Sodium 2000 mg/ Sodium Chloride 100 ml @ 200 mls/hr Q24H IV Last administered on 11/29/17at 09:05; Start 11/22/17 at 09:00; Stop 12/01/17 at 08:59 Furosemide (Lasix Inj) 40 mg ONCE ONCE IV PUSH ; Start 11/22/17 at 09:45; Stop 11/22/17 at 10:07; Status DC Methylprednisolone Sodium Succinate (SoluMEDROL INJ) 125 mg ONCE ONCE IV PUSH Last administered on 11/22/17at 11:17; Start 11/22/17 at 09:45; Stop 11/22/17 at 10:17; Status DC Furosemide (Lasix Inj) 20 mg ONCE ONCE IV PUSH Last administered on 11/22/17at 11:18; Start 11/22/17 at 10:15; Stop 11/22/17 at 10:16; Status DC Furosemide (Lasix Inj) 40 mg BID IV PUSH Last administered on 11/23/17at 08:01; Start 11/22/17 at 21:00; Stop 11/23/17 at 11:38; Status DC Sodium Chloride 250 ml @ 15 mls/hr ONCE ONCE IV Last administered on at 12:31; Start 11/23/17 at 08:45; Stop 11/24/17 at 01:24; Status DC Acetaminophen (Tylenol) 650 mg Q4H PRN PO SEE LABEL COMMENTS Last administered on 11/23/17at 12:05; Start 11/23/17 at 08:45 Diphenhydramine HCl (Benadryl) 25 mg Q4H PRN PO SEE LABEL COMMENTS Last administered on 11/23/17at 12:05; Start 11/23/17 at 08:45 Furosemide (Lasix Inj) 20 mg UNSCH X1 IV PUSH Last administered on 11/23/17at 14:27; Start 11/23/17 at 09:15; Stop 11/23/17 at 23:59; Status DC Furosemide (Lasix Inj) 20 mg BID@0900,1800 IV PUSH Last administered on at 11:20; Start 11/23/17 at 18:00; Stop 11/25/17 at 18:02; Status DC Chlorothiazide Sodium (Diuril Inj) 500 mg ONCE ONCE IV Last administered on at 15:43; Start 11/23/17 at 11:45; Stop 11/23/17 at 12:18; Status DC Potassium Bicarb/ Potassium Chloride (K-Lyte Cl Eff) 25 meq DAILY PO Last administered on 11/29/17at 09:04; Start 11/23/17 at 11:45 Insulin Detemir (Levemir Inj) 10 units BID SQ Last administered on 11/28/17at 20: 00; Start 11/23/17 at 12:15 Senna/Docusate Sodium (Ana-Colace) 2 tab DAILY PO ; Start 11/25/17 at 09:00 Metolazone (Zaroxolyn) 5 mg DAILY PO Last administered on 11/29/17at 09:04; Start 11/25/17 at 09:00 Dabigatran (Pradaxa) 75 mg BID PO Last administered on 11/29/17at 09:04; Start at 21:00; Status Future Hold Insulin Aspart (NovoLOG INJ) 5 units TIDAC SQ Last administered on 11/28/17at 18: 12; Start 11/25/17 at 08:00 Nystatin (Mycostatin Cream) 1 applic Q6HR TOPICAL Last administered on at 06:00; Start 11/25/17 at 12:00 Metronidazole (Flagyl) 500 mg Q8HR PO Last administered on 11/29/17at 06:00; Start 11/25/17 at 09:15 Fluconazole (Diflucan) 100 mg DAILY PO Last administered on 11/29/17at 09:03; Start 11/25/17 at 09:15 Potassium Chloride 100 ml @ 50 mls/hr Q2H IV Last administered on 11/25/17at 18: 04; Start 11/25/17 at 13:00; Stop 11/25/17 at 16:59; Status DC Furosemide (Lasix) 20 mg BID@0900,1800 PO Last administered on 11/29/17at 09:13; Start 11/25/17 at 18:06 Potassium Chloride 100 ml @ 50 mls/hr Q2H IV Last administered on 11/25/17at 21: 39; Start 11/25/17 at 21:00; Stop 11/25/17 at 22:59; Status DC Albuterol Sulfate (Albuterol Concentrated Neb) 2.5 mg Q6HR NEB PRN NEB WHEEZING ; Start 11/27/17 at 17:30 Past, Family & Social History Past Medical History PFSH Reviewed: Yes Endocrine: REPORTS HX OF: Diabetes mellitus Review of Systems Integumentary: COMPLAINS OF: Slow to heal after cuts Neurological: COMPLAINS OF: Numbness/tingling, Changes in sensation Exam-Podiatry Constitutional General appearance: chronically ill Nutritional status: normal Orientation: alert and oriented x3 Dermatological Exam Skin Temp - Right: Within Normal Limits Skin Texture - Right: Within Normal Limits Skin Elasticity - Right: Within Normal Limits Skin Tugor - Right: Within Normal Limits Hair Growth - Right: Within Normal Limits Pigmentation - Right: Within Normal Limits Skin Temp - Left: Within Normal Limits Skin Texture - Left: Within Normal Limits Skin Elasticity - Left: Within Normal Limits Skin Tugor - Left: Within Normal Limits Hair Growth - Left: Within Normal Limits Pigmentation - Left: Within Normal Limits Ulcers: Location/Measurements Ulceration of the right lateral ankle and lower leg with necrotic eschar. No cellulitis or purulence seen. Ulceration of the plantar right heel without purulence seen. Abnormal Nail Conditions Discoloration: Toe #5 (R), Toe #4 (R), Toe #3 (R), Toe #2 (R), Toe #1 (R), Toe #1 (L), Toe #2 (L), Toe #3 (L), Toe #4 (L), Toe #5 (L) Thickening: Toe #5 (R), Toe #4 (R), Toe #3 (R), Toe #2 (R), Toe #1 (R), Toe #1 (L), Toe #2 (L), Toe #3 (L), Toe #4 (L), Toe #5 (L) Yellow, Brittle, &/or Opal: Toe #5 (R), Toe #4 (R), Toe #3 (R), Toe #2 (R) , Toe #1 (R), Toe #1 (L), Toe #2 (L), Toe #3 (L), Toe #4 (L), Toe #5 (L) Vascular/Lymphatic Exam R Dorsails Pedis: Doppler L Dorsails Pedis: Doppler R Posterior Tibial: Doppler L Posterior Tibial: Doppler Neurologic Exam Present on right: Tingling, Paraesthesia Present on left: Tingling, Paraesthesia Lab and Radiology Results Laboratory Laboratory Tests Test 11/28/17 10:53 11/29/17 04:10 Blood Urea Nitrogen 43 MG/DL 45 MG/DL Creatinine 1.33 MG/DL 1.50 MG/DL Random Glucose 251 MG/DL 164 MG/DL Calcium Level 8.6 MG/DL 8.7 MG/DL Sodium Level 135 MEQ/L 133 MEQ/L Potassium Level 4.0 MEQ/L 4.0 MEQ/L Chloride Level 92 MEQ/L 90 MEQ/L Carbon Dioxide Level 39.4 MEQ/L 37.3 MEQ/L Anion Gap 4 MEQ/L 6 MEQ/L Estimat Glomerular Filtration Rate 39 ML/MIN 34 ML/MIN Radiology Last Impressions Lung Scan-VQ Nuclear Medicine 11/29/17 0000 Signed Impressions: Service Date/Time: Wednesday, November 29, 2017 10:28 - CONCLUSION: Low probability scan for pulmonary embolism Cameron Spencer MD Chest X-Ray 11/25/17 0000 Signed Impressions: Service Date/Time: November 09:01 - CONCLUSION: Improving bibasilar infiltrates and tiny effusions. Charbel Urbina Jr., MD Renal Ultrasound 11/20/17 0000 Signed Impressions: Service Date/Time: Monday, November 20, 2017 16:17 - CONCLUSION: 1. Echogenic kidneys typical of chronic parenchymal disease. No obstructive uropathy or other acute abnormality demonstrated. 2. Sludge and at least one stone in the gallbladder. Cameron Alberts MD Head CT 11/20/17 0000 Signed Impressions: Service Date/Time: Monday, November 20, 2017 21:48 - CONCLUSION: No acute intracranial abnormality demonstrated. Cameron Alberts MD Lower Extremity Ultrasound 11/17/17 0000 Signed Impressions: Service Date/Time: Friday, November 17, 2017 21:57 - CONCLUSION: Normal examination. Albert Kendall MD Lower Extremity CT 11/16/17 1344 Signed Impressions: Service Date/Time: Thursday, November 16, 2017 14:12 - CONCLUSION: 1. Extensive edema and inflammatory changes with skin thickening in the thigh especially laterally and posteriorly but also extending medially. No definite loculated abscess. Musculature grossly intact. No abnormal loculated air. No bony destructive changes. Moderate to severe osteoarthritis at the knee. Albert Kendall MD Tibia/Fibula X-Ray 11/16/17 0000 Signed Impressions: Service Date/Time: Thursday, November 16, 2017 11:19 - CONCLUSION: 1. No acute bony abnormalities identified within the tibia. Moderate to severe osteoarthritis with medial joint space. Fixation calcaneus with residual deformity. Albert Kendall MD Assessment/Plan Problem List: (1) Diabetes Status: Chronic (2) Onychomycosis Status: Chronic (3) Skin ulcer of lower extremity Status: Acute Additional Plans & Procedures PLAN: Nails were debrided 1 through 5 bilaterally. Santyl ointment was ordered to the ulcerations to be changed daily. Will follow as needed. Problem Qualifiers (1) Diabetes: Qualified Codes: E11.622 - Type 2 diabetes mellitus with other skin ulcer (2) Skin ulcer of lower extremity: Qualified Codes: L97.912 - Non-pressure chronic ulcer of unspecified part of right lower leg with fat layer exposed Tyler Crocker DPM Nov 29, 2017 13:20
--- NOTE | 2017-11-29 13:39 | RADRPT ---
EXAM DATE/TIME: 11/29/2017 11:11 [facility] COMPARISON: CHEST SINGLE AP, November 25, 2017, 9:01. INDICATIONS : Shortness of breath. MEDICAL HISTORY : Cardiovascular disease. Hypertension Diabetes mellitus type II. SURGICAL HISTORY : Appendectomy. Coronary artery stent. thoracic spine ENCOUNTER: Subsequent ACUITY: 2 weeks PAIN SCORE: Non-responsive. LOCATION: Bilateral chest FINDINGS: The heart remains enlarged. There has been slight interval improvement of the bilateral pulmonary inf iltrates compared to previous examination. Mild residual infiltrates are noted. Hardware is noted thr oughout the thoracic spine. CONCLUSION: Slight interval improvement of the diffuse bilateral pulmonary infiltrates with mild residual infiltr ates. Stable cardiomegaly. Narciso Pedraza MD on November 29, 2017 at 13:35 Board Certified Radiologist. This report was verified electronically.
--- NOTE | 2017-11-29 15:42 | PD.WCN.NOT ---
Wound Consult Description: Wound consult ordered by for Right ankle/ lower back Communicated with: Ivon BUTLER 5th floor [facility], Recommendation: 1) Reposition patient every 2 hours for comfort and offloading. 2) Apply Nystatin cream to inner buttocks/groin area then cover with Medline antifungal powder BID or after loose stool. 3) Refer to podiatry orders for lower extremity wounds. Additional Information: Patient was seen today on 5th floor [facility] by ticket writer and Ivon BUTLER 5th floor [facility]. Patient alert and oriented in Laura bed upon ticket writer arrival.No complaints of discomfort at this time.Lower bilateral extremities have several pressure injuries with intact dry eschar noted.Please refer to podiatry orders for wound care of lower extremities. Patient required 1 person min assist to reposition to right side.Patients inner buttocks and groin area presents with a mixed etiology of fungal,yeast and incontinence associated dermatitis.Scattered areas of denuded skin present with beefy red tissue base.no drainage or odor noted.All areas blanchable.Scattered bruises noted to upper and lower extremities. Buttocks and groin cleansed with normal saline pat dry nystatin cream applied to inner buttocks and groin.Ivon will apply antifungal powder when available.Patient was repositioned to right side for comfort and offloading. Selene Galindo [facility] Nov 29, 2017 15:42
--- NOTE | 2017-11-29 15:47 | HHI.PR ---
Subjective Remarks Patient resting in bed her creatinine increased back to 1.5 today, discussed with charge histotechnologist who ordered VQ scan to assess for her possible PTHC Is cussed with the nurse melanie Duron Objective Vitals Vital Signs Date Time Temp Pulse Resp B/P (MAP) Pulse Ox O2 Delivery O2 Flow Rate FiO2 11/29/17 12:00 98.2 63 22 116/56 (76) 90 11/29/17 08:36 98 Nasal Cannula 2.00 11/29/17 08:00 98.4 63 20 146/65 (92) 98 11/29/17 06:00 65 11/29/17 04:00 98.2 70 22 136/64 (88) 96 11/29/17 04:00 68 Nasal Cannula 1.00 11/29/17 04:00 67 11/29/17 02:00 65 11/29/17 00:00 97 Nasal Cannula 1.00 11/29/17 00:00 63 11/29/17 00:00 98.4 65 22 130/60 (83) 98 11/28/17 22:00 67 11/28/17 20:00 64 11/28/17 20:00 99.3 65 22 133/60 (84) 98 11/28/17 20:00 96 Nasal Cannula 1.00 11/28/17 19:45 97 Nasal Cannula 3.00 11/28/17 18:00 63 11/28/17 16:00 66 24 166/72 (103) 96 11/28/17 16:00 96 Nasal Cannula 1.00 11/28/17 16:00 66 I/O 11/28/17 11/28/17 11/28/17 11/29/17 11/29/17 11/29/17 06:59 14:59 22:59 06:59 14:59 22:59 Intake Total 350 ml 100 ml 480 ml 400 ml Output Total 1300 ml 1650 ml 1450 ml Balance -950 ml 100 ml -1170 ml -1050 ml Intake Oral 350 ml 480 ml 400 ml IV Total 100 ml Output Urine Total 1300 ml 1650 ml 1450 ml # Bowel Movements 2 2 3 Result Diagram: 11/27/17 0340 11/29/17 0410 Objective Remarks GENERAL: This is a well-nourished, well-developed patient, in no apparent distress. CARDIOVASCULAR: Regular rate and rhythm without murmurs, gallops, or rubs. RESPIRATORY: Clear to auscultation. Breath sounds equal bilaterally. No wheezes , rales, or rhonchi. GASTROINTESTINAL: Abdomen soft, non-tender, nondistended. Normal active bowel sounds MUSCULOSKELETAL: Extremities without clubbing, cyanosis, or edema. NEURO: Alert & Oriented x4 to person, place, time, situation. Moves all ext x4 Procedures none A/P Problem List: (1) Acute hypoxemic respiratory failure ICD Code: J96.01 - Acute respiratory failure with hypoxia Status: Acute (2) Severe sepsis ICD Code: A41.9 - Sepsis, unspecified organism; R65.20 - Severe sepsis without septic shock Status: Acute (3) Cellulitis of right lower extremity ICD Code: L03.115 - Cellulitis of right lower limb Status: Acute (4) UTI (urinary tract infection) ICD Code: N39.0 - Urinary tract infection, site not specified Status: Acute (5) LEWIS (acute kidney injury) ICD Code: N17.9 - Acute kidney failure, unspecified Status: Acute Assessment and Plan 11/28: Creatinine worsened from 1.09-1.41, continue antibiotic per ID, repeat BMP in a.m. monitor for any fever 11/29: Creatinine up to 1.5, discussed with pulmonology, recommended VQ scan to check for PTHC repeat BMP in a.m. A/P: Severe sepsis Urinary tract infection Pneumonia Cellulitis Resolved continue Diflucan Continue Rocephin Continue Flagyl ID following Topical candidiasis (at groin) Nystatin and Diflucan Acute respiratory failure pulmonary hypertension BiPAP as needed Weaned to nonrebreather as tolerated Follow on pulse ox Oxygen as needed Continue breathing treatments as needed pulmonary consulted.appreciate input Diabetes mellitus type 2 Follow blood sugars Insulin sliding scale Diabetic diet Hypertension Continue Coreg Follow blood pressures Acute renal failure Chronic kidney disease Monitor renal function Component of cardiorenal syndrome suspected Patient has shown improvement through time Hypothyroidism Continue Levothyroxine Follow TSH, T3, and T4 as an outpatient Atrial fibrillation Continue amiodarone Continue Coreg Continue digoxin Pradaxa resumed on 11/24/17 Follow on telemetry Acute encephalopathy. Was related to septic state and respiratory failure Resolved Hypokalemia Follow potassium levels Replace as needed Possible acute diastolic congestive heart failure versus pulmonary edema cardiology following wound on the lower back consulted wound care DVT prophylaxis dc heparin- Continue Pradaxa Problem Qualifiers (1) UTI (urinary tract infection): Qualified Codes: N39.0 - Urinary tract infection, site not specified Diego Castellanos MD Nov 29, 2017 15:47
--- NOTE | 2017-11-29 19:34 | PD.CARD.PN ---
Subjective Subjective Remarks Patient was seen earlier today, late entry No SOB at this time Objective Medications Current Medications Medications (Trade) Dose Ordered Sig/Jay Route Start Time Stop Time Status Last Admin (Morphine Inj) 2 mg Q3H PRN IV PUSH 11/16/17 14:00 (D50w (Vial) Inj) 50 ml UNSCH PRN IV PUSH 11/16/17 14:15 (Glucagon Inj) 1 mg UNSCH PRN OTHER 11/16/17 14:15 (NovoLIN R SUPPLEMENTAL SCALE) 1 ACHS SLIDING SCALE SQ 11/16/17 17:00 11/29/17 17:23 (Cordarone) 100 mg BID PO 11/16/17 21:00 11/29/17 09:04 (Lipitor) 10 mg HS PO 11/16/17 21:00 11/28/17 19:59 (Coreg) 3.125 mg BID PO 11/16/17 21:00 11/29/17 09:03 (Synthroid) 25 mcg DAILY@0600 PO 11/17/17 06:00 11/29/17 06:00 (Duoneb Neb) 1 ampule Q2HR NEB PRN NEB 11/18/17 12:00 11/26/17 08:25 (Haldol Inj) 2 mg Q4H PRN IM 11/19/17 14:00 11/22/17 02:08 (Vitamin D3) 2,000 units DAILY PO 11/22/17 09:00 11/29/17 09:03 Ceftriaxone Sodium 2000 mg/ Sodium Chloride 100 ml @ 200 mls/hr Q24H IV 11/22/17 09:00 12/01/17 08:59 11/29/17 09:05 (Tylenol) 650 mg Q4H PRN PO 11/23/17 08:45 11/23/17 12:05 (Benadryl) 25 mg Q4H PRN PO 11/23/17 08:45 11/23/17 12:05 (K-Lyte Cl Eff) 25 meq DAILY PO 11/23/17 11:45 11/29/17 09:04 (Levemir Inj) 10 units BID SQ 11/23/17 12:15 11/28/17 20:00 (Ana-Colace) 2 tab DAILY PO 11/25/17 09:00 (Zaroxolyn) 5 mg DAILY PO 11/25/17 09:00 2/5/18 09:04 (Pradaxa) 75 mg BID PO 11/24/17 21:00 Future Hold 11/29/17 09:04 (NovoLOG INJ) 5 units TIDAC SQ 11/25/17 08:00 11/29/17 17:22 (Mycostatin Cream) 1 applic Q6HR TOPICAL 11/25/17 12:00 11/29/17 17:22 (Flagyl) 500 mg Q8HR PO 11/25/17 09:15 11/29/17 13:31 (Diflucan) 100 mg DAILY PO 11/25/17 09:15 11/29/17 09:03 (Lasix) 20 mg BID@0900,1800 PO 11/25/17 18:06 11/29/17 17:21 (Albuterol Concentrated Neb) 2.5 mg Q6HR NEB PRN NEB 11/27/17 17:30 (Santyl Oint) 1 applic DAILY TOPICAL 11/30/17 09:00 Vital Signs / I&O Vital Signs Date Time Temp Pulse Resp B/P (MAP) Pulse Ox O2 Delivery O2 Flow Rate FiO2 11/29/17 18:00 66 11/29/17 16:00 90 Nasal Cannula 2.00 11/29/17 16:00 99.6 69 23 146/64 (91) 90 11/29/17 16:00 69 11/29/17 14:00 64 11/29/17 12:00 98.2 63 22 116/56 (76) 90 11/29/17 12:00 63 11/29/17 12:00 97 Nasal Cannula 2.00 11/29/17 10:00 67 11/29/17 08:36 98 Nasal Cannula 2.00 11/29/17 08:00 63 11/29/17 08:00 98.4 63 20 146/65 (92) 98 11/29/17 08:00 98 Nasal Cannula 2.00 11/29/17 06:00 65 11/29/17 04:00 98.2 70 22 136/64 (88) 96 11/29/17 04:00 68 Nasal Cannula 1.00 11/29/17 04:00 67 11/29/17 02:00 65 11/29/17 00:00 97 Nasal Cannula 1.00 11/29/17 00:00 63 11/29/17 00:00 98.4 65 22 130/60 (83) 98 11/28/17 22:00 67 11/28/17 20:00 64 11/28/17 20:00 99.3 65 22 133/60 (84) 98 11/28/17 20:00 96 Nasal Cannula 1.00 11/28/17 19:45 97 Nasal Cannula 3.00 I/O 11/28/17 11/28/17 11/28/17 11/29/17 11/29/17 11/29/17 07:00 15:00 23:00 07:00 15:00 23:00 Intake Total 350 ml 100 ml 480 ml 400 ml 475 ml Output Total 1300 ml 1650 ml 1450 ml 1375 ml Balance -950 ml 100 ml -1170 ml -1050 ml -900 ml Intake Oral 350 ml 480 ml 400 ml 475 ml IV Total 100 ml Output Urine Total 1300 ml 1650 ml 1450 ml 1375 ml # Bowel Movements 2 2 3 0 Physical Exam GENERAL: NAD, AAOx3 SKIN: Warm and dry. HEAD: Atraumatic. Normocephalic. EYES: Pupils equal and round. No scleral icterus. No injection or drainage. ENT: No nasal bleeding or discharge. Mucous membranes pink and moist. NECK: Trachea midline. No JVD. CARDIOVASCULAR: Regular rate and rhythm. RESPIRATORY: No accessory muscle use. Decreased breath sounds bilaterally GASTROINTESTINAL: Abdomen soft, non-tender, nondistended. Hepatic and splenic margins not palpable. MUSCULOSKELETAL: Extremities without clubbing, cyanosis, or edema. No obvious deformities. NEUROLOGICAL: Awake and alert. No obvious cranial nerve deficits. Motor grossly within normal limits. Five out of 5 muscle strength in the arms and legs. Normal speech. PSYCHIATRIC: Appropriate mood and affect; insight and judgment normal. Laboratory Laboratory Tests Test 11/29/17 04:10 Blood Urea Nitrogen 45 MG/DL Creatinine 1.50 MG/DL Random Glucose 164 MG/DL Calcium Level 8.7 MG/DL Sodium Level 133 MEQ/L Potassium Level 4.0 MEQ/L Chloride Level 90 MEQ/L Carbon Dioxide Level 37.3 MEQ/L Anion Gap 6 MEQ/L Estimat Glomerular Filtration Rate 34 ML/MIN Imaging Last 24 hours Impressions Lung Scan-V Nuclear Medicine 11/29/17 0000 Signed Impressions: Service Date/Time: Wednesday, November 29, 2017 10:28 - CONCLUSION: Low probability scan for pulmonary embolism Cameron Spencer MD Chest X-Ray 11/29/17 0000 Signed Impressions: Service Date/Time: Wednesday, November 29, 2017 11:11 - CONCLUSION: Slight interval improvement of the diffuse bilateral pulmonary infiltrates with mild residual infiltrates. Stable cardiomegaly. Narciso Pedraza MD Assessment and Plan Problem List: (1) Afib ICD Codes: I48.91 - Unspecified atrial fibrillation (2) Congestive heart failure ICD Codes: I50.9 - Heart failure, unspecified Status: Chronic (3) Severe sepsis ICD Codes: A41.9 - Sepsis, unspecified organism; R65.20 - Severe sepsis without septic shock Status: Acute (4) UTI (urinary tract infection) ICD Codes: N39.0 - Urinary tract infection, site not specified Status: Acute (5) Pulmonary hypertension ICD Codes: I27.20 - Pulmonary hypertension, unspecified (6) Renal insufficiency ICD Codes: N28.9 - Disorder of kidney and ureter, unspecified; R65.20 - Severe sepsis without septic shock Status: Acute (7) Cellulitis of right lower extremity ICD Codes: L03.115 - Cellulitis of right lower limb Status: Acute Assessment and Plan 1) Severe sepsis per primary team 2) Severe PHTN on echocardiogram Discussed with family, does not believe she was diagnosed with before Pulmonary evaluation appreciated Requesting RHC, plan for Wednesday as patient would like to discuss with her Pradaxa on hold for RHC Con't diuresis 3) Afib Heart rates controlled On Pradaxa 75mg BID (on hold for RHC) Discussed that she should most likely be on 150mg BID, but she says her doctor placed her on 75mg due to her bleeding risk, so for now will leave on 75mg BID Problem Qualifiers (1) Congestive heart failure: (2) UTI (urinary tract infection): Qualified Codes: N39.0 - Urinary tract infection, site not specified Que Barksdale DO Nov 29, 2017 19:34
[2017-11-29] MEDS: ATORVASTATIN 10 MG TAB PO SCH (21:06)
[2017-11-30] VITALS (8 sets, daily range): BP systolic 117–152; BP diastolic 58–73; PULSE 62–72; RESP 23–28; TEMP 98.4–98.9; O2SAT 92–98
[2017-11-30] MEDS: NYSTATIN 100,000 UNIT/GM CREAM 15 GM TOPICAL SCH ×4 (06:00→16:44)
[2017-11-30 06:20] LABS: AUTOMATED NEUTROPHIL # 8.1 TH/MM3 (1.8-7.7); BASOPHIL # 0.1 TH/MM3 (0-0.2); BASOPHIL % 0.9 % (0.0-2.0); EOSINOPHIL # 0.1 TH/MM3 (0-0.4); EOSINOPHIL % 0.4 % (0.0-4.0); HEMATOCRIT 25.5 % (35.0-46.0); HEMOGLOBIN 8.4 GM/DL (11.6-15.3); LYMPH % 10.2 % (9.0-44.0); LYMPHOCYTE # 1.2 TH/MM3 (1.0-4.8); MEAN CELL VOLUME 84.3 FL (80.0-100.0); MEAN CORPUSCULAR HEMOGLOBIN 27.7 PG (27.0-34.0); MEAN CORPUSCULAR HGB CONC 32.8 % (32.0-36.0); MEAN PLATELET VOLUME 9.9 FL (7.0-11.0); MONO % 17.6 % (0.0-8.0); NEUT % 70.9 % (16.0-70.0); PLATELET COUNT 257 TH/MM3 (150-450); RED BLOOD COUNT 3.03 MIL/MM3 (4.00-5.30); RED CELL DISTRIBUTION WIDTH 19.1 % (11.6-17.2); WHITE BLOOD COUNT 11.5 TH/MM3 (4.0-11.0)
[2017-11-30] MEDS: LEVOTHYROXINE SODIUM 25 MCG TAB PO SCH (06:41)
[2017-11-30] MEDS: metroNIDAZOLE 500 MG TAB PO SCH (06:41)
[2017-11-30 07:03] LABS: BICARBONATE 34.4 MEQ/L (21.0-32.0); CALCIUM 9.3 MG/DL (8.5-10.1); CREATININE 1.72 MG/DL (0.50-1.00)
[2017-11-30] MEDS: INSULIN NovoLIN REGULAR SUPPLEMENTAL SCALE SQ SCH ×4 (08:00→20:59)
[2017-11-30] MEDS: CARVEDILOL 3.125 MG TAB PO SCH ×2 (08:54→20:59)
[2017-11-30] MEDS: AMIODARONE 200 MG TAB PO SCH ×2 (08:54→20:59)
[2017-11-30] MEDS: DOCUSATE SODIUM 50 MG/SENNA 8.6 MG TAB PO SCH (08:54)
[2017-11-30] MEDS: CHOLECALCIFEROL (VIT D3) 1000 UNIT TAB PO SCH (08:54)
[2017-11-30] MEDS: INSULIN ASPART 1,000 UNITS/10 ML VIAL SQ SCH ×3 (08:55→16:44)
[2017-11-30] MEDS: INSULIN DETEMIR 100 UNITS/ML VIAL SQ SCH ×2 (08:55→20:59)
[2017-11-30] MEDS: POTASSIUM CHLORIDE 25 MEQ EFFERVESCENT TAB PO SCH (08:55)
[2017-11-30] MEDS: COLLAGENASE OINT 30 GM TUBE TOPICAL SCH (08:56)
[2017-11-30] MEDS: cefTRIAXone INJ 2,000 MG in SODIUM CHLORIDE 0.9% INJ 100 ML IV SCH (08:56)
--- NOTE | 2017-11-30 08:58 | PD.CARD.PN ---
Subjective Subjective Remarks No SOB at this time Doing alright overall Objective Medications Current Medications Medications (Trade) Dose Ordered Sig/Jay Route Start Time Stop Time Status Last Admin (Morphine Inj) 2 mg Q3H PRN IV PUSH 11/16/17 14:00 (D50w (Vial) Inj) 50 ml UNSCH PRN IV PUSH 11/16/17 14:15 (Glucagon Inj) 1 mg UNSCH PRN OTHER 11/16/17 14:15 (NovoLIN R SUPPLEMENTAL SCALE) 1 ACHS SLIDING SCALE SQ 11/16/17 17:00 11/29/17 21:08 (Cordarone) 100 mg BID PO 11/16/17 21:00 11/29/17 21:07 (Lipitor) 10 mg HS PO 11/16/17 21:00 11/29/17 21:06 (Coreg) 3.125 mg BID PO 11/16/17 21:00 11/29/17 21:07 (Synthroid) 25 mcg DAILY@0600 PO 11/17/17 06:00 11/30/17 06:41 (Duoneb Neb) 1 ampule Q2HR NEB PRN NEB 11/18/17 12:00 11/26/17 08:25 (Haldol Inj) 2 mg Q4H PRN IM 11/19/17 14:00 11/22/17 02:08 (Vitamin D3) 2,000 units DAILY PO 11/22/17 09:00 11/29/17 09:03 Ceftriaxone Sodium 2000 mg/ Sodium Chloride 100 ml @ 200 mls/hr Q24H IV 11/22/17 09:00 12/01/17 08:59 11/29/17 09:05 (Tylenol) 650 mg Q4H PRN PO 11/23/17 08:45 11/23/17 12:05 (Benadryl) 25 mg Q4H PRN PO 11/23/17 08:45 11/23/17 12:05 (K-Lyte Cl Eff) 25 meq DAILY PO 11/23/17 11:45 11/29/17 09:04 (Levemir Inj) 10 units BID SQ 11/23/17 12:15 11/29/17 21:08 (Ana-Colace) 2 tab DAILY PO 11/25/17 09:00 (Zaroxolyn) 5 mg DAILY PO 11/25/17 09:00 11/29/17 09:04 (Pradaxa) 75 mg BID PO 11/24/17 21:00 Future Hold 11/29/17 09:04 (NovoLOG INJ) 5 units TIDAC SQ 11/25/17 08:00 11/29/17 17:22 (Mycostatin Cream) 1 applic Q6HR TOPICAL 11/25/17 12:00 11/30/17 06:00 (Flagyl) 500 mg Q8HR PO 11/25/17 09:15 11/30/17 06:41 (Diflucan) 100 mg DAILY PO 11/25/17 09:15 11/29/17 09:03 (Lasix) 20 mg BID@0900,1800 PO 11/25/17 18:06 11/29/17 17:21 (Albuterol Concentrated Neb) 2.5 mg Q6HR NEB PRN NEB 11/27/17 17:30 (Santyl Oint) 1 applic DAILY TOPICAL 11/30/17 09:00 Vital Signs / I&O Vital Signs Date Time Temp Pulse Resp B/P (MAP) Pulse Ox O2 Delivery O2 Flow Rate FiO2 11/30/17 04:00 95 Nasal Cannula 2.00 11/30/17 04:00 64 11/30/17 04:00 98.8 64 23 117/58 (77) 95 11/30/17 00:00 67 11/30/17 00:00 98.4 67 27 123/59 (80) 95 11/30/17 00:00 95 Nasal Cannula 2.00 11/29/17 21:14 95 Nasal Cannula 2.00 11/29/17 20:00 98.8 69 24 141/65 (90) 89 11/29/17 20:00 69 11/29/17 20:00 92 Nasal Cannula 2.00 11/29/17 18:00 66 11/29/17 16:00 90 Nasal Cannula 2.00 11/29/17 16:00 99.6 69 23 146/64 (91) 90 11/29/17 16:00 69 11/29/17 14:00 64 11/29/17 12:00 98.2 63 22 116/56 (76) 90 11/29/17 12:00 63 11/29/17 12:00 97 Nasal Cannula 2.00 11/29/17 10:00 67 I/O 11/29/17 11/29/17 11/29/17 11/30/17 11/30/17 11/30/17 07:00 15:00 23:00 07:00 15:00 23:00 Intake Total 400 ml 475 ml Output Total 1450 ml 1375 ml Balance -1050 ml -900 ml Intake Oral 400 ml 475 ml Output Urine Total 1450 ml 1375 ml # Voids 2 # Bowel Movements 3 0 3 Physical Exam GENERAL: NAD, AAOx3 SKIN: Warm and dry. HEAD: Atraumatic. Normocephalic. EYES: Pupils equal and round. No scleral icterus. No injection or drainage. ENT: No nasal bleeding or discharge. Mucous membranes pink and moist. NECK: Trachea midline. No JVD. CARDIOVASCULAR: Regular rate and rhythm. RESPIRATORY: No accessory muscle use. Decreased breath sounds bilaterally GASTROINTESTINAL: Abdomen soft, non-tender, nondistended. Hepatic and splenic margins not palpable. MUSCULOSKELETAL: Extremities without clubbing, cyanosis, or edema. No obvious deformities. NEUROLOGICAL: Awake and alert. No obvious cranial nerve deficits. Motor grossly within normal limits. Five out of 5 muscle strength in the arms and legs. Normal speech. PSYCHIATRIC: Appropriate mood and affect; insight and judgment normal. Laboratory Laboratory Tests Test 11/30/17 05:30 White Blood Count 11.5 TH/MM3 Red Blood Count 3.03 MIL/MM3 Hemoglobin 8.4 GM/DL Hematocrit 25.5 % Mean Corpuscular Volume 84.3 FL Mean Corpuscular Hemoglobin 27.7 PG Mean Corpuscular Hemoglobin Concent 32.8 % Red Cell Distribution Width 19.1 % Platelet Count 257 TH/MM3 Mean Platelet Volume 9.9 FL Neutrophils (%) (Auto) 70.9 % Lymphocytes (%) (Auto) 10.2 % Monocytes (%) (Auto) 17.6 % Eosinophils (%) (Auto) 0.4 % Basophils (%) (Auto) 0.9 % Neutrophils # (Auto) 8.1 TH/MM3 Lymphocytes # (Auto) 1.2 TH/MM3 Monocytes # (Auto) 2.0 TH/MM3 Eosinophils # (Auto) 0.1 TH/MM3 Basophils # (Auto) 0.1 TH/MM3 CBC Comment DIFF FINAL Differential Comment Blood Urea Nitrogen 51 MG/DL Creatinine 1.72 MG/DL Random Glucose 155 MG/DL Calcium Level 9.3 MG/DL Sodium Level 131 MEQ/L Potassium Level 4.1 MEQ/L Chloride Level 90 MEQ/L Carbon Dioxide Level 34.4 MEQ/L Anion Gap 7 MEQ/L Estimat Glomerular Filtration Rate 29 ML/MIN Assessment and Plan Problem List: (1) Afib ICD Codes: I48.91 - Unspecified atrial fibrillation (2) Congestive heart failure ICD Codes: I50.9 - Heart failure, unspecified Status: Chronic (3) Severe sepsis ICD Codes: A41.9 - Sepsis, unspecified organism; R65.20 - Severe sepsis without septic shock Status: Acute (4) UTI (urinary tract infection) ICD Codes: N39.0 - Urinary tract infection, site not specified Status: Acute (5) Pulmonary hypertension ICD Codes: I27.20 - Pulmonary hypertension, unspecified (6) Renal insufficiency ICD Codes: N28.9 - Disorder of kidney and ureter, unspecified; R65.20 - Severe sepsis without septic shock Status: Acute (7) Cellulitis of right lower extremity ICD Codes: L03.115 - Cellulitis of right lower limb Status: Acute Assessment and Plan 1) Severe sepsis per primary team 2) Severe PHTN on echocardiogram Discussed with family, does not believe she was diagnosed with before Pulmonary evaluation appreciated Requesting RHC Per the patient, she talked with her family and wants to wait until getting back to [place] for RHC Left my number to discuss with the , if no RHC will place back on Pradaxa Pradaxa on hold for RHC 3) Afib Heart rates controlled On Pradaxa 75mg BID (on hold for RHC) Discussed that she should most likely be on 150mg BID, but she says her doctor placed her on 75mg due to her bleeding risk, so for now will leave on 75mg BID 4) LEWIS Will back down on diuresis, stopping Zaroxolyn Problem Qualifiers (1) Congestive heart failure: (2) UTI (urinary tract infection): Qualified Codes: N39.0 - Urinary tract infection, site not specified Que Barksdale DO Nov 30, 2017 08:58
[2017-11-30] MEDS: FLUCONAZOLE 100 MG TAB PO SCH (09:00)
[2017-11-30] MEDS: FUROSEMIDE 20 MG TAB PO SCH ×2 (09:00→16:43)
--- NOTE | 2017-11-30 10:28 | HHI.IDPN ---
Subjective Subjective Remarks is a 77 y/o CF with PMHx of RLE hardware in calcaneum who was admitted initially at [facility] and transferred to [facility] for evaluation for need for possible necrotizing fascitis and need for surgery. Patient had a sepsis workup done on admission. She was evaluated by General Surgery and no plan for surgical intervention, they recommend medical management. On Imaging there is no evidence of necrotizing fascitis (no air or fluid collections). Patient was reportedly in her usual state of health until about a week ago when she says she began noticing some increased swelling of her right lower extremity more than usual. This was associated with formation of some blistering and weeping. She started having pain with weightbearing yesterday and then this morning that's when she noticed a new onset redness extending from her ankle up to her knee prompting her to come to the emergency department. Patient was on regular floor yesterday but due to resp distress and encephalopathy was transferred to ICU and evaluated by tester compressed gases. Patient was on BiPAP last night and reportedly non compliant. At the time of my evaluation patient is in the ICU, on 4L NC sats 91%, UO good, recd lasix, not on pressors. No richter in place. No CL in place. Alert, oriented x 2, Non focal exam. She endorses nausea but no vomiting. On questioning reports low grade fever. Denies cough chest pain or other Cardio pulm symptoms. She did recently go on vacation but does not think she injured herself or suffered any puncture site. ID was consulted for evaluation and Mment of Sepsis, RLE cellulitis, Possible ESBL UTI and Strep bacteremia. Overnight events reviewed. Remains in ICU. Off restraints. Awake and converses appropriately with me. No rash No fevers Remains on 2L NC Oxygen. Antibiotics Ceftriaxone IV Lines Line sites with no e.o infection Past Medical History Hypertension, A. fib, diabetes Hypothyroidism Past Surgical History left tib fib repair; back surgery with hardware in place. Allergies: Coded Allergies: No Known Allergies (Unverified , 11/16/17) Objective . Vital Signs Date Time Temp Pulse Resp B/P (MAP) Pulse Ox O2 Delivery O2 Flow Rate FiO2 11/30/17 10:05 96 Nasal Cannula 2.00 11/30/17 04:00 95 Nasal Cannula 2.00 11/30/17 04:00 64 11/30/17 04:00 98.8 64 23 117/58 (77) 95 11/30/17 00:00 67 11/30/17 00:00 98.4 67 27 123/59 (80) 95 11/30/17 00:00 95 Nasal Cannula 2.00 11/29/17 21:14 95 Nasal Cannula 2.00 11/29/17 20:00 98.8 69 24 141/65 (90) 89 11/29/17 20:00 69 11/29/17 20:00 92 Nasal Cannula 2.00 11/29/17 18:00 66 11/29/17 16:00 90 Nasal Cannula 2.00 11/29/17 16:00 99.6 69 23 146/64 (91) 90 11/29/17 16:00 69 11/29/17 14:00 64 11/29/17 12:00 98.2 63 22 116/56 (76) 90 11/29/17 12:00 63 11/29/17 12:00 97 Nasal Cannula 2.00 . Laboratory Tests Test 11/30/17 05:30 White Blood Count 11.5 TH/MM3 Red Blood Count 3.03 MIL/MM3 Hemoglobin 8.4 GM/DL Hematocrit 25.5 % Mean Corpuscular Volume 84.3 FL Mean Corpuscular Hemoglobin 27.7 PG Mean Corpuscular Hemoglobin Concent 32.8 % Red Cell Distribution Width 19.1 % Platelet Count 257 TH/MM3 Mean Platelet Volume 9.9 FL Neutrophils (%) (Auto) 70.9 % Lymphocytes (%) (Auto) 10.2 % Monocytes (%) (Auto) 17.6 % Eosinophils (%) (Auto) 0.4 % Basophils (%) (Auto) 0.9 % Neutrophils # (Auto) 8.1 TH/MM3 Lymphocytes # (Auto) 1.2 TH/MM3 Monocytes # (Auto) 2.0 TH/MM3 Eosinophils # (Auto) 0.1 TH/MM3 Basophils # (Auto) 0.1 TH/MM3 CBC Comment DIFF FINAL Differential Comment Laboratory Tests Test 11/28/17 10:53 11/29/17 04:10 11/30/17 05:30 Blood Urea Nitrogen 43 MG/DL 45 MG/DL 51 MG/DL Creatinine 1.33 MG/DL 1.50 MG/DL 1.72 MG/DL Random Glucose 251 MG/DL 164 MG/DL 155 MG/DL Calcium Level 8.6 MG/DL 8.7 MG/DL 9.3 MG/DL Sodium Level 135 MEQ/L 133 MEQ/L 131 MEQ/L Potassium Level 4.0 MEQ/L 4.0 MEQ/L 4.1 MEQ/L Chloride Level 92 MEQ/L 90 MEQ/L 90 MEQ/L Carbon Dioxide Level 39.4 MEQ/L 37.3 MEQ/L 34.4 MEQ/L Anion Gap 4 MEQ/L 6 MEQ/L 7 MEQ/L Estimat Glomerular Filtration Rate 39 ML/MIN 34 ML/MIN 29 ML/MIN Imaging Last Impressions Renal Ultrasound 11/20/17 0000 Signed Impressions: Service Date/Time: Monday, November 20, 2017 16:17 - CONCLUSION: 1. Echogenic kidneys typical of chronic parenchymal disease. No obstructive uropathy or other acute abnormality demonstrated. 2. Sludge and at least one stone in the gallbladder. Cameron Alberts MD Head CT 11/20/17 0000 Signed Impressions: Service Date/Time: Monday, November 20, 2017 21:48 - CONCLUSION: No acute intracranial abnormality demonstrated. Cameron Alberts MD Chest X-Ray 11/20/17 0000 Signed Impressions: Service Date/Time: Monday, November 20, 2017 09:52 - CONCLUSION: Stable exam. Debby Pruitt MD Lower Extremity Ultrasound 11/17/17 0000 Signed Impressions: Service Date/Time: Friday, November 17, 2017 21:57 - CONCLUSION: Normal examination. Albert Kendall MD Lower Extremity CT 11/16/17 1344 Signed Impressions: Service Date/Time: Thursday, November 16, 2017 14:12 - CONCLUSION: 1. Extensive edema and inflammatory changes with skin thickening in the thigh especially laterally and posteriorly but also extending medially. No definite loculated abscess. Musculature grossly intact. No abnormal loculated air. No bony destructive changes. Moderate to severe osteoarthritis at the knee. Albert Kendall MD Tibia/Fibula X-Ray 11/16/17 0000 Signed Impressions: Service Date/Time: Thursday, November 16, 2017 11:19 - CONCLUSION: 1. No acute bony abnormalities identified within the tibia. Moderate to severe osteoarthritis with medial joint space. Fixation calcaneus with residual deformity. Albret Kendall MD Physical Exam GENERAL: Obese, poorly kempt patient, in no apparent distress. SKIN: No generalized rashes, Ecchymosis. HEAD: Atraumatic. Normocephalic. No temporal or scalp tenderness. EYES: Pupils equal round and reactive. Extraocular motions intact. No scleral icterus. No injection or drainage. ENT: Nose without bleeding, purulent drainage or septal hematoma. NECK: Trachea midline. Supple, nontender, no meningeal signs. CARDIOVASCULAR: HS audible. RESPIRATORY: Clear to auscultation. Breath sounds equal bilaterally. GASTROINTESTINAL: Abdomen soft, non-tender, nondistended. MUSCULOSKELETAL: Le ulcers appear have minimal if any erythema close to medial aspect of ankle and slightly above it. Overall improved and ready for stopping antibiotics. NEUROLOGICAL: Awake and alert.Non focal exam Psych cooperative IV line sites with no e.o infection. Assessment & Plan Remarks Sepsis present on admission RLE cellulitis with blisters c/w Strep erysipelas. Wound cx with Strep Not ABD and pansensitive Ac baumannii ESBL E.coli UTI likely contamination as UA straight cath was negative and did not reflex to culture. Prior to appropriate antibiotic initiation. Strep bacteremia likely secondary to Cellulitis. Acute resp failure on 4L NC. Acute renal failure: sepsis, prerenal. Leukemoid reaction: steroids, infection. CXR with infiltrates clinically improved. Retention of urine: richter in place. Recs: Continue Ceftriaxone IV covers Strep bacteremia, Strep and Ac baumannii cellulitis. (Stop date: 12/01/2017) DC Flagyl DC Diflucan Continue to Elevate leg as much as possible. Dressings for blister area. If these dont resolve consider supervisor lending activities consult. Follow cultures follow clinically. d/w RN Will sign off please call back if any change in clinical condition or questions. Karina Macias MD Nov 30, 2017 10:28
--- NOTE | 2017-11-30 14:23 | HHI.PR ---
Subjective Remarks Patient still be satting on room air 83 Still on oxygen, denied chest pain or fever I discussed with her being discharged to rehabilitation spleen to her that he is not ready to fly back to [place] with her situation Objective Vitals Vital Signs Date Time Temp Pulse Resp B/P (MAP) Pulse Ox O2 Delivery O2 Flow Rate FiO2 11/30/17 12:00 98.9 64 26 138/63 (88) 96 11/30/17 12:00 95 Nasal Cannula 2.00 11/30/17 12:00 64 11/30/17 10:05 96 Nasal Cannula 2.00 11/30/17 08:00 97 Nasal Cannula 2.00 11/30/17 08:00 62 11/30/17 08:00 98.9 62 24 145/73 (97) 97 11/30/17 04:00 95 Nasal Cannula 2.00 11/30/17 04:00 64 11/30/17 04:00 98.8 64 23 117/58 (77) 95 11/30/17 00:00 67 11/30/17 00:00 98.4 67 27 123/59 (80) 95 11/30/17 00:00 95 Nasal Cannula 2.00 11/29/17 21:14 95 Nasal Cannula 2.00 11/29/17 20:00 98.8 69 24 141/65 (90) 89 11/29/17 20:00 69 11/29/17 20:00 92 Nasal Cannula 2.00 11/29/17 18:00 66 11/29/17 16:00 90 Nasal Cannula 2.00 11/29/17 16:00 99.6 69 23 146/64 (91) 90 11/29/17 16:00 69 I/O 11/29/17 11/29/17 11/29/17 11/30/17 11/30/17 11/30/17 07:00 15:00 23:00 07:00 15:00 23:00 Intake Total 400 ml 475 ml 100 ml Output Total 1450 ml 1375 ml Balance -1050 ml -900 ml 100 ml Intake Oral 400 ml 475 ml IV Total 100 ml Output Urine Total 1450 ml 1375 ml # Voids 2 # Bowel Movements 3 0 3 Result Diagram: 11/30/1730 11/30/17 0530 Objective Remarks GENERAL: This is a well-nourished, well-developed patient, in no apparent distress. CARDIOVASCULAR: Regular rate and rhythm without murmurs, gallops, or rubs. RESPIRATORY: Clear to auscultation. Breath sounds equal bilaterally. No wheezes , rales, or rhonchi. GASTROINTESTINAL: Abdomen soft, non-tender, nondistended. Normal active bowel sounds MUSCULOSKELETAL: Extremities without clubbing, cyanosis, or edema. NEURO: Alert & Oriented x4 to person, place, time, situation. Moves all ext x4 Procedures none A/P Problem List: (1) Acute hypoxemic respiratory failure ICD Code: J96.01 - Acute respiratory failure with hypoxia Status: Acute (2) Severe sepsis ICD Code: A41.9 - Sepsis, unspecified organism; R65.20 - Severe sepsis without septic shock Status: Acute (3) Cellulitis of right lower extremity ICD Code: L03.115 - Cellulitis of right lower limb Status: Acute (4) UTI (urinary tract infection) ICD Code: N39.0 - Urinary tract infection, site not specified Status: Acute (5) LEWIS (acute kidney injury) ICD Code: N17.9 - Acute kidney failure, unspecified Status: Acute Assessment and Plan 11/28: Creatinine worsened from 1.09-1.41, continue antibiotic per ID, repeat BMP in a.m. monitor for any fever 11/29: Creatinine up to 1.5, discussed with pulmonology, recommended VQ scan to check for PTHC repeat BMP in a.m. 11/30: Creatinine went back up to 1.7 but still around baseline, cardiology discussed with the and ended up deciding to wait on the right heart catheter until going to [place], I explained to the patient that going back a few days after discharge will not be safe yet for her, she will think about rehabilitation, she seems she is accepting the idea after explained to her, she will have her last dose of Rocephin tomorrow and then she will be cleared for discharge to rehabilitation, I discussed with the test case developer I asked her to arrange for rehabilitation in case patient ended up agreeing otherwise she can go home with home health care and she can follow up with her primary care to decide on clearance for traveling A/P: Severe sepsis Urinary tract infection Pneumonia Cellulitis Resolved continue Diflucan Continue Rocephin Continue Flagyl ID following Topical candidiasis (at groin) Nystatin and Diflucan Acute respiratory failure pulmonary hypertension BiPAP as needed Weaned to nonrebreather as tolerated Follow on pulse ox Oxygen as needed Continue breathing treatments as needed pulmonary consulted.appreciate input Diabetes mellitus type 2 Follow blood sugars Insulin sliding scale Diabetic diet Hypertension Continue Coreg Follow blood pressures Acute renal failure Chronic kidney disease Monitor renal function Component of cardiorenal syndrome suspected Patient has shown improvement through time Hypothyroidism Continue Levothyroxine Follow TSH, T3, and T4 as an outpatient Atrial fibrillation Continue amiodarone Continue Coreg Continue digoxin Pradaxa resumed on 11/24/17 Follow on telemetry Acute encephalopathy. Was related to septic state and respiratory failure Resolved Hypokalemia Follow potassium levels Replace as needed Possible acute diastolic congestive heart failure versus pulmonary edema cardiology following wound on the lower back consulted wound care DVT prophylaxis dc heparin- Continue Pradaxa Problem Qualifiers (1) UTI (urinary tract infection): Qualified Codes: N39.0 - Urinary tract infection, site not specified Diego Castellanos MD Nov 30, 2017 14:23
--- NOTE | 2017-11-30 19:58 | HHI.PR ---
Subjective Remarks Alert today. Leg ulcer healing and skin lesions are better. On O2 2 L. Patient has a finance analyst in [place] who gave her O2, for home use. On Antibiotics..CXR is better. On Antibiotics for Strep sepsis Objective Vital Signs Date Time Temp Pulse Resp B/P (MAP) Pulse Ox O2 Delivery O2 Flow Rate FiO2 11/30/17 16:00 68 11/30/17 16:00 98.7 68 24 148/66 (93) 98 11/30/17 16:00 98 Nasal Cannula 2.00 11/30/17 12:00 98.9 64 26 138/63 (88) 96 11/30/17 12:00 95 Nasal Cannula 2.00 11/30/17 12:00 64 11/30/17 10:05 96 Nasal Cannula 2.00 11/30/17 08:00 97 Nasal Cannula 2.00 11/30/17 08:00 62 11/30/17 08:00 98.9 62 24 145/73 (97) 97 11/30/17 04:00 95 Nasal Cannula 2.00 11/30/17 04:00 64 11/30/17 04:00 98.8 64 23 117/58 (77) 95 11/30/17 00:00 67 11/30/17 00:00 98.4 67 27 123/59 (80) 95 11/30/17 00:00 95 Nasal Cannula 2.00 11/29/17 21:14 95 Nasal Cannula 2.00 11/29/17 20:00 98.8 69 24 141/65 (90) 89 11/29/17 20:00 69 11/29/17 20:00 92 Nasal Cannula 2.00 I/O 11/29/17 11/29/17 11/29/17 11/30/17 11/30/17 11/30/17 07:00 15:00 23:00 07:00 15:00 23:00 Intake Total 400 ml 475 ml 100 ml 720 ml Output Total 1450 ml 1375 ml 600 ml Balance -1050 ml -900 ml 100 ml 120 ml Intake Oral 400 ml 475 ml 720 ml IV Total 100 ml Output Urine Total 1450 ml 1375 ml 600 ml # Voids 2 # Bowel Movements 3 0 3 1 Result Diagram: 11/30/1730 11/30/17 0530 Objective Remarks GENERAL: This is an averagely built elderly lady who is alert. HEAD, EYES, EARS, NOSE, THROAT: Head normocephalic. The pupils are reactive. Tongue is moist. Throat is clear. NECK: The neck is supple. No bruits. No thyroid enlargement. No lymphadenopathy. There is a scar anteriorly from the previous tracheostomy. CHEST: Equal movements with decreased excursions and breath sounds diminished at the periphery. Occasional wheezes bilaterally. No Crackles. HEART: The heart sounds are irregular. S1 and S2. No murmur. ABDOMEN: Abdomen is soft and protuberant without masses. No organomegaly or tenderness. EXTREMITIES: Decreased pulses. NEUROLOGIC: Reflexes are 1+ with no gross motor deficits. Cranial nerves are grossly intact. SKIN: There is ulceration of the right leg healing at the medial aspect of the leg. Assessment and Plan Assessment and Plan IMPRESSION: 1. Cellulitis of the right foot and leg with sepsis. 2. History of diabetes mellitus. 3. Hypertension. 4. Pulmonary hypertension. 5. Acute kidney injury. 6. Atrial fibrillation, chronic. 7. Urinary tract infection. 8. Rule out interstitial lung disease. Plan : 1. Cont Duo Nebs qid PRN 2. O2 at 2 L. 3. Continue antibiotics per ID . 4. Up with help. 5. BMP CBC PFT 6. PT Evaluation. 7. Further W/U for pulmonary HTN when Stable clinically Toby Ann MD Nov 30, 2017 19:58
[2017-11-30] MEDS: ATORVASTATIN 10 MG TAB PO SCH (20:59)
[2017-11-30] MEDS: DABIGATRAN ETEXILATE 75 MG CAP PO SCH (21:43)
[2017-12-01] VITALS (7 sets, daily range): BP systolic 115–144; BP diastolic 56–65; PULSE 63–70; RESP 18–24; TEMP 98–99.2; O2SAT 90–96
[2017-12-01] MEDS: NYSTATIN 100,000 UNIT/GM CREAM 15 GM TOPICAL SCH ×3 (00:07→12:22)
[2017-12-01] MEDS: LEVOTHYROXINE SODIUM 25 MCG TAB PO SCH (05:30)
[2017-12-01] MEDS: INSULIN NovoLIN REGULAR SUPPLEMENTAL SCALE SQ SCH ×2 (08:00→12:20)
[2017-12-01] MEDS: POTASSIUM CHLORIDE 25 MEQ EFFERVESCENT TAB PO SCH (08:32)
[2017-12-01] MEDS: CHOLECALCIFEROL (VIT D3) 1000 UNIT TAB PO SCH (08:32)
[2017-12-01] MEDS: AMIODARONE 200 MG TAB PO SCH (08:33)
[2017-12-01] MEDS: DOCUSATE SODIUM 50 MG/SENNA 8.6 MG TAB PO SCH (08:35)
[2017-12-01] MEDS: DABIGATRAN ETEXILATE 75 MG CAP PO SCH (08:36)
[2017-12-01] MEDS: INSULIN DETEMIR 100 UNITS/ML VIAL SQ SCH (08:36)
[2017-12-01] MEDS: INSULIN ASPART 1,000 UNITS/10 ML VIAL SQ SCH ×2 (08:36→12:20)
[2017-12-01] MEDS: CARVEDILOL 3.125 MG TAB PO SCH (08:36)
[2017-12-01] MEDS: COLLAGENASE OINT 30 GM TUBE TOPICAL SCH (08:38)
[2017-12-01] MEDS: FUROSEMIDE 20 MG TAB PO SCH (08:44)
[2017-12-01] MEDS ORDERED: cefTRIAXone INJ 2,000 MG in SODIUM CHLORIDE 0.9% INJ 100 ML IV ONE (11:30)
--- NOTE | 2017-12-01 13:17 | HHI.PR ---
Subjective Remarks patient states feeling better "moving more with no pain" "want to get out of bed more" afebrile denies any headaches, nausea or vomiting Objective Vitals Vital Signs Date Time Temp Pulse Resp B/P (MAP) Pulse Ox O2 Delivery O2 Flow Rate FiO2 12/01/17 11:49 98.7 70 18 144/65 (91) 90 12/01/17 07:52 98.6 68 18 117/58 (77) 90 12/01/17 04:26 63 12/01/17 03:35 98.0 68 18 133/60 (84) 96 12/01/17 02:29 98.9 67 18 115/56 (75) 95 12/01/17 02:00 Nasal Cannula 2.00 12/01/17 00:00 98.6 63 24 133/61 (85) 95 12/01/17 00:00 95 Nasal Cannula 2.00 12/01/17 00:00 63 11/30/17 20:00 98.8 72 28 152/66 (94) 92 11/30/17 20:00 92 Nasal Cannula 2.00 11/30/17 20:00 72 11/30/17 19:40 94 Nasal Cannula 2.00 11/30/17 16:00 68 11/30/17 16:00 98.7 68 24 148/66 (93) 98 11/30/17 16:00 98 Nasal Cannula 2.00 I/O 11/30/17 11/30/17 11/30/17 12/01/17 12/01/17 12/01/17 07:00 15:00 23:00 07:00 15:00 23:00 Intake Total 100 ml 720 ml Output Total 600 ml Balance 100 ml 120 ml Intake Oral 720 ml IV Total 100 ml Output Urine Total 600 ml # Voids 2 1 # Bowel Movements 3 1 Result Diagram: 11/30/17 0530 11/30/17 0530 Imaging Last Impressions Lung Scan-VQ Nuclear Medicine 11/29/17 0000 Signed Impressions: Service Date/Time: Wednesday, November 29, 2017 10:28 - CONCLUSION: Low probability scan for pulmonary embolism Cameron Spencer MD Chest X-Ray 11/29/17 0000 Signed Impressions: Service Date/Time: Wednesday, November 29, 2017 11:11 - CONCLUSION: Slight interval improvement of the diffuse bilateral pulmonary infiltrates with mild residual infiltrates. Stable cardiomegaly. Narciso Pedraza MD Renal Ultrasound 11/20/17 0000 Signed Impressions: Service Date/Time: Monday, November 20, 2017 16:17 - CONCLUSION: 1. Echogenic kidneys typical of chronic parenchymal disease. No obstructive uropathy or other acute abnormality demonstrated. 2. Sludge and at least one stone in the gallbladder. Camerno Alberts MD Head CT 11/20/17 0000 Signed Impressions: Service Date/Time: Monday, November 20, 2017 21:48 - CONCLUSION: No acute intracranial abnormality demonstrated. Cameron Alberts MD Lower Extremity Ultrasound 11/17/17 0000 Signed Impressions: Service Date/Time: Friday, November 17, 2017 21:57 - CONCLUSION: Normal examination. Albert Kendall MD Lower Extremity CT 11/16/17 1344 Signed Impressions: Service Date/Time: Thursday, November 16, 2017 14:12 - CONCLUSION: 1. Extensive edema and inflammatory changes with skin thickening in the thigh especially laterally and posteriorly but also extending medially. No definite loculated abscess. Musculature grossly intact. No abnormal loculated air. No bony destructive changes. Moderate to severe osteoarthritis at the knee. Albert Kendall MD Tibia/Fibula X-Ray 11/16/17 0000 Signed Impressions: Service Date/Time: Thursday, November 16, 2017 11:19 - CONCLUSION: 1. No acute bony abnormalities identified within the tibia. Moderate to severe osteoarthritis with medial joint space. Fixation calcaneus with residual deformity. Albert Kendall MD Objective Remarks awake and alert anicteric no nuchal rigidity decreased breath sounds, no rales or wheeezes regular rhythm abdomen soft, nontender extremities no edema skin- dry superficial wounds- soles/feet moves all extremities spontaneously Procedures none A/P Problem List: (1) Acute hypoxemic respiratory failure ICD Code: J96.01 - Acute respiratory failure with hypoxia Status: Acute (2) Severe sepsis ICD Code: A41.9 - Sepsis, unspecified organism; R65.20 - Severe sepsis without septic shock Status: Acute (3) Cellulitis of right lower extremity ICD Code: L03.115 - Cellulitis of right lower limb Status: Acute (4) UTI (urinary tract infection) ICD Code: N39.0 - Urinary tract infection, site not specified Status: Acute (5) LEWIS (acute kidney injury) ICD Code: N17.9 - Acute kidney failure, unspecified Status: Acute Assessment and Plan 77 years old female Severe sepsis Urinary tract infection Pneumonia Cellulitis S/P course of Rocephin today 12/01 Topical candidiasis (at groin) Nystatin and Diflucan Acute respiratory failure pulmonary hypertension BiPAP as needed Weaned to nonrebreather as tolerated Follow on pulse ox Oxygen as needed Continue breathing treatments as needed pulmonary consulted.appreciate input- OP ff up with Dr. Muñoz Diabetes mellitus type 2 Follow blood sugars Insulin sliding scale Diabetic diet Hypertension Continue Coreg Follow blood pressures Acute renal failure Chronic kidney disease Monitor renal function- non oliguric Component of cardiorenal syndrome suspected Patient has shown improvement through time Hypothyroidism Continue Levothyroxine Follow TSH, T3, and T4 as an outpatient Atrial fibrillation- currently in SR Continue amiodarone Continue Coreg Continue digoxin Pradaxa resumed on 11/24/17 Follow on telemetry Acute encephalopathy.- resolved Was related to septic state and respiratory failure Hypokalemia- corrected Follow potassium levels Replace as needed Possible acute diastolic congestive heart failure versus pulmonary edema cardiology following- OP ff up wound on the lower back continue wound care DVT prophylaxis dc heparin- Continue Pradaxa DC to SNF today Problem Qualifiers (1) UTI (urinary tract infection): Qualified Codes: N39.0 - Urinary tract infection, site not specified Jone Foster MD Dec 01, 2017 13:17
[2017-12-01] MEDS ORDERED: COLL30T TOPICAL (13:22)
[2017-12-01] MEDS ORDERED: LEVEMIR SQ (13:22)
[2017-12-01] MEDS ORDERED: NOVOLOGP2 SQ (13:22)
--- NOTE | 2017-12-01 13:27 | HHI.DS ---
Discharge Summary Admission Date Nov 16, 2017 at 12:39 Discharge Date: Dec 01, 2017 Admitting Diagnosis severe sepsis, cellulitis (1) Acute hypoxemic respiratory failure ICD Code: J96.01 - Acute respiratory failure with hypoxia Diagnosis: Principal Status: Acute (2) Severe sepsis ICD Code: A41.9 - Sepsis, unspecified organism; R65.20 - Severe sepsis without septic shock Diagnosis: Principal Status: Acute (3) Cellulitis of right lower extremity ICD Code: L03.115 - Cellulitis of right lower limb Diagnosis: Principal Status: Acute (4) UTI (urinary tract infection) ICD Code: N39.0 - Urinary tract infection, site not specified Diagnosis: Secondary Status: Acute (5) LEWIS (acute kidney injury) ICD Code: N17.9 - Acute kidney failure, unspecified Diagnosis: Secondary Status: Acute Procedures toe nails cutting Brief History - From Admission 77-year-old white female being in for sepsis secondary to cellulitis and possible necrotizing fasciitis. Patient was in her usual state of health until about a week ago when she says she began noticing some increased swelling of her right lower extremity more than usual. This was associated with formation of some blistering and weeping. She started having pain with weightbearing yesterday and then this morning that's when she noticed a new onset redness extending from her ankle up to her knee prompting her to come to the emergency department. She does report feeling some nausea but no vomiting. She also thought she felt a fever yesterday. Does report a little cough but no shortness of breath or chest pain. She did recently go on vacation but does not think she injured herself or suffered any puncture site. CBC/BMP: 11/30/17 0530 11/30/17 0530 Significant Findings Laboratory Tests Test 11/29/17 04:10 11/30/17 05:30 Blood Urea Nitrogen 45 MG/DL (7-18) 51 MG/DL (7-18) Creatinine 1.50 MG/DL (0.50-1.00) 1.72 MG/DL (0.50-1.00) Random Glucose 164 MG/DL (74-106) 155 MG/DL (74-106) Sodium Level 133 MEQ/L (136-145) 131 MEQ/L (136-145) Chloride Level 90 MEQ/L (98-107) 90 MEQ/L (98-107) Carbon Dioxide Level 37.3 MEQ/L (21.0-32.0) 34.4 MEQ/L (21.0-32.0) Estimat Glomerular Filtration Rate 34 ML/MIN (>89) 29 ML/MIN (>89) White Blood Count 11.5 TH/MM3 (4.0-11.0) Red Blood Count 3.03 MIL/MM3 (4.00-5.30) Hemoglobin 8.4 GM/DL (11.6-15.3) Hematocrit 25.5 % (35.0-46.0) Red Cell Distribution Width 19.1 % (11.6-17.2) Neutrophils (%) (Auto) 70.9 % (16.0-70.0) Monocytes (%) (Auto) 17.6 % (0.0-8.0) Neutrophils # (Auto) 8.1 TH/MM3 (1.8-7.7) Monocytes # (Auto) 2.0 TH/MM3 (0-0.9) Imaging Last Impressions Lung Scan-V Nuclear Medicine 11/29/17 0000 Signed Impressions: Service Date/Time: Wednesday, November 29, 2017 10:28 - CONCLUSION: Low probability scan for pulmonary embolism Cameron Spencer MD Chest X-Ray 11/29/17 0000 Signed Impressions: Service Date/Time: Wednesday, November 29, 2017 11:11 - CONCLUSION: Slight interval improvement of the diffuse bilateral pulmonary infiltrates with mild residual infiltrates. Stable cardiomegaly. Narciso Pedraza MD Renal Ultrasound 11/20/17 0000 Signed Impressions: Service Date/Time: Monday, November 20, 2017 16:17 - CONCLUSION: 1. Echogenic kidneys typical of chronic parenchymal disease. No obstructive uropathy or other acute abnormality demonstrated. 2. Sludge and at least one stone in the gallbladder. Cameron Alberts MD Head CT 11/20/17 0000 Signed Impressions: Service Date/Time: Monday, November 20, 2017 21:48 - CONCLUSION: No acute intracranial abnormality demonstrated. Cameron Alberts MD Lower Extremity Ultrasound 11/17/17 0000 Signed Impressions: Service Date/Time: Friday, November 17, 2017 21:57 - CONCLUSION: Normal examination. Albert Kendall MD Lower Extremity CT 11/16/17 1344 Signed Impressions: Service Date/Time: Thursday, November 16, 2017 14:12 - CONCLUSION: 1. Extensive edema and inflammatory changes with skin thickening in the thigh especially laterally and posteriorly but also extending medially. No definite loculated abscess. Musculature grossly intact. No abnormal loculated air. No bony destructive changes. Moderate to severe osteoarthritis at the knee. Albert Kendall MD Tibia/Fibula X-Ray 11/16/17 0000 Signed Impressions: Service Date/Time: Thursday, November 16, 2017 11:19 - CONCLUSION: 1. No acute bony abnormalities identified within the tibia. Moderate to severe osteoarthritis with medial joint space. Fixation calcaneus with residual deformity. Albert Kendall MD PE at Discharge awake and alert anicteric no nuchal rigidity decreased breath sounds, no rales or wheeezes regular rhythm abdomen soft, nontender extremities no edema skin- dry superficial wounds- soles/feet moves all extremities spontaneously Hospital Course 77 years old female Severe sepsis Urinary tract infection Pneumonia Cellulitis S/P course of Rocephin today 12/01 Topical candidiasis (at groin) Nystatin and Diflucan Acute respiratory failure pulmonary hypertension BiPAP as needed Weaned to nonrebreather as tolerated Follow on pulse ox Oxygen as needed Continue breathing treatments as needed pulmonary consulted.appreciate input- OP ff up with Dr. Muñoz Diabetes mellitus type 2 Follow blood sugars Insulin sliding scale Diabetic diet Hypertension Continue Coreg Follow blood pressures Acute renal failure Chronic kidney disease Monitor renal function- non oliguric Component of cardiorenal syndrome suspected Patient has shown improvement through time Hypothyroidism Continue Levothyroxine Follow TSH, T3, and T4 as an outpatient Atrial fibrillation- currently in SR Continue amiodarone Continue Coreg Continue digoxin Pradaxa resumed on 11/24/17 Follow on telemetry Acute encephalopathy.- resolved Was related to septic state and respiratory failure Hypokalemia- corrected Follow potassium levels Replace as needed Possible acute diastolic congestive heart failure versus pulmonary edema cardiology following- OP ff up wound on the lower back continue wound care DVT prophylaxis dc heparin- Continue Pradaxa DC to SNF today Pt Condition on Discharge: Stable Discharge Disposition: Discharge to SNF Discharge Time: > 30 minutes Discharge Instructions DIET: Follow Instructions for: Heart Healthy Diet, Diabetic Diet Activities you can perform: Weight Bearing as Manuel Follow up Referrals: Cardiology - 1 Week with [facility] - 2 Weeks with [facility] - 1 Week with [facility] New Orders: COMP MET PROF (CMP) - 12/06/17 New Medications: Collagenase (Santyl) 250 Unit/Gram Oin 1 APPLIC TOPICAL DAILY for foot ulcers for 10 Days, TUBE Insulin Aspart Inj (Novolog Inj) 1,000 Unit/10 Ml Vial 5 UNITS SQ TIDAC for DM for 30 Days, #1 INJECTION Insulin Detemir Inj (Levemir Inj) 1,000 unit/ 10 ML Vial 10 UNITS SQ BID for DM for 30 Days, #30 INJECTION Do not mix with any other Insulin. Continued Medications: Amiodarone (Amiodarone) 100 Mg Tab Unknown Dose PO BID for Regulate Heart Beat, #60 TAB 0 Refills Atorvastatin (Atorvastatin) 10 Mg Tab Unknown Dose PO HS for Cholesterol Management, #30 TAB 0 Refills Carvedilol (Carvedilol) 3.125 Mg Tab Unknown Dose PO BID, #60 TAB 0 Refills Cholecalciferol (Vitamin D3) 1,000 Unit Cap Unknown Dose PO DAILY for Nutritional Supplement, #1 BOTTLE 0 Refills Dabigatran (Pradaxa) 75 Mg Cap Unknown Dose PO BID for Blood Clot Prevention, #60 CAP 0 Refills Docusate Sodium (Stool Softener) 50 Mg Capsule Unknown Dose Furosemide (Furosemide) 20 Mg Tab Unknown Dose PO BID, #60 TAB 0 Refills Levothyroxine (Levothyroxine) 25 Mcg Tab Unknown Dose PO DAILY for Thyroid, #30 TAB 0 Refills Discontinued Medications: Insulin Glargine Inj (Lantus Inj) 100 Unit/Ml Inj 32 UNITS DAILY Metformin (Metformin) 1,000 Mg Tab Unknown Dose PO BIDPC for Blood Sugar Management, #60 TAB 0 Refills Jone Foster MD Dec 01, 2017 13:27
[2017-12-01] MEDS ORDERED: Albuterol-Ipratropium Neb NEB (13:29)
--- NOTE | 2017-12-01 20:10 | PD.CARD.PN ---
Subjective Subjective Remarks Patient was seen this morning, late entry No SOB at this time Doing alright overall Objective Vital Signs / I&O Vital Signs Date Time Temp Pulse Resp B/P (MAP) Pulse Ox O2 Delivery O2 Flow Rate FiO2 12/01/17 15:32 99.2 68 18 143/63 (89) 91 12/01/17 11:49 98.7 70 18 144/65 (91) 90 12/01/17 07:52 98.6 68 18 117/58 (77) 90 12/01/17 04:26 63 12/01/17 03:35 98.0 68 18 133/60 (84) 96 12/01/17 02:29 98.9 67 18 115/56 (75) 95 12/01/17 02:00 Nasal Cannula 2.00 12/01/17 00:00 98.6 63 24 133/61 (85) 95 12/01/17 00:00 95 Nasal Cannula 2.00 12/01/17 00:00 63 I/O 11/30/17 11/30/17 11/30/17 12/01/17 12/01/17 12/01/17 07:00 15:00 23:00 07:00 15:00 23:00 Intake Total 100 ml 720 ml 480 ml Output Total 600 ml Balance 100 ml 120 ml 480 ml Intake Oral 720 ml 480 ml IV Total 100 ml Output Urine Total 600 ml # Voids 2 1 2 # Bowel Movements 3 1 1 Physical Exam GENERAL: NAD, AAOx3 SKIN: Warm and dry. HEAD: Atraumatic. Normocephalic. EYES: Pupils equal and round. No scleral icterus. No injection or drainage. ENT: No nasal bleeding or discharge. Mucous membranes pink and moist. NECK: Trachea midline. No JVD. CARDIOVASCULAR: Regular rate and rhythm. RESPIRATORY: No accessory muscle use. Decreased breath sounds bilaterally GASTROINTESTINAL: Abdomen soft, non-tender, nondistended. Hepatic and splenic margins not palpable. MUSCULOSKELETAL: Extremities without clubbing, cyanosis, or edema. No obvious deformities. NEUROLOGICAL: Awake and alert. No obvious cranial nerve deficits. Motor grossly within normal limits. Five out of 5 muscle strength in the arms and legs. Normal speech. PSYCHIATRIC: Appropriate mood and affect; insight and judgment normal. Laboratory Laboratory Tests Test 11/29/17 04:10 11/30/17 05:30 Blood Urea Nitrogen 45 MG/DL (7-18) 51 MG/DL (7-18) Creatinine 1.50 MG/DL (0.50-1.00) 1.72 MG/DL (0.50-1.00) Random Glucose 164 MG/DL (74-106) 155 MG/DL (74-106) Calcium Level 8.7 MG/DL (8.5-10.1) 9.3 MG/DL (8.5-10.1) Sodium Level 133 MEQ/L (136-145) 131 MEQ/L (136-145) Potassium Level 4.0 MEQ/L (3.5-5.1) 4.1 MEQ/L (3.5-5.1) Chloride Level 90 MEQ/L (98-107) 90 MEQ/L (98-107) Carbon Dioxide Level 37.3 MEQ/L (21.0-32.0) 34.4 MEQ/L (21.0-32.0) Anion Gap 6 MEQ/L (5-15) 7 MEQ/L (5-15) Estimat Glomerular Filtration Rate 34 ML/MIN (>89) 29 ML/MIN (>89) White Blood Count 11.5 TH/MM3 (4.0-11.0) Red Blood Count 3.03 MIL/MM3 (4.00-5.30) Hemoglobin 8.4 GM/DL (11.6-15.3) Hematocrit 25.5 % (35.0-46.0) Mean Corpuscular Volume 84.3 FL (80.0-100.0) Mean Corpuscular Hemoglobin 27.7 PG (27.0-34.0) Mean Corpuscular Hemoglobin Concent 32.8 % (32.0-36.0) Red Cell Distribution Width 19.1 % (11.6-17.2) Platelet Count 257 TH/MM3 (150-450) Mean Platelet Volume 9.9 FL (7.0-11.0) Neutrophils (%) (Auto) 70.9 % (16.0-70.0) Lymphocytes (%) (Auto) 10.2 % (9.0-44.0) Monocytes (%) (Auto) 17.6 % (0.0-8.0) Eosinophils (%) (Auto) 0.4 % (0.0-4.0) Basophils (%) (Auto) 0.9 % (0.0-2.0) Neutrophils # (Auto) 8.1 TH/MM3 (1.8-7.7) Lymphocytes # (Auto) 1.2 TH/MM3 (1.0-4.8) Monocytes # (Auto) 2.0 TH/MM3 (0-0.9) Eosinophils # (Auto) 0.1 TH/MM3 (0-0.4) Basophils # (Auto) 0.1 TH/MM3 (0-0.2) CBC Comment DIFF FINAL Differential Comment Assessment and Plan Problem List: (1) Afib ICD Codes: I48.91 - Unspecified atrial fibrillation (2) Congestive heart failure ICD Codes: I50.9 - Heart failure, unspecified Status: Chronic (3) Severe sepsis ICD Codes: A41.9 - Sepsis, unspecified organism; R65.20 - Severe sepsis without septic shock Status: Acute (4) UTI (urinary tract infection) ICD Codes: N39.0 - Urinary tract infection, site not specified Status: Acute (5) Pulmonary hypertension ICD Codes: I27.20 - Pulmonary hypertension, unspecified (6) Renal insufficiency ICD Codes: N28.9 - Disorder of kidney and ureter, unspecified; R65.20 - Severe sepsis without septic shock Status: Acute (7) Cellulitis of right lower extremity ICD Codes: L03.115 - Cellulitis of right lower limb Status: Acute Assessment and Plan 1) Severe sepsis per primary team 2) Severe PHTN on echocardiogram Discussed with family, does not believe she was diagnosed with before Pulmonary evaluation appreciated Requesting RHC Per the patient, she talked with her family and wants to wait until getting back to [place] for RHC Discussed with the , they plan on seeing their 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
== END 2017-12-01 17:03 | DRG 871 ==
LOC: PHED 10:35 → PHEDA 12:39 → HIMW 16:45 → N07B 11-18 00:25 → HIMN 11-18 14:20 → N05A 12-01 02:00
PROVIDERS: ADMIT Internal Medicine; ATTEND Internal Medicine
PROC: 5A09357 Assistance with Respiratory Ventilation, Less than 24 Consecutive Hours, Continuous Positive Airway Pressure (ICD-10-PCS; 2017-11-18)
PROC: 0T9B70Z Drainage of Bladder with Drainage Device, Via Natural or Artificial Opening (ICD-10-PCS; principal; 2017-11-19)
PROC: 5A09357 Assistance with Respiratory Ventilation, Less than 24 Consecutive Hours, Continuous Positive Airway Pressure (ICD-10-PCS; 2017-11-20)
PROC: 30233N1 Transfusion of Nonautologous Red Blood Cells into Peripheral Vein, Percutaneous Approach (ICD-10-PCS; 2017-11-23)
PROC: 0T9B70Z Drainage of Bladder with Drainage Device, Via Natural or Artificial Opening (ICD-10-PCS; 2017-11-25)
PROC: 0HBRXZZ Excision of Toe Nail, External Approach (ICD-10-PCS; 2017-11-29)
PROC: 0HBRXZZ Excision of Toe Nail, External Approach (ICD-10-PCS; 2017-11-29)
PROC: 0HBRXZZ Excision of Toe Nail, External Approach (ICD-10-PCS; 2017-11-29)
PROC: 0HBRXZZ Excision of Toe Nail, External Approach (ICD-10-PCS; 2017-11-29)
PROC: 0HBRXZZ Excision of Toe Nail, External Approach (ICD-10-PCS; 2017-11-29)
PROC: 0HBRXZZ Excision of Toe Nail, External Approach (ICD-10-PCS; 2017-11-29)
PROC: 0HBRXZZ Excision of Toe Nail, External Approach (ICD-10-PCS; 2017-11-29)
PROC: 0HBRXZZ Excision of Toe Nail, External Approach (ICD-10-PCS; 2017-11-29)
PROC: 0HBRXZZ Excision of Toe Nail, External Approach (ICD-10-PCS; 2017-11-29)
PROC: 0HBRXZZ Excision of Toe Nail, External Approach (ICD-10-PCS; 2017-11-29)
DX: A40.9 Streptococcal sepsis, unspecified (principal); I50.31 Acute diastolic (congestive) heart failure; N17.9 Acute kidney failure, unspecified; J84.9 Interstitial pulmonary disease, unspecified; J96.01 Acute respiratory failure with hypoxia; J96.02 Acute respiratory failure with hypercapnia; G92 Toxic encephalopathy; J18.9 Pneumonia, unspecified organism; E87.0 Hyperosmolality and hypernatremia; I13.0 Hypertensive heart and chronic kidney disease with heart failure and stage 1 through stage 4 chronic kidney disease, or unspecified chronic kidney disease; I27.20 Pulmonary hypertension, unspecified; E87.2 Acidosis; E87.1 Hypo-osmolality and hyponatremia; N39.0 Urinary tract infection, site not specified; L03.115 Cellulitis of right lower limb; L97.909 Non-pressure chronic ulcer of unspecified part of unspecified lower leg with unspecified severity; B35.1 Tinea unguium; L89.159 Pressure ulcer of sacral region, unspecified stage; E11.22 Type 2 diabetes mellitus with diabetic chronic kidney disease; R65.20 Severe sepsis without septic shock; E11.622 Type 2 diabetes mellitus with other skin ulcer; E11.649 Type 2 diabetes mellitus with hypoglycemia without coma; D64.9 Anemia, unspecified; I48.0 Paroxysmal atrial fibrillation; Z79.01 Long term (current) use of anticoagulants; N18.9 Chronic kidney disease, unspecified; M19.90 Unspecified osteoarthritis, unspecified site; L89.619 Pressure ulcer of right heel, unspecified stage; Z91.19 Patient's noncompliance with other medical treatment and regimen; Z87.440 Personal history of urinary (tract) infections; S80.821A Blister (nonthermal), right lower leg, initial encounter; E03.9 Hypothyroidism, unspecified; Z79.4 Long term (current) use of insulin; E87.6 Hypokalemia; I48.2 Chronic atrial fibrillation; B96.20 Unspecified Escherichia coli [E. coli] as the cause of diseases classified elsewhere; Z16.12 Extended spectrum beta lactamase (ESBL) resistance; L22 Diaper dermatitis; K59.00 Constipation, unspecified; Z78.1 Physical restraint status; A46 Erysipelas; B37.2 Candidiasis of skin and nail; E07.81 Sick-euthyroid syndrome; R32 Unspecified urinary incontinence; I08.1 Rheumatic disorders of both mitral and tricuspid valves
CPT/HCPCS: 36430; 36600; 70450; 71045; 73590; 73700; 76775; 78582; 80048; 80053; 80202; 81001; 82140; 82306; 82550; 82570; 82728; 82784; 82805; 82948; 83036; 83540; 83550; 83605; 83735; 83880; 83883; 83970; 84100; 84132; 84156; 84300; 84439; 84443; 84481; 84484; 85007; 85025; 85027; 85610; 85730; 86160; 86334; 86403; 86803; 86850; 86900; 86901; 86920; 87040; 87070; 87077; 87086; 87186; 87205; 87340; 93306; 93971; 94002; 94003; 94640; 94664; 96365; 96367; A9540; A9567; J0696; J1205; J1630; J1644; J1815; J1940; J2185; J2543; J2930; J3370; J3475; J3480; J7030; J7040; J7050; J7070; P9016